=== PATIENT | male | born 1955 | race Caucasian/White ===

== ENCOUNTER 2023-05-13 09:02 | Outpatient (OUT) | payer OTHER, SELFPAY ==
[2023-05-13 09:47] LABS: Basophils Absolute Auto 0.1 10^3/uL (0.0-0.1); Basophils Percent Auto 0.7 % (0.2-2.0); Eosinophils Absolute Auto 0.3 10^3/uL (0.0-0.7); Eosinophils Percent Auto 3.3 % (0.9-7.0); Hematocrit 41.8 % (42.0-54.0); Hemoglobin 13.6 g/dL (14.0-18.0); Immature Granulocytes Abs Auto 0.04 10^3/uL (0.00-0.03); Immature Granulocytes Pct Auto 0.5 % (0.0-0.5); Lymphocytes Absolute Auto 3.5 10^3/uL (1.2-3.8); Lymphocytes Percent Auto 39.7 % (20.5-60.0); Mean Corpuscular HGB Conc 32.5 g/dL (29.9-35.2); Mean Corpuscular Hemoglobin 29.2 pg (25.9-34.0); Mean Corpuscular Volume 89.9 fL (80.0-94.0); Mean Platelet Volume 9.6 fL (9.5-13.5); Monocytes Absolute Auto 0.5 10^3/uL (0.3-0.8); Neutrophils Absolute Auto 4.4 10^3/uL (1.4-6.5); Neutrophils Percent Auto 49.8 % (43.0-75.0); Platelet Count 282 10^3/uL (150-450); Red Blood Count 4.65 10^6/uL (4.70-6.10); Red Cell Distribution Width 12.5 % (11.0-15.0); White Blood Count 8.8 10^3/uL (4.0-11.0)
[2023-05-13 09:59] LABS: Alanine Aminotransferase 30 U/L (16-63); Albumin Globulin Ratio 1.1; Albumin Level 3.6 g/dL (3.4-5.0); Alkaline Phosphatase 61 U/L (46-116); Aspartate Amino Transferase 18 U/L (15-37); BUN Creatinine Ratio 18.1; Bilirubin Total 0.4 mg/dL (0.2-1.0); Calcium 8.6 mg/dL (8.5-10.1); Carbon Dioxide 27.8 mmol/L (21.0-32.0); Chloride 105 mmol/L (98-107); Chol HDL Ratio 3.6; Cholesterol 173 mg/dL (<=200); Estimated GFR (African America >60 (>=60); Estimated GFR (Non-African Ame >60 (>=60); Globulin 3.3 g/dL; Glucose 196 mg/dL (74-106); HDL Cholesterol 48 mg/dL (40-60); LDL Cholesterol Calculated 107.6 mg/dL; Potassium 4.8 mmol/L (3.5-5.1); Sodium 138 mmol/L (136-145); Total Protein 6.9 g/dL (6.4-8.2); Triglycerides 87 mg/dL (<=150); VLDL CHOLESTEROL 17.4 mg/dL
[2023-05-13 10:26] LABS: Prostate Specific Antigen Scrn 6.46 ng/mL (<=4.00)
[2023-05-13 10:57] LABS: Estimated Average Glucose 169 mg/dL; Glycohemoglobin A1C 7.5 % (4.5-6.2)
== END 2023-05-13 09:03 | disposition home or self-care (01) ==
PROVIDERS: PCP Internal Medicine; Visit Provider Internal Medicine
DX: Z00.00 Encounter for general adult medical examination without abnormal findings (principal); Z12.5 Encounter for screening for malignant neoplasm of prostate
CPT/HCPCS: 36415; 80053; 80061; 83036; 85025; G0103

== ENCOUNTER 2024-05-26 09:21 | Outpatient (OUT) | payer OTHER, SELFPAY ==
[2024-05-26 09:49] LABS: Basophils Absolute Auto 0.1 10^3/uL (0.0-0.1); Basophils Percent Auto 0.6 % (0.2-2.0); Eosinophils Absolute Auto 0.2 10^3/uL (0.0-0.7); Eosinophils Percent Auto 2.8 % (0.9-7.0); Hematocrit 42.6 % (42.0-54.0); Hemoglobin 14.2 g/dL (14.0-18.0); Immature Granulocytes Abs Auto 0.06 10^3/uL (0.00-0.03); Immature Granulocytes Pct Auto 0.8 % (0.0-0.5); Lymphocytes Absolute Auto 3.3 10^3/uL (1.2-3.8); Lymphocytes Percent Auto 42.4 % (20.5-60.0); Mean Corpuscular HGB Conc 33.3 g/dL (29.9-35.2); Mean Corpuscular Hemoglobin 30.2 pg (25.9-34.0); Mean Corpuscular Volume 90.6 fL (80.0-94.0); Mean Platelet Volume 9.5 fL (9.5-13.5); Monocytes Absolute Auto 0.4 10^3/uL (0.3-0.8); Monocytes Percent Auto 4.8 % (1.7-12.0); Neutrophils Absolute Auto 3.8 10^3/uL (1.4-6.5); Neutrophils Percent Auto 48.6 % (43.0-75.0); Platelet Count 260 10^3/uL (150-450); Red Cell Distribution Width 12.3 % (11.0-15.0); White Blood Count 7.9 10^3/uL (4.0-11.0)
[2024-05-26 10:05] LABS: Microalbumin Urine Random <1.3 mg/dL (<=30.0)
[2024-05-26 10:05] LABS: Estimated Average Glucose 134 mg/dL; Glycohemoglobin A1C 6.3 % (4.5-6.2)
[2024-05-26 10:09] LABS: Alanine Aminotransferase 23 U/L (16-63); Albumin Globulin Ratio 1.1; Albumin Level 3.5 g/dL (3.4-5.0); Alkaline Phosphatase 66 U/L (46-116); Anion Gap 9.2; Aspartate Amino Transferase 18 U/L (15-37); BUN Creatinine Ratio 13.3; Bilirubin Total 0.4 mg/dL (0.2-1.0); Calcium 8.7 mg/dL (8.5-10.1); Carbon Dioxide 28.5 mmol/L (21.0-32.0); Chloride 106 mmol/L (98-107); Cholesterol 160 mg/dL (<=200); Estimated GFR (African America >60 (>=60); Estimated GFR (Non-African Ame >60 (>=60); Globulin 3.3 g/dL; Glucose 152 mg/dL (74-106); HDL Cholesterol 54 mg/dL (40-60); LDL Cholesterol Calculated 90.4 mg/dL; Potassium 4.7 mmol/L (3.5-5.1); Sodium 139 mmol/L (136-145); Total Protein 6.8 g/dL (6.4-8.2); Triglycerides 78 mg/dL (<=150); VLDL CHOLESTEROL 15.6 mg/dL
== END 2024-05-26 09:22 | disposition home or self-care (01) ==
LOC: LAB 09:25
PROVIDERS: PCP Internal Medicine; Visit Provider Internal Medicine
DX: Z00.00 Encounter for general adult medical examination without abnormal findings (principal)
CPT/HCPCS: 36415; 80053; 80061; 82043; 83036; 85025; G0103

== ENCOUNTER 2024-12-21 11:36 | Outpatient (OUT) | payer OTHER, SELFPAY ==
--- OUTSIDE RECORDS SUMMARY | 2024-12-21 11:41 | XMS_ITS | CCD ---
Author Organization [facility] Care Team Providers Care Medical Numerical Control Operator Name Role Phone Elpidio Sahu DO Primary Care Provider ROJELIO MYAES Attending Unavailable ROJELIO MAYES Admitting Unavailable ELPIDIO SAHU Primary Care Unavailable STACIA CLARK Consulting Unavailable DEYANIRA, DR PLATT Attending Unavailable DEYANIRA, DR PLATT Consulting Unavailable DEYANIRA, DR PLATT Primary Care Unavailable DEYANIRA, DR PLATT Admitting Unavailable Elpidio Sahu Unavailable ELPIDIO SAHU Primary Care Physician [phone] DO Elpidio Sahu Primary Care Provider [phone] MD Thong Matos Attending Provider Thong MATOS Attending Unavailable MATOS, Thong Sherwood Attending Unavailable EDY, Thong Sherwood Attending Unavailable MATOS, Thong Sherwood Attending Unavailable Edy, Thong Admitting Unavailable Edy, Thong Attending Unavailable Elpidio Sahu Primary Care Unavailable Edy, Thong Admitting Unavailable Edy, Thong Attending Unavailable Deyanira, Elpidio Primary Care Unavailable Allergies Allergy Classification Reported Allergen(s) Allergy Type Date of Onset Reaction(s) Facility (1 source) No Known Medication Allergies; Translations: [No Known Medication Allergies] Propensity to adverse reactions (disorder) [facility] Medications Current Medications Medication Drug Class(es) Dates Sig (Normalized) Sig (Original) 0.25 MG, 0.5 MG Dose 3 ML semaglutide 0.68 MG/ML Pen Injector [Ozempic] (2 sources) Start: 06-18-2024 Ozempic 2 mg/3 mL (0.25 mg or 0.5 mg dose) subcutaneous solution 0.5 mg Start Date: 06/18/24 Status: Ordered Acetaminophen (1 source) Start: 07-23-2021 acetaminophen (TYLENOL) tablet 650 mg ascorbic acid 1000 mg oral tablet (2 sources) Vitamin C Start: 07-26-2021 take 1 tablet by mouth once daily ascorbic acid (VITAMIN C) 1000 MG tablet Take 1 tablet by mouth daily 30 tablet 3 07/26/2021 Active Start: 07-24-2021 take 1000 mg by mouth once johanny ly 1,000 mg, Oral, DAILY, First dose on Tue07/24/21 at 0900 budesonide 0.25 mg/ml inhalation suspension (1 source) Corticosteroid Start: 07-23-2021 take 500 ug by mouth twice daily 500 mcg (0.5 mg), Nebulization, 2 TIMES DAILY, First dose on Tue07/23/21 at 2230 Rinse mouth out with water (without swallowing) after every dose. cholecalciferol 0.05 mg oral tablet (2 sources) Vitamin D Start: 07-26-2021 take 1 tablet by mouth once daily Vitamin D (CHOLECALCIFEROL) 50 MCG (1999 UT) TABS tablet Take 1 tablet by mouth daily 60 tablet 0 07/26/2021 Active Start: 07-24-2021 take 2000 [IU] by mt ut once daily 2,000 Units, Oral, DAILY, First dose on Tue07/24/21 at 0900 Maintenance Dose. dexamethasone 6 mg oral tablet (3 sources) Corticosteroid Start: 07-25-2021 End: 08-02-2021 take 1 tablet by mouth once daily at breakfast dexamethasone (DECADRON) 6 MG tablet Take 1 tablet by mouth daily (with breakfast) for 8 days 8 tablet 0 07/25/2021 08/02/2021 Active Start: 07-23-2021 End: 08-03-2021 6 mg, IntraVENous, EVERY 24 HOURS, First dose on Tue07/24/21 at 2000, For 10 doses dextromethorphan hydrobromide 2 mg/ml / guaiFENesin 20 mg/ml oral suspension (1 source) Uncompetitive H-gpfprt-C-aspartate Receptor Antagonist, Sigma-1 Agonist Start: 07-23-2021 take 5 mL by mouth every four hours as needed for cough 5 mL, Oral, EVERY 4 HOURS PRN, Cough, Starting on Tue07/23/21 at 2211 0.3 ml enoxaparin sodium 100 mg/ml prefilled syringe (1 source) Low Molecular Weight Heparin Start: 07-23-2021 inject 30 mg by subcutaneous injection twice daily 30 mg, SubCUTAneous, 2 TIMES DAILY, First dose on [place] 07/23/21 at 2230 glucagon (rdna) 1 mg injection (1 source) Antihypoglycemic Agent Start: 07-23-2021 take 1 mL intravenously every hour 1 mg, IntraMUSCular , PRN, Low blood sugar, Blood glucose less than 70 mg/dL and patient NOT ALERT or NPO and does not have IV access., Starting on [place] 07/23/21 at 2211 After administratio n, attempt intravenous access and start D5W at 100 mL/hr. Repeat blood glucose in 15 minutes x2 and notify provider. 150 ml glucose 50 mg/ml injection (3 sources) Start: 07-23-2021 15 g, Oral, PRN, Low blood sugar, Starting on [place] 07/23/21 at 2211 If blood glucose less than 50 mg/dL and patient ALERT and TOLERATING PO, give 2 tubes glucose gel. If blood glucose less than 70 mg/dL and patient ALERT and TOLERATING PO, give 1 tube glucose gel. Rep eat blood glucose in 15 minutes. If blood glucose is less than 70 mg/dL, repeat treatment and recheck blood glucose in 15 minutes x2 and notify provider. Start: 07-23-2021 12.5 g, IntraV ENous, PRN, Low blood sugar, Blood glucose less than 70 mg/dL and patient NOT ALERT or NPO., Starting on Tue07/23/21 at 2211 If patient does not respond within 5 minutes, repeat dose x1. Start D5W at 100 mL/hour until ordering provider can be reached. Repeat blood glucose in 15 minutes. If blood glucose is less than 70 mg/dL, repeat treatment and recheck blood glucose in 15 minutes x2. If using Glucostabilizer, dose as instructed per system. Start: 07-23-2021 100 mL/hr, Int raVENous, at 100 mL/hr, PRN, Low blood sugar, Starting on Tue07/23/21 at 2211 Start infusion following administration of dextrose 50% or glucagon. 3 ml insulin detemir 100 unt/ml pen injector (1 source) Insulin Analog Start: 07-25-2021 insulin detemi r (LEVEMIR FLEXTOUCH) 100 UNIT/ML injection pen Inject 10 Units into the skin daily (with breakfast) 2 pen 1 07/25/2021 Active insulin lispro 100 unt/ml injectable solution (2 sources) Insulin Analog Start: 07-24-2021 0-12 Units, Ruiz bCUTAneous, 3 TIMES DAILY WITH MEALS, First dose on Tue07/24/21 at 0800 Medium Dose Correction Algorithm Glucose: Dose: 70-139 No Insulin 140-199 2 Units 200-249 4 Units 250-299 6 Units 300-349 8 Units 350-399 10 Units 400 and above 12 Units Start: 07-23-2021 0-6 Units, Sub CUTAneous, NIGHTLY, First dose on Khushboo 07/23/21 at 2230 If continuous tube feedings/TPN/NPO, give correction dose based on result, no reduction in dose. If eating or bolus tube feeding: Medium Dose Bedtime Correction Algorithm Glucose: Dose: 70-139 No Insulin 140-199 1 Unit 200-249 2 Units 250-299 3 Units 300-349 4 Units 350-399 5 Units 400 and above 6 Units lisinopril 10 mg oral tablet (7 sources) Angiotensin Converting Enzyme Inhibitor Start: 06-01-2024 take 10 mg by mouth once daily Lisinopril Active 10 MG PO Daily June 01, 2024 12:00am Start: 01-18-2020 take 1 mg by mouth once daily lisinopril 5 mg Tab mg tab(s), Oral, Daily, Refills(s) 0 Start Date: 01/18/20 Status: Ordered take 1 tablet by greg th once daily Lisinopril 10 MG Take 1 tablet by mouth once daily Active lovastatin 10 mg oral tablet (6 sources) HMG-CoA Reductase Inhibitor Start: 01-17-2020 take 1 mg by mouth once daily lovastatin 10 mg Tab mg tab(s), Oral, Daily, Refills(s) 0 Start Date: 01/17/20 Status: Ordered metFORMIN (15 sources) Biguanide Start: 06-27-2024 Metformin Acti ve 0 .ROUTE .COMPLEX 45 June 27, 2024 7:39am TAKE 1 TABLET BY MOUTH WITH BREAKFAST AND 1/2 (ONE-HALF) WITH SUPPER Start: 05-04-2024 End: 06-27-2024 Metformin Discontinued 0 .RO MARY .COMPLEX May 04, 2024 7:29am June 27, 2024 7:39am TAKE 1 TABLET BY MOUTH WITH BREAKFAST AND 1/2 (ONE-HALF) WITH SUPPER Start: 05-04-2024 Metformin Acti ve 0 .ROUTE .COMPLEX May 04, 2024 7:29am TAKE 1 TABLET BY MOUTH WITH BREAKFAST AND 1/2 (ONE-HALF) WITH SUPPER Start: 03-19-2024 End: 05-04-2024 Metformin Discontinued 0 .RO MARY .COMPLEX March 19, 2024 12:43pm May 04, 2024 7:29am TAKE 1 TABLET BY MOUTH WITH BREAKFAST AND 1/2 (ONE-HALF) WITH SUPPER FOR 30 DAYS Start: 03-19-2024 End: 03-19-2024 Metformin Discontinued 1000 MG PO March 19, 2024 12:00am March 19, 2024 12:43pm 1 tablet w/ bkfst and 1/2 w/ supper Orally bid Start: 01-17-2020 take 1 mg by mouth twice daily metformin 500 mg Tab mg tab(s), Oral, BID, Refills(s) 0 Start Date: 01/17/20 Status: Ordered metFORMIN HCl 10 00 MG 1 tablet w/ bkfst and 1/2 w/ supper Orally bid Active ondansetron (ZOFRAN-ODT) disintegrating tablet 4 mg (1 source) Start: 07-23-2021 ondansetron (Z OFRAN-ODT) disintegrating tablet 4 mg ozempic (0.25 or 0.5 mg/dose) 2 mg/3ml solution pen-injector (1 source) Start: 12-02-2023 Ozempic (0.25 or 0.5 MG/DOSE) 2 MG/3ML 0.25MG Subcutaneous weekly for 28 days Dec, Active polyethylene glycol 3350 72528 mg powder for oral solution (1 source) Osmotic Laxative Start: 07-23-2021 17 g, Oral, D AILY PRN, Constipation, Starting on Tue07/23/21 at 2211 First line therapy for constipation remdesivir 100 mg in sodium chloride 0.9 % 250 mL IVPB (2 sources) Start: 07-25-2021 End: 07-28-2021 remdesivir 100 mg in sodium chloride 0.9 % 250 mL IVPB Start: 07-24-2021 End: 07-25-2021 remdesivir 100 mg in sodium chloride 0.9 % 250 mL IVPB Semaglutide (2 sources) Start: 07-17-2024 inject 1 mg by subcutaneous injection every week Semaglutide Active 1 MG SUBCUT every week 3 July 17, 2024 5:43pm for 4 weeks 1000 ml sodium chloride 9 mg/ml injection (6 sources) Start: 07-24-2021 0.9 % sodium c hloride infusion Start: 07-23-2021 take 1 dose intraven ously twice daily 5-40 mL, IntraVENous, EVERY 12 HOURS SCHEDULED (2 times per day), First dose on Khushboo 07/23/21 at 2230 For Line Patency: Peripheral IV = 5 mL; Midline or Central Line = 10 mL/lumen. If following IV push medication, administer flush at same rate as the IV push. Flush volume is determined by type of infusion therapy being given. For non-viscous solutions use: Peripheral IV = 5 mL Midline or Central Line = 10 mL/lumen For viscous solutions (i.e. blood components, parenteral nutrition, contrast media, or after obtaining blood sample) use: Peripheral IV = 10 mL Midline or Central Line = 20 mL/lumen Start: 07-23-2021 take 5-40 mL intrave nously once as needed 5-40 mL, IntraVENous, PRN, Line Care, After every IV line use, Starting on Khushboo 07/23/21 at 2211 For Line Patency: Peripheral IV = 5 mL; Midline or Central Line = 10 mL/lumen. If following IV push medication, administer flush at same rate as the IV push. Flush volume is determined by type of infusion therapy being given. For non-viscous solutions use: Peripheral IV = 5 mL Midline or Central Line = 10 mL/lumen For viscous solutions (i.e. blood components, parenteral nutrition, contrast media, or after obtaining blood sample) use: Peripheral IV = 10 mL Midline or Central Line = 20 mL/lumen Start: 07-23-2021 take 25 mL intraveno usly every hour as needed 25 mL, IntraVENous, at 100 mL/hr, PRN, If patient receiving piggyback infusions without ordered maintenance IV fluids or with frequent/long duration piggyback infusions, Starting on Kh[place]boo 07/23/21 at 2211 Administer at the same rate as the piggyback being infused. Start: 07-23-2021 End: 07-23-2021 0.9 % sodium chloride bolus Completed/Discontinued Medications Medication Drug Class(es) Dates Sig (Normalized) Sig (Original) potassium chloride 10 meq extended release oral tablet (1 source) Start: 07-23-2021 End: 07-23-2021 40 mEq, Oral, ONCE, On [facility] 07/23/21 at 2230, For 1 dose Do not crush or break. Start: 07-23-2021 End: 07-23-2021 40 mEq, Oral, ONCE, On Kh[place]boo at 2230, For 1 dose Do not crush or break. Semaglutide (6 sources) Start: 02-03-2024 End: 07-17-2024 Semaglutide (Ozempic) 0.25 m g or 0.5 mg (2 mg/3 mL) pen injector Discontinued 0.5 MG SUBCUT every week 3 February 03, 2024 2:34pm July 17, 2024 5:43pm for 4 weeks Start: 02-03-2024 Semaglutide (O zempic) 0.25 mg or 0.5 mg (2 mg/3 mL) pen injector Active 0.5 MG SUBCUT every week 3 February 03, 2024 2:34pm for 4 weeks Start: 02-02-2024 End: 02-03-2024 Semaglutide (Ozempic) 0.25 m g or 0.5 mg (2 mg/3 mL) pen injector Discontinued 0.5 MG SUBCUT every week 3 February 02, 2024 12:00am February 03, 2024 2:34pm for 4 weeks Problems Problem Classification Problem Date Documented Date Episodic/Chronic Cancer of prostate (2 sources) Malignant neoplasm of prostate; Translations: [Malignant tumor of prostate] Onset: 08-31-2024 Chronic Diabetes mellitus with complications (8 sources) Hyperglycemia due to type 2 diabetes mellitus; Translations: [Type 2 diabetes mellitus with hyperglycemia] Chronic Diabetes mellitus without complication (2 sources) Diabetes mellitus 01-17-2020 Chronic Disorders of lipid metabolism (14 sources) Familial hypercholesterolemia ; Translations: [Familial hypercholesterolemia ] Onset: 04-29-2017 Chronic Essential hypertension (11 sources) Essential hypertension; Translations: [Essential (primary) hypertension] Chronic Genitourinary symptoms and ill-defined conditions (2 sources) Nocturia; Translations: [Nocturia] Episodic Hyperplasia of prostate (7 sources) Lower urinary tract symptoms due to benign prostatic hypertrophy; Translations: [Benign prostatic hyperplasia with lower urinary tract symptoms] Onset: 06-18-2024 Chronic Immunizations and screening for infectious disease (1 source) Vaccination given; Translations: [Encounter for immunization] Episodic Nutritional deficiencies (2 sources) Nutritional marasmus; Translations: [Unspecified severe protein-calorie malnutrition] Onset: 07-24-2021 Chronic Other male genital disorders (5 sources) Atypical small acinar proliferation of prostate; Translations: [Atypical small acinar proliferation of prostate] 05-31-2024 Episodic Other male genital disorders (3 sources) Atypical small acinar proliferation of prostate; Translations: [Neoplasm of uncertain behavior of prostate] 06-01-2024 Episodic Other nutritional; endocrine; and metabolic disorders (1 source) Simple obesity ; Translations: [Other obesity due to excess calories] Onset: 04-29-2017 Chronic Other nutritional; endocrine; and metabolic disorders (1 source) Body mass index 30+ - obesity; Translations: [Body mass index (BMI) 30.0-30.9, adult] Chronic Other nutritional; endocrine; and metabolic disorders (1 source) Obesity; Translations: [Obesity, unspecified] Chronic Other nutritional; endocrine; and metabolic disorders (1 source) Other obesity due to excess calories Chronic Other nutritional; endocrine; and metabolic disorders (1 source) Body mass index (BMI) 30.0-30.9, adult Chronic Other nutritional; endocrine; and metabolic disorders (5 sources) Overweight; Translations: [Overweight] Onset: 04-29-2017 06-13-2024 Episodic Other nutritional; endocrine; and metabolic disorders (3 sources) Overweight; Translations: [Overweight] Onset: 04-29-2017 Episodic Other screening for suspected conditions (not mental disorders or infectious disease) (14 sources) Encounter for screening for malignant neoplasm of prostate; Translations: [Raised prostate specific antigen] Onset: 05-12-2022 Episodic Viral infection (2 sources) COVID-19; Translations: [Pneumonia due to other virus not elsewhere classified] Onset: 07-23-2021 Episodic Viral infection (1 source) Disease caused by 2019-nCoV; Translations: [COVID-19] Results Test Name Value Interpretation Reference Range Facility Ambulatory Visit Summaryon 1 11-03-2023 Ambulatory Visit Summary Ambulatory Visi t Summary SID HAN :1955 Visit Date:09/03/2024 Ambulatory Visit Instructions Your Diagnosis Prostate cancer BPH (benign prostatic hyperplasia) Your Care Team Attending Physician - Thong MATOS MD Primary Care Physician - ELPIDIO SAHU DO This Is Your Medications List Contact prescribing physician if questions or concerns lisinopril (lisinopril 5 mg Tab) lovastatin (lovastatin 10 mg Tab) metformin (metformin 500 mg Tab) semaglutide (Ozempic 2 mg/3 mL (0.25 mg or 0.5 mg dose) subcutaneous solution) Procedures Performed MRI-US fusion guided transrectal biopsy of prostate (08/14/2024), Cholecystectomy, Tonsillectomy. Discharge Vitals Temperature (Temporal Artery) 37 ???C Heart Rate (Peripheral) 70 Respiratory Rate 18 Blood Pressure 136/75 Weight 95 kg Weight 209 lb What to do next Scheduled Follow-Up Appointments Tuesday 9:45 AM EDT With: Thong MATOS MD Where: [facility] [address] [place] [address]- You Need to Schedule the Following Appointments Follow Up with Thong MATOS MD, URL When: Where: [facility] [address], [facility] [place] [address]- Medications What How Much When Instructions Unchanged lisinopril (lisinopril 5 mg Tab) By Mouth Every day Contact prescribing physician if questions or concerns Unchanged lovastatin (lovastatin 10 mg Tab) By Mouth Every day Contact prescribing physician if questions or concerns Unchanged metformin (metformin 500 mg Tab) By Mouth 2 times a day Contact prescribing physician if questions or concerns Unchanged semaglutide (Ozempic 2 mg/ 3 mL (0.25 mg or 0.5 mg dose) subcutaneous solution) 0.5 Milligram Contact prescribing physician if questions or concerns Allergies No Known Medication Allergies Problems Ongoing - Any problem that you are currently receiving treatment for. Atypical small acinar proliferation of prostate BPH (benign prostatic hyperplasia) Diabetes mellitus Elevated PSA Hypercholesterolemia Hyperlipidemia Hypertension Overweight Prostate cancer Patient Survey You may receive a survey via text or e-mail asking about your office visit. Please share your experience with us by completing your survey. We appreciate your feedback and thank you for choosing us for your care. Education Materials Prostate Cancer The prostate is a small gland that produces fluid that makes up semen (seminal fluid). It is located below the bladder in men, in front of the rectum. Prostate cancer is the abnormal growth of cells in the prostate gland. What are the causes? The exact cause of this condition is not known. What increases the risk? You are more likely to develop this condition if: ??? You are 65 years of age or older. ??? You have a family history of prostate cancer. ??? You have a family history of breast and ovarian cancer. ??? You have genes that are passed from parent to child (inherited), such as BRCA1 and BRCA2. ??? You have Lucas syndrome. men and men of descent are diagnosed with prostate cancer at higher rates than other men. The reasons for this are not well understood and are likely due to a combination of genetic and environmental factors. What are the signs or symptoms? Symptoms of this condition include: ??? Problems with urination. This may include: ? A weak or interrupted flow of urine. ? Trouble starting or stopping urination. ? Trouble emptying the bladder all the way. ? The need to urinate more often, especially at night. ??? Blood in urine or semen. ??? Persistent pain or discomfort in the lower back, lower abdomen, or hips. ??? Trouble getting an erection. ??? Weakness or numbness in the legs or feet. How is this diagnosed? This condition can be diagnosed with: ??? A digital rectal exam. For this exam, a health care provider inserts a gloved finger into the rectum to feel the prostate gland. ??? A blood test called a prostate-specific antigen (PSA) test. ??? A procedure in which a sample of tissue is taken from the prostate and checked under a microscope (prostate biopsy). ??? An imaging test called transrectal ultrasonography. Once the condition is diagnosed, tests will be done to determine how far the cancer has spread. This is called staging the cancer. Staging may involve imaging tests, such as a bone scan, CT scan, PET scan, or MRI. Stages of prostate cancer The stages of prostate cancer are as follows: ??? Stage 1 (I). At this stage, the cancer is found in the prostate only. The cancer is not visible on imaging tests, and it is usually found by accident, such as during prostate surgery. ??? Stage 2 (II). At this stage, the cancer is more advanced than it is in stage 1, but the cancer has not sprea (more content not included)... Normal [facility] Urology Office/Clinic Noteon 09-03-2024 Urology Office/Clinic Note Urology Office/Clinic Note Chief Complaint review TRUS BX [id number] HPI Staff PO TRUS/MRI fusion bx 08/14/24, here to review path report. Last seen IO 06/18/24. Previous dx: elevated PSA, BPH. *No urologic meds Prostate MRI 07/25/24 [facility] [place] showed PI-RADS 4 lesion. Dysuria: denies Incomplete bladder emptying: denies Hematuria: denies Frequency: denies Urgency: denies Nocturia: 0-1x Stream: good steady Leaking: denies Post void dripping: denies Wearing pads/ Depends: denies Urge incontinence: denies Stress incontinence: denies Incontinence without Sensory Awareness: denies Abdominal pain: denies Flank pain: denies Sexual complaints: denies History of Present Illness Tests reviewed: UA, op note, path, MRI I have reviewed the previous health record information and history for this patient from Dr. Matos. I have reviewed and verified the staff HPI to be accurate for this encounter. Review of Systems PHQ Score Initial Depression Screen Score: 0 SCORE ROS - Provider Constitutional: denies weight loss, denies hot flashes. Eyes: denies eye problems. Gastrointestinal: denies nausea, denies vomiting. Cardiovascular: denies chest pain or angina. Integumentary: no dryness Musculoskeletal: denies musculoskeletal symptoms. ENMT: denies otolaryngeal symptoms. Respiratory: no shortness of breath. Heme/Lymph: denies easy bleeding tendency, denies easy bruising tendency. Psychiatric: no confusion, no anxiety. Genitourinary: See HPI. Physical Exam Vitals & Measurements T: 37 ???C(Temporal Artery) HR: 70(Peripheral) RR: 18 BP: 136/75 WT: 95 kg WT: 209 lb General Appearance: alert, no distress, well nourished, well developed male. Assessment/Plan Pt accompanied by an adult female today. 1. Prostate cancer (C61: Malignant neoplasm of prostate) PSA: 04/22/17- 4.22 05/28/17 - 3.49 & 12% 07/22/17 - 3.36 & 13% 05/26/18 - 4.27 01/05/20 - 4.75 05/16/21 - 5.99 05/08/22 - 5.45 05/13/23 - 6.46 05/26/24 - 6.80 TRUS/bx 09/06/17 - MILLY x 2 cores. TRUS/bx 11/07/18 - Benign prostatic tissue with chronic inflammation. DELICIA 06/18/24 - 45g, benign [1]. MRI prostate 07/25/24 - PI-RADS 4 posterior aspect L PZ mid gland 9 x 6 mm. No gross extracapsular extension. Prostate volume 58 cc. S/p fusion TRUS/bx 08/14/24 - Total of 17 cores. G6 (3+3) x 1 core (LLM), ~5% of submitted tissue. Small focus of atypical glands, suspicious for low grade adenocarcinoma x 1 core (RLM). The pathology report, which shows the presence of low grade, low volume prostate cancer, was disclosed to the patient in detail today. Educated pt on Austin scoring system. I discussed active surveillance protocol (PSA, DELICIA q4 mos, confirmatory bx 1-2 yrs from original bx) with the pt. R/Bs discussed. All questions were answered in terms the patient could understand completely. Pt is amenable. Follow up 4-6 mos with PSA, DELICIA or sooner if needed. Pt understands and agrees with plan. -Start active surveillance. 2. BPH (benign prostatic hyperplasia) (N40.0: Benign prostatic hyperplasia without lower urinary tract symptoms) UA neg. IPSS not completed (4). Not taking any BPH meds. Follow-up With When Contact Information EDY CARRINGTON, Thong Sherwood, URL [facility] [address], [place] [address]- Additional Instructions: 4-6 mos with PSA, DELICIA Patient Education Prostate Cancer I, Precious Guillory, personally scribed for Dr. Matos on 09/03/2024 11:29:31. . Documentation recorded by the scribe, Precious Guillory, accurately reflects the services(s) I performed and decisions made by me. Authenticated by Dr. Matos on 09/03/2024 11:35:17. Problem List/Past Medical History Ongoing Atypical small acinar proliferation of prostate BPH (benign prostatic hyperplasia) Diabetes mellitus Elevated PSA Hypercholesterolemia Hyperlipidemia Hypertension Overweight Prostate cancer Historical No qualifying data Procedure/Surgical History MRI-US fusion guided transrectal biopsy of prostate (08/14/2024), Cholecystectomy, Tonsillectomy. Medications lisinopril 5 mg Tab, Oral, Daily lovastatin 10 mg Tab, Oral, Daily metformin 500 mg Tab, Oral, BID Ozempic 2 mg/3 mL (0.25 mg or 0.5 mg dose) subcutaneous solution, 0.5 mg Allergies No Known Medication Allergies Social History Alcohol Current. Beer, Liquor. 1-2 times per week., 09/03/2024 Substance Abuse Never., 09/03/2024 Tobacco Former smoker, quit more than 30 days ago Tobacco Use:. Cigarettes, Household tobacco concerns: No. Yes, 09/03/2024 Family History Diabetes mellitus type 1: Father. Heart disease: Father. Immunizations Vaccine Date Status Comments influenza virus vaccine, inactivated 08/12/2023 Recorded SARSCoV2 mRNA(nvleiddky-bohk-u ucros) vac 03/26/2022 Recorded SARS-CoV-2 (COVID-19) mRNA BNT-162b2 vax 10/09/2021 Recorded SARS-CoV-2 (COVID-19) mRNA BNT-162b2 v (more content not included)... Normal [facility] Comment on above: Result Comment: Elec tronically Signed By: Thong MATOS MD\.br\Date and Time Signed: 09/03/24 11:35 EST\.br\Electronically Co-Signed By: Precious Guillory\.br\Date and Time Co-Signed: 09/03/24 11:30 EST\.br\Electronically Co-Signed By: Precious Guillory\.br\Date and Time Co-Signed: 09/03/24 11:32 EST Pathology Request for Lab Co rpon 08-14-2024 Pathology Request for Lab Michael Normal [facility] Comment on above: Order Comment: PATHO LOGY UROLOGY SPECIMEN Result Comment: See report. Scanned copy available in EMR. PERFORMED BY: [place] [address] PATHOLOGIST ENAMEL FINISHER FRANCISCO LOPEZ M.D. Performed By: #### P ATH TO [facility] #### [address] MR prostate wo/w conon 07-26 MR prostate wo/w con [facility] Main Lead [address] [place] [address] MRI Report Signed Patient: Sid Han MR#: [id number] : 1955 Acct:[id number] Age/Sex: 69 / M ADM Date: 07/25/24 Loc: Room: Type: [facility] Attending Dr: Tohng Matos MD Copies to: Thong Matos MD Ordering Provider: Thong Matos MD Date of Service: 07/25/24 MR/MR prostate wo/w con: R97.20 EXAMINATION: MR prostate wo/w con HISTORY: Elevated PSA. COMPARISON: NONE TECHNIQUE: Multiparametric imaging of the prostate gland was performed with IV contrast. FINDINGS: Prostate Dimensions: 4.9 x 3.9 x 5.8 cm Prostate Volume: 58 mL Peripheral Zone: Heterogenous inT2 signal suggestive of prior prostatitis. A focal area of T2 hypointensity is seen involving the posterior aspect of the left peripheral zone at the level of the mid gland measuring 9 x 6 mm with associated restricted diffusion and low ADC value. No gross extracapsular extension is seen. Please see series 6 image 17, series 7 and 50 image 17 and series 700 image 17. Central/Transitional Zone: BPH changes. Seminal Vesicles: Unremarkable Neurovascular bundles: Unremarkable. Lymphadenopathy: No evidence of lymphadenopathy. Bladder: No focal lesion. Bowel: The visualized bowel is without acute abnormality. Peritoneal Cavity: No free fluid. Bones: No suspicious bony lesion. MR/MR prostate wo/w con IMPRESSION: A focal area of T2 hypointensity is seen involving the posterior aspect of the left peripheral zone at the level of the mid gland measuring 9 x 6 mm with associated restricted diffusion and low ADC value. No gross extracapsular extension is seen. Please see series 6 image 17, series 7 and 50 image 17 and series 700 image 17.PI-RADS 4. Targeting of this area on biopsy is recommended. Impression dictated by: Huy Jimenez Jr., Yaritza.OMinda07/26/2024 8:55 AM Dictation Location: [place] [address] Transcribed By: [facility] 07/26/24854 Dictated By: Huy Jimenez Jr, DO 07/26/2434 Signed By: 07/26/2455 Normal [facility] ISTAT XRay CREon 07-25-2024 ISTAT GFR > 60.0 Normal [facility] Comment on above: Result Comment: PERF ORMED BY: [place] [address] PATHOLOGIST ENAMEL FINISHER FRANCISCO LOPEZ M.D. Performed By: #### I SCRE #### [address] No Panel InformationOrdered By: Thong Matos on 07-25-2024 Bedside Estimated GFR (eGFR) > 60.0 [facility] Whole blood creatinine measu rementOrdered By: Thong Matos on 07-25-2024 Creatinine [Mass/Vol] 1.0 mg/dL Normal 0.6-1.[address] [facility] Comment on above: ER/ESD physician is notified/shown all ISTAT results.Critical values may be confirmed by laboratory testing ifdeemed necessary by ER attending doctor. Result Comment: ER/E SD physician is notified/shown all ISTAT results. Critical values may be confirmed by laboratory testing if deemed necessary by ER attending doctor. Performed By: #### I SCRE #### [facility] [address] [id number] [facility] Ambulatory Visit Summaryon 0 06-18-2024 Ambulatory Visit Summary Ambulatory Visi t Summary SID HAN :1955 Visit Date:06/18/2024 Ambulatory Visit Instructions Your Diagnosis Elevated PSA BPH (benign prostatic hyperplasia) Tests Performed MRI Pelvis (Soft Tissue) w/ + w/o contrast -- Results Pending -- Please visit your patient portal for your results or contact your primary care physician. Your Care Team Attending Physician - Thong MATOS MD Primary Care Physician - ELPIDIO SAHU DO This Is Your Medications List Contact prescribing physician if questions or concerns lisinopril (lisinopril 5 mg Tab) lovastatin (lovastatin 10 mg Tab) metformin (metformin 500 mg Tab) semaglutide (Ozempic 2 mg/3 mL (0.25 mg or 0.5 mg dose) subcutaneous solution) Procedures Performed Cholecystectomy, Tonsillectomy. Discharge Vitals Heart Rate (Peripheral) 76 Blood Pressure 148/82 Height 182 cm Height 72 in Weight 95.5 kg Weight 210.1 lb BMI 28.83 What to do next Scheduled Follow-Up Appointments Tuesday 9:45 AM EDT With: Thong MATOS MD Where: [facility] [place] [id number]- You Need to Schedule the Following Appointments Follow Up with Thong MATOS MD, URL When: Where: [facility] [address], [place] [address]- [phone] Medications What How Much When Instructions Unchanged lisinopril (lisinopril 5 mg Tab) By Mouth Every day Contact prescribing physician if questions or concerns Unchanged lovastatin (lovastatin 10 mg Tab) By Mouth Every day Contact prescribing physician if questions or concerns Unchanged metformin (metformin 500 mg Tab) By Mouth 2 times a day Contact prescribing physician if questions or concerns Unchanged semaglutide (Ozempic 2 mg/ 3 mL (0.25 mg or 0.5 mg dose) subcutaneous solution) 0.5 Milligram Contact prescribing physician if questions or concerns Allergies No Known Medication Allergies Problems Ongoing - Any problem that you are currently receiving treatment for. Atypical small acinar proliferation of prostate BPH (benign prostatic hyperplasia) Diabetes mellitus Elevated PSA Hypercholesterolemia Hyperlipidemia Hypertension Overweight Patient Survey You may receive a survey via text or e-mail asking about your office visit. Please share your experience with us by completing your survey. We appreciate your feedback and thank you for choosing us for your care. Education Materials Magnetic Resonance Imaging Magnetic resonance imaging (MRI) is a painless test that produces detailed images of organs and tissues inside the body without using X-rays. During an MRI, strong magnets and radio waves work together to form images. MRI images may provide more details about a medical condition than X-rays, CT scans, and ultrasounds can provide. For a standard MRI, you will lie on a table that slides into a tunnel. In an open MRI, the tunnel will be open at the sides. In some cases, dye (contrast material) may be injected into your bloodstream to make the MRI images even clearer. Tell a health care provider about: ? Any allergies you have. ? All medicines you are taking, including vitamins, herbs, eye drops, creams, and yqqs-gnq-nklxacl medicines. ? Any surgeries you have had. ? Any medical conditions you have. ? Any metal you may have in your body. The magnets used in an MRI can cause metal objects in your body to move. Metal can also make it difficult to get clear images. Objects that may contain metal include: ? Any joint replacement (prosthesis), such as an artificial knee or hip. ? An implanted defibrillator, pacemaker, or neurostimulator. ? A metallic ear implant (cochlear implant). ? An artificial heart valve. ? A metallic object in the eye. ? Metal splinters. ? Bullet fragments. ? A port for delivering insulin or chemotherapy. ? Any tattoos you have. Some of the darker inks can cause problems with testing. ? Whether you are using a control implant such as an intrauterine device (IUD). ? Whether you are , may be , or are . ? Any fear of cramped spaces (claustrophobia). If this is a problem, it usually can be managed with medicines given prior to the MRI. What are the risks? Generally, this is a safe test. However, problems may occur, such as: ? If you have metal in your body and it is close to the area being tested, it may be hard to get high-quality images. ? If you are , you should avoid MRI tests during the first three months of . An MRI may affect an unborn baby. ? If dye is used: ? You may need to stop until the dye leaves your body naturally, if this applies. ? There is a risk of an allergic reaction to the dye. You can take medicines to prevent this reaction or to treat it if you have allergy (more content not included)... Normal [facility] Basophils Auto (Bld) [#/Vol] on 05-26-2024 Basophils (Bld) [#/Vol] 0.1 10 3/uL 0.0-0.1 [facility] Basophils/100 WBC Auto (Bld) on 05-26-2024 Basophils/100 WBC (Bld) 0.6 % 0.2-2.0 [facility] Cholesterol in LDL Calc [Mas s/Vol]on 05-26-2024 Cholesterol in LDL [Mass/Vol] 90.4 mg/dL [facility] Comment on above: <100 mg/dl [id number] 0-129 mg/dl NEAR OR ABOVE [id number] mg/dl BORDERLINE [id number] mg/dl HIGH>190 mg/dl VERY HIGH Cholesterol in VLDL Calc [Ma ss/Vol]on 05-26-2024 Cholesterol in VLDL [Mass/Vol] 15.6 mg/dL [facility] Eosinophils/100 WBC Auto (Bl d)on 05-26-2024 Eosinophils/100 WBC (Bld) 2.8 % 0.9-7.0 [facility] Erythrocyte distribution wid th Auto (RBC) [Ratio]on 05-26-2024 Erythrocyte distribution width (RBC) [Ratio] 12.3 % 11.0-15.0 [facility] Estimated glomerular filtrat ion rate (GFR) non- Americanon 05-26-2024 GFR/1.73 sq M.predicted among non-blacks MDRD (S/P/Bld) [Vol rate/Area] mL/min/{1.73_m2} >=60 [facility] Globulin Calc (S) [Mass/Vol] on 05-26-2024 Globulin (S) [Mass/Vol] 3.3 g/dL [facility] Glucose mean value [Mass/vol ume] in Blood Estimated from glycated hemoglobinon 05-26-2024 Average glucose Estimated from glycated hemoglobin (Bld) [Mass/Vol] 134 mg/dL [facility] Hematocrit Auto (Bld) [Volum e fraction]on 05-26-2024 Hematocrit (Bld) [Volume fraction] 42.6 % 42.0-54.0 [facility] Hemoglobin [Mass/volume] in Bloodon 05-26-2024 Hemoglobin (Bld) [Mass/Vol] 14.2 g/dL 14.0-18.0 [facility] Laboratory - Chemistry and C hemistry - challengeon 05-26-2024 Albumin [Mass/Vol] 3.5 g/dL 3.4-5.0 [facility] ALP [Catalytic activity/Vol] 66 U/L 46-116 [facility] ALT [Catalytic activity/Vol] 23 U/L 16-63 [facility] AST [Catalytic activity/Vol] 18 U/L 15-37 [facility] Bilirubin [Mass/Vol] 0.4 mg/dL 0.2-1.0 [facility] Calcium [Mass/Vol] 8.7 mg/dL 8.5-10.1 [facility] Chloride [Moles/Vol] 106 mmol/L 98-107 [facility] Cholesterol [Mass/Vol] 160 mg/dL <=200 [facility] Cholesterol in HDL [Mass/Vol] 54 mg/dL 40-60 [facility] Comment on above: > or =60 mg/dl - LOW CARDIOVASCULAR RISK<40 mg/dl - HIGH CARDIOVASCULAR RISK CO2 [Moles/Vol] 28.5 mmol/L 21.0-32.0 [facility] Creatinine [Mass/Vol] 0.98 mg/dL 0.70-1.[address] [facility] GFR/1.73 sq M.predicted MDRD (S/P/Bld) [Vol rate/Area] mL/min/{1.73_m2} >=60 [facility] Glucose [Mass/Vol] 152 mg/dL High 74-106 [facility] Potassium [Moles/Vol] 4.7 mmol/L 3.5-5.[address] [facility] Protein [Mass/Vol] 6.8 g/dL 6.4-8.2 [facility] Sodium [Moles/Vol] 139 mmol/L 136-145 [facility] Triglyceride [Mass/Vol] 78 mg/dL <=150 [facility] Urea nitrogen [Mass/Vol] 13.0 mg/dL 7.0-18.0 [facility] Urea nitrogen/Creatinine [Mass ratio] 13.3 mg/mg [facility] Laboratory - Hematology and Cell countson 05-26-2024 HbA1c (Bld) [Mass fraction] 6.3 % High 4.5-6.2 [facility] Comment on above: ADA RECOMMENDED LIMI T 4.0 - 6.0ADA THERAPEUTIC TARGET < 7.0ACTION SUGGESTED> 7.0 Immature granulocytes/100 WBC (Bld) 0.8 % High 0.0-0.5 [facility] Leukocytes [#/volume] correc bandar for nucleated erythrocytes in Blood by Automated counon 05-26-2024 WBC corrected for nucl RBC Auto (Bld) [#/Vol] 7.9 10 3/uL 4.0-11.0 [facility] Lymphocytes Auto (Bld) [#/Vo l]on 05-26-2024 Lymphocytes (Bld) [#/Vol] 3.3 10 3/uL 1.2-3.8 [facility] Lymphocytes/100 WBC Auto (Bl d)on 05-26-2024 Lymphocytes/100 WBC (Bld) 42.4 % 20.5-60.0 [facility] MCH Auto (RBC) [Entitic mass ]on 05-26-2024 MCH (RBC) [Entitic mass] 30.2 pg 25.9-34.0 [facility] MCHC Auto (RBC) [Mass/Vol]on 05-26-2024 MCHC (RBC) [Mass/Vol] 33.3 g/dL 29.9-35.[address] [facility] MCV Auto (RBC) [Entitic vol] on 05-26-2024 MCV (RBC) [Entitic vol] 90.6 fL 80.0-94.0 [facility] Microalbumin [Mass/volume] i n Urineon 05-26-2024 Albumin DL <= 20 mg/L (U) [Mass/Vol] mg/dL <=30.0 [facility] Monocytes Auto (Bld) [#/Vol] on 05-26-2024 Monocytes (Bld) [#/Vol] 0.4 10 3/uL 0.3-0.8 [facility] Monocytes/100 WBC Auto (Bld) on 05-26-2024 Monocytes/100 WBC (Bld) 4.8 % 1.7-12.0 [facility] Neutrophils Auto (Bld) [#/Vo l]on 05-26-2024 Neutrophils (Bld) [#/Vol] 3.8 10 3/uL 1.4-6.5 [facility] Neutrophils/100 WBC Auto (Bl d)on 05-26-2024 Neutrophils/100 WBC (Bld) 48.6 % 43.0-75.0 [facility] No Panel Informationon 05-26 Eosinophils # (Auto) 0.2 10 3/uL 0.0-0.[address] [facility] Immature Granulocyte # (Auto) 0.06 10 3/uL High 0.00-0.03 [facility] Prostate Specific Antigen Screen 6.80 ng/mL High <=4.00 [facility] Platelet mean volume Auto (B ld) [Entitic vol]on 05-26-2024 Platelet mean volume (Bld) [Entitic vol] 9.5 fL 9.5-13.5 [facility] Platelets Auto (Bld) [#/Vol] on 05-26-2024 Platelets (Bld) [#/Vol] 260 10 3/uL 150-450 [facility] RBC Auto (Bld) [#/Vol]on RBC (Bld) [#/Vol] 4.70 10 6/uL 4.70-6.10 [facility] Serum or plasma albumin/glob ulin mass ratioon 05-26-2024 Albumin/Globulin [Mass ratio] 1.1 {ratio} [facility] Serum or plasma anion gap de terminationon 05-26-2024 Anion gap [Moles/Vol] 9.2 mmol/L [facility] Serum or plasma total choles terol/high density lipoprotein (HDL) cholesterol mass nohemy 05-26-2024 Cholesterol.total/Choles terol in HDL [Mass ratio] 3.0 {ratio} [facility] Comment on above: 3.3 - 4.4 LOW RISK4. 4 - 7.1 AVERAGE RISK7.1 - 11.0 MODERATE RISK>11.0 HIGH RISK CBC AUTO DIFFon 05-08-2022 BASO # 0.1 103/ul Normal 0.0-0.1 [facility] Comment on above: Performed By: #### C BC #### [facility] [address] [place] [address] [address] Oniel Jackson Basophils/100 WBC (Bld) 0.6 % Normal 0.2-2.0 [facility] Comment on above: Performed By: #### C BC #### [facility] [address] [place] [address] Dr. Oniel Jackson EO # 0.2 103/ul Normal 0.0-0.7 [facility] Comment on above: Performed By: #### C BC #### [facility] [address] [place] [address] Dr. Oniel Jackson Eosinophils/100 WBC (Bld) 2.3 % Normal 0.9-7.0 [facility] Comment on above: Performed By: #### C BC #### [facility] [address] [place] [address] Dr. Oniel Jackson Erythrocyte distribution width (RBC) [Ratio] 12.5 % Normal 11.0-15.0 [facility] Comment on above: Performed By: #### C BC #### [facility] [address] [place] [address] Dr. Oniel Jackson Hematocrit (Bld) [Volume fraction] 43.3 % Normal 42.0-54.0 [facility] Comment on above: Performed By: #### C BC #### [facility] [address] [place] [address] Dr. Oniel Jackson Hemoglobin (Bld) [Mass/Vol] 14.1 g/dL Normal 14.0-18.0 [facility] Comment on above: Performed By: #### C BC #### [facility] [address] [place] [address] Dr. Oniel Jackson IG # 0.04 10e3/ul Critically high 0.00-0.03 [facility] Comment on above: Performed By: #### C BC #### [facility] [address] [place] [address] Dr. Oniel Jackson IG % 0.5 % Normal 0.0-0.5 [facility] Comment on above: Performed By: #### C BC #### [facility] [address] [place] [address] Dr. Oniel Jackson LYMPH # 3.7 103/ul Normal 1.2-3.8 [facility] Comment on above: Performed By: #### C BC #### [facility] [address] [place] [address] Dr. Oniel Jackson Lymphocytes/100 WBC (Bld) 42.3 % Normal 20.5-60.0 [facility] Comment on above: Performed By: #### C BC #### [facility] [address] [place] [address] Dr. Oniel Jackson MANUAL DIFF REQ NO Normal [facility] Comment on above: Performed By: #### C BC #### [facility] [address] [place] [address] Dr. Oniel Jackson MCH (RBC) [Entitic mass] 29.3 pg Normal 25.9-34.0 [facility] Comment on above: Performed By: #### C BC #### [facility] [address] [place] [address] Dr. Oniel Jackson MCHC (RBC) [Mass/Vol] 32.6 g/dL Normal 29.9-35.2 [facility] Comment on above: Performed By: #### C BC #### [facility] [address] [place] [address] Dr. Oniel Jackson MCV (RBC) [Entitic vol] 90.0 fL Normal 80.0-94.0 [facility] Comment on above: Performed By: #### C BC #### [facility] [address] [place] [address] Dr. Oniel Jackson MONO # 0.5 103/ul Normal 0.3-0.8 [facility] Comment on above: Performed By: #### C BC #### [facility] [address] [place] [address] Dr. Oniel Jackson Monocytes/100 WBC (Bld) 5.2 % Normal 1.7-12.0 [facility] Comment on above: Performed By: #### C BC #### [facility] [address] [place] [address] Dr. Oniel Jackson NEUT # 4.3 103/ul Normal 1.4-6.5 [facility] Comment on above: Performed By: #### C BC #### [facility] [address] [place] [address] Dr. Oniel Jackson Neutrophils/100 WBC (Bld) 49.1 % Normal 43.0-75.0 [facility] Comment on above: Performed By: #### C BC #### [facility] [address] [place] [address] Dr. Oniel Jackson Platelet mean volume (Bld) [Entitic vol] 9.4 fL Critically low 9.5-13.5 [facility] Comment on above: Performed By: #### C BC #### [facility] [address] [place] [address] Dr. Oniel Jackson PLT 292 103/ul Normal 150-450 [facility] Comment on above: Performed By: #### C BC #### [facility] [address] [place] [address] Dr. Oniel Jackson RBC 4.81 106/ul Normal 4.70-6.10 [facility] Comment on above: Performed By: #### C BC #### [facility] [address] [place] [address] Dr. Oniel Jackson WBC 8.8 103/ul Normal 4.0-11.0 [facility] Comment on above: Performed By: #### C BC #### [facility] [address] [place] [address] Dr. Oniel Jackson GLYCOHEMOGLOBIN A1Con 2021 ADA RECOMMENDATION SEE BELOW Normal [facility] Comment on above: Result Comment: ADA RECOMMENDED LIMIT 4.0 - 6.0 ADA THERAPEUTIC TARGET < 7.0 ACTION SUGGESTED > 7.0 Performed By: #### A 1C #### [facility] [address] [place] [address] Dr. Oniel Jackson Glucose [Mass/Vol] 154 mg/dL Normal [facility] Comment on above: Performed By: #### A 1C #### [facility] [address] [place] [address] Dr. Oniel Jackson HbA1c (Bld) [Mass fraction] 7.0 % Critically high 4.5-6.2 [facility] Comment on above: Performed By: #### A 1C #### [facility] [address] [place] [address] Dr. Oniel Jackson LIPID PROFILEon 05-08-2022 CHOL-HDL RATIO NORM SEE BELOW Normal [facility] Comment on above: Result Comment: 3.3 - 4.4 LOW RISK 4.4 - 7.1 AVERAGE RISK 7.1 - 11.0 MODERATE RISK >11.0 HIGH RISK Performed By: #### B MP, LIPID #### [facility] [address] [place] [address] Dr. Oniel Jackson Cholesterol [Mass/Vol] 200 mg/dL Normal <=200 [facility] Comment on above: Performed By: #### B MP, LIPID #### [facility] [address] [place] [address] Dr. Oniel Jackson Cholesterol in HDL [Mass/Vol] 48 mg/dL Normal 40-60 [facility] Comment on above: Performed By: #### B MP, LIPID #### [facility] [address] [place] [address] Dr. Oniel Jackson Cholesterol in LDL [Mass/Vol] 124.0 mg/dL Normal [facility] Comment on above: Performed By: #### B MP, LIPID #### [facility] [address] [place] [address] Dr. Oniel Jackson Cholesterol.total/Choles terol in HDL [Mass ratio] 4.2 {ratio} Normal [facility] Comment on above: Performed By: #### B MP, LIPID #### [facility] [address] [place] [address] Dr. Oniel Jackson HDL NORMAL > or = 60 mg/dl - LO W CARDIOVASCULAR RISK <40 mg/dl - HIGH CARDIOVASCULAR RISK Normal [facility] Comment on above: Performed By: #### B MP, LIPID #### [facility] [address] [place] [address] Dr. Oniel Jackson LDL CALC NORMAL SEE BELOW Normal [facility] Comment on above: Result Comment: <100 mg/dl OPTIMAL 100 - 129 mg/dl NEAR OR ABOVE OPTIMAL 130 - 159 mg/dl BORDERLINE HIGH 160 - 189 mg/dl HIGH >190 mg/dl VERY HIGH Performed By: #### B MP, LIPID #### [facility] [address] [place] [address] Dr. Oniel Jackson Triglyceride [Mass/Vol] 140 mg/dL Normal <=150 [facility] Comment on above: Performed By: #### B MP, LIPID #### [facility] [address] [place] [address] Dr. Oniel Jackson VLDL CALC 28.0 mg/dL Normal [facility] Comment on above: Performed By: #### B MP, LIPID #### [facility] [address] [place] [address] Dr. Oniel Jackson PROF CHEM 8 (BAS METB)on Anion gap [Moles/Vol] 10.5 mmol/L Normal [facility] Comment on above: Performed By: #### B MP, LIPID #### [facility] [address] [place] [address] Dr. Oniel Jackson Calcium [Mass/Vol] 8.8 mg/dL Normal 8.5-10.1 [facility] Comment on above: Performed By: #### B MP, LIPID #### [facility] [address] [place] [address] Dr. Oniel Jackson Chloride [Moles/Vol] 104 mmol/L Normal 98-107 [facility] Comment on above: Performed By: #### B MP, LIPID #### [facility] [address] [address] [address] Oniel Jackson CO2 [Moles/Vol] 28.1 mmol/L Normal 21.0-32.0 [facility] Comment on above: Performed By: #### B MP, LIPID #### [facility] [address] [place] [address] Dr. Oniel Jackson Creatinine [Mass/Vol] 1.05 mg/dL Normal 0.70-1.30 [facility] Comment on above: Performed By: #### B MP, LIPID #### [facility] [address] [place] [address] Dr. Oniel Jackson EGFR-AF [place]UGUESE >60 Normal >=60 [facility] Comment on above: Performed By: #### B MP, LIPID #### [facility] [address] [place] [address] Dr. Oniel Jackson EGFR-NON AF [place] >60 Normal >=60 [facility] Comment on above: Performed By: #### B MP, LIPID #### [facility] [address] [place] [address] Dr. Oniel Jackson Glucose [Mass/Vol] 180 mg/dL Critically high 74-106 [facility] [facility] Comment on above: Performed By: #### B MP, LIPID #### [facility] [address] [place] [address] Dr. Oniel Jackson Potassium [Moles/Vol] 4.6 mmol/L Normal 3.5-5.1 [facility] Comment on above: Performed By: #### B MP, LIPID #### [facility] [address] [place] [address] Dr. Oniel Jackson Sodium [Moles/Vol] 138 mmol/L Normal 136-145 [facility] Comment on above: Performed By: #### B MP, LIPID #### [facility] [address] [place] [address] Dr. Oniel Jackson Urea nitrogen [Mass/Vol] 13.0 mg/dL Normal 7.0-18.0 [facility] Comment on above: Performed By: #### B MP, LIPID #### [facility] [address] [place], [place] [address] Dr. Oniel Jackson Urea nitrogen/Creatinine [Mass ratio] 12.4 mg/mg Normal [facility] Comment on above: Performed By: #### B MP, LIPID #### [facility] [address] [place], [place] [address] Dr. Oniel Jackson C-Reactive Proteinon CRP [Mass/Vol] 53.6 mg/L High 0.0-5.0 [facility] Comment on above: Performed By: #### F DORON, CRP, FIB #### [facility] [address] [place], [place] [id number] Arm Rest Builder: Rogers Reno MD #### CLAUDINE, LD, CMPX, CDP #### [facility] [address] [place], [place] [phone] Arm Rest Builder: Richmond Nicole MD CRP [Mass/Vol] 119.5 mg/L High 0.0-5.0 [facility] Comment on above: Performed By: #### F DORON, CRP, FIB #### [facility] [address] [place], [place] [phone] Arm Rest Builder: Rogers Reno MD #### DIME, LD, CMPX, CDP #### [facility] [address] [place] [address] Arm Rest Builder: Richmond Nicole MD C-Reactive ProteinOrdered By : Stacia Saleh on 07-25-2021 CRP [Mass/Vol] 119.5 mg/L High 0.0 - 5.0 mg/L [facility] Phone: Interpretation and review of laboratory results Abnormal [facility] Phone: [facility] Phone: D-Dimer Teston 07-25-2021 D-Dimer Test 0.83 mg/L FEU High 0.00-0.59 [facility] Comment on above: Result Comment: When combined with a low clinical probability, a D dimer value of <0.50 mg/L FEU is considered negative for DVT and PE (negative predictive value of 98%, sensitivity of 97%). If this test is not being used to help rule out DVT and PE, then the following reference range should be utilized: 0.00 - 0.59 mg/L FEU. The D-Dimer assay is intended for use as an aid in the diagnosis of venous thromboembolism (DVT and PE) and the results should be interpreted in conjunction with the patient's medical history, clinical presentation, and other findings. Elevated levels of D-dimer activity can be seen in any state of coagulation activation and is not recommended in patients with therapeutic dose anticoagulant therapy for >24 hours, fibrinolytic therapy within the previous 7 days, trauma or surgery within the previous 4 weeks, disseminated malignancies, aortic aneurysm, sepsis, severe infections, pneumonia, severe skin infections, liver cirrhosis, advanced age, coronary disease, diabetes, and . A very low percentage of patients with DVT may yield D-dimer results below the cutoff of 0.5 mg/L FEU. This is known to be more prevalent in patients with distal DVT. Performed By: #### F DORON, CRP, FIB #### [facility] [address] [place], [place] [phone] Arm Rest Builder: Rogers Reno MD #### CLAUDINE, LD, CMPX, CDP #### [facility] [address] [place] [address] Arm Rest Builder: Richmond Nicole MD D-Dimer, QuantitativeOrdered By: Rojelio Mayes on 07-25-2021 D-Dimer, Quant 0.83 [facility] Work Phone: Comment on above: When combined with a low clinical probability, a D dimer value of <0.50 mg/L FEU is considered negative for DVT and PE (negative predictive value of 98%, sensitivity of 97%). If this test is not being used to help rule out DVT and PE, then the following reference range should be utilized: 0.00 - 0.59 mg/L FEU. The D-Dimer assay is intended for use as an aid in the diagnosis of venous thromboembolism (DVT and PE) and the results should be interpreted in conjunction with the patient's medical history, clinical presentation, and other findings. Elevated levels of D-dimer activity can be seen in any state of coagulation activation and is not recommended in patients with therapeutic dose anticoagulant therapy for >24 hours, fibrinolytic therapy within the previous 7 days, trauma or surgery within the previous 4 weeks, disseminated malignancies, aortic aneurysm, sepsis, severe infections, pneumonia, severe skin infections, liver cirrhosis, advanced age, coronary disease, diabetes, and . A very low percentage of patients with DVT may yield D-dimer results below the cutoff of 0.5 mg/L FEU. This is known to be more prevalent in patients with distal DVT. Interpretation and review of laboratory results Abnormal [facility] Phone: [facility] Phone: Glucose, Whole BloodOrdered By: Rojelio Mayes on 07-25-2021 Glucose [Mass/Vol] 317 mg/dL High 65 - 99 mg/dL [facility] Phone: Interpretation and review of laboratory results Abnormal [facility] Phone: [facility] Phone: Glucose [Mass/Vol] 266 mg/dL High 65 - 99 mg/dL [facility] Phone: Interpretation and review of laboratory results Abnormal [facility] Phone: [facility] Phone: Glucose [Mass/Vol] 172 mg/dL High 65 - 99 mg/dL [facility] Phone: Interpretation and review of laboratory results Abnormal [facility] Phone: [facility] Phone: Hepatic function panelOrdere d By: Rojelio Mayes on 07-25-2021 Albumin [Mass/Vol] 2.7 g/dL Low 3.5 - 5.2 g/dL [facility] Phone: Albumin/Globulin Ratio NOT REPORTED [facility] Phone: ALP (Bld) [Catalytic activity/Vol] 59 U/L 40 - 129 U/L [facility] Phone: ALT [Catalytic activity/Vol] 13 U/L 5 - 41 U/L [facility] Phone: AST [Catalytic activity/Vol] 10 U/L <40 [facility] Phone: Bilirubin [Mass/Vol] 0.16 mg/dL Low 0.30 - 1.20 mg/dL [facility] Phone: Bilirubin, Indirect CANNOT BE CALCULATED 0.00 - 1.00 mg/dL [facility] Phone: Bilirubin.indirect [Mass/Vol] mg/dL <0.31 mg/dL [facility] Phone: Free PSA/Total PSA [Mass fraction] 5.8 g/dL Low 6.4 - 8.3 g/dL [facility] Phone: Globulin NOT REPORTED 1.5 - 3.8 g/dL [facility] Phone: Interpretation and review of laboratory results Abnormal [facility] Phone: [facility] Phone: Liver Profileon 07-25-2021 Albumin [Mass/Vol] 2.7 g/dL Low 3.5-5.2 [facility] Comment on above: Performed By: #### F DORON, CRP, FIB #### [facility] [address] [place] [address] Arm Rest Builder: Rogers Reno MD #### NATHANIEL CHOW, CMPX, CDP #### [facility] [address] [place] [address] Arm Rest Builder: Richmond Nicole MD Alkaline Phos 59 U/L Normal 40-129 [facility] Comment on above: Performed By: #### F DORON, CRP, FIB #### [facility] [address] [place], [place] [phone] Arm Rest Builder: Rogers Reno MD #### DIMWesley, NATHANIEL, CMPX, CDP #### [facility] [address] [place], [place] [phone] Arm Rest Builder: Richmond Nicole MD ALT [Catalytic activity/Vol] 13 U/L Normal 5-41 [facility] Comment on above: Performed By: #### F DORON, CRP, FIB #### [address] [id number] Arm Rest Builder: Rogers Reno MD #### CLAUDINE, NATHANIEL, CMPX, CDP #### [facility] [address] [place], [place] [phone] Arm Rest Builder: Richmond Nicole MD AST [Catalytic activity/Vol] 10 U/L Normal <40 [facility] Comment on above: Performed By: #### F DORON, CRP, FIB #### [address] [id number] Arm Rest Builder: Rogers Reno MD #### NATHANIEL CHOW, CMPX, CDP #### [facility] [address] [place], [place] [phone] Arm Rest Builder: Richmond Nicole MD Bilirubin [Mass/Vol] 0.16 mg/dL Low 0.30-1.20 [facility] Comment on above: Performed By: #### F DORON, CRP, FIB #### [address] [id number] Arm Rest Builder: Rogers Reno MD #### DIMWesley, LD, CMPX, CDP #### [facility] [address] [place], [place] [id number] Arm Rest Builder: Richmond Nicole MD Bilirubin, Indirect CANNOT BE CALCULATED Normal 0.00-1 .00 [facility] Comment on above: Performed By: #### F DORON, CRP, FIB #### [address] [place] [address] Arm Rest Builder: Rogers Reno MD #### DIMWesley, LD, CMPX, CDP #### [facility] [address] [place], [place] [phone] Arm Rest Builder: Richmond Nicole MD Bilirubin.indirect [Mass/Vol] mg/dL Normal <0.31 [facility] Comment on above: Performed By: #### F DORON, CRP, FIB #### [address] [address] Arm Rest Builder: Rogers Reno MD #### CLAUDINE, NATHANIEL, CMPX, CDP #### [facility] [address] [place], [place] [phone] Arm Rest Builder: Richmond Nicole MD Protein [Mass/Vol] 5.8 g/dL Low 6.4-8.3 [facility] Comment on above: Performed By: #### F DORON, CRP, FIB #### [address] [address] Arm Rest Builder: Rogers Reno MD #### NATHANIEL CHOW, CMPX, CDP #### [facility] [address] [place], [place] [phone] Arm Rest Builder: Richmond Nicole MD Albumin/Glob Ratio NOT REPORTED Normal 1.0-2.5 [facility] Comment on above: Performed By: #### F DORON, CRP, FIB #### [address] [address] Arm Rest Builder: Rogers Reno MD #### DIME, LD, CMPX, CDP #### [facility] [address] [place], [place] [phone] Arm Rest Builder: Richmond Nicole MD Globulin Fraction NOT REPORTED Normal 1.5-3.8 [facility] Comment on above: Performed By: #### F DORON, CRP, FIB #### [facility] [address] [place], [place] [phone] Arm Rest Builder: Rogers Reno MD #### NATHANIEL CHOW, AZX, CDP #### [facility] [address] [place] [address] Arm Rest Builder: Richmond Nicole MD Procalcitoninon 07-25-2021 Procalcitonin 0.08 ng/mL Normal <0.09 [facility] Comment on above: Result Comment: Suspected Sepsis: <0.50 ng/mL Low likelihood of sepsis. 0.50-2.00 ng/mL Increased likelihood of sepsis. Antibiotics encouraged. >2.00 ng/mL High risk of sepsis/shock. Antibiotics strongly encouraged. Suspected Lower Resp Tract Infections: <0.24 ng/mL Low likelihood of bacterial infection. >0.24 ng/mL Increased likelihood of bacterial infection. Antibiotics encouraged. With successful antibiotic therapy, PCT levels should decrease rapidly. (Half-life of 24 to 36 hours.) Procalcitonin values from samples collected within the first 6 hours of systemic infection may still be low. Retesting may be indicated. Values from day 1 and day 4 can be entered into the Change in Procalcitonin Calculator (www.mlbmpk-kml-rhwpljpzof.com) to determine the patient's Mortality Risk Prognosis In healthy neonates, plasma Procalcitonin (PCT) concentrations increase gradually after , reaching peak values at about 24 hours of age then decrease to normal values below 0.5 ng/mL by 48-72 hours of age. Performed By: #### F DORON, CRP, FIB #### [facility] [address] [place], [place] [phone] Arm Rest Builder: Rogers Reno MD #### NATHANIEL CHOW, AZX, CDP #### [facility] [address] [place] [address] Arm Rest Builder: Richmond Nicole MD ProcalcitoninOrdered By: Rogers Saleh on 07-25-2021 Procalcitonin 0.08 ng/mL <0.09 [facility] Work Phone: Comment on above: Suspected Sepsis: <0.50 ng/mL Low likelihood of sepsis. 0.50-2.00 ng/mL Increased likelihood of sepsis. Antibiotics encouraged. >2.00 ng/mL High risk of sepsis/shock. Antibiotics strongly encouraged. Suspected Lower Resp Tract Infections: <0.24 ng/mL Low likelihood of bacterial infection. >0.24 ng/mL Increased likelihood of bacterial infection. Antibiotics encouraged. With successful antibiotic therapy, PCT levels should decrease rapidly. (Half-life of 24 to 36 hours.) Procalcitonin values from samples collected within the first 6 hours of systemic infection may still be low. Retesting may be indicated. Values from day 1 and day 4 can be entered into the Change in Procalcitonin Calculator (www.cjdsxl-luk-qoaakjbbbh.Leevia) to determine the patient's Mortality Risk Prognosis In healthy neonates, plasma Procalcitonin (PCT) concentrations increase gradually after , reaching peak values at about 24 hours of age then decrease to normal values below 0.5 ng/mL by 48-72 hours of age. [facility] Phone: C-Reactive Proteinon 021 CRP [Mass/Vol] 110.2 mg/L High 0.0-5.0 [facility] Comment on above: Performed By: #### F DORON, CRP, FIB #### [facility] [address] [place], [place] [phone] Arm Rest Builder: Rogers Reno MD #### CLAUDINE, LD, CMPX, CDP #### [facility] [address] [place] [address] Arm Rest Builder: Richmond Nicole MD C-Reactive ProteinOrdered By : Rojelio Mayes on 07-24-2021 CRP [Mass/Vol] 110.2 mg/L High 0.0 - 5.0 mg/L [facility] Phone: Interpretation and review of laboratory results Abnormal [facility] Phone: [facility] Phone: CBC Auto DifferentialOrdered By: Rojelio Mayes on 07-24-2021 Absolute Eos # 0.00 [facility] Work Phone: Absolute Immature Granulocyte NOT REPORTED [facility] Work Phone: Absolute Lymph # 0.[address] [facility] Work Phone: Absolute [place] # 0.20 [facility] Work Phone: Basophils (Bld) [#/Vol] 0.00 10*3/uL [employer] Work Phone: Basophils/100 WBC (Bld) 0 % 0 - 2 % [facility] [employer] Work Phone: Differential Type YES [facility] [employer] Work Phone: Eosinophils/100 WBC (Bld) 0 % 0 - 5 % [employer] Work Phone: Hematocrit (Bld) [Volume fraction] 40.6 % Low 41 - 53 % [employer] Work Phone: Hemoglobin.gastrointesti nal spec 1 Ql (Stl) 13.4 g/dL Low 13.5 - 17.5 g/dL [facility] Phone: Immature Granulocytes NOT REPORTED 0 % M [employer] Work Phone: Interpretation and review of laboratory results Abnormal [facility] Phone: Lymphocytes/100 WBC (Bld) 9 % Low 13 - 44 % [employer] Work Phone: MCH (RBC) [Entitic mass] 28.6 pg 26 - 34 pg [employer] Work Phone: MCHC (RBC) [Mass/Vol] 33.0 g/dL 31 - 37 g/dL [facility] [employer] Work Phone: MCV (RBC) [Entitic vol] 86.7 fL 80 - 100 fL [employer] Work Phone: Monocytes/100 WBC (Bld) 2 % Low 5 - 9 % [facility] [employer] Work Phone: NRBC Automated NOT REPORTED per 100 WBC [facility] Work Phone: Platelet distribution width (Bld) [Ratio] 12.6 % 12.1 - 15.2 % [facility] Phone: Platelet Estimate NOT REPORTED [facility] Phone: Platelet mean volume (Bld) [Entitic vol] NOT REPORTED 6.0 - 12.0 fL [facility] Phone: Platelets (Bld) [#/Vol] 493 10*3/uL High [facility] Phone: RBC (Bld) [#/Vol] 4.68 10*6/uL 4.5 - 5.9 m/uL [facility] Phone: RBC (Bld) [#/Vol] NOT REPORTED [facility] Phone: Segmented neutrophils/100 WBC (Bld) 89 % High 39 - 75 % [facility] Phone: Segs Absolute 8.10 High [facility] [employer] Work Phone: WBC (Bld) [#/Vol] 9.1 10*3/uL [facility] Phone: WBC (Bld) [#/Vol] NOT REPORTED [facility] Phone: [facility] Work Phone: CBC with Diffon 07-24-2021 Abs. Basophil 0.00 k/uL Normal 0.0-0.2 [facility] Comment on above: Performed By: #### F DORON, CRP, FIB #### [facility] [address] [place] [address] Arm Rest Builder: Rogers Reno MD #### DIME, LD, CMPX, CDP #### [facility] [address] [place] [address] Arm Rest Builder: Richmond Nicole MD Abs.Neutrophil (Seg) 8.10 k/uL High 2.1-6.5 [facility] Comment on above: Performed By: #### F DORON, CRP, FIB #### [address] [id number] Arm Rest Builder: Rogers Reno MD #### DIME, LD, CMPX, CDP #### [facility] [address] [place] [phone] Arm Rest Builder: Richmond Nicole MD Auto Diff Performed YES Normal [facility] Comment on above: Performed By: #### F DORON, CRP, FIB #### [address] [id number] Arm Rest Builder: Rogers Reno MD #### DIME, LD, CMPX, CDP #### [facility] [address] [place] [phone] Arm Rest Builder: Richmond Nicole MD Basophils/100 WBC (Bld) 0 % Normal 0-2 [facility] Comment on above: Performed By: #### F DORON, CRP, FIB #### [address] [id number] Arm Rest Builder: Rogers Reno MD #### DIME, LD, CMPX, CDP #### [facility] [address] [place], [place] [phone] Arm Rest Builder: Richmond Nicole MD Eosinophils (Bld) [#/Vol] 0.00 10*3/uL Normal 0.0-0.4 [facility] Comment on above: Performed By: #### F DORON, CRP, FIB #### [address] [id number] Arm Rest Builder: Rogers Reno MD #### DIME, LD, CMPX, CDP #### [facility] [address] [place], [place] [phone] Arm Rest Builder: Richmond Nicole MD Eosinophils/100 WBC (Bld) 0 % Normal 0-5 [facility] Comment on above: Performed By: #### F DORON, CRP, FIB #### [address] [id number] Arm Rest Builder: Rogers Reno MD #### DIME, LD, CMPX, CDP #### [facility] [address] [place], [place] [phone] Arm Rest Builder: Richmond Nicole MD Erythrocyte distribution width (RBC) [Ratio] 12.6 % Normal 12.1-15.2 [facility] Comment on above: Performed By: #### F DORON, CRP, FIB #### [address] [id number] Arm Rest Builder: Rogers Reno MD #### DIME, LD, CMPX, CDP #### [facility] [address] [place], [place] [phone] Arm Rest Builder: Richmond Nicole MD Hematocrit (Bld) [Volume fraction] 40.6 % Low 41-53 [facility] Comment on above: Performed By: #### F DORON, CRP, FIB #### [address] [id number] Arm Rest Builder: Rogers Reno MD #### DIME, LD, CMPX, CDP #### [facility] [address] [place], [place] [phone] Arm Rest Builder: Richmond Nicole MD Hemoglobin (Bld) [Mass/Vol] 13.4 g/dL Low 13.5-17.5 [facility] Comment on above: Performed By: #### F DORON, CRP, FIB #### [address] [id number] Arm Rest Builder: Rogers Reno MD #### DIME, LD, CMPX, CDP #### [facility] [address] [place] [address] Arm Rest Builder: Richmond Nicole MD Lymphocytes (Bld) [#/Vol] 0.80 10*3/uL Low 1.0-4.8 [facility] Comment on above: Performed By: #### F DORON, CRP, FIB #### [address] [id number] Arm Rest Builder: Rogers Reno MD #### DIME, LD, CMPX, CDP #### [facility] [address] [place] [address] Arm Rest Builder: Richmond Nicoel MD Lymphocytes/100 WBC (Bld) 9 % Low 13-44 [facility] Comment on above: Performed By: #### F DORON, CRP, FIB #### [address] [id number] Arm Rest Builder: Rogers Reno MD #### DIME, LD, CMPX, CDP #### [facility] [address] [place] [address] Arm Rest Builder: Richmond Nicole MD MCH (RBC) [Entitic mass] 28.6 pg Normal 26-34 [facility] Comment on above: Performed By: #### F DORON, CRP, FIB #### [address] [id number] Arm Rest Builder: Rogers Reno MD #### DIME, LD, CMPX, CDP #### [facility] [address] [place] [address] Arm Rest Builder: Richmond Nicole MD MCHC (RBC) [Mass/Vol] 33.0 g/dL Normal 31-37 [facility] Comment on above: Performed By: #### F DORON, CRP, FIB #### [address] [phone] Arm Rest Builder: Rogers Reno MD #### DIME, LD, CMPX, CDP #### [facility] [address] [place] [id number] Arm Rest Builder: Richmond Nicole MD MCV (RBC) [Entitic vol] 86.7 fL Normal 80-100 [facility] Comment on above: Performed By: #### F DORON, CRP, FIB #### [address] [id number] Arm Rest Builder: Rogers Reno MD #### DIME, LD, CMPX, CDP #### [facility] [address] [place] [id number] Arm Rest Builder: Richmond Nicole MD Monocytes (Bld) [#/Vol] 0.20 10*3/uL Normal 0.0-1.0 [facility] Comment on above: Performed By: #### F DORON, CRP, FIB #### [address] [id number] Arm Rest Builder: Rogers Reno MD #### DIME, LD, CMPX, CDP #### [facility] [address] [place] [id number] Arm Rest Builder: Richmond Nicole MD Monocytes/100 WBC (Bld) 2 % Low 5-9 [facility] Comment on above: Performed By: #### F DORON, CRP, FIB #### [address] [id number] Arm Rest Builder: Rogers Reno MD #### DIME, LD, CMPX, CDP #### [facility] [address] [place] [id number] Arm Rest Builder: Richmond Nicole MD Neutrophil (Seg) 89 % High 39-75 [facility] Comment on above: Performed By: #### F DORON, CRP, FIB #### [address] [place] [address] Arm Rest Builder: Rogers Reno MD #### DIME, LD, CMPX, CDP #### [facility] [address] [place], [place] [phone] Arm Rest Builder: Richmond Nicole MD Platelets (Bld) [#/Vol] 493 10*3/uL High 140-450 [facility] Comment on above: Performed By: #### F DORON, CRP, FIB #### [facility] [address] [place] [address] Arm Rest Builder: Rogers Reno MD #### DIME, LD, CMPX, CDP #### [facility] [address] [place], [place] [phone] Arm Rest Builder: Richmond Nicole MD RBC (Bld) [#/Vol] 4.68 10*6/uL Normal 4.5-5.9 [facility] Comment on above: Performed By: #### F DORON, CRP, FIB #### [address] [address] Arm Rest Builder: Rogers Reno MD #### DIMWesley, LD, CMPX, CDP #### [facility] [address] [place], [place] [id number] Arm Rest Builder: Richmond Nicole MD WBC (Bld) [#/Vol] 9.1 10*3/uL Normal 3.5-11.0 [facility] Comment on above: Performed By: #### F DORON, CRP, FIB #### [address] [address] Arm Rest Builder: Rogers Reno MD #### DIME, LD, CMPX, CDP #### [facility] [address] [place], [place] 1887290 Arm Rest Builder: Richmond Nicole MD Abs.Imm.Granulocyte NOT REPORTED Normal 0.00-0.30 [facility] Comment on above: Performed By: #### F DORON, CRP, FIB #### [facility] [address] [place] [address] Arm Rest Builder: Rogers Reno MD #### DIME, LD, CMPX, CDP #### [facility] [address] [place] [address] Arm Rest Builder: Richmond Nicole MD Immature Granulocyte NOT REPORTED Normal 0 [facility] Comment on above: Performed By: #### F DORON, CRP, FIB #### [address] [address] Arm Rest Builder: Rogers Reno MD #### DIME, LD, CMPX, CDP #### [facility] [address] [place], [place] [phone] Arm Rest Builder: Richmond Nicole MD MPV NOT REPORTED Normal 6.0-12.0 [facility] Comment on above: Performed By: #### F DORON, CRP, FIB #### [address] [address] Arm Rest Builder: Rogers Reno MD #### DIME, LD, CMPX, CDP #### [facility] [address] [place] [address] Arm Rest Builder: Richmond Nicole MD NRBC Automated NOT REPORTED Normal [facility] Comment on above: Performed By: #### F DORON, CRP, FIB #### [address] [address] Arm Rest Builder: Rogers Reno MD #### DIME, LD, CMPX, CDP #### [facility] [address] [place] [address] Arm Rest Builder: Richmond Nicole MD Platelet Estimate NOT REPORTED Normal [facility] Comment on above: Performed By: #### F DORON, CRP, FIB #### [address] [place], [place] [address] Arm Rest Builder: Rogers Reno MD #### DIME, LD, CMPX, CDP #### [facility] [address] [place] [address] Arm Rest Builder: Richmond Nicole MD RBC morphology finding Nom (Bld) NOT REPORTED Normal [facility] Comment on above: Performed By: #### F DORON, CRP, FIB #### [facility] [address] [place] [address] [id number] Arm Rest Builder: Rogers Reno MD #### DIME, LD, CMPX, CDP #### [facility] [facility] [address] [place] [address] Arm Rest Builder: Richmond Nicole MD WBC Morphology NOT REPORTED Normal [facility] Comment on above: Performed By: #### F DORON, CRP, FIB #### [address] [id number] Arm Rest Builder: Rogers Reno MD #### CLAUDINE, LD, CMPX, CDP #### [facility] [address] [place] [address] Arm Rest Builder: Richmond Nicole MD Comp Metabolic Pr/rfx MGon 0 07-24-2021 (cont.) Normal [facility] Comment on above: Result Comment: Aver age GFR for 60-69 years old: 85 mL/min/1.73sq m Chronic Kidney Disease: <60 mL/min/1.73sq m Kidney failure: <15 mL/min/1.73sq m eGFR calculated using average adult body mass. Additional eGFR calculator available at: http://www.flyRuby.com.com/multiple_crcl_2012.htm Performed By: #### F DORON, CRP, FIB #### [facility] [address] [place] [address] [id number] Arm Rest Builder: Rogers Reno MD #### DIME, LD, CMPX, CDP #### [facility] [address] [place], [place] [id number] Arm Rest Builder: Richmond Nicole MD Albumin [Mass/Vol] 2.8 g/dL Low 3.5-5.2 [facility] Comment on above: Performed By: #### F DORON, CRP, FIB #### [address] [id number] Arm Rest Builder: Rogers Reno MD #### DIME, LD, CMPX, CDP #### [facility] [address] [place] [address] Arm Rest Builder: Richmond Nicole MD Alkaline Phos 69 U/L Normal 40-129 [facility] Comment on above: Performed By: #### F DORON, CRP, FIB #### [address] [id number] Arm Rest Builder: Rogers Reno MD #### DIME, LD, CMPX, CDP #### [facility] [address] [place] [address] Arm Rest Builder: Richmond Nicole MD ALT [Catalytic activity/Vol] 15 U/L Normal 5-41 [facility] Comment on above: Performed By: #### F DORON, CRP, FIB #### [address] [id number] Arm Rest Builder: Rogers Reno MD #### DIME, LD, CMPX, CDP #### [facility] [address] [place] [address] Arm Rest Builder: Richmond Nicole MD Anion gap [Moles/Vol] 11 mmol/L Normal 9-17 [facility] Comment on above: Performed By: #### F DORON, CRP, FIB #### [address] [id number] Arm Rest Builder: Rogers Reno MD #### DIME, LD, CMPX, CDP #### [facility] [address] [place], [place] [id number] Arm Rest Builder: Richmond Nicole MD AST [Catalytic activity/Vol] 14 U/L Normal <40 [facility] Comment on above: Performed By: #### F DORON, CRP, FIB #### [address] [id number] Arm Rest Builder: Rogers Reno MD #### DIME, LD, CMPX, CDP #### [facility] [address] [place] [address] Arm Rest Builder: Richmond Nicole MD Bilirubin [Mass/Vol] 0.22 mg/dL Low 0.30-1.20 [facility] Comment on above: Performed By: #### F DORON, CRP, FIB #### [address] [id number] Arm Rest Builder: Rogers Reno MD #### DIME, LD, CMPX, CDP #### [facility] [address] [place] [address] Arm Rest Builder: Richmond Nicole MD BUN/CRE Ratio 23 High 9-20 [facility] Comment on above: Performed By: #### F DORON, CRP, FIB #### [address] [id number] Arm Rest Builder: Rogers Reno MD #### DIME, LD, CMPX, CDP #### [facility] [address] [place] [address] Arm Rest Builder: Richmond Nicole MD Calcium [Mass/Vol] 9.1 mg/dL Normal 8.6-10.4 [facility] Comment on above: Performed By: #### F DORON, CRP, FIB #### [address] [id number] Arm Rest Builder: Rogers Reno MD #### DIME, LD, CMPX, CDP #### [facility] [address] [place], [place] [id number] Arm Rest Builder: Richmond Nicole MD Chloride [Moles/Vol] 99 mmol/L Normal 98-107 [facility] Comment on above: Performed By: #### F DORON, CRP, FIB #### [address] [id number] Arm Rest Builder: Rogers Reno MD #### DIME, LD, CMPX, CDP #### [facility] [address] [place], [place] [id number] Arm Rest Builder: Richmond Nicole MD CO2 [Moles/Vol] 25 mmol/L Normal 20-31 [facility] Comment on above: Performed By: #### F DORON, CRP, FIB #### [address] [id number] Arm Rest Builder: Rogers Reno MD #### DIME, LD, CMPX, CDP #### [facility] [address] [place] [address] Arm Rest Builder: Richmond Nicole MD Creatinine [Mass/Vol] 0.91 mg/dL Normal 0.70-1.20 [facility] Comment on above: Performed By: #### F DORON, CRP, FIB #### [address] [id number] Arm Rest Builder: Rogers Reno MD #### DIME, LD, CMPX, CDP #### [facility] [address] [place], [place] [id number] Arm Rest Builder: Richmond Nicole MD GFR, Amer >60 Normal >60 [facility] Comment on above: Performed By: #### F DORON, CRP, FIB #### [address] [id number] Arm Rest Builder: Rogers Reno MD #### DIME, LD, CMPX, CDP #### [facility] [address] [place] [address] Arm Rest Builder: Richmond Nicole MD GFR,non Amer >60 Normal >60 [facility] Comment on above: Performed By: #### F DORON, CRP, FIB #### [address] [id number] Arm Rest Builder: Rogers Reno MD #### DIME, LD, CMPX, CDP #### [facility] [address] [place] [address] Arm Rest Builder: Richmond Nicole MD Glucose [Mass/Vol] 288 mg/dL High 70-99 [facility] Comment on above: Performed By: #### F DORON, CRP, FIB #### [address] [id number] Arm Rest Builder: Rogers Reno MD #### DIME, LD, CMPX, CDP #### [facility] [address] [place] [address] Arm Rest Builder: Richmond Nicole MD Potassium [Moles/Vol] 4.4 mmol/L Normal 3.7-5.3 [facility] Comment on above: Performed By: #### F DORON, CRP, FIB #### [address] [id number] Arm Rest Builder: Rogers Reno MD #### DIME, LD, CMPX, CDP #### [facility] [address] [place] [address] Arm Rest Builder: Richmond Nicole MD Protein [Mass/Vol] 7.0 g/dL Normal 6.4-8.3 [facility] Comment on above: Performed By: #### F DORON, CRP, FIB #### [address] [id number] Arm Rest Builder: Rogers Reno MD #### DIME, LD, CMPX, CDP #### [facility] [address] [place], [place] [phone] Arm Rest Builder: Richmond Nicole MD Sodium [Moles/Vol] 135 mmol/L Normal 135-144 [facility] Comment on above: Performed By: #### F DORON, CRP, FIB #### [address] [id number] Arm Rest Builder: Rogers Reno MD #### DIME, LD, CMPX, CDP #### [facility] [address] [place], [place] [id number] Arm Rest Builder: Richmond Nicole MD Urea nitrogen [Mass/Vol] 21 mg/dL Normal 8-23 [facility] Comment on above: Performed By: #### F DORON, CRP, FIB #### [address] [id number] Arm Rest Builder: Rogers Reno MD #### DIME, LD, CMPX, CDP #### [facility] [address] [place], [place] [id number] Arm Rest Builder: Richmond Nicole MD Albumin/Glob Ratio NOT REPORTED Normal 1.0-2.5 [facility] Comment on above: Performed By: #### F DORON, CRP, FIB #### [address] [id number] Arm Rest Builder: Rogers Reno MD #### DIME, LD, CMPX, CDP #### [facility] [address] [place], [place] [id number] Arm Rest Builder: Richmond Nicole MD Staging: NOT REPORTED Normal [facility] Comment on above: Performed By: #### F DORON, CRP, FIB #### [address] [id number] Arm Rest Builder: Rogers Reno MD #### CLAUDINE, LD, CMPX, CDP #### [facility] [address] [place] [address] Arm Rest Builder: Richmond Nicole MD Comprehensive Metabolic Pane l w/ Reflex to MGOrdered By: Rojelio Mayes on 07-24-2021 Albumin [Mass/Vol] 2.8 g/dL Low 3.5 - 5.2 g/dL [facility] Phone: Albumin/Globulin Ratio NOT REPORTED [facility] Phone: ALP (Bld) [Catalytic activity/Vol] 69 U/L 40 - 129 U/L [facility] Phone: ALT [Catalytic activity/Vol] 15 U/L 5 - 41 U/L [facility] Phone: Anion gap [Moles/Vol] 11 mmol/L 9 - 17 mmol/L [facility] Phone: AST [Catalytic activity/Vol] 14 U/L <40 [facility] Phone: Bilirubin [Mass/Vol] 0.22 mg/dL Low 0.30 - 1.20 mg/dL [facility] Phone: Calcium [Mass/Vol] 9.1 mg/dL 8.6 - 10. 4 mg/dL [facility] Phone: Chloride [Moles/Vol] 99 mmol/L 98 - 10 7 mmol/L [facility] Phone: CO2 [Moles/Vol] 25 mmol/L 20 - 31 mmol/L [facility] Phone: Creatinine [Mass/Vol] 0.91 mg/dL 0.70 - 1.20 mg/dL [facility] Phone: Free PSA/Total PSA [Mass fraction] 7.0 g/dL 6.4 - 8.3 g/dL [facility] Phone: GFR >60 >60 mL/min [employer] Phone: GFR Non- >60 >60 mL/min [facility] Phone: GFR/1.73 sq M.predicted MDRD (S/P/Bld) [Vol rate/Area] [facility] Phone: Comment on above: Average GFR for 60-6 9 years old: 85 mL/min/1.73sq m Chronic Kidney Disease: <60 mL/min/1.73sq m Kidney failure: <15 mL/min/1.73sq m eGFR calculated using average adult body mass. Additional eGFR calculator available at: http://www.Koogame/Answerology_crcl_2012.htm GFR/1.73 sq M.predicted MDRD (S/P/Bld) [Vol rate/Area] NOT REPORTED [facility] Phone: Glucose [Mass/Vol] 288 mg/dL High 70 - 99 mg/dL [facility] Phone: Potassium [Moles/Vol] 4.4 mmol/L 3.7 - 5.3 mmol/L [facility] Phone: Sodium [Moles/Vol] 135 mmol/L 135 - 144 mmol/L [facility] Phone: Urea nitrogen (BldV) [Mass/Vol] 21 mg/dL 8 - 23 mg/dL [facility] Phone: Urea nitrogen/Creatinine (Bld) [Mass ratio] 23 High [facility] Phone: D-Dimer Teston 07-24-2021 D-Dimer Test 1.69 mg/L FEU High 0.00-0.59 [facility] Comment on above: Result Comment: When combined with a low clinical probability, a D dimer value of <0.50 mg/L FEU is considered negative for DVT and PE (negative predictive value of 98%, sensitivity of 97%). If this test is not being used to help rule out DVT and PE, then the following reference range should be utilized: 0.00 - 0.59 mg/L FEU. The D-Dimer assay is intended for use as an aid in the diagnosis of venous thromboembolism (DVT and PE) and the results should be interpreted in conjunction with the patient's medical history, clinical presentation, and other findings. Elevated levels of D-dimer activity can be seen in any state of coagulation activation and is not recommended in patients with therapeutic dose anticoagulant therapy for >24 hours, fibrinolytic therapy within the previous 7 days, trauma or surgery within the previous 4 weeks, disseminated malignancies, aortic aneurysm, sepsis, severe infections, pneumonia, severe skin infections, liver cirrhosis, advanced age, coronary disease, diabetes, and . A very low percentage of patients with DVT may yield D-dimer results below the cutoff of 0.5 mg/L FEU. This is known to be more prevalent in patients with distal DVT. Performed By: #### F DORON, CRP, FIB #### [facility] [employer] [address] [place] [address] Arm Rest Builder: Rogers Reno MD #### CLAUDINE, LD, CMPX, CDP #### [facility] [address] [place] [address] Arm Rest Builder: Richmond Nicole MD D-Dimer Test 1.57 mg/L FEU High 0.00-0.59 [facility] Comment on above: Result Comment: When combined with a low clinical probability, a D dimer value of <0.50 mg/L FEU is considered negative for DVT and PE (negative predictive value of 98%, sensitivity of 97%). If this test is not being used to help rule out DVT and PE, then the following reference range should be utilized: 0.00 - 0.59 mg/L FEU. The D-Dimer assay is intended for use as an aid in the diagnosis of venous thromboembolism (DVT and PE) and the results should be interpreted in conjunction with the patient's medical history, clinical presentation, and other findings. Elevated levels of D-dimer activity can be seen in any state of coagulation activation and is not recommended in patients with therapeutic dose anticoagulant therapy for >24 hours, fibrinolytic therapy within the previous 7 days, trauma or surgery within the previous 4 weeks, disseminated malignancies, aortic aneurysm, sepsis, severe infections, pneumonia, severe skin infections, liver cirrhosis, advanced age, coronary disease, diabetes, and . A very low percentage of patients with DVT may yield D-dimer results below the cutoff of 0.5 mg/L FEU. This is known to be more prevalent in patients with distal DVT. Performed By: #### D WANDY #### [facility] [address] [place] [address] Arm Rest Builder: Richmond Nicole MD D-Dimer, QuantitativeOrdered By: Rojelio Mayes on 07-24-2021 D-Dimer, Quant 1.69 High [facility] [employer] Phone: Comment on above: When combined with a low clinical probability, a D dimer value of <0.50 mg/L FEU is considered negative for DVT and PE (negative predictive value of 98%, sensitivity of 97%). If this test is not being used to help rule out DVT and PE, then the following reference range should be utilized: 0.00 - 0.59 mg/L FEU. The D-Dimer assay is intended for use as an aid in the diagnosis of venous thromboembolism (DVT and PE) and the results should be interpreted in conjunction with the patient's medical history, clinical presentation, and other findings. Elevated levels of D-dimer activity can be seen in any state of coagulation activation and is not recommended in patients with therapeutic dose anticoagulant therapy for >24 hours, fibrinolytic therapy within the previous 7 days, trauma or surgery within the previous 4 weeks, disseminated malignancies, aortic aneurysm, sepsis, severe infections, pneumonia, severe skin infections, liver cirrhosis, advanced age, coronary disease, diabetes, and . A very low percentage of patients with DVT may yield D-dimer results below the cutoff of 0.5 mg/L FEU. This is known to be more prevalent in patients with distal DVT. Interpretation and review of laboratory results Abnormal [facility] [employer] Phone: [facility] Phone: Ferritinon 07-24-2021 Ferritin 778 ug/L High 30-400 [facility] Comment on above: Performed By: #### F DORON, CRP, FIB #### [facility] [address] [place] [address] Arm Rest Builder: Rogers Reno MD #### DIME, LD, CMPX, CDP #### [facility] [address] [place], [place] [id number] Arm Rest Builder: Richmond Nicole MD Ferritin 868 ug/L High 30-400 [facility] Comment on above: Performed By: #### F DORON, CRP, FIB #### [facility] [address] [place] [address] Arm Rest Builder: Rogers Reno MD #### DIME, LD, CMPX, CDP #### [facility] [address] [place], [place] [id number] Arm Rest Builder: Richmond Nicole MD FerritinOrdered By: Rojelio hameed on 07-24-2021 Ferritin 778 ug/L High 30 - 400 ug/L [facility] [employer] Phone: Interpretation and review of laboratory results Abnormal [facility] [employer] Phone: [facility] Phone: FerritinOrdered By: Stacia iqbal on 07-24-2021 Ferritin 868 ug/L High 30 - 400 ug/L [facility] Phone: Interpretation and review of laboratory results Abnormal [facility] [employer] Phone: [facility] Phone: Fibrinogenon 07-24-2021 Fibrinogen 934 mg/dL High 140-420 [facility] Comment on above: Performed By: #### F DORON, CRP, FIB #### [facility] [address] [place] [address] Arm Rest Builder: Rogers Reno MD #### DIME, LD, CMPX, CDP #### [facility] [address] [place], [place] [id number] Arm Rest Builder: Richmond Nicole MD FibrinogenOrdered By: Rojelio Mayes on 07-24-2021 Fibrinogen 934 mg/dL High 140 - 420 mg/dL [facility] Phone: Interpretation and review of laboratory results Abnormal [facility] Phone: [facility] Phone: Glucose, Whole BloodOrdered By: Rojelio Mayes on 07-24-2021 Glucose [Mass/Vol] 162 mg/dL High 65 - 99 mg/dL [facility] Phone: Interpretation and review of laboratory results Abnormal [facility] Phone: [facility] Phone: Glucose [Mass/Vol] 244 mg/dL High 65 - 99 mg/dL [facility] Phone: Interpretation and review of laboratory results Abnormal [facility] Phone: [facility] Phone: Glucose [Mass/Vol] 215 mg/dL High 65 - 99 mg/dL [facility] Phone: Interpretation and review of laboratory results Abnormal [facility] Phone: [facility] Phone: Hemoglobin A1Con 07-24-2021 Glucose [Mass/Vol] 166 mg/dL Normal [facility] Comment on above: Result Comment: The ADA and AACC recommend providing the estimated average glucose result to permit better patient understanding of their HBA1c result. Performed By: #### G LYHGB #### [employer] [address] [place], [place] [id number] Arm Rest Builder: Rogers Reno MD HbA1c (Bld) [Mass fraction] 7.4 % High 4.0-6.0 [facility] Comment on above: Performed By: #### G LYHGB #### [employer] [address] [place] [address] Arm Rest Builder: Rogers Reno MD Hemoglobin [id number] By: Vu Mayes on 07-24-2021 Glucose [Mass/Vol] 166 mg/dL [facility] Phone: Comment on above: The ADA and AACC rec ommend providing the estimated average glucose result to permit better patient understanding of their HBA1c result. HbA1c (Bld) [Mass fraction] 7.4 % High 4.0 - 6.0 % [facility] Phone: Interpretation and review of laboratory results Abnormal [facility] Phone: [facility] Phone: Lactate Dehydrogenaseon 07-020 LDH [Catalytic activity/Vol] 545 U/L High 135-225 [facility] Comment on above: Performed By: #### F DORON, CRP, FIB #### [facility] [employer] [address] [place] [address] [id number] Arm Rest Builder: Rogers Reno MD #### DIME, LD, CMPX, CDP #### [facility] [address] [place] [address] Arm Rest Builder: Richmond Nicole MD LDH [Catalytic activity/Vol] 577 U/L High 135-225 [facility] Comment on above: Performed By: #### F DORON, CRP, FIB #### [facility] [employer] [address] [place] [address] [id number] Arm Rest Builder: Rogers Reno MD #### DIME, LD, CMPX, CDP #### [facility] [address] [place] [address] Arm Rest Builder: Richmond Nicole MD Lactate DehydrogenaseOrdered By: Rojelio Mayes on 07-24-2021 LD 545 U/L High 135 - 225 U/L [facility] [employer] Phone: No Panel InformationOrdered By: Rojelio Mayes on 07-24-2021 Interpretation and review of laboratory results Abnormal [employer] Work Phone: [employer] Work Phone: CBC Auto DifferentialOrdered By: Stacia Saleh on 07-23-2021 [employer] # [address] [facility] Work Phone: [facility] Immature Granulocyte NOT REPORTED [facility] Work Phone: [facility] Lymph # [address] [employer] Work Phone: [facility] [place] # 0.34 [facility] [employer] Work Phone: Basophils (Bld) [#/Vol] 0.23 10*3/uL High [employer] Work Phone: Differential Type NOT REPORTED [facility] Phone: Hematocrit (Bld) [Volume fraction] 43.6 % 41 - 53 % [employer] Work Phone: Hemoglobin.gastrointesti nal spec 1 Ql (Stl) 14.9 g/dL 13.5 - 17.5 g/dL [employer] Work Phone: Immature Granulocytes NOT REPORTED 0 % M [employer] Work Phone: Interpretation and review of laboratory results Abnormal [facility] Phone: MCH (RBC) [Entitic mass] 29.3 pg 26 - 34 pg [facility] Phone: MCHC (RBC) [Mass/Vol] 34.3 g/dL 31 - 37 g/dL [employer] Work Phone: MCV (RBC) [Entitic vol] 85.5 fL 80 - 100 fL [employer] Work Phone: Morphology Jose (Bld) [Interp] INCREASED PLATELETS [facility] Phone: NRBC Automated NOT REPORTED per 100 WBC [facility] [employer] Work Phone: Platelet distribution width (Bld) [Ratio] 12.7 % 12.1 - 15.2 % [facility] Phone: Platelet Estimate NOT REPORTED [facility] Phone: Platelet mean volume (Bld) [Entitic vol] NOT REPORTED 6.0 - 12.0 fL [facility] Phone: Platelets (Bld) [#/Vol] 523 10*3/uL High [facility] Phone: RBC (Bld) [#/Vol] 5.09 10*6/uL 4.5 - 5.9 m/uL [facility] Phone: RBC (Bld) [#/Vol] NOT REPORTED [facility] Phone: Segmented neutrophils/100 WBC (Bld) 81 % High 39 - 75 % [facility] Phone: Segs Absolute 9.15 High [employer] Work Phone: WBC (Bld) [#/Vol] 11.3 10*3/uL High [employer] Work Phone: WBC (Bld) [#/Vol] NOT REPORTED [facility] Phone: [facility] Phone: CBC with Diffon 07-23-2021 Abs. Basophil 0.23 k/uL High 0.0-0.2 [facility] Comment on above: Performed By: #### F DORON, CRP, FIB #### [facility] [address] [place] [address] Arm Rest Builder: Rogers Reno MD #### NAHTANIEL CHOW, CMPX, CDP #### [facility] [address] [place] [address] Arm Rest Builder: Richmond Nicole MD Abs.Neutrophil (Seg) 9.15 k/uL High 2.1-6.5 [facility] Comment on above: Performed By: #### F DORON, CRP, FIB #### [facility] [address] [place] [address] Arm Rest Builder: Rogers Reno MD #### DIME, LD, CMPX, CDP #### [facility] [address] [place], [place] [id number] Arm Rest Builder: Richmond Nicole MD Eosinophils (Bld) [#/Vol] 0.11 10*3/uL Normal 0.0-0.4 [facility] Comment on above: Performed By: #### F DORON, CRP, FIB #### [address] [address] Arm Rest Builder: Rogers Reno MD #### DIME, LD, CMPX, CDP #### [facility] [address] [place], [place] [id number] Arm Rest Builder: Richmond Nicole MD Lymphocytes (Bld) [#/Vol] 1.47 10*3/uL Normal 1.0-4.8 [facility] Comment on above: Performed By: #### F DORON, CRP, FIB #### [address] [address] Arm Rest Builder: Rogers Reno MD #### DIME, LD, CMPX, CDP #### [facility] [address] [place] [address] Arm Rest Builder: Richmond Nicole MD Monocytes (Bld) [#/Vol] 0.34 10*3/uL Normal 0.0-1.0 [facility] Comment on above: Performed By: #### F DORON, CRP, FIB #### [address] [address] Arm Rest Builder: Rogers Reno MD #### DIME, LD, CMPX, CDP #### [facility] [address] [place], [place] [id number] Arm Rest Builder: Richmond Nicole MD Neutrophil (Seg) 81 % High 39-75 [facility] Comment on above: Performed By: #### F DORON, CRP, FIB #### [address] [id number] Arm Rest Builder: Rogers Reno MD #### DIME, LD, CMPX, CDP #### [facility] [address] [place], [place] [id number] Arm Rest Builder: Richmond Nicole MD Erythrocyte distribution width (RBC) [Ratio] 12.7 % Normal 12.1-15.2 [facility] Comment on above: Performed By: #### F DORON, CRP, FIB #### [address] [id number] Arm Rest Builder: Rogers Reno MD #### DIME, LD, CMPX, CDP #### [facility] [address] [place] [id number] Arm Rest Builder: Richmond Nicole MD Hematocrit (Bld) [Volume fraction] 43.6 % Normal 41-53 [facility] Comment on above: Performed By: #### F DORON, CRP, FIB #### [address] [id number] Arm Rest Builder: Rogers Reno MD #### DIME, LD, CMPX, CDP #### [facility] [address] [place] [id number] Arm Rest Builder: Richmond Nicole MD Hemoglobin (Bld) [Mass/Vol] 14.9 g/dL Normal 13.5-17.5 [facility] Comment on above: Performed By: #### F DORON, CRP, FIB #### [address] [id number] Arm Rest Builder: Rogers Reno MD #### DIME, LD, CMPX, CDP #### [facility] [address] [place] [id number] Arm Rest Builder: Richmond Nicole MD MCH (RBC) [Entitic mass] 29.3 pg Normal 26-34 [facility] Comment on above: Performed By: #### F DORON, CRP, FIB #### [address] [id number] Arm Rest Builder: Rogers Reno MD #### DIME, LD, CMPX, CDP #### [facility] [address] [place], [place] [id number] Arm Rest Builder: Richmond Nicole MD MCHC (RBC) [Mass/Vol] 34.3 g/dL Normal 31-37 [facility] Comment on above: Performed By: #### F DORON, CRP, FIB #### [address] [id number] Arm Rest Builder: Rogers Reno MD #### DIME, LD, CMPX, CDP #### [facility] [address] [place], [place] [id number] Arm Rest Builder: Richmond Nicole MD MCV (RBC) [Entitic vol] 85.5 fL Normal 80-100 [facility] Comment on above: Performed By: #### F DORON, CRP, FIB #### [address] [id number] Arm Rest Builder: Rogers Reno MD #### DIME, LD, CMPX, CDP #### [facility] [address] [place], [place] [id number] Arm Rest Builder: Richmond Nicole MD Platelets (Bld) [#/Vol] 523 10*3/uL High 140-450 [facility] Comment on above: Performed By: #### F DORON, CRP, FIB #### [address] [id number] Arm Rest Builder: Rogers Reno MD #### DIME, LD, CMPX, CDP #### [facility] [address] [place], [place] [id number] Arm Rest Builder: Richmond Nicole MD RBC (Bld) [#/Vol] 5.09 10*6/uL Normal 4.5-5.9 [facility] Comment on above: Performed By: #### F DORON, CRP, FIB #### [address] [id number] Arm Rest Builder: Rogers Reno MD #### DIME, LD, CMPX, CDP #### [facility] [address] [place], [place] [id number] Arm Rest Builder: Richmond Nicole MD WBC (Bld) [#/Vol] 11.3 10*3/uL High 3.5-11.0 [facility] Comment on above: Performed By: #### F DORON, CRP, FIB #### [address] [id number] Arm Rest Builder: Rogers Reno MD #### DIME, LD, CMPX, CDP #### [facility] [address] [place] [address] Arm Rest Builder: Richmond Nicole MD Abs.Imm.Granulocyte NOT REPORTED Normal 0.00-0.30 [facility] Comment on above: Performed By: #### F DORON, CRP, FIB #### [address] [address] Arm Rest Builder: Rogers Reno MD #### DIME, LD, CMPX, CDP #### [facility] [address] [place], [place] [phone] Arm Rest Builder: Richmond Nicole MD Auto Diff Performed NOT REPORTED Normal [facility] Comment on above: Performed By: #### F DORON, CRP, FIB #### [address] [id number] Arm Rest Builder: Rogers Reno MD #### DIME, LD, CMPX, CDP #### [facility] [address] [place], [place] [phone] Arm Rest Builder: Richmond Nicole MD Immature Granulocyte NOT REPORTED Normal 0 Me [facility] Comment on above: Performed By: #### F DORON, CRP, FIB #### [address] [place] [address] Arm Rest Builder: Rogers Reno MD #### DIME, LD, CMPX, CDP #### [facility] [address] [place], [place] [phone] Arm Rest Builder: Richmond Nicole MD MPV NOT REPORTED Normal 6.0-12.0 [facility] Comment on above: Performed By: #### F DORON, CRP, FIB #### [address] [phone] Arm Rest Builder: Rogers Reno MD #### DIME, LD, CMPX, CDP #### [facility] [address] [place], [place] [phone] Arm Rest Builder: Richmond Nicole MD NRBC Automated NOT REPORTED Normal [facility] Comment on above: Performed By: #### F DORON, CRP, FIB #### [address] [address] Arm Rest Builder: Rogers Reno MD #### DIME, LD, CMPX, CDP #### [facility] [address] [place] [address] Arm Rest Builder: Richmond Nicole MD Platelet Estimate NOT REPORTED Normal [facility] Comment on above: Performed By: #### F DORON, CRP, FIB #### [address] [address] Arm Rest Builder: Rogers Reno MD #### DIME, LD, CMPX, CDP #### [facility] [address] [place], [place] [phone] Arm Rest Builder: Richmond Nicole MD RBC morphology finding Nom (Bld) NOT REPORTED Normal [facility] Comment on above: Performed By: #### F DORON, CRP, FIB #### [facility] [address] [place], [place] [phone] Arm Rest Builder: Rogers Reno MD #### DIME, LD, CMPX, CDP #### [facility] [address] [place], [place] [phone] Arm Rest Builder: Richmond Nicole MD WBC Morphology NOT REPORTED Normal [facility] Comment on above: Performed By: #### F DORON, CRP, FIB #### [address] [id number] Arm Rest Builder: Rogers Reno MD #### DIME, LD, CMPX, CDP #### [facility] [address] [facility] [place] [address] Arm Rest Builder: Richmond Nicole MD CBC with DiffOrdered By: Rogers Saleh on 07-23-2021 Basophils/100 WBC (Bld) 2 % Normal 0-2 [facility] Work Phone: Comment on above: Performed By: #### F DORON, CRP, FIB #### [address] [phone] Arm Rest Builder: Rogers Reno MD #### DIME, LD, CMPX, CDP #### [facility] [address] [place] [address] Arm Rest Builder: Richmond Nicole MD Eosinophils/100 WBC (Bld) 1 % Normal 0-5 [facility] Work Phone: Comment on above: Performed By: #### F DORON, CRP, FIB #### [address] [id number] Arm Rest Builder: Rogers Reno MD #### DIME, LD, CMPX, CDP #### [facility] [address] [place], [place] [phone] Arm Rest Builder: Richmond Nicole MD Lymphocytes/100 WBC (Bld) 13 % Normal 13-44 [facility] Work Phone: Comment on above: Performed By: #### F DORON, CRP, FIB #### [address] [id number] Arm Rest Builder: Rogers Reno MD #### DIME, LD, CMPX, CDP #### [facility] [address] [place] [address] Arm Rest Builder: Richmond Nicole MD Monocytes/100 WBC (Bld) 3 % Low 5-9 [facility] Work Phone: Comment on above: Performed By: #### F DORON, CRP, FIB #### [address] [phone] Arm Rest Builder: Rogers Reno MD #### DIME, LD, CMPX, CDP #### [facility] [address] [place] [address] Arm Rest Builder: Richmond Nicole MD Morphology Jose (Bld) [Interp] Scanned to verify automated differential. Normal [facility] Work Phone: Comment on above: Result Comment: INCR EASED PLATELETS Performed By: #### F DORON, CRP, FIB #### [address] [id number] Arm Rest Builder: Rogers Reno MD #### DIME, LD, CMPX, CDP #### [facility] [address] [place] [address] Arm Rest Builder: Richmond Nicole MD COVID-19, RapidOrdered By: Harpreet Saleh on 07-23-2021 Interpretation and review of laboratory results Abnormal [facility] Phone: SARS-CoV-2 (COVID-19) RNA DESTIN+probe Ql (Unsp spec) Detected Abnormal Not Detected [facility] Phone: Comment on above: Rapid NAAT: The specimen is POSITIVE for SARS-Cov-2, the novel coronavirus associated with COVID-19. This test has been authorized by the FDA under an Emergency Use Authorization (EUA) for use by authorized laboratories. The ID NOW COVID-19 assay is designed to detect the virus that causes COVID-19 in patients with signs and symptoms of infection who are suspected of COVID-19. An individual without symptoms of COVID-19 and who is not shedding SARS-CoV-2 virus would expect to have a negative (not detected) result in this assay. Fact sheet for Healthcare Providers: https://www.fda.gov/media/012854/download Fact sheet for Patients: https://www.fda.gov/media/414041/download Methodology: Isothermal Nucleic Acid Amplification Results reported to the appropriate Health Department Specimen Description .NASOPHARYNGEAL SWAB [facility] Phone: [facility] Phone: Comp Metabolic Profon 2020 (cont.) Normal [facility] Comment on above: Result Comment: Aver age GFR for 60-69 years old: 85 mL/min/1.73sq m Chronic Kidney Disease: <60 mL/min/1.73sq m Kidney failure: <15 mL/min/1.73sq m eGFR calculated using average adult body mass. Additional eGFR calculator available at: http://www.flyRuby.com.Leevia/multiple_crcl_2011.htm Performed By: #### C RP, PRCAL, FERI #### [facility] [employer] [address] [place] [address] Arm Rest Builder: Rogers Reno MD #### CP, NATHANIEL, TROPI, CDP #### [facility] [address] [place] [address] Arm Rest Builder: Richmond Nicole MD Albumin [Mass/Vol] 3.1 g/dL Low 3.5-5.2 [facility] Comment on above: Performed By: #### C RP, PRCAL, FERI #### [address] [phone] Arm Rest Builder: Rogers Reno MD #### CP, LD, TROPI, CDP #### [facility] [address] [place] [address] Arm Rest Builder: Richmond Nicole MD Alkaline Phos 75 U/L Normal 40-129 [facility] Comment on above: Performed By: #### C RP, PRCAL, FERI #### [address] [phone] Arm Rest Builder: Rogers Reno MD #### CP, LD, TROPI, CDP #### [facility] [address] [place] [address] Arm Rest Builder: Richmond Nicole MD ALT [Catalytic activity/Vol] 19 U/L Normal 5-41 [facility] Comment on above: Performed By: #### C RP, PRCAL, FERI #### [address] [phone] Arm Rest Builder: Rogers Reno MD #### CP, LD, TROPI, CDP #### [facility] [address] [place] [address] Arm Rest Builder: Richmond Nicole MD Anion gap [Moles/Vol] 18 mmol/L High 9-17 [facility] Comment on above: Performed By: #### C RP, PRCAL, FERI #### [address] [id number] Arm Rest Builder: Rogers Reno MD #### CP, LD, TROPI, CDP #### [facility] [address] [place] [address] Arm Rest Builder: Richmond Nicole MD AST [Catalytic activity/Vol] 17 U/L Normal <40 [facility] Comment on above: Performed By: #### C RP, PRCAL, FERI #### [address] [place], [place] 6035508 Arm Rest Builder: Rogers Reno MD #### CP, LD, TROPI, CDP #### [facility] [address] [place], [place] [phone] Arm Rest Builder: Richmond Nicole MD Bilirubin [Mass/Vol] 0.47 mg/dL Normal 0.30-1.20 [facility] Comment on above: Performed By: #### C RP, PRCAL, FERI #### [address] [phone] Arm Rest Builder: Rogers Reno MD #### CP, LD, TROPI, CDP #### [facility] [address] [place] [address] Arm Rest Builder: Richmond Nicole MD BUN/CRE Ratio 19 Normal 9-20 [facility] Comment on above: Performed By: #### C RP, PRCAL, FERI #### [address] [phone] Arm Rest Builder: Rogers Reno MD #### CP, LD, TROPI, CDP #### [facility] [address] [place], [place] [phone] Arm Rest Builder: Richmond Nicole MD Calcium [Mass/Vol] 9.3 mg/dL Normal 8.6-10.4 [facility] Comment on above: Performed By: #### C RP, PRCAL, FERI #### [address] [id number] Arm Rest Builder: Rogers Reno MD #### CP, LD, TROPI, CDP #### [facility] [address] [place], [place] [phone] Arm Rest Builder: Richmond Nicole MD Chloride [Moles/Vol] 92 mmol/L Low 98-107 [facility] Comment on above: Performed By: #### C RP, PRCAL, FERI #### [address] [phone] Arm Rest Builder: Rogers Reno MD #### CP, LD, TROPI, CDP #### [facility] [address] [place], [place] [phone] Arm Rest Builder: Richmond Nicole MD CO2 [Moles/Vol] 23 mmol/L Normal 20-31 [facility] Comment on above: Performed By: #### C RP, PRCAL, FERI #### [address] [phone] Arm Rest Builder: Rogers Reno MD #### MARGARETH, LD, TROPI, CDP #### [facility] [address] [place] [phone] Arm Rest Builder: Richmond Nicole MD Creatinine [Mass/Vol] 1.16 mg/dL Normal 0.70-1.20 [facility] Comment on above: Performed By: #### C RP, PRCAL, FERI #### [address] [phone] Arm Rest Builder: Rogers Reno MD #### MARGARETH, LD, TROPI, CDP #### [facility] [address] [place] [phone] Arm Rest Builder: Richmond Nicole MD GFR, Amer >60 Normal >60 [facility] Comment on above: Performed By: #### C RP, PRCAL, FERI #### [address] [id number] Arm Rest Builder: Rogers Reno MD #### CP, LD, TROPI, CDP #### [facility] [address] [place] [phone] Arm Rest Builder: Richmond Nicole MD GFR,non Amer >60 Normal >60 [facility] Comment on above: Performed By: #### C RP, PRCAL, FERI #### [address] [place] [address] Arm Rest Builder: Rogers Reno MD #### CP, LD, TROPI, CDP #### [facility] [address] [place] [address] Arm Rest Builder: Richmond Nicole MD Glucose [Mass/Vol] 219 mg/dL High 70-99 [facility] Comment on above: Performed By: #### C RP, PRCAL, FERI #### [address] [phone] Arm Rest Builder: Rogers Reno MD #### MARGARETH, LD, TROPI, CDP #### [facility] [address] [place] [address] Arm Rest Builder: Richmond Nicole MD Potassium [Moles/Vol] 3.3 mmol/L Low 3.7-5.3 [facility] Comment on above: Performed By: #### C RP, PRCAL, FERI #### [address] [id number] Arm Rest Builder: Rogers Reno MD #### MARGARETH, LD, TROPI, CDP #### [facility] [address] [place] [address] Arm Rest Builder: Richmond Nicole MD Protein [Mass/Vol] 7.7 g/dL Normal 6.4-8.3 [facility] Comment on above: Performed By: #### C RP, PRCAL, FERI #### [address] [address] Arm Rest Builder: Rogers Reno MD #### CP, LD, TROPI, CDP #### [facility] [address] [place], [place] [phone] Arm Rest Builder: Richmond Nicole MD Sodium [Moles/Vol] 133 mmol/L Low 135-144 [facility] Comment on above: Performed By: #### C RP, PRCAL, FERI #### [address] [place], [place] 5784508 Arm Rest Builder: Rogers Reno MD #### CP, NATHANIEL, TROPI, CDP #### [facility] [address] [place], [place] [phone] Arm Rest Builder: Richmond Nicole MD Urea nitrogen [Mass/Vol] 22 mg/dL Normal 8-23 [facility] Comment on above: Performed By: #### C RP, PRCAL, FERI #### [address] [phone] Arm Rest Builder: Rogers Reno MD #### NATHANIEL ZULUAGA, TROPI, CDP #### [facility] [address] [place], [place] 2227190 Arm Rest Builder: Richmond Nicole MD Albumin/Glob Ratio NOT REPORTED Normal 1.0-2.5 [facility] Comment on above: Performed By: #### C RP, PRCAL, FERI #### [address] [address] Arm Rest Builder: Rogers Reno MD #### MARGARETH, NATHANIEL, TROPI, CDP #### [facility] [address] [place], [place] [phone] Arm Rest Builder: Richmond Nicole MD Staging: NOT REPORTED Normal [facility] Comment on above: Performed By: #### C RP, PRCAL, FERI #### [address] [phone] Arm Rest Builder: Rogers Reno MD #### CP, LD, TROPI, CDP #### [facility] [address] [place], [place] [phone] Arm Rest Builder: Richmond Nicole MD [facility] Metabolic Pane lOrdered By: Stacia Saleh on 07-23-2021 Albumin [Mass/Vol] 3.1 g/dL Low 3.5 - 5.2 g/dL [facility] Phone: Albumin/Globulin Ratio NOT REPORTED [facility] Phone: ALP (Bld) [Catalytic activity/Vol] 75 U/L 40 - 129 U/L [facility] Phone: ALT [Catalytic activity/Vol] 19 U/L 5 - 41 U/L [facility] Phone: Anion gap [Moles/Vol] 18 mmol/L High 9 - 17 mmol/L [facility] Phone: AST [Catalytic activity/Vol] 17 U/L <40 [facility] Phone: Bilirubin [Mass/Vol] 0.47 mg/dL 0.30 - 1.20 mg/dL [facility] Phone: Calcium [Mass/Vol] 9.3 mg/dL 8.6 - 10. 4 mg/dL [facility] Phone: Chloride [Moles/Vol] 92 mmol/L Low 98 - 10 7 mmol/L [facility] Phone: CO2 [Moles/Vol] 23 mmol/L 20 - 31 mmol/L [facility] Phone: Creatinine [Mass/Vol] 1.16 mg/dL 0.70 - 1.20 mg/dL [facility] Phone: Free PSA/Total PSA [Mass fraction] 7.7 g/dL 6.4 - 8.3 g/dL [facility] Phone: GFR >60 >60 mL/min [employer] Phone: GFR Non- >60 >60 mL/min [facility] Phone: GFR/1.73 sq M.predicted MDRD (S/P/Bld) [Vol rate/Area] [facility] Phone: Comment on above: Average GFR for 60-6 9 years old: 85 mL/min/1.73sq m Chronic Kidney Disease: <60 mL/min/1.73sq m Kidney failure: <15 mL/min/1.73sq m eGFR calculated using average adult body mass. Additional eGFR calculator available at: http://www.Koogame/Answerology_crcl_2012.htm GFR/1.73 sq M.predicted MDRD (S/P/Bld) [Vol rate/Area] NOT REPORTED [facility] Phone: Glucose [Mass/Vol] 219 mg/dL High 70 - 99 mg/dL [facility] Phone: Interpretation and review of laboratory results Abnormal [facility] Phone: Potassium [Moles/Vol] 3.3 mmol/L Low 3.7 - 5.3 mmol/L [facility] Phone: Sodium [Moles/Vol] 133 mmol/L Low 135 - 144 mmol/L [facility] Phone: Urea nitrogen (BldV) [Mass/Vol] 22 mg/dL 8 - 23 mg/dL [facility] Phone: Urea nitrogen/Creatinine (Bld) [Mass ratio] 19 [facility] Phone: [facility] Phone: D-Dimer, QuantitativeOrdered By: Rojelio Mayes on 07-23-2021 D-Dimer, Quant 1.57 [employer] Phone: Comment on above: When combined with a low clinical probability, a D dimer value of <0.50 mg/L FEU is considered negative for DVT and PE (negative predictive value of 98%, sensitivity of 97%). If this test is not being used to help rule out DVT and PE, then the following reference range should be utilized: 0.00 - 0.59 mg/L FEU. The D-Dimer assay is intended for use as an aid in the diagnosis of venous thromboembolism (DVT and PE) and the results should be interpreted in conjunction with the patient's medical history, clinical presentation, and other findings. Elevated levels of D-dimer activity can be seen in any state of coagulation activation and is not recommended in patients with therapeutic dose anticoagulant therapy for >24 hours, fibrinolytic therapy within the previous 7 days, trauma or surgery within the previous 4 weeks, disseminated malignancies, aortic aneurysm, sepsis, severe infections, pneumonia, severe skin infections, liver cirrhosis, advanced age, coronary disease, diabetes, and . A very low percentage of patients with DVT may yield D-dimer results below the cutoff of 0.5 mg/L FEU. This is known to be more prevalent in patients with distal DVT. Interpretation and review of laboratory results Abnormal [facility] Phone: [facility] Phone: Glucose, Whole BloodOrdered By: Rojelio Mayes on 07-23-2021 Glucose [Mass/Vol] 247 mg/dL High 65 - 99 mg/dL [facility] Phone: Interpretation and review of laboratory results Abnormal [facility] Phone: [facility] Phone: Lactate DehydrogenaseOrdered By: Stacia Saleh on 07-23-2021 Interpretation and review of laboratory results Abnormal [facility] Phone: LD 577 U/L High 135 - 225 U/L [facility] Phone: [facility] Phone: [id number] 07-23-2021 SARS-CoV-2 (COVID-19) RNA DESTIN+probe Ql (Unsp spec) Detected Abnormal [facility] Comment on above: Result Comment: Rapid NAAT: The specimen is POSITIVE for SARS-Cov-2, the novel coronavirus associated with COVID-19. This test has been authorized by the FDA under an Emergency Use Authorization (EUA) for use by authorized laboratories. The ID NOW COVID-19 assay is designed to detect the virus that causes COVID-19 in patients with signs and symptoms of infection who are suspected of COVID-19. An individual without symptoms of COVID-19 and who is not shedding SARS-CoV-2 virus would expect to have a negative (not detected) result in this assay. Fact sheet for Healthcare Providers: https://www.fda.gov/media/280120/download Fact sheet for Patients: https://www.fda.gov/media/191349/download Methodology: Isothermal Nucleic Acid Amplification Results reported to the appropriate Health Department Performed By: #### F DORON, CRP, FIB #### [address] [id number] Arm Rest Builder: Rogers Reno MD #### NATHANIEL CHOW, CMPX, CDP #### [facility] [address] [place] [address] Arm Rest Builder: Richmond Nicole MD Troponinon 07-23-2021 Troponin, High Sens 15 ng/L Normal 0-22 [facility] Comment on above: Result Comment: High Sensitivity Troponin values cannot be compared with other Troponin methodologies. Patients with high levels of Biotin oral intake (i.e >5mg/day) may have falsely decreased Troponin levels. Samples collected within 8 hours of biotin intake may require additional information for diagnosis. Performed By: #### F DORON, CRP, FIB #### [address] [address] Arm Rest Builder: Rogers Reno MD #### CLAUDINE LD, CMPX, CDP #### [facility] [address] [place] [address] Arm Rest Builder: Richmond Nicole MD Troponin Interp. NOT REPORTED Normal [facility] Comment on above: Performed By: #### F DORON, CRP, FIB #### [address] [address] Arm Rest Builder: Rogers Reno MD #### CLAUDINE LD, CMPX, CDP #### [facility] [address] [place] [address] Arm Rest Builder: Richmond Nicole MD Troponin T NOT REPORTED Normal <0.03 [facility] Comment on above: Performed By: #### F DORON, CRP, FIB #### [facility] [employer] [address] [place] [address] Arm Rest Builder: Rogers Reno MD #### DIME, LD, CMPX, CDP #### [facility] [address] [place], [place] [phone] Arm Rest Builder: Richmond Nicole MD TroponinOrdered By: Stacia iqbal on 07-23-2021 Troponin Interp NOT REPORTED [facility] [employer] [facility] Work Phone: Troponin T NOT REPORTED <0.03 ng/mL [facility] Work Phone: Troponin, High Sensitivity 15 ng/L 0 - 22 ng/L [facility] Work Phone: Comment on above: High Sensitivity Troponin values cannot be compared with other Troponin methodologies. Patients with high levels of Biotin oral intake (i.e >5mg/day) may have falsely decreased Troponin levels. Samples collected within 8 hours of biotin intake may require additional information for diagnosis. [facility] Work Phone: XR CHEST PORTABLEon 07-23-20 XR CHEST PORTABLE EXAM: XR CHEST PORTABLE HISTORY: Reason for exam:->cough COMPARISON: None. TECHNIQUE: Portable chest radiograph. FINDINGS: The cardiomediastinal silhouette and pulmonary vasculature are normal. No pleural effusion, focal consolidation, pneumothorax. There are patchy airspace opacities along the periphery of the lungs in the mid to lower lungs bilaterally. Soft tissues and osseous structures are without acute findings. IMPRESSION: Findings are compatible with an atypical infectious, inflammatory, or viral process to include COVID-19 pneumonia. Interpreted by: Stacia Calloway MD Signed by: Stacia Calloway MD 07/23/21 Final result Normal [facility] XR CHEST PORTABLEOrdered By: Stacia Saleh on 07-23-2021 SARS-CoV-2 (COVID-19) RNA DESTIN+probe Ql (Unsp spec) Findings are compatible with an atypical infectious, inflammatory, or viral process to include COVID-19 pneumonia. [facility] Phone: EXAM: XR CHEST PORTABLE HISTORY: Reason for exam:->cough COMPARISON: None. TECHNIQUE: Portable chest radiograph. FINDINGS: The cardiomediastinal silhouette and pulmonary vasculature are normal. No pleural effusion, focal consolidation, pneumothorax. There are patchy airspace opacities along the periphery of the lungs in the mid to lower lungs bilaterally. Soft tissues and osseous structures are without acute findings. [facility] Phone: [place], [employer] Incoming Radiant Results From [email or web address] - 07/23/2021 8:46 PM EDT EXAM: XR CHEST PORTABLE HISTORY: Reason for exam:->cough COMPARISON: None. TECHNIQUE: Portable chest radiograph. FINDINGS: The cardiomediastinal silhouette and pulmonary vasculature are normal. No pleural effusion, focal consolidation, pneumothorax. There are patchy airspace opacities along the periphery of the lungs in the mid to lower lungs bilaterally. Soft tissues and osseous structures are without acute findings. IMPRESSION: Findings are compatible with an atypical infectious, inflammatory, or viral process to include COVID-19 pneumonia. [facility] Phone: [facility] Phone: Vital Signs Date Time Vital Sign Value Performing Clinician Facility 09-03-2024 10:32-0500 Blood Pressure Location Thong [facility] 09-03-2024 10:32-0500 Body temperature 98.6 [degF] Thongsorin [facility] 09-03-2024 10:32-0500 Diastolic blood pressure 75 mm[Hg] Thongsorin [facility] 09-03-2024 10:32-0500 Heart rate 70 /min Thongsorin [facility] 09-03-2024 10:32-0500 Respiratory rate 18 /min Thong MATOS [facility] 09-03-2024 10:32-0500 Systolic blood pressure 136 mm[Hg] Thong MATOS [facility] 06-18-2024 09:55-0400 Blood Pressure Location Thongsorin MATOS [facility] 06-18-2024 09:55-0400 Diastolic blood pressure 82 mm[Hg] Thong MATOS [facility] 06-18-2024 09:55-0400 Heart rate 76 /min Thong MATOS [facility] 06-18-2024 09:55-0400 Systolic blood pressure 148 mm[Hg] Thong MATOS [facility] 06-01-2024 10:17-0400 Body height 180.34 cm [facility] 06-01-2024 10:17-0400 Body mass index (BMI) [Ratio] 29.2 kg/m2 [facility] 06-01-2024 10:17-0400 Body weight 95.31 kg [facility] 06-01-2024 10:17-0400 Diastolic blood pressure 75 mm[Hg] [facility] 06-01-2024 10:17-0400 Heart rate 71 /min [facility] 06-01-2024 10:17-0400 Respiratory rate 12 /min [facility] 06-01-2024 10:17-0400 Systolic blood pressure 146 mm[Hg] [facility] 12-02-2023 10:00-0500 Body height 180.34 cm Elpidio Deyanira Other [employer] Other 12-02-2023 10:00-0500 Body mass index (BMI) [Ratio] 30.62 kg/m2 [facility] Other [employer] Other 12-02-2023 10:00-0500 Body weight 99.61 kg Elpidio Frequency Other [employer] Other 12-02-2023 10:00-0500 Diastolic blood pressure 80 mm[Hg] Elpidio Frequency Other [employer] Other 12-02-2023 10:00-0500 Respiratory rate 12 /min [facility] Other [employer] Other 12-02-2023 10:00-0500 Systolic blood pressure 163 mm[Hg] [facility] Other [employer] Other 07-25-2021 13:45-0400 SaO2% (BldA) [Mass fraction] 95 % Stacia Saleh MD Work Phone: [employer] Work Phone: 07-25-2021 08:20-0400 Body temperature 98.6 [degF] Stacia Saleh MD Work Phone: [employer] Work Phone: 07-25-2021 08:20-0400 Diastolic blood pressure 60 mm[Hg] Stacia Saleh MD Work Phone: [employer] Work Phone: 07-25-2021 08:20-0400 Heart rate 61 /min Stacia Saleh MD Work Phone: [employer] Work Phone: 07-25-2021 08:20-0400 Respiratory rate 16 /min Stacia Saleh MD Work Phone: [employer] Work Phone: 07-25-2021 08:20-0400 Systolic blood pressure 132 mm[Hg] Stacia Saleh MD Work Phone: [employer] Work Phone: 07-24-2021 12:58-0400 Body height 180.3 cm Stacia Saleh MD Work Phone: [employer] Work Phone: 07-23-2021 22:15-0400 Body mass index (BMI) [Ratio] 27.81 kg/m2 Stacia Saleh MD Work Phone: [employer] Work Phone: 07-23-2021 22:15-0400 Body weight 90.45 kg Stacia Saleh MD Work Phone: [employer] Work Phone: Encounters Encounter Date Encounter Type Care Provider Facility Start: 09-03-2024 End: 09-03-2024 ambulatory Thong MATOS Facility:[facility] Start: 09-03-2024 End: 09-03-2024 Patient encounter procedure Thong MATOS [facility] Start: 08-14-2024 End: 08-14-2024 ambulatory DO Elpidio Sahu Work Phone: [facility] Work Phone: Start: 08-14-2024 End: 08-14-2024 Departed Referred DO Elpidio Ball Work Phone: [facility] Work Phone: Start: 08-14-2024 End: 08-14-2024 ambulatory Thong MATOS Facility:[id number] Start: 07-25-2024 End: 07-25-2024 Patient encounter procedure DO Elpidio Ball Work Phone: [facility] Work Phone: Start: 07-25-2024 End: 07-25-2024 ambulatory DO Elpidio Ball Work Phone: [facility] Work Phone: Start: 06-18-2024 End: 06-18-2024 ambulatory Thong MATOS Facility:[facility] Start: 06-18-2024 End: 06-18-2024 Patient encounter procedure Thong Sherwood EDY [facility] Start: 06-01-2024 End: 06-01-2024 ambulatory [facility] Work Phone: Start: 06-01-2024 End: 06-01-2024 Encounter for general adult medical examination without abnormal findings [facility] Start: 06-01-2024 End: 06-01-2024 Patient encounter procedure [facility] Work Phone: Start: 05-26-2024 Non-patient / Non-visit [facility] Work Phone: Start: 03-19-2024 Non-patient / Non-visit [facility] Work Phone: Start: 12-02-2023 End: 12-02-2023 ambulatory Elpidio Sahu Other [employer] Other Start: 12-02-2023 Office outpatient vi sit 25 minutes Elpidio Sahu [facility] Start: 05-19-2022 Adult health examination Elpidio Sahu Other [employer] Other Start: 05-12-2022 Encounter for genera l adult medical examination without abnormal findings DR ELPIDIO SAHU [facility] Start: 05-08-2022 End: 05-09-[address] ELPIDIO SAHU Facility:[facility] Start: 05-08-2022 End: 05-09-2022 Encounter for general adult medical examination without abnormal findings DR ELPIDIO SAHU Facility:[facility] Start: 07-23-2021 End: 07-25-2021 Evaluation and management of inpatient [facility] Start: 07-23-2021 End: 07-25-2021 Evaluation and management of inpatient Stacia Saleh MD Work Phone: [id number] Comment on above: Pneumonia due to COV ID-19 virus (Primary Dx) Procedures Date Procedure Procedure Detail Performing Clinician Start: 08-14-2024 MRI-US fusion guided transrectal biopsy of prostate Thong MATOS Start: 07-25-2024 MR prostate wo/w con DO Elpidio Sahu Work Phone: Start: 05-08-[address] SALAS IN [place] Comment on above: Performed By: #### [facility] #### [facility] [address] [place] [address] Dr. Oniel Jackson Start: 07-25-2021 Gluc bld gluc mntr d ev cleared fda spec home use Rojelio Mayes MD Work Phone: Start: 07-25-2021 Gluc bld gluc mntr d ev cleared fda spec home use Rojelio Mayes MD Work Phone: Start: 07-25-2021 Fibrin dgradj produc ts d-dimer quantitative Rojelio Mayes MD Work Phone: Start: 07-25-2021 Hepatic function panel Rojelio Mayes MD Work Phone: Start: 07-24-2021 Gluc bld gluc mntr d ev cleared fda spec home use Rojelio Mayes MD Work Phone: Start: 07-24-2021 Gluc bld gluc mntr d ev cleared fda spec home use Rojelio Mayes MD Work Phone: Start: 07-24-2021 Gluc bld gluc mntr d ev cleared fda spec home use Rojelio Mayes MD Work Phone: Start: 07-24-2021 Gluc bld gluc mntr d ev cleared fda spec home use Rojelio Mayes MD Work Phone: Start: 07-24-2021 Assay of ferritin Rojelio Mayes MD Work Phone: Start: 07-24-2021 C-reactive protein Madalyn Mayes MD Work Phone: Start: 07-23-2021 Gluc bld gluc mntr d ev cleared fda spec home use Rojelio Mayes MD Work Phone: Start: 07-23-2021 COVID-19, RAPID Stacia jason MD Work Phone: Start: 07-23-2021 Radiologic exam ches t single view Stacia Saleh MD Work Phone: Start: 07-23-2021 C-reactive protein Go Saleh MD Work Phone: Start: 07-23-2021 End: 07-23-2021 Comprehensive metabolic panel Stacia Saleh MD Work Phone: Start: 05-12-2018 Screening for malign ant neoplasm of colon Elpidio Sahu Other Cholecystectomy Thong GATICA Depression screening Joann Sahu Other Tonsillectomy Thong MATOS Plan of Treatment Date Care Activity Detail Author Start: 02-01-2025 ambulatory Ambulatory Facility:[facility] Start: 08-14-2024 [facility] Start: 07-25-2024 MR Prostate WO and W contrast IV [facility] Start: 07-25-2024 MR prostate wo/w con MR prostate wo/ w con [facility] Start: 07-24-2022 Creatinine measurement Creatinine mo nitoring [employer] Work Phone: Start: 07-24-2022 Potassium monitoring Potassium monit oring [facility] Phone: Start: 07-23-2022 Hemoglobin A1c measurement A1C test (Diabetic or Prediabetic) [facility] Phone: Start: 07-01-2021 Influenza vaccination Flu vaccine (# 1) [facility] Phone: Start: 2020 Pneumococcal 65+ yea rs Vaccine (1 of 1 - PPSV23) Pneumococcal 65+ years Vaccine (1 of 1 - PPSV23) [facility] Phone: Start: 05-13-2018 DTaP/Tdap/Td vaccine (1 - Tdap) DTaP/Tdap/Td vaccine (1 - Tdap) [facility] Phone: Start: 2005 Shingles Vaccine (1 of 2) Shingles V accine (1 of 2) [facility] Phone: Start: 2000 Screening for malign ant neoplasm of colon Colon cancer screen colonoscopy [facility] Phone: Start: 1973 Diabetic microalbumi tony test Diabetic microalbuminuria test [facility] Phone: Start: 1967 COVID-19 Vaccine (1) COVID-19 Vaccin e (1) [facility] Phone: Start: 1965 Diabetic foot examination Diabetic f oot exam [facility] Phone: Start: 1965 Diabetic retinal exam Diabetic retin al exam [facility] Phone: Start: 1965 Lipid panel Lipid screen [employer] Work Phone: Start: 1955 Hepatitis C screening Hepatitis C sc reen [facility] Phone: End: 07-23-2021 C DIFF TOXIN/ANTIGEN C DIFF TOXIN/ANTIGEN Microbiology Routine 48 HRS for 48 Hours starting 07/23/2021 until 07/23/2021 [facility] Phone: Comment on above: 48 HRS for 48 Hours starting 07/23/2021 until 07/23/2021 End: 07-26-2021 C-reactive protein C-Reactive Protein Lab Routine Daily for 3 Occurrences starting 07/24/2021 until 07/26/2021, 1 completed [facility] Phone: Comment on above: Daily for 3 Occurren chris starting 07/24/2021 until 07/26/2021, 1 completed C-reactive protein C-Reactive Pr otein Lab Routine 07/25/2021 5:02 AM EDT [facility] Phone: End: 07-23-2021 Culture, Respiratory, Sputum Culture, Respiratory, Sputum Microbiology Routine One Time for 1 Occurrences starting 07/23/2021 until 07/23/2021 [facility] Phone: Comment on above: One Time for 1 Occur rences starting 07/23/2021 until 07/23/2021 End: 07-26-2021 D-Dimer, Quantitative D-Dimer, Quantitative Lab Routine Daily for 3 Occurrences starting 07/24/2021 until 07/26/2021, 2 completed [facility] Phone: Comment on above: Daily for 3 Occurren chris starting 07/24/2021 until 07/26/2021, 2 completed Glucose [Mass/volume ] in Serum or Plasma [facility] Phone: Comment on above: 4X Daily (AC & HS) u ntil discontinued starting 07/24/2021 As Needed until disc ontinued starting 07/23/2021 Hepatic function 200 0 panel - Serum or Plasma Hepatic function panel Lab Routine Daily until discontinued starting 07/24/2021, 1 completed [facility] Phone: Comment on above: Daily until disconti nued starting 07/24/2021, 1 completed Nasal Cannula Oxygen Nasal Cannu la Oxygen Respiratory Care Routine Daily until discontinued starting 07/23/2021 [facility] Phone: Comment on above: Daily until disconti nued starting 07/23/2021 Oxygen therapy [[facility] [place] Initiate Oxygen Therapy Protocol Respiratory Care Routine Daily until discontinued starting 07/23/2021 [facility] Phone: Comment on above: Daily until disconti nued starting 07/23/2021 End: 07-25-2021 Procalcitonin Procalcitonin Lab Routine Q48H for 2 Occurrences starting 07/23/2021 until 07/25/2021 [facility] Phone: Comment on above: Q48H for 2 Occurrenc es starting 07/23/2021 until 07/25/2021 Immunizations Immunization Date Immunization Notes Care Provider Florencio kayshayna 08-12-2023 influenza virus vaccine, unspecified formulation Thong MATOS [facility] 08-13-2022 influenza virus vaccine, split virus (incl. purified surface antigen) Elpidio Sahu Other [employer] Other 08-13-2022 influenza virus vaccine, unspecified formulation [facility] 05-21-2022 Prevnar 20 Elpidio Sahu Other [facility] 03-26-2022 SARS-CoV-2 mRNA (bhxylkssqge-wjfs-fne ann-marie) vaccine Thong MATOS [facility] 10-09-2021 SARS-CoV-2 (COVID-19 ) mRNA BNT-162b2 vax Thong MATOS [facility] 09-18-2021 SARS-CoV-2 (COVID-19 ) mRNA BNT-162b2 vax Thong MATOS [facility] 08-28-2021 influenza virus vaccine, unspecified formulation Thong MATOS [facility] 05-12-2018 tetanus and diphtheria toxoids, adsorbed, preservative free, for adult use (2 Lf of tetanus toxoid and 2 Lf of diphtheria toxoid) Thong MATOS [facility] 05-12-2018 tetanus and diphtheria toxoids, adsorbed, preservative free, for adult use (5 Lf of tetanus toxoid and 2 Lf of diphtheria toxoid) [facility] 05-12-2018 tetanus toxoid, reduced diphtheria toxoid, and acellular pertussis vaccine, adsorbed Elpidio Sahu Other [employer] Other NEGATED: Highlighted row has not occurred!01-18-2020 influenza virus vaccine, live, attenuated, for intranasal use Thong MATOS [facility] Payers Date Payer Category Payer Self-pay 2023 Private Health Insurance [id number] 2020 Medicare [id number] 1959 Private Health Insurance [id number] 1955 Unknown [id number] [id number] 1955 Unknown [id number] [id number] 1955 Unknown [id number] 2.16.8 [id number] 1955 Unknown [id number] [id number] 1955 Unknown [id number] 2.16.8 [id number] 1955 Unknown [id number] 2.16.8 [id number] Unknown [id number] [id number] [id number] Unknown [id number] [id number] Social History Date Type Detail Facility Start: 07-23-2021 End: 06-01-2024 Tobacco smoking status NHIS Never smoker [facility] Start: 07-23-2021 Tobacco use and exposure Never used [employer] Start: 07-23-2021 Alcohol intake Lifetime non-d pascale (finding) [employer] Work Phone: Start: 07-23-2021 History SDOH Alcohol Frequency 1 [employer] [facility] Phone: Start: 1955 Sex Assigned At Not on file [employer] Work Phone: Exposure to SARS-CoV -2 (event) Yes [employer] Sex Assigned At [facility] Start: 1955 Sex Assigned At Male F [facility] Start: 06-18-2024 End: 09-03-2024 Tobacco smoking status Ex-smoker (finding) [facility] Tobacco smoking status Never [facility] Medical Equipment Procedure Code Equipment Code Equipment Origin al Text Equipment Identifier Dates 1 each by Does n ot apply route daily [id number] Start: 07-25-2021 Functional Status Date Assessment Result Facility 09-03-2024 Functional Status N/A [facility] 06-18-2024 Functional Status N/A [facility] Clinical Notes 07-25-2021 to 09-03-2024 Note Date & Type Note Facility 09-03-2024 Hospital Discharge instructions Patient Education 09/03/2024 11:23:39 Prostate Cancer Prostate Cancer The prostate is a small gland that produces fluid that makes up semen (seminal fluid). It is located below the bladder in men, in front of the rectum. Prostate cancer is the abnormal growth of cells in the prostate gland. What are the causes? The exact cause of this condition is not known. What increases the risk? You are more likely to develop this condition if: You are 65 years of age or older. You have a family history of prostate cancer. You have a family history of breast and ovarian cancer. You have genes that are passed from parent to child (inherited), such as BRCA1 and BRCA2. You have Lucas syndrome. men and men of descent are diagnosed with prostate cancer at higher rates than other men. The reasons for this are not well understood and are likely due to a combination of genetic and environmental factors. What are the signs or symptoms? Symptoms of this condition include: Problems with urination. This may include: ?A weak or interrupted flow of urine. ?Trouble starting or stopping urination. ?Trouble emptying the bladder all the way. ?The need to urinate more often, especially at night. Blood in urine or semen. Persistent pain or discomfort in the lower back, lower abdomen, or hips. Trouble getting an erection. Weakness or numbness in the legs or feet. How is this diagnosed? This condition can be diagnosed with: A digital rectal exam. For this exam, a health care provider inserts a gloved finger into the rectum to feel the prostate gland. A blood test called a prostate-specific antigen (PSA) test. A procedure in which a sample of tissue is taken from the prostate and checked under a microscope (prostate biopsy). An imaging test called transrectal ultrasonography. Once the condition is diagnosed, tests will be done to determine how far the cancer has spread. This is called staging the cancer. Staging may involve imaging tests, such as a bone scan, CT scan, PET scan, or MRI. Stages of prostate cancer The stages of prostate cancer are as follows: Stage 1 (I). At this stage, the cancer is found in the prostate only. The cancer is not visible on imaging tests, and it is usually found by accident, such as during prostate surgery. Stage 2 (II). At this stage, the cancer is more advanced than it is in stage 1, but the cancer has not spread outside the prostate. Stage 3 (III). At this stage, the cancer has spread beyond the outer layer of the prostate to nearby tissues. The cancer may be found in the seminal vesicles, which are near the bladder and the prostate. Stage 4 (IV). At this stage, the cancer has spread to other parts of the body, such as the lymph nodes, bones, bladder, rectum, liver, or lungs. Prostate cancer grading Prostate cancer is also graded according to how the cancer cells look under a microscope. This is called the Ashley score and the total score can range from 6 10, indicating how likely it is that the cancer will spread (metastasize) to other parts of the body. The higher the score, the greater the likelihood that the cancer will spread. [place] 6 or lower: This indicates that the cancer cells look similar to normal prostate cells (well differentiated). [place] 7: This indicates that the cancer cells look somewhat similar to normal prostate cells (moderately differentiated). [place] 8, 9, or 10: This indicates that the cancer cells look very different than normal prostate cells (poorly differentiated). How is this treated? Treatment for this condition depends on several factors, including the stage of the cancer, your age, personal preferences, and your overall health. Talk with your health care provider about treatment options that are recommended for you. Common treatments include: Observation for early stage prostate cancer (active surveillance). This involves having exams, blood tests, and in some cases, more biopsies. For some men, this is the only treatment needed. Surgery. Types of surgeries include: ?Open surgery (radical prostatectomy). In this surgery, a larger incision is made to remove the prostate. ?A laparoscopic radical prostatectomy. This is a surgery to remove the prostate and lymph nodes through several small incisions. It is often referred to as a minimally invasive surgery. ?A robotic radical prostatectomy. This is laparoscopic surgery to remove the prostate and lymph nodes with the help of robotic arms that are controlled by the surgeon. ?Cryoablation. This is surgery to freeze and destroy cancer cells. Radiation treatment. Types of radiation treatment include: ?External beam radiation. This type aims beams of radiation from outside the body at the prostate to destroy cancerous cells. ?Brachytherapy. This type uses radioactive needles, seeds, wires, or tubes that are implanted into the prostate gland. Like external beam radiation, brachytherapy destroys cancerous cells. An advantage is that this type of radiation limits the damage to surrounding tissue and has fewer side effects. Chemotherapy. This treatment kills cancer cells or stops them from multiplying. It kills both cancer cells and normal cells. Targeted therapy. This treatment uses medicines to kill cancer cells without damaging normal cells. Hormone treatment. This treatment involves taking medicines that act on testosterone, one of the male hormones, by: ?Stopping your body from producing testosterone. ?Blocking testosterone from reaching cancer cells. Follow these instructions at home: Lifestyle Do not use any products that contain nicotine or tobacco. These products include cigarettes, chewing tobacco, and vaping devices, such as e-cigarettes. If you need help quitting, ask your health care provider. Eat a healthy diet. To do this: ?Eat foods that are high in fiber. These include beans, whole grains, and fresh fruits and vegetables. ?Limit foods that are high in fat and sugar. These include fried or sweet foods. Treatment for prostate cancer may affect sexual function. If you have a partner, continue to have intimate moments. This may include touching, holding, hugging, and caressing your partner. Get plenty of sleep. Consider joining a support group for men who have prostate cancer. Meeting with a support group may help you learn to manage the stress of having cancer. General instructions Take auuv-gdt-idtvtru and prescription medicines only as told by your health care provider. If you have to go to the hospital, notify your cancer specialist (oncologist). Keep all follow-up visits. This is important. Where to find more information [place] [employer]: www.cancer.org [place] [employer]: www.cancer.net National Cancer [place]: www.cancer.gov Contact a health care provider if: You have new or increasing trouble urinating. You have new or increasing blood in your urine. You have new or increasing pain in your hips, back, or chest. Get help right away if: You have weakness or numbness in your legs. You cannot control urination or your bowel movements (incontinence). You have chills or a fever. Summary The prostate is a small gland that is involved in the production of semen. It is located below a man's bladder, in front of the rectum. Prostate cancer is the abnormal growth of cells in the prostate gland. Treatment for this condition depends on the stage of the cancer, your age, personal preferences, and your overall health. Talk with your health care provider about treatment options that are recommended for you. Consider joining a support group for men who have prostate cancer. Meeting with a support group may help you learn to manage the stress of having cancer. This information is not intended to replace advice given to you by your health care provider. Make sure you discuss any questions you have with your health care provider. Document Revised: 01/13/2022 Document Reviewed: 01/13/2022 Elsevier Patient Education 2023 [employer]. Follow Up Care 07/30/2024 15:23:03 With:EDY CARRINGTON, Thong Sherwood, URL Address: [facility] [address] [place] [address]- When: Unknown [facility] 09-03-2024 Note Patient Education Oncology Prostate Cancer The prostate is a small gland that produces fluid that makes up semen (seminal fluid). It is located below the bladder in men, in front of the rectum. Prostate cancer is the abnormal growth of cells in the prostate gland. What are the causes? The exact cause of this condition is not known. What increases the risk? You are more likely to develop this condition if: ??? You are 65 years of age or older. ??? You have a family history of prostate cancer. ??? You have a family history of breast and ovarian cancer. ??? You have genes that are passed from parent to child (inherited), such as BRCA1 and BRCA2. ??? You have Lucas syndrome. men and men of descent are diagnosed with prostate cancer at higher rates than other men. The reasons for this are not well understood and are likely due to a combination of genetic and environmental factors. What are the signs or symptoms? Symptoms of this condition include: ??? Problems with urination. This may include: ? A weak or interrupted flow of urine. ? Trouble starting or stopping urination. ? Trouble emptying the bladder all the way. ? The need to urinate more often, especially at night. ??? Blood in urine or semen. ??? Persistent pain or discomfort in the lower back, lower abdomen, or hips. ??? Trouble getting an erection. ??? Weakness or numbness in the legs or feet. How is this diagnosed? This condition can be diagnosed with: ??? A digital rectal exam. For this exam, a health care provider inserts a gloved finger into the rectum to feel the prostate gland. ??? A blood test called a prostate-specific antigen (PSA) test. ??? A procedure in which a sample of tissue is taken from the prostate and checked under a microscope (prostate biopsy). ??? An imaging test called transrectal ultrasonography. Once the condition is diagnosed, tests will be done to determine how far the cancer has spread. This is called staging the cancer. Staging may involve imaging tests, such as a bone scan, CT scan, PET scan, or MRI. Stages of prostate cancer The stages of prostate cancer are as follows: ??? Stage 1 (I). At this stage, the cancer is found in the prostate only. The cancer is not visible on imaging tests, and it is usually found by accident, such as during prostate surgery. ??? Stage 2 (II). At this stage, the cancer is more advanced than it is in stage 1, but the cancer has not spread outside the prostate. ??? Stage 3 (III). At this stage, the cancer has spread beyond the outer layer of the prostate to nearby tissues. The cancer may be found in the seminal vesicles, which are near the bladder and the prostate. ??? Stage 4 (IV). At this stage, the cancer has spread to other parts of the body, such as the lymph nodes, bones, bladder, rectum, liver, or lungs. Prostate cancer grading Prostate cancer is also graded according to how the cancer cells look under a microscope. This is called the Austin score and the total score can range from 6?10, indicating how likely it is that the cancer will spread (metastasize) to other parts of the body. The higher the score, the greater the likelihood that the cancer will spread. ??? Austin 6 or lower: This indicates that the cancer cells look similar to normal prostate cells (well differentiated). ??? Austin 7: This indicates that the cancer cells look somewhat similar to normal prostate cells (moderately differentiated). ??? Ashley 8, 9, or 10: This indicates that the cancer cells look very different than normal prostate cells (poorly differentiated). How is this treated? Treatment for this condition depends on several factors, including the stage of the cancer, your age, personal preferences, and your overall health. Talk with your health care provider about treatment options that are recommended for you. Common treatments include: ??? Observation for early stage prostate cancer (active surveillance). This involves having exams, blood tests, and in some cases, more biopsies. For some men, this is the only treatment needed. ??? Surgery. Types of surgeries include: ? Open surgery (radical prostatectomy). In this surgery, a larger incision is made to remove the prostate. ? A laparoscopic radical prostatectomy. This is a surgery to remove the prostate and lymph nodes through several small incisions. It is often referred to as a minimally invasive surgery. ? A robotic radical prostatectomy. This is laparoscopic surgery to remove the prostate and lymph nodes with the help of robotic arms that are controlled by the surgeon. ? Cryoablation. This is surgery to freeze and destroy cancer cells. ??? Radiation treatment. Types of radiation treatment include: ? External beam radiation. This type aims beams of radiation from outside the body at the prostate to destroy cancerous cells. ? Brachytherapy. This type uses radioactive needles, seeds, wires, o (more content not included)... [facility] 06-18-2024 Hospital Discharge instructions Patient Education 06/18/2024 10:39:02 Magnetic Resonance Imaging Magnetic Resonance Imaging Magnetic resonance imaging (MRI) is a painless test that produces detailed images of organs and tissues inside the body without using X-rays. During an MRI, strong magnets and radio waves work together to form images. MRI images may provide more details about a medical condition than X-rays, CT scans, and ultrasounds can provide. For a standard MRI, you will lie on a table that slides into a tunnel. In an open MRI, the tunnel will be open at the sides. In some cases, dye (contrast material) may be injected into your bloodstream to make the MRI images even clearer. Tell a health care provider about: Any allergies you have. All medicines you are taking, including vitamins, herbs, eye drops, creams, and aams-eqm-bqxkrwc medicines. Any surgeries you have had. Any medical conditions you have. Any metal you may have in your body. The magnets used in an MRI can cause metal objects in your body to move. Metal can also make it difficult to get clear images. Objects that may contain metal include: ?Any joint replacement (prosthesis), such as an artificial knee or hip. ?An implanted defibrillator, pacemaker, or neurostimulator. ?A metallic ear implant (cochlear implant). ?An artificial heart valve. ?A metallic object in the eye. ?Metal splinters. ?Bullet fragments. ?A port for delivering insulin or chemotherapy. Any tattoos you have. Some of the darker inks can cause problems with testing. Whether you are using a control implant such as an intrauterine device (IUD). Whether you are , may be , or are . Any fear of cramped spaces (claustrophobia). If this is a problem, it usually can be managed with medicines given prior to the MRI. What are the risks? Generally, this is a safe test. However, problems may occur, such as: If you have metal in your body and it is close to the area being tested, it may be hard to get high-quality images. If you are , you should avoid MRI tests during the first three months of . An MRI may affect an unborn baby. If dye is used: ?You may need to stop until the dye leaves your body naturally, if this applies. ?There is a risk of an allergic reaction to the dye. You can take medicines to prevent this reaction or to treat it if you have allergy symptoms. ?The dye can cause damage to your kidneys. Drinking plenty of water before and after the procedure can help prevent this problem. What happens before the procedure? You will be asked to remove all metal, including: ?A watch, jewelry (including jewelry in piercings), and other metal objects. ?Hearing aids. ?Dentures. ?An underwire bra. ?Makeup. Some makeup contains small amounts of metal. Braces and fillings are normally not a problem. If you are , ask your health care provider if you need to pump before your test. You may need to stop temporarily if dye will be used. What happens during the procedure? You may be given earplugs or headphones to listen to music. The MRI machine can be noisy. You will lie flat on your back on a long table. If dye will be used, an IV will be inserted into one of your veins. Dye will be injected into your IV and travel through your bloodstream. The table will slide into a tunnel that has magnets inside. When you are inside the tunnel, you will still be able to talk to your health care provider. You will be asked to lie very still while images are taken. Your health care provider will tell you when you can move. You may have to wait a few minutes to make sure that the images produced during the test are clear. When all images are produced, the table will slide out of the tunnel. The procedure can last from 30 minutes to over an hour. The procedure may vary among health care providers and hospitals. What can I expect after the procedure? You may be taken to a recovery area if sedation medicines were used. Your blood pressure, heart rate, breathing rate, and blood oxygen level will be monitored until you leave the hospital or clinic. If dye was used: ?It will leave your body through your urine within a day. You may be told to drink plenty of fluids to help flush the dye out of your system. ?Do not breastfeed your child until your health care provider says that this is safe. Follow these instructions at home: You may return to your normal activities right away, or as told by your health care provider. It is up to you to get your test results. Ask your health care provider, or the department that is doing the test, when your results will be ready. Keep all follow-up visits. This is important. Talk with your health care provider about what your test results mean. Summary Magnetic resonance imaging (MRI) is a painless test that produces detailed pictures of the inside of your body without using X-rays. Strong magnets and radio waves work together to form very detailed and clear images. In some cases, dye (contrast material) may be injected into your body to make MRI images even clearer. Before your MRI, be sure to tell your health care provider about any metal you may have in your body. Talk with your health care provider about what your test results mean. This information is not intended to replace advice given to you by your health care provider. Make sure you discuss any questions you have with your health care provider. Document Revised: 06/30/2022 Document Reviewed: 02/18/2021 [employer] Patient Education 2022 [employer]. 06/18/2024 10:38:50 Prostate Cancer Screening Prostate Cancer Screening Prostate cancer screening is testing that is done to check for the presence of prostate cancer in men. The prostate gland is a walnut-sized gland that is located below the bladder and in front of the rectum in males. The function of the prostate is to add fluid to semen during ejaculation. Prostate cancer is one of the most common types of cancer in men. Who should have prostate cancer screening? Screening recommendations vary based on age and other risk factors, as well as between the professional organizations who make the recommendations. In general, screening is recommended if: You are age 50 to 70 and have an average risk for prostate cancer. You should talk with your health care provider about your need for screening and how often screening should be done. Because most prostate cancers are slow growing and will not cause , screening in this age group is generally reserved for men who have a 10- to 15-year life expectancy. You are younger than age 50, and you have these risk factors: ?Having a father, brother, or uncle who has been diagnosed with prostate cancer. The risk is higher if your family member's cancer occurred at an early age or if you have multiple family members with prostate cancer at an early age. ?Being a male who is Black or is of [place] or sub-Saharan descent. In general, screening is not recommended if: You are younger than age 40. You are between the ages of 40 and 49 and you have no risk factors. You are 70 years of age or older. At this age, the risks that screening can cause are greater than the benefits that it may provide. If you are at high risk for prostate cancer, your health care provider may recommend that you have screenings more often or that you start screening at a younger age. How is screening for prostate cancer done? The recommended prostate cancer screening test is a blood test called the prostate-specific antigen (PSA) test. PSA is a protein that is made in the prostate. As you age, your prostate naturally produces more PSA. Abnormally high PSA levels may be caused by: Prostate cancer. An enlarged prostate that is not caused by cancer (benign prostatic hyperplasia, or BPH). This condition is very common in older men. A prostate gland infection (prostatitis) or urinary tract infection. Certain medicines such as male hormones (like testosterone) or other medicines that raise testosterone levels. A rectal exam may be done as part of prostate cancer screening to help provide information about the size of your prostate gland. When a rectal exam is performed, it should be done after the PSA level is drawn to avoid any effect on the results. Depending on the PSA results, you may need more tests, such as: A physical exam to check the size of your prostate gland, if not done as part of screening. Blood and imaging tests. A procedure to remove tissue samples from your prostate gland for testing (biopsy). This is the only way to know for certain if you have prostate cancer. What are the benefits of prostate cancer screening? Screening can help to identify cancer at an early stage, before symptoms start and when the cancer can be treated more easily. There is a small chance that screening may lower your risk of dying from prostate cancer. The chance is small because prostate cancer is a slow-growing cancer, and most men with prostate cancer from a different cause. What are the risks of prostate cancer screening? The main risk of prostate cancer screening is diagnosing and treating prostate cancer that would never have caused any symptoms or problems. This is called overdiagnosisand overtreatment. PSA screening cannot tell you if your PSA is high due to cancer or a different cause. A prostate biopsy is the only procedure to diagnose prostate cancer. Even the results of a biopsy may not tell you if your cancer needs to be treated. Slow-growing prostate cancer may not need any treatment other than monitoring, so diagnosing and treating it may cause unnecessary stress or other side effects. Questions to ask your health care provider When should I start prostate cancer screening? What is my risk for prostate cancer? How often do I need screening? What type of screening tests do I need? How do I get my test results? What do my results mean? Do I need treatment? Where to find more information The [place] [employer]: www.cancer.org [place] [employer]: www.auanet.org Contact a health care provider if: You have difficulty urinating. You have pain when you urinate or ejaculate. You have blood in your urine or semen. You have pain in your back or in the area of your prostate. Summary Prostate cancer is a common type of cancer in men. The prostate gland is located below the bladder and in front of the rectum. This gland adds fluid to semen during ejaculation. Prostate cancer screening may identify cancer at an early stage, when the cancer can be treated more easily and is less likely to have spread to other areas of the body. The prostate-specific antigen (PSA) test is the recommended screening test for prostate cancer, but it has associated risks. Discuss the risks and benefits of prostate cancer screening with your health care provider. If you are age 70 or older, the risks that screening can cause are greater than the benefits that it may provide. This information is not intended to replace advice given to you by your health care provider. Make sure you discuss any questions you have with your health care provider. Document Revised: 04/12/2022 Document Reviewed: 04/12/2022 [employer] Patient Education 2022 [employer]. Follow Up Care 2024 15:50:19 With:EDY CARRINGTON, Thong Sherwood, URL Address: [facility] [address] [place] [address] [phone] When: Unknown [facility] 06-18-2024 Note Urology Office/Clini c Note Chief Complaint New pt, referral HPI Staff New pt referred by Dr. Gareth Sahu for elevated PSA. Last seen IO 01/18/20 by PRW. Dx: BPH, elevated PSA. S/p TRUS/bx 09/06/17 and 11/07/18. PSA: 04/22/17- 4.22 05/28/17 - 3.49 & 12% 07/22/17 - 3.36 & 13% 05/26/18 - 4.27 01/05/20 - 4.75 05/16/21 - 5.99 05/08/22 - 5.45 05/13/23 - 6.46 05/26/24 - 6.80 Dysuria: denies pain or burning Incomplete bladder emptying: denies Hematuria: denies visible blood Frequency: denies Urgency: denies Nocturia: once in awhile Stream: denies hesitancy, denies weak stream Leaking: denies Post void dripping: denies Wearing pads/ Depends: denies Urge incontinence: denies Stress incontinence: denies Incontinence without Sensory Awareness: denies Abdominal pain: denies Flank pain: denies Sexual complaints: denies History of Present Illness Tests reviewed: reviewed UA, referral records, PSAs I have reviewed the previous health record information and history for this patient from external providers. I have reviewed and verified the staff HPI to be accurate for this encounter. Review of Systems PHQ Score Initial Depression Screen Score: 0 SCORE ROS - Provider Constitutional: denies weight loss, denies hot flashes. Eyes: denies eye problems. Gastrointestinal: denies nausea, denies vomiting. Cardiovascular: denies chest pain or angina. Integumentary: no dryness Musculoskeletal: denies musculoskeletal symptoms. ENMT: denies otolaryngeal symptoms. Respiratory: no shortness of breath. Heme/Lymph: denies easy bleeding tendency, denies easy bruising tendency. Psychiatric: no confusion, no anxiety. Genitourinary: See HPI. Physical Exam Vitals & Measurements HR: 76(Peripheral) BP: 148/82 HT: 72 in HT: 182 cm WT: 95.5 kg WT: 210.1 lb BMI: 28.83 General Appearance: alert, no distress, well nourished, well developed male. Genitourinary: normal scrotum, normal testes, normal urethra, normal epididymis, normal vas deferens/spermatic cord. Flank Pain: none. Bladder: nonpalpable. Prostate: normal prostate, estimated weight 45 gms, no hard nodule observed. Assessment/Plan Sid is a 69 yo male new pt referred by Dr. Gareth Sahu for elevated PSA. 1. Elevated PSA (R97.20: Elevated prostate specific antigen [PSA]) PSA: 04/22/17- 4.22 05/28/17 - 3.49 & 12% 07/22/17 - 3.36 & 13% 05/26/18 - 4.27 01/05/20 - 4.75 05/16/21 - 5.99 05/08/22 - 5.45 05/13/23 - 6.46 05/26/24 - 6.80 TRUS/bx 09/06/17 - MILLY x2 cores TRUS/bx 11/07/18 - Benign prostatic tissue with chronic inflammation. DELICIA: 45g, benign PSA has been fluctuating but current level is highest it has been. Denies any prostatitis sxs. Recommended prostate MRI as next step. Discussed possibility of MRI fusion biopsy if any suspicious lesions were to be found. Risks/benefits discussed. -Schedule prostate MRI. Will call pt with results. 2. BPH (benign prostatic hyperplasia) (N40.0: Benign prostatic hyperplasia without lower urinary tract symptoms) IPSS 4. Not currently taking any BPH meds. UA today negative for blood and infection. Denies pain/burning with urination or changes in urinary pattern. Follow-up With When Contact Information EDY CARRINGTON, Thong Sherwood, URL [facility] [address], [place] [address] [phone] Additional Instructions: f/u pending prostate MRI Patient Education Magnetic Resonance Imaging Prostate Cancer Screening ICarolina, personally scribed for Dr. Matos on 06/18/2024 10:40:15. . Documentation recorded by the hollyibCarolina sanders, accurately reflects the services(s) I performed and decisions made by me. Authenticated by Dr. Matos on 06/18/2024 10:43:34. Problem List/Past Medical History Ongoing Atypical small acinar proliferation of prostate BPH (benign prostatic hyperplasia) Diabetes mellitus Elevated PSA Hypercholesterolemia Hyperlipidemia Hypertension Overweight Historical No qualifying data Procedure/Surgical History Cholecystectomy, Tonsillectomy. Medications lisinopril 5 mg Tab, Oral, Daily lovastatin 10 mg Tab, Oral, Daily metformin 500 mg Tab, Oral, BID Ozempic 2 mg/3 mL (0.25 mg or 0.5 mg dose) subcutaneous solution, 0.5 mg Allergies No Known Medication Allergies Social History Tobacco Former smoker, quit more than 30 days ago Tobacco Use:. Never Smokeless Tobacco Use:. Cigarettes, Started age 19.0 Years., 06/18/2024 Family History Diabetes mellitus type 1: Father. Heart disease: Father. Immunizations Vaccine Date Status Comments influenza virus vaccine, inactivated 08/12/2023 Recorded SARSCoV2 mRNA(horwgsagb-nbik-tcjtfy) vac 03/26/2022 Recorded SARS-CoV-2 (COVID-19) mRNA BNT-162b2 vax 10/09/2021 Recorded SARS-CoV-2 (COVID-19) mRNA BNT-162b2 vax 09/18/2021 Recorded influenza virus vaccine, inactivated 08/28/2021 Recorded influenza virus vacc (more content not included)... [facility] Comment on above: Result Comment: Elec tronically Signed By: Thong MATOS MD\.br\Date and Time Signed: 06/18/24 10:43 EDT\.br\Electronically Co-Signed By: Carolina Galan\.br\Date and Time Co-Signed: 06/18/24 10:40 EDT\.br\Electronically Co-Signed By: Carolina Galan\.br\Date and Time Co-Signed: 06/18/24 10:41 EDT 06-18-2024 Note Patient Education Oncology Prostate Cancer Screening Prostate cancer screening is testing that is done to check for the presence of prostate cancer in men. The prostate gland is a walnut-sized gland that is located below the bladder and in front of the rectum in males. The function of the prostate is to add fluid to semen during ejaculation. Prostate cancer is one of the most common types of cancer in men. Who should have prostate cancer screening? Screening recommendations vary based on age and other risk factors, as well as between the professional organizations who make the recommendations. In general, screening is recommended if: ? You are age 50 to 70 and have an average risk for prostate cancer. You should talk with your health care provider about your need for screening and how often screening should be done. Because most prostate cancers are slow growing and will not cause , screening in this age group is generally reserved for men who have a 10- to 15-year life expectancy. ? You are younger than age 50, and you have these risk factors: ? Having a father, brother, or uncle who has been diagnosed with prostate cancer. The risk is higher if your family member's cancer occurred at an early age or if you have multiple family members with prostate cancer at an early age. ? Being a male who is Black or is of [place] or sub-Saharan descent. In general, screening is not recommended if: ? You are younger than age 40. ? You are between the ages of 40 and 49 and you have no risk factors. ? You are 70 years of age or older. At this age, the risks that screening can cause are greater than the benefits that it may provide. If you are at high risk for prostate cancer, your health care provider may recommend that you have screenings more often or that you start screening at a younger age. How is screening for prostate cancer done? The recommended prostate cancer screening test is a blood test called the prostate-specific antigen (PSA) test. PSA is a protein that is made in the prostate. As you age, your prostate naturally produces more PSA. Abnormally high PSA levels may be caused by: ? Prostate cancer. ? An enlarged prostate that is not caused by cancer (benign prostatic hyperplasia, or BPH). This condition is very common in older men. ? A prostate gland infection (prostatitis) or urinary tract infection. ? Certain medicines such as male hormones (like testosterone) or other medicines that raise testosterone levels. A rectal exam may be done as part of prostate cancer screening to help provide information about the size of your prostate gland. When a rectal exam is performed, it should be done after the PSA level is drawn to avoid any effect on the results. Depending on the PSA results, you may need more tests, such as: ? A physical exam to check the size of your prostate gland, if not done as part of screening. ? Blood and imaging tests. ? A procedure to remove tissue samples from your prostate gland for testing (biopsy). This is the only way to know for certain if you have prostate cancer. What are the benefits of prostate cancer screening? ? Screening can help to identify cancer at an early stage, before symptoms start and when the cancer can be treated more easily. ? There is a small chance that screening may lower your risk of dying from prostate cancer. The chance is small because prostate cancer is a slow-growing cancer, and most men with prostate cancer from a different cause. What are the risks of prostate cancer screening? The main risk of prostate cancer screening is diagnosing and treating prostate cancer that would never have caused any symptoms or problems. This is called overdiagnosisand overtreatment. PSA screening cannot tell you if your PSA is high due to cancer or a different cause. A prostate biopsy is the only procedure to diagnose prostate cancer. Even the results of a biopsy may not tell you if your cancer needs to be treated. Slow-growing prostate cancer may not need any treatment other than monitoring, so diagnosing and treating it may cause unnecessary stress or other side effects. Questions to ask your health care provider ? When should I start prostate cancer screening? ? What is my risk for prostate cancer? ? How often do I need screening? ? What type of screening tests do I need? ? How do I get my test results? ? What do my results mean? ? Do I need treatment? Where to find more information ? The [place] [employer]: www.cancer.org ? [place] [employer]: www.auanet.org Contact a health care provider if: ? You have difficulty urinating. ? You have pain when you urinate or ejaculate. ? You have blood in your urine or semen. ? You have pain in your back or in the area of your prostate. Summary ? Prostate cancer is a common type of cancer in men. The prostate gland is located below the bladder and in front of the rectum. (more content not included)... [facility] 12-02-2023 Evaluation note Encounter Date Diagnosis Assessment Notes Dec, Type 2 diabetes mellitus with hyperglycemia (ICD-10 - E11.65) This patient is following a comprehensive diabetic treatment plan. They are checking their feet daily for calluses and nonhealing ulcers. They are being seen for yearly dilated eye examinations. Goals: SBP<130, LDL<100, FBS<140 AC and A1C<7%. They are checking their BS daily, which are reviewed at the office visit. Increase Metformin to 1000mg qd Finish Levemir and monitor BS, stop if FBS < 100 This patient is following a comprehensive diabetic treatment plan. They are checking their feet daily for calluses and nonhealing ulcers. They are being seen for yearly dilated eye examinations. Goals: SBP less than 130, LDL less than 100, FBS less than 140, A1C less than 7%. They are checking their BS daily, will which are reviewed at the office visit. Continue regular routine monitoring of A1C, Microalbumin, Dilated eye exam and Foot exam A1C elevate w/ average BS 180 Discussed adding RUIZ vs GLP-1 - if affordable, will prescribe GLP-1 Decrease Metformin to 1000-500 due to GI side effects Repeat A1C in 3mo Dec, Primary hypertension (ICD-10 - I10) This patient is instructed to consume a healthy, low-fat, low-salt diet. They are also encouraged to continue exercise to achieve/maintain a normal BMI. Patient is instructed on home BP measurements: - rest for 5 minutes w/o talking.- positioned w/ feet on floor and arm supported.- average best 2/3 readings w/ goal < 135/85.- update office w/ home readings in 2 weeks. Dec, Elevated cholesterol (ICD-10 - E78.00) Instructed on diet and exercise with continued statin therapy.Discussed the beneficial effects of lowering cholesterol in reducing the risk for cerebrovascular and cardiovascular disease. Dec, Benign prostatic hyperplasia with lower urinary tract symptoms (ICD-10 - N40.1) Symptoms tolerable. He denies dysuria or hematuria Dec, Nocturia (ICD-10 - R35.1) Dec, Other obesity due to excess calories (ICD-10 - E66.09) This patient has been instructed on a low-fat, high-fiber diet. They are instructed to reduce calories, portion sizes and snacks. It is recommended that they exercise for 30 minutes, 3-5 times weekly. Dec, Body mass index [BMI] 30.0-30.9, adult (ICD-10 - Z68.30) Dec, Elevated prostate specific antigen [PSA] (ICD-10 - R97.20) Yearly PSA - s/p two TRUS/Bx w/o dx of malignancy. His normal value is slightly elevated Mar, Overweight (ICD-10 - E66.3) Overweight [employer] Other 09-25-2021 History of Present illness Narrative* Rina Gayle RN - 07/25/2021 1:40 PM EDT Discharge instructions given to patient. Special attention given to medications, diet, activity, follow up appointments, and reasons to call the doctor or return to the ED. Sample insulin pen used toteach pt how to give himself insulin injections. Verbalizes understanding of insulin and injectionsand state he feels comfortable giving himself the injections every morning. IV discontinued with catheter intact. Swelling noted to left arm with slight blisters from adhesive tape. Pt instructed to keep arm elevated when he at home. Verbalizes understanding of all instructions. Pt dresses self andall personal belongings returned to patient. Taken to private car via wheelchair to be discharged home with his . In stable condition at time of discharge. * Rina Gayle RN - 07/25/2021 12:36 PM EDT Discharge instructions reviewed with patients over the phone. States she will be here around 2pm to pick him up this afternoon. Pt aware. * Melissa Vaughan RCP - 07/25/2021 8:10 AM EDT SPO2 99% om 1 LPM. Placed on RA will monitor closely. Nurse notified. * Renetta Rockwell RD, NATHANIEL - 07/24/2021 12:54 PM EDT Comprehensive Nutrition Assessment Type and Reason for Visit: Initial, Positive Nutrition Screen (MST 2) Nutrition Recommendations/Plan: 1. Continue current diet. 2. Continue vitamin D and C. 3. Start 4 oz strawberry Glucerna TID with meals. Nutrition Assessment: Severe malnutrition r/t impaired respiratory dysfunction aeb 9.3% weight lossx 1.5 weeks, poor PO x 1 week. States he ate a little better at lunch. Pt agrees to try strawberryGlucerna. Pt admitted with COVID-19 pneumonia. Had diarrhea before admission. Taking vitamin D and C. On dexamethasone and remdesivir. Pt saw DM education in 2017, did not see RDN. A1c in process, noA1c records per historical data. Glucose 244. 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 Strength: Not Performed Estimated Daily Nutrient Needs: Energy (kcal): 7118-6957 (20-23/kg); Weight Used for Energy Requirements: Current Protein (g): 94-125g (1.4-1.6g/kg); Weight Used for Protein Requirements: [place] Fluid (ml/day): 2070 ml; Method Used for Fluid Requirements: 1 ml/kcal Nutrition Related Findings: appears well nourished Wounds: None Current Nutrition Therapies: ADULT DIET; Regular; 4 carb choices (60 gm/meal) Anthropometric Measures: Height: 5' 11 (180.3 cm) Current Body Weight: 199 lb 6.4 oz (90.4 kg) Admission Body Weight: 199 lb 6.4 oz (90.4 kg) Usual Body Weight: 220 lb (99.8 kg) [place] Body Weight: 172 lbs; % [place] Body Weight 115.9 % BMI: 27.8 BMI Categories: Overweight (BMI 25.0-29.9) Nutrition Diagnosis: Severe malnutrition related to impaired respiratory function as evidenced by diarrhea, intake 51-75%, weight loss greater than or equal to 2% in 1 week (9.3% x 1.5 weeks) Nutrition Interventions: Food and/or Nutrient Delivery: Continue Current Diet, Start Oral Nutrition Supplement Nutrition Education/Counseling: No recommendation at this time Coordination of Nutrition Care: Continue to monitor while inpatient Goals: PO > 75% of meals Recent Labs 07/23/21201107/24/21 0525 NA 133* 135 K 3.3* 4.4 CL 92* 99 CO2 23 25 BUN 22 21 CREATININE 1.16 0.91 GLUCOSE 219* 288* ALT 19 15 ALKPHOS 75 69 GFR NOT REPORTED NOT REPORTED Lab Results Component Value Date LABALBU 2.8 07/24/2021 Recent Labs 07/23/21 2233 07/24/21 0815 07/24/21 1207 POCGLU 247* 215* 244* No results found for: TRIG, HDL, LDLCALC, LDLDIRECT, LABVLDL No results found for: LABA1C Nutrition Monitoring and Evaluation: Behavioral-Environmental Outcomes: None Identified Food/Nutrient Intake Outcomes: Food and Nutrient Intake, Supplement Intake Physical Signs/Symptoms Outcomes: Biochemical Data, Weight Discharge Planning: Continue current diet Contact: [id number] * Yumiko Siddiqi LSW - 07/24/2021 12:27 PM EDT SW met with pt by phone to complete assessment due to covid diagnosis during quality rounds with RNcase condominium manager. Pt is alert and oriented and cooperative with assessment. Pt is a 66 year old marriedmale admitted for pneumonia due to covid 19 virus. Pt lives with his spouse in their home in [place]. Pt was not using any DME or community services prior to admission. Pt drives and is able to get himself to appointments without concerns. Pt is a full code and follows with Dr Elpidio Sahu as PCP. Pt does not have advance directives. ACP note completed with pt. Pt reports that his medications are affordable with insurance. Pt plans to return home with spouse at discharge. Pt identifies no discharge needs or concerns at this time. SW will follow and remain available as needed. Yumiko RODRIGUEZ 07/24/2021 * Rich Castellon RN - 07/24/2021 11:26 AM EDT Quality flow rounds held on 07/24/21 Sid Han is admitted for Pneumonia due to COVID-19 virus. Length of stay 1. Education: Needed Education: Covid, pneumonia, meds, follow up,diet Do you have any questions regarding your plan of care while at the hospital? denies Planned Disposition: [x] Home when able [] Swing Bed [] ECF/SNF [] Other/TBD Barriers to Discharge: Can you afford your medications? yes Do you have transportation to follow up appointments? Drives self Do you need any new equipment at home? denies Current equipment includes denies Do you have a living will or durable power of red cross worker for healthcare? denies If yes do we have a copy on file? n/a Do you or your family have any questions or concerns we haven't already discussed? Denies Lives with and denies needs at discharge. PCP is Dr Sahu, prefers morning f/u appt time. Phone interview completed with Yumiko RODRIGUEZ and global technical writer due to covid diagnosis * Rina Gayle RN - 07/24/2021 11:05 AM EDT Virtual consult with Dr. Clark completed at bedside. * Nataliia Osorio RCP - 07/24/2021 9:49 AM EDT Pt weaned to room air at this time,SpO2 92-94% on room air. Ear probe is attached, continuous pulseox currently being utilized. Pt aware of O2 wean. * Nayely Lee [facility] - 07/23/2021 10:37 PM EDT Remdesivir Initiation & Daily Monitoring Physician requesting remdesivir: Dr. Rojelio Mayes Demonstrated benefit is to shorten the duration of illness, mortality benefit has not been shown. Seems to be most beneficial early in the disease course. Criteria for use (confirm all are met): Suspected/Confirmed COVID-19 positive and requiring hospitalization Patient requires supplemental oxygen (this is the population for whom remdesivir demonstrated a shortened duration of illness; benefit less clear for those on high flow oxygen or mechanical ventilation, but may be reasonable to consider if change in respiratory status was recent) Not recommended to be used in patients with baseline ALT 5x ULN or more There are no PK data available for severe renal impairment (eGFR < 30 mL/min) or on REFRIGERATOR CRATER. Consider risk/benefit for individual patient. Baseline CrCl: Estimated Creatinine Clearance: 72 mL/min (based on SCr of 1.16 mg/dL). Ensure LFTs are ordered at baseline & consider if monitoring during therapy is appropriate (this information is included in CMP or can be ordered separately). Package insert states: Perform hepatic laboratory testing in all patients before starting VEKLURY and while receiving VEKLURY as clinically appropriate. Baseline ALT: 19 Duration of therapy should be limited to 5 days. Anticipated stop date: 07/27/21 Nayely Lee PharmD * Jane Porter RN - 07/23/2021 8:49 PM EDT Pt states he is feeling better after IV fluid administration & placed on oxygen therapy. SpO2 97% & 23 RR. documented in this [facility] Phone: 1(226) 962-685209-25-2021 Hospital course Narrative* Rojelio Mayes MD - 07/25/2021 12:15 PM EDT Hospitalist Discharge Summary Patient: Sid Han Date of : 1955 Acct: [id number] Primary Care Physician: Elpidio Sahu DO Admit date: 07/23/2021 Discharge date: 07/25/2021 Discharge Diagnoses: 1.Pneumonia due to COVID-19 virus 2. Hypoxia, resolved 3. Hyperglycemia, steroid-induced 4. Diabetes mellitus type 2, [id number], controlled with hemoglobin A1c 7.4% on 07/23/21 5. Hypokalemia, replaced Discharge Medications: Sid Han Home Medication Instructions JAVID:[id number] Printed on:07/25/21 1215 Medication Information ascorbic acid (VITAMIN C) 1000 MG tablet Take 1 tablet by mouth daily dexamethasone (DECADRON) 6 MG tablet Take 1 tablet by mouth daily (with breakfast) for 8 days insulin detemir (LEVEMIR FLEXTOUCH) 100 UNIT/ML injection pen Inject 10 Units into the skin daily (with breakfast) Insulin Pen Needle ([employer] PEN NEEDLES) 31G X 6 MM MISC 1 each by Does not apply route daily LISINOPRIL PO Take 10 mg by mouth daily metFORMIN (GLUCOPHAGE) 1000 MG tablet Take 1,000 mg by mouth daily (with breakfast) Vitamin D (CHOLECALCIFEROL) 50 MCG (1999 [place]) TABS tablet Take 1 tablet by mouth daily Diet: ADULT DIET; Regular; 4 carb choices (60 gm/meal) Adult Oral Nutrition Supplement; Diabetic Oral Supplement Activity: Resume prehospital activities Follow-up: in 1-2 weeks with Elpidio Sahu DO Consultants: Pulmonology Dr. Clark CBC: Recent Labs 07/24/21 0525 WBC 9.1 HGB 13.4* PLT 493* BMP: Recent Labs 07/24/21 0525 NA 135 K 4.4 CL 99 CO2 25 BUN 21 CREATININE 0.91 GLUCOSE 288* Calcium: Recent Labs 07/24/21 0525 CALCIUM 9.1 Glucose: Recent Labs 07/25/21 1129 POCGLU 317* HgbA1C: Recent Labs 07/23/212011 LABA1C 7.4* INR: No results for input(s): INR in the last 72 hours. Hepatic: Recent Labs 07/25/21 0502 ALKPHOS 59 ALT 13 AST 10 PROT 5.8* BILITOT 0.16* BILIDIR <0.08 LABALBU 2.7* Physical Exam: Vitals: Patient Vitals for the past 24 hrs: BP Temp Temp src Pulse Resp SpO2 Height 07/25/21 0820 132/60 98.6 F (37 C) Oral 61 16 94 % 07/25/21 0812 16 94 % 07/25/21 0806 99 % 07/25/21 0629 16 96 % 07/25/21 0300 (!) 49 16 96 % 07/25/21 0115 53 93 % 07/25/21 0001 116/64 98.4 F (36.9 C) Oral 66 18 95 % 07/24/21 2059 126/62 98.1 F (36.7 C) Oral 64 18 96 % 07/24/212007 18 96 % 07/24/21 1630 131/63 98 F (36.7 C) Oral 63 18 93 % 07/24/21 1258 5' 11 (1.803 m) Weight: Weight: 199 lb 6.4 oz (90.4 kg) 24 hour intake/output: Intake/Output Summary (Last 24 hours) at 07/25/2021 1215 Last data filed at 07/25/2021 0557 Gross per 24 hour Intake 2001 ml Output 300 ml Net 1701 ml General Appearance: alert and oriented to person, place and time, in no acute distress Cardiovascular: normal rate, regular rhythm, normal S1 and S2, no murmurs, rubs, clicks, or gallops, distal pulses intact Pulmonary/Chest: clear to auscultation bilaterally- no wheezes, rales or rhonchi, normal air movement, no respiratory distress Abdomen: soft, non-tender, non-distended, normal bowel sounds Extremities: no cyanosis, clubbing or edema Skin: warm and dry, no rash or erythema Neurological: alert, oriented, normal speech, no focal findings or movement disorder noted Hospital Course: The patient is a 66 y.o. male presented to the emergency room complaining of cough, congestion, shortness of breath started about 1 week ago . He had fevers, chills and muscle aches initially. His symptoms became worse. He reported loss of smell and taste. He had no associated chest pain or chest tightness. . Did have diarrhea, but no nausea, vomiting or abdominal pain. He did not receive Covid vaccine. Work-up in the emergency room revealed low-grade fever 99.8, heart rate was 117, respirations 18, blood pressure 135/68. He was 89% on room air with sats dropping down with ambulation in ER room. Chest x-ray revealed evidence of Covid pneumonia. BMP revealed sodium 133, potassium 3.3, chloride 92, CO2 23, BUN 22, creatinine 1.16. Glucose was 219. LFTs normal. WBC count was mildly elevated 11.3, H&H normal 14.9/43.6. Platelets level was elevated 523. Patient's LD was elevated 577. D-dimer was 1.57. Covid 19 rapid test came back positive. Due to patient's worsening respiratory status, hypoxia and evidence of pneumonia on chest x-ray he was deemed appropriate for admission. Hospital course as follows: 1.Pneumonia due to COVID-19 virus -treated with IV Decadron, IV remdesivir, Pulmicort. We consultedpulmonologist Dr. Clark who did virtual evaluation. Recommended 10-day course of Decadron, remdesivir although the patient may be beyond the window for response. No need for aerosol treatments due to no history of asthma/COPD, supportive care. Patient clinically improved. Hypoxia resolved. His vitals are stable. He tolerates oral intake and activities. Will discharge home with Decadron 6 mg daily for 8 more days. Follow-up with PCP in 1 or2 weeks 2. Hypoxia due to Covid pneumonia -patient initially was placed on 2 L nasal cannula. Fortunately his oxygenation improved and we were able to take him off oxygen today. His sats are around 94 percent on room air 3. Diabetes mellitus type 2 -started on sliding scale insulin. Hemoglobin A1c 7.4%. Patient developed anticipated steroid-induced hyperglycemia and treated with sliding scale insulin. Will discharge home with Levemir 10 units at breakfast time. He is to call his family physician if his glucose levels are above 250 4. Hypokalemia-replaced Disposition: home Condition: Stable Time Spent: 33 minutes Discharging [facility]ist [facility] [place] [facility]: [facility] + Plan note Future Appointments Appointment Date:06/21/2025 09:45:00 AM Scheduled Provider:Thong MATOS MD Location:[facility] Appointment Type:URO Office Visit [facility] evaluation + Plan note Future Appointments Appointment Date:02/01/2025 09:45:00 AM Scheduled Provider:Thong MATOS MD Location:[facility] Appointment Type:URO Office Visit Diagnostic Tests Pending * PSA Total 09/03/24 [facility] evalxcoijv note* Diagnosis Pneumonia due to COVID-19 virus- Primary Severe malnutrition (HCC) Nutritional marasmus documented in this encounter [facility] Phone: evaluation note* Diagnosis Onset Date Resolution Status 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 Elevated PSA acute Hypercholesterolemia acute Hypertension acute Type 2 diabetes mellitus with hyperglycemia acute Wellness examination noneact [facility] Work Phone: Evaluation note* Diagnosis Onset Date Resolution Status 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 Elevated PSA acute Hypercholesterolemia acute Hypertension acute Overweight acute Type 2 diabetes mellitus with hyperglycemia acute Wellness examination noneact [facility] Work Phone: History general Narrative - Reported* Type Description Date Medical History Essential (primary) hypertension Medical History Controlled type 2 diabetes melli tus with hyperglycemia Medical History Hyperlipidemia, unspecified Medical History Enlarged prostate wi th lower urinary tract symptoms (LUTS) Medical History Familial hypercholesterolemia Medical History Elevated prostate specific antig en (PSA) Surgical History BIOPSY WITH TRANSRECTAL ULTRASO UND (TRUS) GUIDANCE 2016 Surgical History TRANSRECTAL ULTRASOUND (TRUS) W ITH BIOPSY 2019 Hospitalization History SEE SURGICAL HX [facility] [employer] Other Hospital course Narrative No data available for this section [facility] Hospital Discharge instructions* Attachments The following attachments cannot be sent through Care Everywhere. 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 Latest Code Status on File Code Status Date Activated Date Inactivated Comments Full Code 07/23/2021 10:11 PM Healthcare Agents on File Name Relationship Healthcare Agent Relationshi p Communication Slime Han Spouse Primary Decision Maker Advance Directive Response Recorded Date/ Time Advance Directives No December 02, 2023 12:06pm Summary Purpose Family History No Family History Records Found Relationship Condition Age at Onset Recorded Date/T wandy father Unknown Heart disease Unknown family member Crohn's disease Unknown mother Unknown Chief Complaint and Reason for Visit Chief Complaint Amb Documentation WELLNESS Reason for Visit Atypical small acina r proliferation of prostate Elevated PSA Hypercholesterolemia Hypertension Type 2 diabetes mellitus with hyperglycemia Wellness examination Chief Complaint WELLNESS r97.20 Reason for Visit Atypical small acina r proliferation of prostate Elevated PSA Hypercholesterolemia Hypertension Overweight Type 2 diabetes mellitus with hyperglycemia Wellness examination Chief Complaint WELLNESS r97.20 R97.20 N42.89 Reason for Visit Atypical small acina r proliferation of prostate Elevated PSA Hypercholesterolemia Hypertension Overweight Type 2 diabetes mellitus with hyperglycemia Wellness examination Additional Source Comments Reason for Visit (unrecogniz ed section and content) Reason Comments Shortness of Breath Pt c/o mild SOB x4-5 days. He states he tested positive for COVID yesterday. Status Reason Specialty Diagnoses / Procedures Referre d By Contact Referred To Contact Diagnoses Pneumonia due to COVID-19 virus Rojelio Mayes MD [address] [place] [address] [facility] Ordered Prescriptions (unrec ognized section and content) Prescription Sig Dispensed Refills Start Date End Da te Insulin Pen Needle ([employer] PEN NEEDLES) 31G X 6 MM MISC 1 each by Does not apply route daily 50 each 1 07/25/2021 insulin detemir (LEVEMIR FLEXTOUCH) 100 UNIT/ML injection pen Inject 10 Units into the skin daily (with breakfast) 2 pen 1 07/25/2021 dexamethasone (DECADRON) 6 MG tablet Take 1 tablet by mouth daily (with breakfast) for 8 days 8 tablet 0 07/25/2021 08/02/2021 Vitamin D (CHOLECALCIFEROL) 50 MCG (1999) TABS tablet Take 1 tablet by mouth daily 60 tablet 0 07/26/2021 ascorbic acid (VITAMIN C) 1000 MG tablet Take 1 tablet by mouth daily 30 tablet 3 07/26/2021 Scheduled Active and Recently Administ ered Medications (unrecognized section and content) Medication Order 07/23/2021 07/24/2021 07/25/2021 0.9 % sodium chloride bolus (COMPLETED) 500 mL (5.01 mL/kg), IntraVENous, at 1,000 mL/hr, Administer over 0.5 Hours, ONCE, On Tue07/23/21 at 2014, For 1 dose 2010 (New Bag - Provider: Jane Porter RN)2040 (Stopped - Provider: Jane Porter RN) ascorbic acid (VITAMIN C) tablet 1,000 mg 1,000 mg, Oral, DAILY, First dose on Tue07/24/21 at 0900 0817 (Given - Provider: Rina Gayle RN) 08 (Given - Provider: Rina Gayle RN) budesonide (PULMICORT) nebulizer suspension 500 mcg 500 mcg (0.5 mg), Nebulization, 2 TIMES DAILY, First dose on Tue07/23/21 at 2230, Rinse mouth out with water (without swallowing) after every dose. 2230 (Given - Provider: Jade Mares RCP) 0939 (Given - Provider: Nataliia Osorio PHOTOGRAPHIC COLORIST)2007 (Given - Provider: Cielo Arnold PHOTOGRAPHIC COLORIST) 08 (Given - Provider: Melissa Vaughan PHOTOGRAPHIC COLORIST)2099 (Due - Provider: Jade Mares RCP) dexamethasone (PF) (DECADRON) injection 6 mg (COMPLETED) 6 mg, IntraVENous, ONCE, On Tue07/23/21 at 2014, For 1 dose 2010 (Given - Provider: Jane Porter RN) dexamethasone (PF) (DECADRON) injection 6 mg 6 mg, IntraVENous, EVERY 24 HOURS, First dose on Tue07/24/21 at 1999, For 10 doses 2101 (Given - Provider: Charla Bal RN) 1999 (Due) enoxaparin (LOVENOX) injection 30 mg 30 mg, SubCUTAneous, 2 TIMES DAILY, First dose on Tue07/23/21 at 2230 2227 (Given - Provider: Molly Nair RN) 08 (Given - Provider: Rina Gayle RN)2100 (Given - Provider: Charla Bal RN) 08 (Given - Provider: Rina Gayle, [place])2099 (Due) insulin lispro (HUMALOG) injection vial 0-12 Units 0-12 Units, SubCUTAneous, 3 TIMES DAILY WITH MEALS, First dose on Tue07/24/21 at 0800, Medium Dose Correction Algorithm Glucose: Dose: 70-139 No Insulin 140-199 2 Units 200-249 4 Units 250-299 6 Units 300-349 8 Units 350-399 10 Units 400 and above 12 Units 0816 (Given - Provider: Rina Gayle RN - Comment: [phone] (Given - Provider: Rina Gayle RN - Comment: [phone] (Given - Provider: Rina Gayle RN - Comment: [phone]) 0818 (Given - Provider: Rina Gayle RN - Comment: [phone] (Given - Provider: Rina Gayle RN)1700 (Due) insulin lispro (HUMALOG) injection vial 0-6 Units 0-6 Units, SubCUTAneous, NIGHTLY, First dose on [place] 07/23/21 at 2230, If continuous tube feedings/TPN/NPO, give correction dose based on result, no reduction in dose. If eating or bolus tube feeding: Medium Dose Bedtime Correction Algorithm Glucose: Dose: 70-139 No Insulin 140-199 1 Unit 200-249 2 Units 250-299 3 Units 300-349 4 Units 350-399 5 Units 400 and above 6 Units 2258 (Given - Provider: Molly Nair RN - Comment: [phone]) 2056 (Given - Provider: Charla Bal RN - Comment: [phone]) 2100 (Due) potassium chloride (KLOR-CON) extended release tablet 40 mEq (COMPLETED) 40 mEq, Oral, ONCE, On [place] 07/23/21 at 2230, For 1 dose, Do not crush or break. 2226 (Given - Provider: Molly Nair RN) remdesivir 100 mg in sodium chloride 0.9 % 250 mL IVPB 100 mg, IntraVENous, at 500 mL/hr, Administer over 30 Minutes, EVERY 24 HOURS, First dose (after last modification) on Tue07/25/21 at 2300, For 3 doses, Flush line with at least 30 mL normal saline after remdesivir infusion is complete. 2300 (Due) remdesivir 100 mg in sodium chloride 0.9 % 250 mL IVPB (COMPLETED) 100 mg, IntraVENous, at 500 mL/hr, Administer over 30 Minutes, ONCE, On Tue07/24/21 at 2300, For 1 dose 0869 (New Bag - Provider: Charla Bal RN) 0043 (Stopped - Provider: Charla Bal, [place]) remdesivir 200 mg in sodium chloride 0.9 % 250 mL IVPB (COMPLETED) 200 mg, IntraVENous, at 500 mL/hr, Administer over 30 Minutes, ONCE, On [place] 07/23/21 at 2300, For 1 dose, Flush line with at least 30 mL normal saline after remdesivir infusion is complete. 2301 (New Bag - Provider: Molly Nair RN)2331 (Stopped - Provider: Molly Nair RN) sodium chloride flush 0.9 % injection 5-40 mL 5-40 mL, IntraVENous, EVERY 12 HOURS SCHEDULED (2 times per day), First dose on [place] 07/23/21 at 2230, For Line Patency: Peripheral IV = 5 mL; Midline or Central Line = 10 mL/lumen. If following IV push medication, administer flush at same rate as the IV push. Flush volume is determined by type of infusion therapy being given. For non-viscous solutions use: Peripheral IV = 5 mL Midline or Central Line = 10 mL/lumen For viscous solutions (i.e. blood components, parenteral nutrition, contrast media, or after obtaining blood sample) use: Peripheral IV = 10 mL Midline or Central Line = 20 mL/lumen 2227 (Given - Provider: Molly Nair RN) 1113 (Not Given - Provider: Rina Gayle RN - Reason: IV Fluid Infusing)2105 (Not Given - Provider: Charla Bal, [place] - Reason: IV Fluid Infusing) 0820 (Not Given - Provider: Rina Gayle, RN - Reason: IV Fluid Infusing)2100 (Due) Vitamin D (CHOLECALCIFEROL) tablet 2,000 Units 2,000 Units, Oral, DAILY, First dose on Tue07/24/21 at 0900, Maintenance Dose. 0817 (Given - Provider: Rina Gayle, [place]) 0820 (Given - Provider: Rina Gayle, [place]) Continuous Medication Order 07/23/2021 07/24/2021 07/25/2021 0.9 % sodium chloride infusion IntraVENous, at 75 mL/hr, CONTINUOUS, Starting on Tue07/24/21 at 0845 1113 (New Bag - Provider: Rina Gayle RN) 1134 (Stopped - Provider: Rina Gayle RN) PRN Medication Order 07/23/2021 07/24/2021 07/25/2021 0.9 % sodium chloride bolus 30 mL (0.332 mL/kg), IntraVENous, at 180 mL/hr, Administer over 10 Minutes, PRN, for Remdesivir line flush, Starting on [place] 07/23/21 at 2236 2302 (New Bag - Provider: Molly Nair, RN) 0026 (Stopped - Provider: Molly Nair RN) 0.9 % sodium chloride infusion 25 mL, IntraVENous, at 100 mL/hr, PRN, If patient receiving piggyback infusions without ordered maintenance IV fluids or with frequent/long duration piggyback infusions, Starting on [place] 07/23/21 at 2211, Administer at the same rate as the piggyback being infused. acetaminophen (TYLENOL) suppository 650 mg(Linked Group 1) 650 mg, Rectal, EVERY 6 HOURS PRN, Pain Mild (1-3), Fever, For temp greater than 100.4 F (38 C), Starting on [place] 07/23/21 at 2211, Administer if oral route cannot be used. acetaminophen (TYLENOL) tablet 650 mg(Linked Group 1) 650 mg, Oral, EVERY 6 HOURS PRN, Pain Mild (1-3), Fever, For temp greater than 100.4 F (38 C), Starting on [place] 07/23/21 at 2211, Maximum dose of acetaminophen is 4000 mg from all sources in 24 hours. dextrose 5 % solution 100 mL/hr, IntraVENous, at 100 mL/hr, PRN, Low blood sugar, Starting on [place] 07/23/21 at 2211, Start infusion following administration of dextrose 50% or glucagon. dextrose 50 % IV solution 12.5 g, IntraVENous, PRN, Low blood sugar, Blood glucose less than 70 mg/dL and patient NOT ALERT or NPO., Starting on [place] 07/23/21 at 2211, If patient does not respond within 5 minutes, repeat dose x1. Start D5W at 100 mL/hour until ordering provider can be reached. Repeat blood glucose in 15 minutes. If blood glucose is less than 70 mg/dL, repeat treatment and recheck blood glucose in 15 minutes x2. If using Glucostabilizer, dose as instructed per system. glucagon (rDNA) injection 1 mg 1 mg, IntraMUSCular, PRN, Low blood sugar, Blood glucose less than 70 mg/dL and patient NOT ALERT or NPO and does not have IV access., Starting on [place] 07/23/21 at 2211, After administration, attempt intravenous access and start D5W at 100 mL/hr. Repeat blood glucose in 15 minutes x2 and notify provider. glucose (GLUTOSE) 40 % oral gel 15 g 15 g, Oral, PRN, Low blood sugar, Starting on [place] 07/23/21 at 2211, If blood glucose less than 50 mg/dL and patient ALERT and TOLERATING PO, give 2 tubes glucose gel. If blood glucose less than 70 mg/dL and patient ALERT and TOLERATING PO, give 1 tube glucose gel. Repeat blood glucose in 15 minutes. If blood glucose is less than 70 mg/dL, repeat treatment and recheck blood glucose in 15 minutes x2 and notify provider. guaiFENesin-dextromethorphan (ROBITUSSIN DM) 100-10 MG/5ML syrup 5 mL 5 mL, Oral, EVERY 4 HOURS PRN, Cough, Starting on [place] 07/23/21 at 2211 ondansetron (ZOFRAN) injection 4 mg(Linked Group 2) 4 mg, IntraVENous, EVERY 6 HOURS PRN, Nausea, Vomiting, Starting on [place] 07/23/21 at 2211, Administer if oral route cannot be used. ondansetron (ZOFRAN-ODT) disintegrating tablet 4 mg(Linked Group 2) 4 mg, Oral, EVERY 8 HOURS PRN, Nausea, Vomiting, Starting on [place] 07/23/21 at 2211 polyethylene glycol (GLYCOLAX) packet 17 g 17 g, Oral, DAILY PRN, Constipation, Starting on [place] 07/23/21 at 2211, First line therapy for constipation sodium chloride flush 0.9 % injection 5-40 mL 5-40 mL, IntraVENous, PRN, Line Care, After every IV line use, Starting on [place] 07/23/21 at 2211, For Line Patency: Peripheral IV = 5 mL; Midline or Central Line = 10 mL/lumen. If following IV push medication, administer flush at same rate as the IV push. Flush volume is determined by type of infusion therapy being given. For non-viscous solutions use: Peripheral IV = 5 mL Midline or Central Line = 10 mL/lumen For viscous solutions (i.e. blood components, parenteral nutrition, contrast media, or after obtaining blood sample) use: Peripheral IV = 10 mL Midline or Central Line = 20 mL/lumen Linked Groups Order Group 1: acetaminophen (TYLENOL) tablet 650 mgJump to med 650 mg, Oral, EVERY 6 HOURS PRN, Pain Mild (1-3), Fever, For temp greater than 100.4 F (38 C), Starting on [place] 07/23/21 at 2211
Maximum dose of acetaminophen is 4000 mg from all sources in 24 hours.
Or acetaminophen (TYLENOL) suppository 650 mgJump to med 650 mg, Rectal, EVERY 6 HOURS PRN, Pain Mild (1-3), Fever, For temp greater than 100.4 F (38 C), Starting on [place] 07/23/21 at 2211
Administer if oral route cannot be used.
Group 2: ondansetron (ZOFRAN-ODT) disintegrating tablet 4 mgJump to med 4 mg, Oral, EVERY 8 HOURS PRN, Nausea, Vomiting, Starting on [place] 07/23/21 at 2211 Or ondansetron (ZOFRAN) injection 4 mgJump to med 4 mg, IntraVENous, EVERY 6 HOURS PRN, Nausea, Vomiting, Starting on [place] 07/23/21 at 2211
Administer if oral route cannot be used.
(unrecognized sect ion and content) No Status Records FoundNo Status Records FoundNo Status Records FoundNo Status Records Found INFORMATION SOURCE (unrecogn ized section and content) DATE CREATED AUTHOR 07/26/2021 Gina matamoros DATE CREATED AUTHOR AUTHOR'S ORGANIZ ATION 05/18/2022 [facility] DATE CREATED AUTHOR AUTHOR'S ORGANIZ ATION 09/05/2024 [facility] [place] DATE CREATED AUTHOR AUTHOR'S ORGANIZ ATION 09/16/2024 [facility] Care Teams (unrecognized sec tion and content) Team Status: Active Member Role Status Dates Elpidio Sahu DO Primary Care Provider Active Team Status: Active Member Role Status Dates Elpidio Sahu DO Primary Care Provider Active Start: March 19, 2024 FIDEL Fletcher Attending Provider Active Start : March 19, 2024 Team Status: Active Member Role Status Dates Elpidio Sahu DO Primary Care Provide r, Attending Provider Active Start: May 26, 2024 Team Status: Inactive Member Role Status Dates Elpidio Deyanira DO Primary Care Provide r, Attending Provider Active Start: June 01, 2024 End: June 01, 2024 Team Status: Inactive Member Role Status Dates Elpidio Sahu DO Primary Care Provider Active Start: July 25, 2024 End: July 25, 2024 Thong Matos MD Attending Provider Active St art: July 25, 2024 End: July 25, 2024 Team Status: Inactive Member Role Status Dates Elpidio Sahu DO Primary Care Provider Active Start: August 14, 2024 End: August 14, 2024 Thong Matos MD Attending Provider Active St art: August 14, 2024 End: August 14, 2024 Goals (unrecognized section and content) Goals may be documented in a n alternate section FOR RECORDS PERTAINING TO PATIENTS WHO ARE OR HAVE BEEN ENROLLED IN A CHEMICAL DEPENDENCY/SUBSTANCEABUSE PROGRAM, SOME INFORMATION MAY BE OMITTED. This clinical summary was aggregated from multiple sources. Caution should be exercised in using it in the provision of clinical care. This summary normalizes information from multiple sources, and as a consequence, information in this document may materially change the coding, format and clinical context of patient data. In addition, data may be omitted in some cases. CLINICAL DECISIONS SHOULD BE BASED ON THE PRIMARY CLINICAL RECORDS. [facility] [employer] provides no warranty or guarantee of the accuracy or completeness of information in this document.
[2024-12-21 12:07] LABS: Estimated Average Glucose 137 mg/dL; Glycohemoglobin A1C 6.4 % (4.5-6.2)
== END 2024-12-21 11:37 | disposition home or self-care (01) ==
LOC: LAB 11:37
PROVIDERS: PCP Internal Medicine; Visit Provider Internal Medicine
DX: E11.65 Type 2 diabetes mellitus with hyperglycemia (principal)
CPT/HCPCS: 36415; 83036

== ENCOUNTER 2025-01-26 09:58 | Outpatient (OUT) | payer OTHER, SELFPAY ==
--- OUTSIDE RECORDS SUMMARY | 2025-01-26 10:02 | XMS_ITS | CCD ---
Author Organization [facility] Care Team Providers Care Android Architect Name Role Phone Elpidio Sahu DO Primary Care Provider ROJELIO MAYES Attending Unavailable ROJELIO MAYES Admitting Unavailable ELPIDIO SAHU Primary Care Unavailable STACIA CLARK Consulting Unavailable DEYANIRA, DR PLATT Attending Unavailable DEYANIRA, DR PLATT Consulting Unavailable DEYANIRA, DR PLATT Primary Care Unavailable DEYANIRA, DR PLATT Admitting Unavailable Elpidio Sahu Unavailable ELPIDIO SAHU Primary Care Physician DO Elpidio Sahu Primary Care Provider [phone] MD Thong Matos Attending Provider [phone] Thong MATOS Attending Unavailable EDY, Thong Sherwood Attending Unavailable EDY, Thong Sherwood Attending Unavailable EDY, Thong Sherwood Attending Unavailable Matos, Thong Admitting Unavailable Edy, Thong Attending Unavailable Deyanira, Elpidio Primary Care Unavailable Edy, Thong Admitting Unavailable Edy, Thong Attending Unavailable Elpidio Sahu Primary Care Unavailable Allergies Allergy Classification Reported Allergen(s) Allergy Type Date of Onset Reaction(s) Facility (1 source) No Known Medication Allergies; Translations: [No Known Medication Allergies] Propensity to adverse reactions (disorder) [facility] Repository Medications Current Medications Medication Drug Class(es) [...] Active Start: 07-24-2021 take 2000 [IU] by wi ut once daily 2,000 Units, Oral, DAILY, [...] 20 mg/ml oral suspension (1 source) Uncompetitive Q-iklfgh-Q-aspartate Receptor Antagonist, Sigma-1 Agonist Start: 07-23-2021 take [...] does not have IV access., Starting on Tue07/23/21 at 2211 After administratio n, attempt intravenous access and start D5W at 100 mL/hr. Repeat blood glucose in 15 minutes x2 and notify provider. 150 ml glucose 50 mg/ml injection (3 sources) Start: 07-23-2021 15 g, Oral, PRN, Low blood sugar, Starting on Tue07/23/21 at 2211 If blood glucose less than [...] 6 Units lisinopril 10 mg oral tablet (9 sources) Angiotensin Converting Enzyme Inhibitor Start: 10-07-2024 take 1 tablet by mouth once daily Lisinopril 10 mg tablet Active 0 .ROUTE .COMPLEX 90 October 07, 2024 5:01pm Take 1 tablet by mouth once daily Start: 06-01-2024 End: 10-07-2024 take 1 tablet by mouth once daily Lisinopril 10 mg tablet Discontinued 10 MG PO Daily May 31, 2024 11:00pm October 07, 2024 5:01pm Start: 01-18-2020 take 1 mg by mouth once daily lisinopril 5 mg Tab mg tab(s), Oral, Daily, Refills(s) 0 Start Date: 01/18/20 Status: Ordered take 1 tablet by greg once daily Lisinopril 10 MG Take 1 tablet by mouth once daily Active lovastatin 10 mg oral tablet (7 sources) HMG-CoA Reductase Inhibitor Start: 01-17-2020 take 1 tablet by mouth once daily Lovastatin 10 mg tablet Active 10 MG PO Daily May 31, 2024 11:00pm metFORMIN hydrochloride 1000 mg oral tablet (19 sources) Biguanide Start: 06-27-2024 Metformin Acti ve 0 .ROUTE .COMPLEX 45 June 27, 2024 7:39am TAKE 1 TABLET BY MOUTH WITH BREAKFAST AND 1/2 (ONE-HALF) WITH SUPPER Start: 05-04-2024 End: 06-27-2024 Metformin Discontinued 0 .RO NULATO .COMPLEX 45 May 04, 2024 7:29am June 27, 2024 7:39am TAKE 1 TABLET BY MOUTH WITH BREAKFAST AND 1/2 (ONE-HALF) WITH SUPPER Start: 05-04-2024 Metformin Acti ve 0 .ROUTE .COMPLEX 45 May 04, 2024 7:29am TAKE 1 TABLET BY MOUTH WITH BREAKFAST AND 1/2 (ONE-HALF) WITH SUPPER Start: 03-19-2024 End: 06-27-2024 Metformin 1,000 mg tablet Ac tive 0 .ROUTE .COMPLEX 45 June 27, 2024 6:39am TAKE 1 TABLET BY MOUTH WITH BREAKFAST AND 1/2 (ONE-HALF) WITH SUPPER Start: 03-19-2024 End: 05-04-2024 Metformin Discontinued 0 .RO NULATO .COMPLEX 45 March 19, 2024 12:43pm May 04, 2024 7:29am TAKE 1 TABLET BY MOUTH WITH BREAKFAST AND 1/2 (ONE-HALF) WITH SUPPER FOR 30 DAYS Start: 03-19-2024 End: 03-19-2024 Metformin 1,000 mg tablet Discontinued 1000 MG PO March 18, 2024 11:00pm March 19, 2024 11:43am 1 tablet w/ bkfst and 1/2 w/ [...] 28 days Dec, Active polyethylene glycol 3350 25758 mg powder for oral solution (1 source) [...] chloride 0.9 % 250 mL IVPB Semaglutide (4 sources) Start: 09-09-2024 inject 1 mg by subcutaneous injection every week Semaglutide (Ozempic) 1 mg/dose (4 mg/3 mL) pen injector Active 0 .ROUTE .COMPLEX 3 September 09, 2024 8:30pm INJECT 1 MG SUBCUTANEOUSLY ONCE A WEEK Start: 07-17-2024 End: 09-09-2024 inject 1 mg by subcutaneous injection every week Semaglutide 1 mg/dose (4 mg/3 mL) pen injector Discontinued 1 MG SUBCUT every week 3 July 17, 2024 4:43pm September 09, 2024 8:30pm for 4 weeks Start: 07-17-2024 inject 1 mg by subcu taneous injection every week Semaglutide Active 1 MG SUBCUT every week 3 July 17, 2024 5:43pm for 4 weeks 1000 ml sodium chloride 9 mg /ml injection (6 sources) Start: 07-24-2021 0.9 % [...] 07-23-2021 40 mEq, Oral, ONCE, On Khushboo 07/23/21 at 2230, For 1 dose Do not crush or break. Start: 07-23-2021 End: 07-23-2021 40 mEq, Oral, ONCE, On Khushboo at 2230, For 1 dose Do not crush or break. Semaglutide (8 sources) Start: 02-03-2024 End: 07-17-2024 Semaglutide (Ozempic) 0.25 m g or 0.5 mg (2 mg/3 mL) pen injector Discontinued 0.5 MG SUBCUT every week 3 February 03, 2024 1:34pm July 17, 2024 4:43pm for 4 weeks Start: 02-03-2024 End: 07-17-2024 Semaglutide (Ozempic) 0.25 [...] 0.5 MG SUBCUT every week 3 February 01, 2024 11:00pm February 03, 2024 1:34pm for 4 weeks Start: 02-02-2024 End: 02-03-2024 Semaglutide (Ozempic) 0.25 m g or 0.5 mg (2 mg/3 mL) pen injector Discontinued 0.5 MG SUBCUT every week 3 February 02, 2024 12:00am February 03, 2024 2:34pm for 4 weeks Problems Problem Classification Problem Date Documented Date Episodic/Chronic Cancer of prostate (4 sources) Malignant neoplasm of prostate; Translations: [Malignant tumor of prostate] Onset: 08-31-2024 Chronic Comment on above: Dx: 07/2025Gleason s core 3+ 3, grp I Diabetes mellitus with complications (10 sources) Hyperglycemia due to type 2 diabetes mellitus; Translations: [Type 2 diabetes mellitus with hyperglycemia] Chronic Diabetes mellitus without complication (2 sources) Diabetes mellitus 01-17-2020 Chronic Disorders of lipid metabolism (16 sources) Familial hypercholesterolemia ; Translations: [Familial hypercholesterolemia ] Onset: 04-29-2017 Chronic Essential hypertension (13 sources) Essential hypertension; Translations: [Essential (primary) hypertension] [...] Onset: 07-24-2021 Chronic Other male genital disorders (6 sources) Atypical small acinar proliferation of prostate; Translations: [Atypical small acinar proliferation of prostate] 05-31-2024 Episodic Comment on above: TRUS/bx 2019 Other male genital disorders (3 sources) Atypical [...] Chronic Other nutritional; endocrine; and metabolic disorders (6 sources) Overweight; Translations: [Overweight] Onset: 04-29-2017 06-13-2024 Episodic Other nutritional; endocrine; and metabolic disorders (4 sources) Overweight; Translations: [Overweight] Onset: 04-29-2017 Episodic Other screening for suspected conditions (not mental disorders or infectious disease) (15 sources) Encounter for screening for malignant neoplasm of prostate; Translations: [Raised prostate specific antigen] Onset: 05-12-2022 Episodic Comment on above: 07/2017 - 3.36, 8 - 4.27, 04/2021 - 5.99, 04/2022 - 5.45, 04/2023 - 6.46, 04/2024 - 6.8 Viral infection (2 sources) COVID-19; Translations: [Pneumonia [...] Thong MATOS MD Where: [facility] [address] [place] [address]- You Need to Schedule the Following Appointments Follow Up with Thong MATOS MD, URL When: Where: [facility] [address] [facility] [place] [address]- Medications What How Much When Instructions Unchanged [...] not sprea (more content not included)... Normal [facility] Urology Office/Clinic Noteon 09-03-2024 Urology Office/Clinic Note Urology Office/Clinic Note Chief Complaint review TRUS BX [id number] HPI Staff PO TRUS/MRI fusion bx 08/14/24, here to review path report. Last seen IO 06/18/24. Previous dx: elevated PSA, BPH. *No urologic meds Prostate MRI 07/25/24 [facility] [place] [place] showed PI-RADS 4 lesion. Dysuria: denies Incomplete [...] patient in detail today. Educated pt on [place] scoring system. I discussed active surveillance protocol [...] [facility] [address], [place] [address]- Additional Instructions: 4-6 mos with PSA, DELICIA [...] influenza virus vaccine, inactivated 08/12/2023 Recorded SARSCoV2 mRNA(qljvyggmm-ujlf-l ucmavis) vac 03/26/2022 Recorded SARS-CoV-2 (COVID-19) mRNA BNT-162b2 vax 10/09/2021 Recorded SARS-CoV-2 (COVID-19) mRNA BNT-162b2 v (more content not included)... Normal [facility] Comment on above: Result Comment: Elec tronically Signed By: Thong MATOS MD\.br\Date and Time Signed: 09/03/24 11:35 EST\.br\Electronically Co-Signed By: Precious Guillory\.br\Date and Time Co-Signed: 09/03/24 11:30 EST\.br\Electronically Co-Signed By: Precious Guillory\.br\Date and Time Co-Signed: 09/03/24 11:32 EST Pathology Request for Lab Co rpon 08-14-2024 Pathology Request for Lab Michael Normal [facility] Comment on above: Order Comment: PATHO LOGY UROLOGY SPECIMEN Result Comment: See report. Scanned copy available in EMR. PERFORMED BY: [place] [address] PATHOLOGIST BANKING SPECIALIST FRANCISCO LOPEZ M.D. Performed By: #### P ATH TO [facility] #### [address] MR prostate wo/w conon 07-26 MR prostate wo/w con [facility] [place] [address] [place] [address] MRI Report Signed Patient: Sid Han MR#: [id number] : 1955 Acct:[id number] Age/Sex: 69 / M ADM Date: 07/25/24 Loc: Room: Type: [facility] Attending Dr: Thong Matos MD Copies to: Thong Matos MD [...] recommended. Impression dictated by: Huy Jimenez Jr., AdanOMinda07/26/2024 8:55 AM Dictation Location: [place] [address] Transcribed By: [facility] 07/26/24854 Dictated By: Huy Jimenez Jr, DO 07/26/2434 Signed By: 07/26/2455 Normal [facility] ISTAT XRay CREon 07-25-2024 ISTAT GFR > 60.0 Normal [facility] Comment on above: Result Comment: PERF ORMED BY: [place] [address] PATHOLOGIST BANKING SPECIALIST FRANCISCO LOPEZ M.D. Performed By: #### I SCRE #### [address] No Panel InformationOrdered By: Thong Matos on 07-25-2024 Bedside Estimated GFR (eGFR) > 60.0 [facility] Whole blood creatinine measu rementOrdered By: Thong Matos on 07-25-2024 Creatinine [Mass/Vol] 1.0 mg/dL Normal 0.6-1.3 [facility] Comment on above: ER/ESD physician is notified/shown all ISTAT results.Critical values may be confirmed by laboratory testing ifdeemed necessary by ER attending doctor. Result Comment: ER/E SD physician is notified/shown all ISTAT results. Critical values may be confirmed by laboratory testing if deemed necessary by ER attending doctor. Performed By: #### I SCRE #### [facility] [address] Ambulatory Visit Summaryon 0 06-18-2024 Ambulatory Visit [...] Thong MATOS MD Where: [place] [address]- You Need to Schedule the Following Appointments Follow Up with Thong MATOS MD, URL When: Where: [facility] [address], [place] [address]- [phone] Medications What How Much When Instructions Unchanged [...] including vitamins, herbs, eye drops, creams, and dlvy-fgk-sjyvoya medicines. ? Any surgeries you have had. [...] allergy (more content not included)... Normal [facility] Basophils Auto (Bld) [#/Vol] on 05-26-2024 Basophils (Bld) [#/Vol] 0.1 10 3/uL 0.0-0.1 [facility] Basophils/100 WBC Auto (Bld) on 05-26-2024 Basophils/100 WBC (Bld) 0.6 % 0.2-2.0 [facility] Cholesterol in LDL Calc [Mas s/Vol]on 05-26-2024 Cholesterol in LDL [Mass/Vol] 90.4 mg/dL [facility] Comment on above: <100 mg/dl [id number] 0-129 mg/dl NEAR OR ABOVE [id number] mg/dl BORDERLINE [id number] mg/dl HIGH>190 mg/dl VERY HIGH Cholesterol in VLDL Calc [Ma ss/Vol]on 05-26-2024 Cholesterol in VLDL [Mass/Vol] 15.6 mg/dL [facility] Eosinophils/100 WBC Auto (Bl d)on 05-26-2024 Eosinophils/100 WBC (Bld) 2.8 % 0.9-7.0 [facility] Erythrocyte distribution wid th Auto (RBC) [Ratio]on 05-26-2024 Erythrocyte distribution width (RBC) [Ratio] 12.3 % 11.0-15.0 [facility] Estimated glomerular filtrat ion rate (GFR) non- Americanon 05-26-2024 GFR/1.73 sq M.predicted among non-blacks MDRD (S/P/Bld) [Vol rate/Area] mL/min/{1.73_m2} >=60 [facility] Globulin Calc (S) [Mass/Vol] on 05-26-2024 Globulin (S) [Mass/Vol] 3.3 g/dL [facility] Glucose mean value [Mass/vol ume] in Blood Estimated from glycated hemoglobinon 05-26-2024 Average glucose Estimated from glycated hemoglobin (Bld) [Mass/Vol] 134 mg/dL [facility] Hematocrit Auto (Bld) [Volum e fraction]on 05-26-2024 Hematocrit (Bld) [Volume fraction] 42.6 % 42.0-54.0 [facility] Hemoglobin [Mass/volume] in Bloodon 05-26-2024 Hemoglobin (Bld) [Mass/Vol] 14.2 g/dL 14.0-18.0 [facility] Laboratory - Chemistry and C hemistry - challengeon 05-26-2024 Albumin [Mass/Vol] 3.5 g/dL 3.4-5.0 [facility] ALP [Catalytic activity/Vol] 66 U/L 46-116 [facility] ALT [Catalytic activity/Vol] 23 U/L 16-63 [facility] AST [Catalytic activity/Vol] 18 U/L 15-37 [facility] Bilirubin [Mass/Vol] 0.4 mg/dL 0.2-1.0 [facility] Calcium [Mass/Vol] 8.7 mg/dL 8.5-10.1 [facility] Chloride [Moles/Vol] 106 mmol/L 98-107 [facility] Cholesterol [Mass/Vol] 160 mg/dL <=200 [facility] Cholesterol in HDL [Mass/Vol] 54 mg/dL 40-60 [facility] Comment on above: > or =60 mg/dl - LOW CARDIOVASCULAR RISK<40 mg/dl - HIGH CARDIOVASCULAR RISK CO2 [Moles/Vol] 28.5 mmol/L 21.0-32.0 [facility] Creatinine [Mass/Vol] 0.98 mg/dL 0.70-1.30 [facility] GFR/1.73 sq M.predicted MDRD (S/P/Bld) [Vol rate/Area] mL/min/{1.73_m2} >=60 [facility] Glucose [Mass/Vol] 152 mg/dL High 74-106 [facility] Potassium [Moles/Vol] 4.7 mmol/L 3.5-5.1 [facility] Protein [Mass/Vol] 6.8 g/dL 6.4-8.2 [facility] Sodium [Moles/Vol] 139 mmol/L 136-145 [facility] Triglyceride [Mass/Vol] 78 mg/dL <=150 [facility] Urea nitrogen [Mass/Vol] 13.0 mg/dL 7.0-18.0 [facility] Urea nitrogen/Creatinine [Mass ratio] 13.3 mg/mg [facility] Laboratory - Hematology and Cell countson 05-26-2024 HbA1c (Bld) [Mass fraction] 6.3 % High 4.5-6.2 [facility] Comment on above: ADA RECOMMENDED LIMI T 4.0 - 6.0ADA THERAPEUTIC TARGET < 7.0ACTION SUGGESTED> 7.0 Immature granulocytes/100 WBC (Bld) 0.8 % High 0.0-0.5 [facility] Leukocytes [#/volume] correc bandar for nucleated erythrocytes in Blood by Automated counon 05-26-2024 WBC corrected for nucl RBC Auto (Bld) [#/Vol] 7.9 10 3/uL 4.0-11.0 [facility] Lymphocytes Auto (Bld) [#/Vo l]on 05-26-2024 Lymphocytes (Bld) [#/Vol] 3.3 10 3/uL 1.2-3.8 [facility] Lymphocytes/100 WBC Auto (Bl d)on 05-26-2024 Lymphocytes/100 WBC (Bld) 42.4 % 20.5-60.0 [facility] MCH Auto (RBC) [Entitic mass ]on 05-26-2024 MCH (RBC) [Entitic mass] 30.2 pg 25.9-34.0 [facility] MCHC Auto (RBC) [Mass/Vol]on 05-26-2024 MCHC (RBC) [Mass/Vol] 33.3 g/dL 29.9-35.2 [facility] MCV Auto (RBC) [Entitic vol] on 05-26-2024 MCV (RBC) [Entitic vol] 90.6 fL 80.0-94.0 [facility] Microalbumin [Mass/volume] i n Urineon 05-26-2024 Albumin DL <= 20 mg/L (U) [Mass/Vol] mg/dL <=30.0 [facility] Monocytes Auto (Bld) [#/Vol] on 05-26-2024 Monocytes (Bld) [#/Vol] 0.4 10 3/uL 0.3-0.8 [facility] Monocytes/100 WBC Auto (Bld) on 05-26-2024 Monocytes/100 WBC (Bld) 4.8 % 1.7-12.0 [facility] Neutrophils Auto (Bld) [#/Vo l]on 05-26-2024 Neutrophils (Bld) [#/Vol] 3.8 10 3/uL 1.4-6.5 [facility] Neutrophils/100 WBC Auto (Bl d)on 05-26-2024 Neutrophils/100 WBC (Bld) 48.6 % 43.0-75.0 [facility] No Panel Informationon 05-26 Eosinophils # (Auto) 0.2 10 3/uL 0.0-0.7 [facility] Immature Granulocyte # (Auto) 0.06 10 3/uL High 0.00-0.03 [facility] Prostate Specific Antigen Screen 6.80 ng/mL High <=4.00 [facility] Platelet mean volume Auto (B ld) [Entitic vol]on 05-26-2024 Platelet mean volume (Bld) [Entitic vol] 9.5 fL 9.5-13.5 [facility] Platelets Auto (Bld) [#/Vol] on 05-26-2024 Platelets (Bld) [#/Vol] 260 10 3/uL 150-450 [facility] RBC Auto (Bld) [#/Vol]on RBC (Bld) [#/Vol] 4.70 10 6/uL 4.70-6.10 [facility] Serum or plasma albumin/glob ulin mass ratioon 05-26-2024 Albumin/Globulin [Mass ratio] 1.1 {ratio} [facility] Serum or plasma anion gap de terminationon 05-26-2024 Anion gap [Moles/Vol] 9.2 mmol/L [facility] Serum or plasma total choles terol/high density lipoprotein (HDL) cholesterol mass nohemy 05-26-2024 Cholesterol.total/Choles terol in HDL [Mass ratio] 3.0 {ratio} [facility] Comment on above: 3.3 - 4.4 LOW RISK4. 4 - 7.1 AVERAGE RISK7.1 - 11.0 MODERATE RISK>11.0 HIGH RISK CBC AUTO DIFFon 05-08-2022 BASO # 0.1 103/ul Normal 0.0-0.1 [facility] Comment on above: Performed By: #### C BC #### [facility] [address] [place] [address] [address] Oniel Jackson Basophils/100 WBC (Bld) 0.6 % Normal 0.2-2.0 [facility] Comment on above: Performed By: #### C BC #### [facility] [address] [place] [address] [address] Oniel Jackson EO # 0.2 103/ul Normal 0.0-0.7 [facility] Comment on above: Performed By: #### C BC #### [facility] [address] [place] [address] [address] Oniel Jackson Eosinophils/100 WBC (Bld) 2.3 % Normal 0.9-7.0 [facility] Comment on above: Performed By: #### C BC #### [facility] [address] [place] [address] [address] Oniel Jackson Erythrocyte distribution width (RBC) [Ratio] 12.5 % Normal 11.0-15.0 [facility] Comment on above: Performed By: #### C BC #### [facility] [address] [place] [address] Dr. Oniel Jackson Hematocrit (Bld) [Volume fraction] 43.3 % Normal 42.0-54.0 [facility] Comment on above: Performed By: #### C BC #### [facility] [address] [place] [address] Dr. Oniel Jackson Hemoglobin (Bld) [Mass/Vol] 14.1 g/dL Normal 14.0-18.0 [facility] Comment on above: Performed By: #### C BC #### [facility] [address] [place] [address] Dr. Oniel Jackson IG # 0.04 10e3/ul Critically high 0.00-0.03 [facility] Comment on above: Performed By: #### C BC #### [facility] [address] [place] [address] Dr. Oniel Jackson IG % 0.5 % Normal 0.0-0.5 [facility] Comment on above: Performed By: #### C BC #### [facility] [address] [place] [address] Dr. Oniel Jackson LYMPH # 3.7 103/ul Normal 1.2-3.8 [facility] Comment on above: Performed By: #### C BC #### [facility] [address] [place] [address] Dr. Oinel Jackson Lymphocytes/100 WBC (Bld) 42.3 % Normal 20.5-60.0 [facility] Comment on above: Performed By: #### C BC #### [facility] [address] [place] [address] Dr. Oniel Jackson MANUAL DIFF REQ NO Normal [facility] Comment on above: Performed By: #### C BC #### [facility] [address] [place] [address] Dr. Oniel Jackson MCH (RBC) [Entitic mass] 29.3 pg Normal 25.9-34.0 [facility] Comment on above: Performed By: #### C BC #### [facility] [address] [place] [address] Dr. Oniel Jackson MCHC (RBC) [Mass/Vol] 32.6 g/dL Normal 29.9-35.2 [facility] Comment on above: Performed By: #### C BC #### [facility] [address] [place] [address] Dr. Oniel Jackson MCV (RBC) [Entitic vol] 90.0 fL Normal 80.0-94.0 [facility] Comment on above: Performed By: #### C BC #### [facility] [address] [place] [address] Dr. Oniel Jackson MONO # 0.5 103/ul Normal 0.3-0.8 [facility] Comment on above: Performed By: #### C BC #### [facility] [address] [place] [address] Dr. Oniel Jackson Monocytes/100 WBC (Bld) 5.2 % Normal 1.7-12.0 [facility] Comment on above: Performed By: #### C BC #### [facility] [address] [place] [address] Dr. Oniel Jackson NEUT # 4.3 103/ul Normal 1.4-6.5 [facility] Comment on above: Performed By: #### C BC #### [facility] [address] [place] [address] Dr. Oniel Jackson Neutrophils/100 WBC (Bld) 49.1 % Normal 43.0-75.0 [facility] Comment on above: Performed By: #### C BC #### [facility] [address] [place] [address] Dr. Oniel Jackson Platelet mean volume (Bld) [Entitic vol] 9.4 fL Critically low 9.5-13.5 [facility] Comment on above: Performed By: #### C BC #### [facility] [address] [place] [address] Dr. Oniel Jackson PLT 292 103/ul Normal 150-450 [facility] Comment on above: Performed By: #### C BC #### [facility] [address] [place] [address] Dr. Oniel Jackson RBC 4.81 106/ul Normal 4.70-6.10 [facility] Comment on above: Performed By: #### C BC #### [facility] [address] [place] [address] Dr. Oniel Jackson WBC 8.8 103/ul Normal 4.0-11.0 [facility] Comment on above: Performed By: #### C BC #### [facility] [address] [place] [address] Dr. Oniel Jackson GLYCOHEMOGLOBIN A1Con 2021 ADA RECOMMENDATION SEE BELOW Normal [facility] Comment on above: Result Comment: ADA RECOMMENDED LIMIT 4.0 - 6.0 ADA THERAPEUTIC TARGET < 7.0 ACTION SUGGESTED > 7.0 Performed By: #### A 1C #### [facility] [address] [place] [address] Dr. Oniel Jackson Glucose [Mass/Vol] 154 mg/dL Normal [facility] Comment on above: Performed By: #### A 1C #### [facility] [address] [place] [address] Dr. Oniel Jackson HbA1c (Bld) [Mass fraction] 7.0 % Critically high 4.5-6.2 [facility] Comment on above: Performed By: #### A 1C #### [facility] [address] [place] [address] Dr. Oniel Jackson LIPID PROFILEon 05-08-2022 CHOL-HDL RATIO NORM SEE BELOW Normal [facility] Comment on above: Result Comment: 3.3 - 4.4 LOW RISK 4.4 - 7.1 AVERAGE RISK 7.1 - 11.0 MODERATE RISK >11.0 HIGH RISK Performed By: #### B MP, LIPID #### [facility] [address] [place] [address] Dr. Oniel Jackson Cholesterol [Mass/Vol] 200 mg/dL Normal <=200 [facility] Comment on above: Performed By: #### B MP, LIPID #### [facility] [address] [place] [address] Dr. Oniel Jackson Cholesterol in HDL [Mass/Vol] 48 mg/dL Normal 40-60 [facility] Comment on above: Performed By: #### B MP, LIPID #### [facility] [address] [place] [address] Dr. Oinel Jackson Cholesterol in LDL [Mass/Vol] 124.0 mg/dL Normal [facility] Comment on above: Performed By: #### B MP, LIPID #### [facility] [address] [place] [address] Dr. Oniel Jackson Cholesterol.total/Choles terol in HDL [Mass ratio] 4.2 {ratio} Normal [facility] Comment on above: Performed By: #### B MP, LIPID #### [facility] [address] [place] [address] Dr. Oniel Jackson HDL NORMAL > or = 60 mg/dl - LO W CARDIOVASCULAR RISK <40 mg/dl - HIGH CARDIOVASCULAR RISK Normal [facility] Comment on above: Performed By: #### B MP, LIPID #### [facility] [address] [address] [address] Oniel Jackson LDL CALC NORMAL SEE BELOW Normal [facility] Comment on above: Result Comment: <100 mg/dl OPTIMAL 100 - 129 mg/dl NEAR OR ABOVE OPTIMAL 130 - 159 mg/dl BORDERLINE HIGH 160 - 189 mg/dl HIGH >190 mg/dl VERY HIGH Performed By: #### B MP, LIPID #### [facility] [address] [place] [address] Dr. Oniel Jackson Triglyceride [Mass/Vol] 140 mg/dL Normal <=150 [facility] Comment on above: Performed By: #### B MP, LIPID #### [facility] [address] [place] [address] Dr. Oniel Jackson VLDL CALC 28.0 mg/dL Normal [facility] Comment on above: Performed By: #### B MP, LIPID #### [facility] [address] [place] [address] Dr. Oniel Jackson PROF CHEM 8 (BAS METB)on Anion gap [Moles/Vol] 10.5 mmol/L Normal [facility] Comment on above: Performed By: #### B MP, LIPID #### [facility] [address] [place] [address] Dr. Oniel Jackson Calcium [Mass/Vol] 8.8 mg/dL Normal 8.5-10.1 [facility] Comment on above: Performed By: #### B MP, LIPID #### [facility] [address] [place] [address] Dr. Oniel Jackson Chloride [Moles/Vol] 104 mmol/L Normal 98-107 [facility] Comment on above: Performed By: #### B MP, LIPID #### [facility] [address] [address] [address] Oniel Jackson CO2 [Moles/Vol] 28.1 mmol/L Normal 21.0-32.0 [facility] Comment on above: Performed By: #### B MP, LIPID #### [facility] [address] [address] [address] Oniel Jackson Creatinine [Mass/Vol] 1.05 mg/dL Normal 0.70-1.30 [facility] Comment on above: Performed By: #### B MP, LIPID #### [facility] [address] [address] [address] Oniel Jackson EGFR-AF VENEZUELAN >60 Normal >=60 [facility] Comment on above: Performed By: #### B MP, LIPID #### [facility] [address] [place] [address] Dr. Oniel Jackson EGFR-NON AF VENEZUELAN >60 Normal >=60 [facility] Comment on above: Performed By: #### B MP, LIPID #### [facility] [address] [address] [address] Oniel Jackson Glucose [Mass/Vol] 180 mg/dL Critically high 74-106 [facility] Comment on above: Performed By: #### B MP, LIPID #### [facility] [address] [address] [address] Oniel Jackson Potassium [Moles/Vol] 4.6 mmol/L Normal 3.5-5.1 [facility] Comment on above: Performed By: #### B MP, LIPID #### [facility] [address] [address] [address] Oniel Jackson Sodium [Moles/Vol] 138 mmol/L Normal 136-145 [facility] Comment on above: Performed By: #### B MP, LIPID #### [facility] [address] [address] [address] Oniel Jackson Urea nitrogen [Mass/Vol] 13.0 mg/dL Normal 7.0-18.0 [facility] Comment on above: Performed By: #### B MP, LIPID #### [facility] [address] [place], [place] [address] Dr. Oniel Jackson Urea nitrogen/Creatinine [Mass ratio] 12.4 mg/mg Normal [facility] Comment on above: Performed By: #### B MP, LIPID #### [facility] [address] [place], [place] [address] Dr. Oniel Jackson C-Reactive Proteinon 021 CRP [Mass/Vol] 53.6 mg/L High 0.0-5.0 [facility] Comment on above: Performed By: #### F DORON, CRP, FIB #### [facility] [address] [place], [place] [phone] Route Jumper: Rogers Reno MD #### DIME, LD, CMPX, CDP #### [facility] [address] [place], [place] [phone] Route Jumper: [place] Nicole MD CRP [Mass/Vol] 119.5 mg/L High 0.0-5.0 [facility] Comment on above: Performed By: #### F DORON, CRP, FIB #### [facility] [address] [place], [place] [phone] Route Jumper: Rogers Reno MD #### DIME, LD, CMPX, CDP #### [facility] [address] [place] [address] Route Jumper: [place] Nicole MD C-Reactive ProteinOrdered By : Stacia Saleh on 07-25-2021 CRP [Mass/Vol] 119.5 mg/L High 0.0 - 5.0 mg/L [facility] [place] [facility] [employer] Phone: Interpretation and review of laboratory results Abnormal [facility] [employer] Phone: [facility] [employer] Phone: D-Dimer Teston 07-25-2021 D-Dimer Test 0.83 mg/L FEU High 0.00-0.59 [facility] Comment on above: Result Comment: When [...] By: #### F DORON, CRP, FIB #### [facility] [address] [place] [address] Route Jumper: Rogers Reno MD #### CLAUDINE, LD, CMPX, CDP #### [facility] [address] [place] [address] Route Jumper: [place] Nicole MD D-Dimer, QuantitativeOrdered By: Rojelio Mayes on 07-25-2021 D-Dimer, Quant 0.83 [facility] Work Phone: Comment on above: [...] Interpretation and review of laboratory results Abnormal [employer] Phone: [employer] Phone: Glucose, Whole BloodOrdered By: Rojelio Mayes on 07-25-2021 Glucose [Mass/Vol] 317 mg/dL High 65 - 99 mg/dL [employer] Phone: Interpretation and review of laboratory results Abnormal [employer] Phone: [employer] Phone: Glucose [Mass/Vol] 266 mg/dL High 65 - 99 mg/dL [employer] Phone: Interpretation and review of laboratory results Abnormal [employer] Phone: [employer] Phone: Glucose [Mass/Vol] 172 mg/dL High 65 - 99 mg/dL [employer] Phone: Interpretation and review of laboratory results Abnormal [employer] Phone: [employer] Phone: Hepatic function panelOrdere d By: Rojelio Mayes on 07-25-2021 Albumin [Mass/Vol] 2.7 g/dL Low 3.5 - 5.2 g/dL [employer] Phone: Albumin/Globulin Ratio NOT REPORTED [employer] Phone: ALP (Bld) [Catalytic activity/Vol] 59 U/L 40 - 129 U/L [employer] Phone: ALT [Catalytic activity/Vol] 13 U/L 5 - 41 U/L [employer] Phone: AST [Catalytic activity/Vol] 10 U/L <40 [employer] Phone: Bilirubin [Mass/Vol] 0.16 mg/dL Low 0.30 - 1.20 mg/dL [employer] Phone: Bilirubin, Indirect CANNOT BE CALCULATED 0.00 - 1.00 mg/dL [employer] Phone: Bilirubin.indirect [Mass/Vol] mg/dL <0.31 mg/dL [employer] Phone: Free PSA/Total PSA [Mass fraction] 5.8 g/dL Low 6.4 - 8.3 g/dL [employer] Phone: Globulin NOT REPORTED 1.5 - 3.8 g/dL [employer] Phone: Interpretation and review of laboratory results Abnormal [employer] Phone: [employer] Phone: Liver Profileon 07-25-2021 Albumin [Mass/Vol] 2.7 g/dL Low 3.5-5.2 [facility] Comment on above: Performed By: #### F DORON, CRP, FIB #### [facility] [address] [place] [address] Route Jumper: Rogers Reno MD #### NATHANIEL CHOW, CMPX, CDP #### [facility] [address] [place] [address] Route Jumper: [place] Nicole MD Alkaline Phos 59 U/L Normal 40-129 [facility] Comment on above: Performed By: #### F DORON, CRP, FIB #### [facility] [address] [place], [place] [phone] Route Jumper: Rogers Reno MD #### NATHANIEL CHOW, CMPX, CDP #### [facility] [address] [place], [place] [phone] Route Jumper: [place] Nicole MD ALT [Catalytic activity/Vol] 13 U/L Normal 5-41 [facility] Comment on above: Performed By: #### F DORON, CRP, FIB #### [address] [phone] Route Jumper: Rogers Reno MD #### NATHANIEL CHOW, CMPX, CDP #### [facility] [address] [place], [place] [phone] Route Jumper: [place] Nicole MD AST [Catalytic activity/Vol] 10 U/L Normal <40 [facility] Comment on above: Performed By: #### F DORON, CRP, FIB #### [address] [address] Route Jumper: Rogers Reno MD #### NATHANIEL CHOW, CMPX, CDP #### [facility] [address] [place], [place] [phone] Route Jumper: [place] Nicole MD Bilirubin [Mass/Vol] 0.16 mg/dL Low 0.30-1.20 [facility] Comment on above: Performed By: #### F DORON, CRP, FIB #### [address] [id number] [address] Jumper: Rogers Reno MD #### DIMWesley, NATHANIEL, CMPX, CDP #### [facility] [address] [place], [place] [phone] Route Jumper: [place] Nicole MD Bilirubin, Indirect CANNOT BE CALCULATED Normal 0.00-1 .00 [facility] Comment on above: Performed By: #### F DORON, CRP, FIB #### [address] [place] [address] Route Jumper: Rogers Reno MD #### DIME, LD, CMPX, CDP #### [facility] [address] [place], [place] [phone] Route Jumper: [place] Nicole MD Bilirubin.indirect [Mass/Vol] mg/dL Normal <0.31 [facility] Comment on above: Performed By: #### F DORON, CRP, FIB #### [address] [address] Route Jumper: Rogers Reno MD #### DIME, LD, CMPX, CDP #### [facility] [address] [place], [place] [phone] Route Jumper: [place] Nicole MD Protein [Mass/Vol] 5.8 g/dL Low 6.4-8.3 [facility] Comment on above: Performed By: #### F DORON, CRP, FIB #### [address] [phone] Route Jumper: Rogers Reno MD #### DIME, LD, CMPX, CDP #### [facility] [address] [place], [place] [phone] Route Jumper: [place] Nicole MD Albumin/Glob Ratio NOT REPORTED Normal 1.0-2.5 [facility] Comment on above: Performed By: #### F DORON, CRP, FIB #### [address] [address] Route Jumper: Rogers Reno MD #### DIME, LD, CMPX, CDP #### [facility] [address] [place], [place] [phone] Route Jumper: [place] Nicole MD Globulin Fraction NOT REPORTED Normal 1.5-3.8 [facility] Comment on above: Performed By: #### F DORON, CRP, FIB #### [facility] [address] [place], [place] [phone] Route Jumper: Rogers Reno MD #### NATHANIEL CHOW CMPX, CDP #### [facility] [address] [place] [address] Route Jumper: [place] Nicole MD Procalcitoninon 07-25-2021 Procalcitonin 0.08 ng/mL Normal <0.09 [facility] Comment on above: Result Comment: Suspected [...] entered into the Change in Procalcitonin Calculator (www.yknogi-ydh-qgmetezkab.com) to determine the patient's Mortality Risk Prognosis In healthy neonates, plasma Procalcitonin (PCT) concentrations increase gradually after , reaching peak values at about 24 hours of age then decrease to normal values below 0.5 ng/mL by 48-72 hours of age. Performed By: #### F DORON, CRP, FIB #### [facility] [address] [place] [address] Route Jumper: Rogers Reno MD #### NATHANIEL CHOW CMPX, CDP #### [facility] [address] [place] [address] Route Jumper: [place] Nicole MD ProcalcitoninOrdered By: Rogers Saleh on 07-25-2021 Procalcitonin 0.08 ng/mL <0.09 [facility] Work Phone: Comment on above: Suspected [...] entered into the Change in Procalcitonin Calculator (www.saowvx-igh-ibrtmevvvk.DriverSide) to determine the patient's Mortality Risk Prognosis In healthy neonates, plasma Procalcitonin (PCT) concentrations increase gradually after , reaching peak values at about 24 hours of age then decrease to normal values below 0.5 ng/mL by 48-72 hours of age. [employer] Phone: C-Reactive Proteinon CRP [Mass/Vol] 110.2 mg/L High 0.0-5.0 [facility] Comment on above: Performed By: #### F DORON, CRP, FIB #### [facility] [address] [place] [address] Route Jumper: Rogers Reno MD #### CLAUDINE, LD, CMPX, CDP #### [facility] [address] [place] [address] Route Jumper: [place] Nicole MD C-Reactive ProteinOrdered By : Rojelio Mayes on 07-24-2021 CRP [Mass/Vol] 110.2 mg/L High 0.0 - 5.0 mg/L [facility] Phone: Interpretation and review of laboratory results Abnormal [employer] Phone: [employer] Phone: CBC Auto DifferentialOrdered By: Rojelio Mayes on 07-24-2021 [employer] Eos # 0.00 [employer] [facility] Work Phone: Absolute Immature Granulocyte NOT REPORTED [employer] Work Phone: Absolute Lymph # 0.80 Low [employer] Work Phone: Absolute Addison # 0.20 [employer] Work Phone: Basophils (Bld) [#/Vol] 0.00 10*3/uL [employer] Work Phone: Basophils/100 WBC (Bld) 0 % 0 - 2 % M [employer] Work Phone: Differential Type YES [facility] Work Phone: Eosinophils/100 WBC (Bld) 0 % 0 - 5 % [employer] Work Phone: Hematocrit (Bld) [Volume fraction] 40.6 % Low 41 - 53 % [employer] Work Phone: Hemoglobin.gastrointesti nal spec 1 Ql (Stl) 13.4 g/dL Low 13.5 - 17.5 g/dL [employer] Work Phone: Immature Granulocytes NOT REPORTED 0 % M [employer] Phone: Interpretation and review of laboratory results Abnormal [employer] Phone: Lymphocytes/100 WBC (Bld) 9 % Low 13 - 44 % [employer] Work Phone: MCH (RBC) [Entitic mass] 28.6 pg 26 - 34 pg [employer] Work Phone: MCHC (RBC) [Mass/Vol] 33.0 g/dL 31 - 37 g/dL M [employer] Work Phone: MCV (RBC) [Entitic vol] 86.7 fL 80 - 100 fL [employer] Work Phone: Monocytes/100 WBC (Bld) 2 % Low 5 - 9 % M [employer] Work Phone: NRBC Automated NOT REPORTED per 100 WBC [facility] Work Phone: Platelet distribution width (Bld) [Ratio] 12.6 % 12.1 - 15.2 % [employer] Phone: Platelet Estimate NOT REPORTED [facility] Phone: Platelet mean volume (Bld) [Entitic vol] NOT REPORTED 6.0 - 12.0 fL [employer] Phone: Platelets (Bld) [#/Vol] 493 10*3/uL High [facility] Phone: RBC (Bld) [#/Vol] 4.68 10*6/uL 4.5 - 5.9 m/uL [facility] Phone: RBC (Bld) [#/Vol] NOT REPORTED [facility] Phone: Segmented neutrophils/100 WBC (Bld) 89 % High 39 - 75 % [employer] Phone: Segs Absolute 8.10 High Tint[employer] [facility] [employer] Work Phone: WBC (Bld) [#/Vol] 9.1 10*3/uL [facility] Phone: WBC (Bld) [#/Vol] NOT REPORTED [facility] Phone: [employer] Work Phone: CBC with Diffon 07-24-2021 Abs. Basophil 0.00 k/uL Normal 0.0-0.2 [facility] Comment on above: Performed By: #### F DORON, CRP, FIB #### [facility] [address] [place] [address] Route Jumper: Rogers Reno MD #### DIME, LD, CMPX, CDP #### [facility] [address] [place], [place] [phone] Route Jumper: [place] Nicole MD Abs.Neutrophil (Seg) 8.10 k/uL High 2.1-6.5 [facility] Comment on above: Performed By: #### F DORON, CRP, FIB #### [address] [phone] Route Jumper: Rogers Reno MD #### DIME, LD, CMPX, CDP #### [facility] [address] [phone] Route Jumper: [place] Nicole MD Auto Diff Performed YES Normal [facility] Comment on above: Performed By: #### F DORON, CRP, FIB #### [address] [id number] Route Jumper: Rogers Reno MD #### DIME, LD, CMPX, CDP #### [facility] [address] [phone] Route Jumper: [place] Nicole MD Basophils/100 WBC (Bld) 0 % Normal 0-2 [facility] Comment on above: Performed By: #### F DORON, CRP, FIB #### [address] [phone] Route Jumper: Rogers Reno MD #### DIME, LD, CMPX, CDP #### [facility] [address] [phone] Route Jumper: Richmond Nicole MD Eosinophils (Bld) [#/Vol] 0.00 10*3/uL Normal 0.0-0.4 [facility] Comment on above: Performed By: #### F DORON, CRP, FIB #### [address] [id number] Route Jumper: Rogers Reno MD #### DIME, LD, CMPX, CDP #### [facility] [address] [place], [place] [phone] Route Jumper: Richmond Nicole MD Eosinophils/100 WBC (Bld) 0 % Normal 0-5 [facility] Comment on above: Performed By: #### F DORON, CRP, FIB #### [address] [phone] Route Jumper: Rogers Reno MD #### DIME, LD, CMPX, CDP #### [facility] [address] [place], [place] [phone] Route Jumper: [place] Nicole MD Erythrocyte distribution width (RBC) [Ratio] 12.6 % Normal 12.1-15.2 [facility] Comment on above: Performed By: #### F DORON, CRP, FIB #### [address] [phone] Route Jumper: Rogers Reno MD #### DIME, LD, CMPX, CDP #### [facility] [address] [place], [place] [phone] Route Jumper: Richmond Nicole MD Hematocrit (Bld) [Volume fraction] 40.6 % Low 41-53 [facility] Comment on above: Performed By: #### F DORON, CRP, FIB #### [address] [phone] Route Jumper: Rogers Reno MD #### DIME, LD, CMPX, CDP #### [facility] [address] [place], [place] [phone] Route Jumper: Richmond Nicole MD Hemoglobin (Bld) [Mass/Vol] 13.4 g/dL Low 13.5-17.5 [facility] Comment on above: Performed By: #### F DORON, CRP, FIB #### [address] [phone] Route Jumper: Rogers Reno MD #### DIME, LD, CMPX, CDP #### [facility] [address] [place] [address] Route Jumper: [place] Nicole MD Lymphocytes (Bld) [#/Vol] 0.80 10*3/uL Low 1.0-4.8 [facility] Comment on above: Performed By: #### F DORON, CRP, FIB #### [address] [phone] Route Jumper: Rogers Reno MD #### DIME, LD, CMPX, CDP #### [facility] [address] [place] [address] Route Jumper: Richmond Nicole MD Lymphocytes/100 WBC (Bld) 9 % Low 13-44 [facility] Comment on above: Performed By: #### F DORON, CRP, FIB #### [address] [phone] Route Jumper: Rogers Reno MD #### DIME, LD, CMPX, CDP #### [facility] [address] [phone] Route Jumper: Richmond Nicole MD MCH (RBC) [Entitic mass] 28.6 pg Normal 26-34 [facility] Comment on above: Performed By: #### F DORON, CRP, FIB #### [address] [phone] Route Jumper: Rogers Reno MD #### DIME, LD, CMPX, CDP #### [facility] [address] [phone] Route Jumper: [place] Nicole MD MCHC (RBC) [Mass/Vol] 33.0 g/dL Normal 31-37 [facility] Comment on above: Performed By: #### F DORON, CRP, FIB #### [address] [address] Route Jumper: Rogers Reno MD #### DIME, LD, CMPX, CDP #### [facility] [address] [place] [address] Route Jumper: [place] Nicole MD MCV (RBC) [Entitic vol] 86.7 fL Normal 80-100 M [facility] Comment on above: Performed By: #### F DORON, CRP, FIB #### [address] [phone] Route Jumper: Rogers Reno MD #### DIME, LD, CMPX, CDP #### [facility] [address] [place] [address] Route Jumper: [place] Nicole MD Monocytes (Bld) [#/Vol] 0.20 10*3/uL Normal 0.0-1.0 [facility] Comment on above: Performed By: #### F DORON, CRP, FIB #### [address] [address] Route Jumper: Rogers Reno MD #### DIME, LD, CMPX, CDP #### [facility] [address] [phone] Route Jumper: [place] Nicole MD Monocytes/100 WBC (Bld) 2 % Low 5-9 M [facility] Comment on above: Performed By: #### F DORON, CRP, FIB #### [address] [address] Route Jumper: Rogers Reno MD #### DIME, LD, CMPX, CDP #### [facility] [address] [place] [address] Route Jumper: [place] Nicole MD Neutrophil (Seg) 89 % High 39-75 [facility] Comment on above: Performed By: #### F DORON, CRP, FIB #### [address] [place] [address] Route Jumper: Rogers Reno MD #### DIME, LD, CMPX, CDP #### [facility] [address] [place] [address] Route Jumper: Richmond Nicole MD Platelets (Bld) [#/Vol] 493 10*3/uL High 140-450 [facility] Comment on above: Performed By: #### F DORON, CRP, FIB #### [facility] [address] [place] [address] Route Jumper: Rogers Reno MD #### DIME, LD, CMPX, CDP #### [facility] [address] [place], [place] [phone] Route Jumper: [place] Nicole MD RBC (Bld) [#/Vol] 4.68 10*6/uL Normal 4.5-5.9 [facility] Comment on above: Performed By: #### F DORON, CRP, FIB #### [address] [address] Route Jumper: Rogers Reno MD #### DIME, LD, CMPX, CDP #### [facility] [address] [place], [place] [phone] Route Jumper: [place] Nicole MD WBC (Bld) [#/Vol] 9.1 10*3/uL Normal 3.5-11.0 [facility] Comment on above: Performed By: #### F DORON, CRP, FIB #### [address] [address] Route Jumper: Rogers Reno MD #### DIME, LD, CMPX, CDP #### [facility] [address] [place], [place] [phone] Route Jumper: Richmond Nicole MD Abs.Imm.Granulocyte NOT REPORTED Normal 0.00-0.30 [facility] Comment on above: Performed By: #### F DORON, CRP, FIB #### [address] [address] Route Jumper: Rogers Reno MD #### DIME, LD, CMPX, CDP #### [facility] [address] [place], [place] [phone] Route Jumper: Richmond Nicole MD Immature Granulocyte NOT REPORTED Normal 0 [facility] Comment on above: Performed By: #### F DORON, CRP, FIB #### [address] [address] Route Jumper: Rogers Reno MD #### DIME, LD, CMPX, CDP #### [facility] [address] [place], [place] [phone] Route Jumper: Richmond Nicole MD MPV NOT REPORTED Normal 6.0-12.0 [facility] Comment on above: Performed By: #### F DORON, CRP, FIB #### [address] [address] Route Jumper: Rogers Reno MD #### DIME, LD, CMPX, CDP #### [facility] [address] [place], [place] [phone] Route Jumper: Richmond Nicole MD NRBC Automated NOT REPORTED Normal [facility] Comment on above: Performed By: #### F DORON, CRP, FIB #### [address] [address] Route Jumper: Rogers Reno MD #### DIME, LD, CMPX, CDP #### [facility] [address] [place] [address] Route Jumper: Richmond Nicole MD Platelet Estimate NOT REPORTED Normal [facility] Comment on above: Performed By: #### F DORON, CRP, FIB #### [address] [place], [place] [phone] Route Jumper: Rogers Reno MD #### DIME, LD, CMPX, CDP #### [facility] [address] [place], [place] [phone] Route Jumper: [place] Nicole MD RBC morphology finding Nom (Bld) NOT REPORTED Normal [facility] Comment on above: Performed By: #### F DORON, CRP, FIB #### [address] [phone] Route Jumper: Rogers Reno MD #### DIME, LD, CMPX, CDP #### [facility] [address] [place] [address] Route Jumper: [place] Nicole MD WBC Morphology NOT REPORTED Normal [facility] Comment on above: Performed By: #### F DORON, CRP, FIB #### [address] [phone] Route Jumper: Rogers Reno MD #### DIME, LD, CMPX, CDP #### [facility] [address] [place], [place] [id number] Route Jumper: Richmond Nicole MD Comp Metabolic Pr/rfx MGon 0 07-24-2021 (cont.) Normal [facility] Comment on above: Result Comment: Aver age GFR for 60-69 years old: 85 mL/min/1.73sq m Chronic Kidney Disease: <60 mL/min/1.73sq m Kidney failure: <15 mL/min/1.73sq m eGFR calculated using average adult body mass. Additional eGFR calculator available at: http://www.[employer].com/multiple_crcl_2012.htm Performed By: #### F DORON, CRP, FIB #### [address] [id number] Route Jumper: Rogers Reno MD #### DIME, LD, CMPX, CDP #### [facility] [address] [place] [address] Route Jumper: Richmond Nicole MD Albumin [Mass/Vol] 2.8 g/dL Low 3.5-5.2 [facility] Comment on above: Performed By: #### F DORON, CRP, FIB #### [address] [id number] Route Jumper: Rogers Reno MD #### DIME, LD, CMPX, CDP #### [facility] [address] [place] [address] Route Jumper: Richmond Nicole MD Alkaline Phos 69 U/L Normal 40-129 [facility] Comment on above: Performed By: #### F DORON, CRP, FIB #### [address] [address] Route Jumper: Rogers Reno MD #### DIME, LD, CMPX, CDP #### [facility] [address] [place] [address] ( Route Jumper: Richmond Nicole MD ALT [Catalytic activity/Vol] 15 U/L Normal 5-41 [facility] Comment on above: Performed By: #### F DORON, CRP, FIB #### [address] [id number] Route Jumper: Rogers Reno MD #### DIME, LD, CMPX, CDP #### [facility] [address] [place] [address] Route Jumper: Richmond Nicole MD Anion gap [Moles/Vol] 11 mmol/L Normal 9-17 [facility] Comment on above: Performed By: #### F DORON, CRP, FIB #### [address] [phone] Route Jumper: Rogers Reno MD #### DIME, LD, CMPX, CDP #### [facility] [address] [place], [place] [id number] Route Jumper: Richmond Nicole MD AST [Catalytic activity/Vol] 14 U/L Normal <40 [facility] Comment on above: Performed By: #### F DORON, CRP, FIB #### [address] [id number] Route Jumper: Rogers Reno MD #### DIME, LD, CMPX, CDP #### [facility] [address] [place], [place] [id number] Route Jumper: Richmond Nicole MD Bilirubin [Mass/Vol] 0.22 mg/dL Low 0.30-1.20 [facility] Comment on above: Performed By: #### F DORON, CRP, FIB #### [address] [id number] Route Jumper: Rogers Reno MD #### DIME, LD, CMPX, CDP #### [facility] [address] [place] [phone] Route Jumper: Richmond Nicole MD BUN/CRE Ratio 23 High 9-20 [facility] Comment on above: Performed By: #### F DORON, CRP, FIB #### [address] [phone] Route Jumper: Rogers Reno MD #### DIME, LD, CMPX, CDP #### [facility] [address] [place], [place] [phone] Route Jumper: Richmond Nicole MD Calcium [Mass/Vol] 9.1 mg/dL Normal 8.6-10.4 [facility] Comment on above: Performed By: #### F DORON, CRP, FIB #### [address] [phone] Route Jumper: Rogers Reno MD #### DIME, LD, CMPX, CDP #### [facility] [address] [place], [place] 5232190 Route Jumper: Richmond Nicole MD Chloride [Moles/Vol] 99 mmol/L Normal 98-107 [facility] Comment on above: Performed By: #### F DORON, CRP, FIB #### [address] [phone] Route Jumper: Rogers Reno MD #### DIME, LD, CMPX, CDP #### [facility] [address] [place] [address] Route Jumper: Richmond Nicole MD CO2 [Moles/Vol] 25 mmol/L Normal 20-31 [facility] Comment on above: Performed By: #### F DORON, CRP, FIB #### [address] [phone] Route Jumper: Rogers Reno MD #### DIME, LD, CMPX, CDP #### [facility] [address] [place] [address] Route Jumper: Richmond Nicole MD Creatinine [Mass/Vol] 0.91 mg/dL Normal 0.70-1.20 [facility] Comment on above: Performed By: #### F DORON, CRP, FIB #### [address] [phone] Route Jumper: Rogers Reno MD #### DIME, LD, CMPX, CDP #### [facility] [address] [place] [address] Route Jumper: Richmond Nicole MD GFR, Amer >60 Normal >60 [facility] Comment on above: Performed By: #### F DORON, CRP, FIB #### [address] [phone] Route Jumper: Rogers Reno MD #### DIME, LD, CMPX, CDP #### [facility] [address] [place], [place] 4003590 Route Jumper: Richmond Nicole MD GFR,non Amer >60 Normal >60 [facility] Comment on above: Performed By: #### F DORON, CRP, FIB #### [address] [phone] Route Jumper: Rogers Reno MD #### DIME, LD, CMPX, CDP #### [facility] [address] [place], [place] [phone] Route Jumper: Richmond Nicole MD Glucose [Mass/Vol] 288 mg/dL High 70-99 [facility] Comment on above: Performed By: #### F DORON, CRP, FIB #### [address] [phone] Route Jumper: Rogers Reno MD #### DIME, LD, CMPX, CDP #### [facility] [address] [place], [place] 7782790 Route Jumper: Richmond Nicole MD Potassium [Moles/Vol] 4.4 mmol/L Normal 3.7-5.3 [facility] Comment on above: Performed By: #### F DORON, CRP, FIB #### [address] [phone] Route Jumper: Rogers Reno MD #### DIME, LD, CMPX, CDP #### [facility] [address] [place] [address] Route Jumper: Richmond Nicole MD Protein [Mass/Vol] 7.0 g/dL Normal 6.4-8.3 [facility] Comment on above: Performed By: #### F DORON, CRP, FIB #### [address] [phone] Route Jumper: Rogers Reno MD #### CLAUDINE, NATHANIEL, CMPX, CDP #### [facility] [address] [place], [place] 9456590 Route Jumper: Richmond Nicole MD Sodium [Moles/Vol] 135 mmol/L Normal 135-144 [facility] Comment on above: Performed By: #### F DORON, CRP, FIB #### [address] [address] Route Jumper: Rogers Reno MD #### NATHANIEL CHOW, CMPX, CDP #### [facility] [address] [place], [place] [id number] Route Jumper: Richmond Nicole MD Urea nitrogen [Mass/Vol] 21 mg/dL Normal 8-23 [facility] Comment on above: Performed By: #### F DORON, CRP, FIB #### [address] [address] Route Jumper: Rogers Reno MD #### NATHANIEL CHOW, CMPX, CDP #### [facility] [address] [place], [place] 7509690 Route Jumper: Richmond Nicole MD Albumin/Glob Ratio NOT REPORTED Normal 1.0-2.5 [facility] Comment on above: Performed By: #### F DORON, CRP, FIB #### [address] [address] Route Jumper: Rogers Reno MD #### CLAUDINE, NATHANIEL, CMPX, CDP #### [facility] [address] [place], [place] [id number] Route Jumper: Richmond Nicole MD Staging: NOT REPORTED Normal [facility] Comment on above: Performed By: #### F DORON, CRP, FIB #### [address] [address] Route Jumper: Rogers Reno MD #### CLAUDINE, LD, CMPX, CDP #### [facility] [address] [place] [address] Route Jumper: Richmond Nicole MD Comprehensive Metabolic Pane l w/ Reflex to MGOrdered By: Rojelio Mayes on 07-24-2021 Albumin [Mass/Vol] 2.8 g/dL Low 3.5 - 5.2 g/dL [facility] [employer] Phone: Albumin/Globulin Ratio NOT REPORTED [employer] Phone: ALP (Bld) [Catalytic activity/Vol] 69 U/L 40 - 129 U/L [facility] Phone: ALT [Catalytic activity/Vol] 15 U/L 5 - 41 U/L [facility] Phone: Anion gap [Moles/Vol] 11 mmol/L 9 - 17 mmol/L [facility] Phone: AST [Catalytic activity/Vol] 14 U/L <40 [facility] Phone: Bilirubin [Mass/Vol] 0.22 mg/dL Low 0.30 - 1.20 mg/dL [facility] Phone: Calcium [Mass/Vol] 9.1 mg/dL 8.6 - 10. 4 mg/dL [facility] Phone: Chloride [Moles/Vol] 99 mmol/L 98 - 10 7 mmol/L [facility] Phone: CO2 [Moles/Vol] 25 mmol/L 20 - 31 mmol/L [employer] Phone: Creatinine [Mass/Vol] 0.91 mg/dL 0.70 - 1.20 mg/dL [employer] Phone: Free PSA/Total PSA [Mass fraction] 7.0 g/dL 6.4 - 8.3 g/dL [employer] Phone: GFR >60 >60 mL/min [employer] Phone: GFR Non- >60 >60 mL/min [employer] Phone: GFR/1.73 sq M.predicted MDRD (S/P/Bld) [Vol rate/Area] [employer] Phone: Comment on above: Average GFR for 60-6 9 years old: 85 mL/min/1.73sq m Chronic Kidney Disease: <60 mL/min/1.73sq m Kidney failure: <15 mL/min/1.73sq m eGFR calculated using average adult body mass. Additional eGFR calculator available at: http://www.[employer]_crcl_2012.htm GFR/1.73 sq M.predicted MDRD (S/P/Bld) [Vol rate/Area] NOT REPORTED [employer] Phone: Glucose [Mass/Vol] 288 mg/dL High 70 - 99 mg/dL [employer] Phone: Potassium [Moles/Vol] 4.4 mmol/L 3.7 - 5.3 mmol/L [employer] Phone: Sodium [Moles/Vol] 135 mmol/L 135 - 144 mmol/L [employer] Phone: Urea nitrogen (BldV) [Mass/Vol] 21 mg/dL 8 - 23 mg/dL [facility] Phone: Urea nitrogen/Creatinine (Bld) [Mass ratio] 23 High [employer] Phone: D-Dimer Teston 07-24-2021 D-Dimer Test 1.69 mg/L FEU High 0.00-0.59 [facility] Comment on above: Result Comment: When [...] By: #### F DORON, CRP, FIB #### [facility] [address] [place] [address] Route Jumper: Rogers Reno MD #### CLAUDINE, LD, CMPX, CDP #### [facility] [address] [place] [address] Route Jumper: Richmond Nicole MD D-Dimer Test 1.57 mg/L FEU High 0.00-0.59 [facility] Comment on above: Result Comment: When [...] DVT. Performed By: #### D WANDY #### [facility] [address] [place] [address] Route Jumper: Richmond Nicole MD D-Dimer, QuantitativeOrdered By: Rojelio Mayes on 07-24-2021 D-Dimer, Quant 1.69 High [facility] Work Phone: Comment on above: When combined [...] Interpretation and review of laboratory results Abnormal [facility] Phone: [facility] [employer] Phone: Ferritinon 07-24-2021 Ferritin 778 ug/L High 30-400 [facility] Comment on above: Performed By: #### F DORON, CRP, FIB #### [facility] [address] [place] [address] Route Jumper: Rogers Reno MD #### DIME, LD, CMPX, CDP #### [facility] [address] [place] [address] Route Jumper: Richmond Nicole MD Ferritin 868 ug/L High 30-400 [facility] Comment on above: Performed By: #### F DORON, CRP, FIB #### [facility] [address] [place] [address] Route Jumper: Rogers Reno MD #### DIME, LD, CMPX, CDP #### [facility] [address] [place], [place] [phone] Route Jumper: Richmond Nicole MD FerritinOrdered By: Rojelio hameed on 07-24-2021 Ferritin 778 ug/L High 30 - 400 ug/L [facility] [employer] Phone: Interpretation and review of laboratory results Abnormal [facility] [employer] Phone: [facility] Phone: FerritinOrdered By: Stacia iqbal on 07-24-2021 Ferritin 868 ug/L High 30 - 400 ug/L [facility] [employer] Phone: Interpretation and review of laboratory results Abnormal [facility] [employer] Phone: [facility] Phone: Fibrinogenon 07-24-2021 Fibrinogen 934 mg/dL High 140-420 [facility] Comment on above: Performed By: #### F DORON, CRP, FIB #### [facility] [address] [place] [address] Route Jumper: Rogers Reno MD #### DIME, LD, CMPX, CDP #### [facility] [address] [place], [place] 1497890 Route Jumper: Richmond Nicole MD FibrinogenOrdered By: Rojelio Mayes on 07-24-2021 Fibrinogen 934 mg/dL High 140 - 420 mg/dL [employer] Phone: Interpretation and review of laboratory results Abnormal [employer] Phone: [employer] Phone: Glucose, Whole BloodOrdered By: Rojelio Mayes on 07-24-2021 Glucose [Mass/Vol] 162 mg/dL High 65 - 99 mg/dL [employer] Phone: Interpretation and review of laboratory results Abnormal [employer] Phone: [employer] Phone: Glucose [Mass/Vol] 244 mg/dL High 65 - 99 mg/dL [employer] Phone: Interpretation and review of laboratory results Abnormal [employer] Phone: [employer] Phone: Glucose [Mass/Vol] 215 mg/dL High 65 - 99 mg/dL [employer] Phone: Interpretation and review of laboratory results Abnormal [employer] Phone: [employer] Phone: Hemoglobin A1Con 07-24-2021 Glucose [Mass/Vol] 166 mg/dL Normal [facility] Comment on above: Result Comment: The ADA and AACC recommend providing the estimated average glucose result to permit better patient understanding of their HBA1c result. Performed By: #### G LYHGB #### [employer] [address] [place], [place] [id number] Route Jumper: Rogers Reno MD HbA1c (Bld) [Mass fraction] 7.4 % High 4.0-6.0 [facility] Comment on above: Performed By: #### G LYHGB #### [employer] [address] [place], [place] [phone] Route Jumper: Rogers Reno MD Hemoglobin Z1eQwliyno By: Vu Mayes on 07-24-2021 Glucose [Mass/Vol] 166 mg/dL [facility] Phone: Comment on above: The ADA and AACC rec ommend providing the estimated average glucose result to permit better patient understanding of their HBA1c result. HbA1c (Bld) [Mass fraction] 7.4 % High 4.0 - 6.0 % [employer] Phone: Interpretation and review of laboratory results Abnormal [employer] Phone: [employer] Phone: Lactate Dehydrogenaseon 07-02 LDH [Catalytic activity/Vol] 545 U/L High 135-225 [facility] Comment on above: Performed By: #### F DORON, CRP, FIB #### [facility] [address] [place] [address] [id number] Route Jumper: Rogers Reno MD #### DIME, LD, CMPX, CDP #### [facility] [address] [place] [address] Route Jumper: Richmond Nicole MD LDH [Catalytic activity/Vol] 577 U/L High 135-225 [facility] Comment on above: Performed By: #### F DORON, CRP, FIB #### [facility] [address] [place] [address] [phone] Route Jumper: Rogers Reno MD #### DIME, LD, CMPX, CDP #### [facility] [address] [place] [address] Route Jumper: Richmond Nicole MD Lactate DehydrogenaseOrdered By: Rojelio Mayes on 07-24-2021 LD 545 U/L High 135 - 225 U/L [facility] [employer] Phone: No Panel InformationOrdered By: Rojelio Mayes on 07-24-2021 Interpretation and review of laboratory results Abnormal [employer] Phone: [employer] Work Phone: CBC Auto DifferentialOrdered By: Stacia Saleh on 07-23-2021 Absolute Eos # 0.11 [facility] [facility] Work Phone: Absolute Immature Granulocyte NOT REPORTED [facility] Work Phone: Absolute Lymph # 1.47 [employer] Work Phone: Absolute Addison # 0.34 [facility] Work Phone: Basophils (Bld) [#/Vol] 0.23 10*3/uL High [employer] Work Phone: Differential Type NOT REPORTED [facility] Phone: Hematocrit (Bld) [Volume fraction] 43.6 % 41 - 53 % [employer] Work Phone: Hemoglobin.gastrointesti nal spec 1 Ql (Stl) 14.9 g/dL 13.5 - 17.5 g/dL [employer] Phone: Immature Granulocytes NOT REPORTED 0 % [employer] Work Phone: Interpretation and review of laboratory results Abnormal [employer] Phone: MCH (RBC) [Entitic mass] 29.3 pg 26 - 34 pg [employer] Work Phone: MCHC (RBC) [Mass/Vol] 34.3 g/dL 31 - 37 g/dL M [employer] Work Phone: MCV (RBC) [Entitic vol] 85.5 fL 80 - 100 fL [employer] Work Phone: Morphology Jose (Bld) [Interp] INCREASED PLATELETS [employer] Phone: NRBC Automated NOT REPORTED per 100 WBC [facility] Work Phone: Platelet distribution width (Bld) [Ratio] 12.7 % 12.1 - 15.2 % [employer] Phone: Platelet Estimate NOT REPORTED [employer] Phone: Platelet mean volume (Bld) [Entitic vol] NOT REPORTED 6.0 - 12.0 fL [employer] Phone: Platelets (Bld) [#/Vol] 523 10*3/uL High [employer] Phone: RBC (Bld) [#/Vol] 5.09 10*6/uL 4.5 - 5.9 m/uL [employer] Phone: RBC (Bld) [#/Vol] NOT REPORTED [employer] Phone: Segmented neutrophils/100 WBC (Bld) 81 % High 39 - 75 % [employer] Phone: Segs Absolute 9.15 High [employer] Work Phone: WBC (Bld) [#/Vol] 11.3 10*3/uL High [employer] Phone: WBC (Bld) [#/Vol] NOT REPORTED [employer] Phone: [employer] Phone: CBC with Diffon 07-23-2021 Abs. Basophil 0.23 k/uL High 0.0-0.2 [facility] Comment on above: Performed By: #### F DORON, CRP, FIB #### [facility] [address] [address] [place] [address] Route Jumper: Rogers Reno MD #### NATHANIEL CHOW, CMPX, CDP #### [facility] [address] [place] [address] Route Jumper: Richmond Nicole MD Abs.Neutrophil (Seg) 9.15 k/uL High 2.1-6.5 [facility] Comment on above: Performed By: #### F DORON, CRP, FIB #### [address] [place] [address] Route Jumper: Rogers Reno MD #### DIME, LD, CMPX, CDP #### [facility] [address] [place] [address] Route Jumper: Richmond Nicole MD Eosinophils (Bld) [#/Vol] 0.11 10*3/uL Normal 0.0-0.4 [facility] Comment on above: Performed By: #### F DORON, CRP, FIB #### [address] [phone] Route Jumper: Rogers Reno MD #### DIME, LD, CMPX, CDP #### [facility] [address] [place], [place] [phone] Route Jumper: Richmond Nicole MD Lymphocytes (Bld) [#/Vol] 1.47 10*3/uL Normal 1.0-4.8 [facility] Comment on above: Performed By: #### F DORON, CRP, FIB #### [address] [address] Route Jumper: Rogers Reno MD #### DIME, LD, CMPX, CDP #### [facility] [address] [place], [place] [phone] Route Jumper: Richmond Nicole MD Monocytes (Bld) [#/Vol] 0.34 10*3/uL Normal 0.0-1.0 [facility] Comment on above: Performed By: #### F DORON, CRP, FIB #### [address] [address] Route Jumper: Rogers Reno MD #### DIME, LD, CMPX, CDP #### [facility] [address] [place], [place] [phone] Route Jumper: Richmond Nicole MD Neutrophil (Seg) 81 % High 39-75 [facility] Comment on above: Performed By: #### F DORON, CRP, FIB #### [address] [phone] Route Jumper: Rogers Reno MD #### DIME, LD, CMPX, CDP #### [facility] [address] [place], [place] [phone] Route Jumper: Richmond Nicole MD Erythrocyte distribution width (RBC) [Ratio] 12.7 % Normal 12.1-15.2 [facility] Comment on above: Performed By: #### F DORON, CRP, FIB #### [address] [phone] Route Jumper: Rogers Reno MD #### DIME, LD, CMPX, CDP #### [facility] [address] [place] [phone] Route Jumper: Richmond Nicole MD Hematocrit (Bld) [Volume fraction] 43.6 % Normal 41-53 [facility] Comment on above: Performed By: #### F DORON, CRP, FIB #### [address] [phone] Route Jumper: Rogers Reno MD #### DIME, LD, CMPX, CDP #### [facility] [address] [place], [place] [phone] Route Jumper: Richmond Nicole MD Hemoglobin (Bld) [Mass/Vol] 14.9 g/dL Normal 13.5-17.5 [facility] Comment on above: Performed By: #### F DORON, CRP, FIB #### [address] [phone] Route Jumper: Rogers Reno MD #### DIME, LD, CMPX, CDP #### [facility] [address] [place], [place] [phone] Route Jumper: Richmond Nicole MD MCH (RBC) [Entitic mass] 29.3 pg Normal 26-34 [facility] Comment on above: Performed By: #### F DORON, CRP, FIB #### [address] [phone] Route Jumper: Rogers Reno MD #### DIME, LD, CMPX, CDP #### [facility] [address] [place], [place] [phone] Route Jumper: Richmond Nicole MD MCHC (RBC) [Mass/Vol] 34.3 g/dL Normal 31-37 [facility] Comment on above: Performed By: #### F DORON, CRP, FIB #### [address] [phone] Route Jumper: Rogers Reno MD #### DIME, LD, CMPX, CDP #### [facility] [address] [place], [place] [phone] Route Jumper: Richmond Nicole MD MCV (RBC) [Entitic vol] 85.5 fL Normal 80-100 M [facility] Comment on above: Performed By: #### F DORON, CRP, FIB #### [address] [phone] Route Jumper: Rogers Reno MD #### DIME, LD, CMPX, CDP #### [facility] [address] [place], [place] [phone] Route Jumper: Richmond Nicole MD Platelets (Bld) [#/Vol] 523 10*3/uL High 140-450 [facility] Comment on above: Performed By: #### F DORON, CRP, FIB #### [address] [phone] Route Jumper: Rogers Reno MD #### DIME, LD, CMPX, CDP #### [facility] [address] [place] [address] Route Jumper: Richmond Nicole MD RBC (Bld) [#/Vol] 5.09 10*6/uL Normal 4.5-5.9 [facility] Comment on above: Performed By: #### F DORON, CRP, FIB #### [address] [phone] Route Jumper: Rogers Reno MD #### DIME, LD, CMPX, CDP #### [facility] [address] [place] [address] ( Route Jumper: Richmond Nicole MD WBC (Bld) [#/Vol] 11.3 10*3/uL High 3.5-11.0 [facility] Comment on above: Performed By: #### F DORON, CRP, FIB #### [place] [phone] Route Jumper: Rogers Reno MD #### DIME, LD, CMPX, CDP #### [facility] [address] [place] [phone] ( Route Jumper: Richmond Nicole MD Abs.Imm.Granulocyte NOT REPORTED Normal 0.00-0.30 [facility] Comment on above: Performed By: #### F DORON, CRP, FIB #### [facility] [address] [place] [address] Route Jumper: Rogers Reno MD #### DIME, LD, CMPX, CDP #### [facility] [address] [place] [address] Route Jumper: Richmond Nicole MD Auto Diff Performed NOT REPORTED Normal [facility] Comment on above: Performed By: #### F DORON, CRP, FIB #### [facility] [address] [place] [address] [phone] [address] Jumper: Rogers Reno MD #### DIME, LD, CMPX, CDP #### [facility] [address] [place], [place] [phone] Route Jumper: Richmond Nicole MD Immature Granulocyte NOT REPORTED Normal 0 Me [facility] Comment on above: Performed By: #### F DORON, CRP, FIB #### [facility] [address] [place], [place] [phone] Route Jumper: Rogers Reno MD #### DIME, LD, CMPX, CDP #### [facility] [address] [place], [place] [phone] Route Jumper: Richmond Nicole MD MPV NOT REPORTED Normal 6.0-12.0 [facility] Comment on above: Performed By: #### F DORON, CRP, FIB #### [address] [phone] Route Jumper: Rogers Reno MD #### DIME, LD, CMPX, CDP #### [facility] [address] [place], [place] [phone] Route Jumper: Richmond Nicole MD NRBC Automated NOT REPORTED Normal [facility] Comment on above: Performed By: #### F DORON, CRP, FIB #### [address] [phone] Route Jumper: Rogers Reno MD #### DIME, LD, CMPX, CDP #### [facility] [address] [place], [place] [phone] Route Jumper: Richmond Nicole MD Platelet Estimate NOT REPORTED Normal [facility] Comment on above: Performed By: #### F DORON, CRP, FIB #### [address] [address] Route Jumper: Rogers Reno MD #### DIME, LD, CMPX, CDP #### [facility] [address] [place], [place] [phone] Route Jumper: Richmond Nicole MD RBC morphology finding Nom (Bld) NOT REPORTED Normal [facility] Comment on above: Performed By: #### F DORON, CRP, FIB #### [facility] [address] [place], [place] [phone] Route Jumper: Rogers Reno MD #### DIME, LD, CMPX, CDP #### [facility] [address] [place], [place] [phone] Route Jumper: Richmond Nicole MD WBC Morphology NOT REPORTED Normal [facility] Comment on above: Performed By: #### F DORON, CRP, FIB #### [address] [phone] Route Jumper: Rogers Reno MD #### DIME, LD, CMPX, CDP #### [facility] [address] [place], [place] [phone] Route Jumper: Richmond Nicole MD CBC with DiffOrdered By: Rogers Saleh on 07-23-2021 Basophils/100 WBC (Bld) 2 % Normal 0-2 [facility] Work Phone: Comment on above: Performed By: #### F DORON, CRP, FIB #### [address] [phone] Route Jumper: Rogers Reno MD #### DIME, LD, CMPX, CDP #### [facility] [address] [place] [address] Route Jumper: Richmond Nicole MD Eosinophils/100 WBC (Bld) 1 % Normal 0-5 [facility] Work Phone: Comment on above: Performed By: #### F DORON, CRP, FIB #### [address] [phone] Route Jumper: Rogers Reno MD #### DIME, LD, CMPX, CDP #### [facility] [address] [place], [place] [id number] Route Jumper: Richmond Nicole MD Lymphocytes/100 WBC (Bld) 13 % Normal 13-44 [facility] Work Phone: Comment on above: Performed By: #### F DORON, CRP, FIB #### [id number] Jumper: Rogers Reno MD #### DIME, LD, CMPX, CDP #### [facility] [address] [place], [place] [id number] Route Jumper: Richmond Nicole MD Monocytes/100 WBC (Bld) 3 % Low 5-9 [facility] Work Phone: Comment on above: Performed By: #### F DORON, CRP, FIB #### [address] [phone] Route Jumper: Rogers Reno MD #### DIME, LD, CMPX, CDP #### [facility] [address] [place], [place] [id number] Route Jumper: Richmond Nicole MD Morphology Jose (Bld) [Interp] Scanned to verify automated differential. Normal [facility] Work Phone: Comment on above: Result Comment: INCR EASED PLATELETS Performed By: #### F DORON, CRP, FIB #### [address] [phone] Route Jumper: Rogers Reno MD #### DIME, LD, CMPX, CDP #### [facility] [address] [place] [address] Route Jumper: Richmond Nicole MD COVID-19, RapidOrdered By: Harpreet Saleh on 09-23-2021 Interpretation and review of laboratory results Abnormal [employer] Phone: SARS-CoV-2 (COVID-19) RNA DESTIN+probe Ql (Unsp spec) Detected Abnormal Not Detected [employer] Phone: Comment on above: Rapid NAAT: The [...] this assay. Fact sheet for Healthcare Providers: https://www.fda.gov/media/219048/download Fact sheet for Patients: https://www.fda.gov/media/319353/download Methodology: Isothermal Nucleic Acid Amplification Results reported to the appropriate Health Department Specimen Description .NASOPHARYNGEAL SWAB [facility]: [employer] Phone: Comp Metabolic Profon 2020 (cont.) Normal [facility] Comment on above: Result Comment: Aver age GFR for 60-69 years old: 85 mL/min/1.73sq m Chronic Kidney Disease: <60 mL/min/1.73sq m Kidney failure: <15 mL/min/1.73sq m eGFR calculated using average adult body mass. Additional eGFR calculator available at: http://www.[employer].DriverSide/multiple_crcl_2011.htm Performed By: #### C AYUSH, DEMETRI SWAIN #### [facility] [address] [place] [address] Route Jumper: Rogers Reno MD #### CP, LD, TROPI, CDP #### [facility] [address] [place] [address] Route Jumper: Richmond Nicole MD Albumin [Mass/Vol] 3.1 g/dL Low 3.5-5.2 [facility] Comment on above: Performed By: #### C RP, PRCAL, FERI #### [address] [place], [place] [id number] Route Jumper: Rogers Reno MD #### CP, LD, TROPI, CDP #### [facility] [address] [place] [phone] Route Jumper: Richmond Nicole MD Alkaline Phos 75 U/L Normal 40-129 [facility] Comment on above: Performed By: #### C RP, PRCAL, FERI #### [address] [phone] Route Jumper: Rogers Reno MD #### CP, LD, TROPI, CDP #### [facility] [address] [place] [phone] Route Jumper: Richmond Nicole MD ALT [Catalytic activity/Vol] 19 U/L Normal 5-41 [facility] Comment on above: Performed By: #### C RP, PRCAL, FERI #### [address] [phone] Route Jumper: Rogers Reno MD #### CP, LD, TROPI, CDP #### [facility] [address] [place] [phone] Route Jumper: Richmond Nicole MD Anion gap [Moles/Vol] 18 mmol/L High 9-17 [facility] Comment on above: Performed By: #### C RP, PRCAL, FERI #### [address] [phone] Route Jumper: Rogers Reno MD #### CP, LD, TROPI, CDP #### [facility] [address] [place] [phone] Route Jumper: Richmond Nicole MD AST [Catalytic activity/Vol] 17 U/L Normal <40 [facility] Comment on above: Performed By: #### C RP, PRCAL, FERI #### [address] [phone] Route Jumper: Rogers Reno MD #### CP, LD, TROPI, CDP #### [facility] [address] [place], [place] [phone] Route Jumper: Richmond Nicole MD Bilirubin [Mass/Vol] 0.47 mg/dL Normal 0.30-1.20 [facility] Comment on above: Performed By: #### C RP, PRCAL, FERI #### [address] [phone] Route Jumper: Rogers Reno MD #### CP, LD, TROPI, CDP #### [facility] [address] [place] [phone] Route Jumper: Richmond Nicole MD BUN/CRE Ratio 19 Normal 9-20 [facility] Comment on above: Performed By: #### C RP, PRCAL, FERI #### [address] [phone] Route Jumper: Rogers Reno MD #### CP, LD, TROPI, CDP #### [facility] [address] [place], [place] [phone] Route Jumper: Richmond Nicole MD Calcium [Mass/Vol] 9.3 mg/dL Normal 8.6-10.4 [facility] Comment on above: Performed By: #### C RP, PRCAL, FERI #### [address] [phone] Route Jumper: Rogers Reno MD #### CP, LD, TROPI, CDP #### [facility] [address] [place] [address] Route Jumper: Richmond Nicole MD Chloride [Moles/Vol] 92 mmol/L Low 98-107 [facility] Comment on above: Performed By: #### C RP, PRCAL, FERI #### [address] [address] Route Jumper: Rogers Reno MD #### CP, LD, TROPI, CDP #### [facility] [address] [place], [place] [phone] Route Jumper: Richmond Nicole MD CO2 [Moles/Vol] 23 mmol/L Normal 20-31 [facility] Comment on above: Performed By: #### C RP, PRCAL, FERI #### [address] [phone] Route Jumper: Rogers Reno MD #### NATHANIEL ZULUAGA, TROPI, CDP #### [facility] [address] [place] [phone] Route Jumper: Richmond Nicole MD Creatinine [Mass/Vol] 1.16 mg/dL Normal 0.70-1.20 [facility] Comment on above: Performed By: #### C RP, PRCAL, FERI #### [address] [phone] Route Jumper: Rogers Reno MD #### NATHANIEL ZULUAGA, TROPI, CDP #### [facility] [address] [place], [place] [phone] Route Jumper: Richmond Nicole MD GFR, Amer >60 Normal >60 [facility] Comment on above: Performed By: #### C RP, PRCAL, FERI #### [address] [phone] Route Jumper: Rogers Reno MD #### CP, LD, TROPI, CDP #### [facility] [address] [place], [place] [phone] Route Jumper: Richmond Nicole MD GFR,non Amer >60 Normal >60 [facility] Comment on above: Performed By: #### C RP, PRCAL, FERI #### [address] [place] [address] Route Jumper: Rogers Reno MD #### CP, LD, TROPI, CDP #### [facility] [address] [place], [place] [phone] Route Jumper: Richmond Nicole MD Glucose [Mass/Vol] 219 mg/dL High 70-99 [facility] Comment on above: Performed By: #### C RP, PRCAL, FERI #### [address] [id number] Route Jumper: Rogers Reno MD #### NATHANIEL ZULUAGA, TROPI, CDP #### [facility] [address] [place] [address] Route Jumper: Richmond Nicole MD Potassium [Moles/Vol] 3.3 mmol/L Low 3.7-5.3 [facility] Comment on above: Performed By: #### C RP, PRCAL, FERI #### [address] [phone] Route Jumper: Rogers Reno MD #### MARGARETH, NATHANIEL, TROPI, CDP #### [facility] [address] [place], [place] [phone] Route Jumper: Richmond Nicole MD Protein [Mass/Vol] 7.7 g/dL Normal 6.4-8.3 [facility] Comment on above: Performed By: #### C RP, PRCAL, FERI #### [address] [phone] Route Jumper: Rogers Reno MD #### MARGARETH, LD, TROPI, CDP #### [facility] [address] [place] [address] Route Jumper: Richmond Nicole MD Sodium [Moles/Vol] 133 mmol/L Low 135-144 [facility] Comment on above: Performed By: #### C RP, PRCAL, FERI #### [address] [address] Route Jumper: Rogers Reno MD #### CP, LD, TROPI, CDP #### [facility] [address] [place], [place] [phone] Route Jumper: Richmond Nicole MD Urea nitrogen [Mass/Vol] 22 mg/dL Normal 8- [facility] Comment on above: Performed By: #### C RP, PRCAL, FERI #### [address] [phone] Route Jumper: Rogers Reno MD #### MARGARETH, NATHANIEL, TROPI, CDP #### [facility] [address] [place], [place] [phone] Route Jumper: Richmond Nicole MD Albumin/Glob Ratio NOT REPORTED Normal 1.0-2.5 [facility] Comment on above: Performed By: #### C RP, PRCAL, FERI #### [address] [address] Route Jumper: Rogers Reno MD #### CP, LD, TROPI, CDP #### [facility] [address] [place], [place] [phone] Route Jumper: Richmond Nicole MD Staging: NOT REPORTED Normal [facility] Comment on above: Performed By: #### C RP, PRCAL, FERI #### [address] [address] Route Jumper: Rogers Reno MD #### CP, LD, TROPI, CDP #### [facility] [address] [place] [address] Route Jumper: Richmond Nicole MD Comprehensive Metabolic Pane lOrdered By: Stacia Saleh on 07-23-2021 Albumin [Mass/Vol] 3.1 g/dL Low 3.5 - 5.2 g/dL [employer] Phone: Albumin/Globulin Ratio NOT REPORTED [employer] Phone: ALP (Bld) [Catalytic activity/Vol] 75 U/L 40 - 129 U/L [employer] Work Phone: ALT [Catalytic activity/Vol] 19 U/L 5 - 41 U/L [employer] Phone: Anion gap [Moles/Vol] 18 mmol/L High 9 - 17 mmol/L [employer] Phone: AST [Catalytic activity/Vol] 17 U/L <40 [employer] Phone: Bilirubin [Mass/Vol] 0.47 mg/dL 0.30 - 1.20 mg/dL [employer] Phone: Calcium [Mass/Vol] 9.3 mg/dL 8.6 - 10. 4 mg/dL [employer] Phone: Chloride [Moles/Vol] 92 mmol/L Low 98 - 10 7 mmol/L [employer] Phone: CO2 [Moles/Vol] 23 mmol/L 20 - 31 mmol/L [employer] Phone: Creatinine [Mass/Vol] 1.16 mg/dL 0.70 - 1.20 mg/dL [employer] Phone: Free PSA/Total PSA [Mass fraction] 7.7 g/dL 6.4 - 8.3 g/dL [employer] Phone: GFR >60 >60 mL/min [employer] Phone: GFR Non- >60 >60 mL/min [employer] Phone: GFR/1.73 sq M.predicted MDRD (S/P/Bld) [Vol rate/Area] [employer] Phone: Comment on above: Average GFR for 60-6 9 years old: 85 mL/min/1.73sq m Chronic Kidney Disease: <60 mL/min/1.73sq m Kidney failure: <15 mL/min/1.73sq m eGFR calculated using average adult body mass. Additional eGFR calculator available at: http://www.[employer]/multiple_crcl_2012.htm GFR/1.73 sq M.predicted MDRD (S/P/Bld) [Vol rate/Area] NOT REPORTED [employer] Phone: Glucose [Mass/Vol] 219 mg/dL High 70 - 99 mg/dL [employer] Phone: Interpretation and review of laboratory results Abnormal [employer] Phone: Potassium [Moles/Vol] 3.3 mmol/L Low 3.7 - 5.3 mmol/L [employer] Phone: Sodium [Moles/Vol] 133 mmol/L Low 135 - 144 mmol/L [employer] Phone: Urea nitrogen (BldV) [Mass/Vol] 22 mg/dL 8 - 23 mg/dL [employer] Phone: Urea nitrogen/Creatinine (Bld) [Mass ratio] 19 [employer] Phone: [employer] Phone: D-Dimer, QuantitativeOrdered By: Rojelio Mayes on 07-23-2021 [employer], Quant 1.57 [facility] [employer] Phone: Comment on above: When combined with [...] Interpretation and review of laboratory results Abnormal [facility] Phone: [facility] Phone: Glucose, Whole BloodOrdered By: Rojelio Mayes on 07-23-2021 Glucose [Mass/Vol] 247 mg/dL High 65 - 99 mg/dL [facility] Phone: Interpretation and review of laboratory results Abnormal [facility] Phone: [facility] Phone: Lactate DehydrogenaseOrdered By: Stacia Saleh on 07-23-2021 Interpretation and review of laboratory results Abnormal [facility] Phone: LD 577 U/L High 135 - 225 U/L [facility] Phone: [facility] Phone: [id number] 07-23-2021 SARS-CoV-2 (COVID-19) RNA DESTIN+probe Ql (Unsp spec) Detected Abnormal [facility] Comment on above: Result Comment: Rapid [...] this assay. Fact sheet for Healthcare Providers: https://www.fda.gov/media/784263/download Fact sheet for Patients: https://www.fda.gov/media/291429/download Methodology: Isothermal Nucleic Acid Amplification Results reported to the appropriate Health Department Performed By: #### F DORON, CRP, FIB #### [address] [address] Route Jumper: Rogers Reno MD #### NATHANIEL CHOW, CMPX, CDP #### [facility] [address] [place] [address] Route Jumper: Richmond Nicole MD Troponinon 07-23-2021 Troponin, High Sens 15 ng/L Normal 0-22 [facility] Comment on above: Result Comment: High Sensitivity Troponin values cannot be compared with other Troponin methodologies. Patients with high levels of Biotin oral intake (i.e >5mg/day) may have falsely decreased Troponin levels. Samples collected within 8 hours of biotin intake may require additional information for diagnosis. Performed By: #### F DORON, CRP, FIB #### [facility] [address] [place] [address] Route Jumper: Rogers Reno MD #### DIMWesley, LD, CMPX, CDP #### [facility] [address] [place] [address] Route Jumper: Richmond Nicole MD Troponin Interp. NOT REPORTED Normal [facility] Comment on above: Performed By: #### F DORON, CRP, FIB #### [facility] [place] [address] Route Jumper: Rogers Reno MD #### DIME, LD, CMPX, CDP #### [facility] [address] [place] [address] Route Jumper: Richmond Nicole MD Troponin T NOT REPORTED Normal <0.03 [facility] Comment on above: Performed By: #### F DORON, CRP, FIB #### [facility] [address] [place] [address] Route Jumper: Rogers Reno MD #### DIME, LD, CMPX, CDP #### [facility] [address] [place] [address] Route Jumper: Richmond Nicole MD TroponinOrdered By: Stacia iqbal on 07-23-2021 Troponin Interp NOT REPORTED [facility] Work Phone: Troponin T NOT REPORTED <0.03 ng/mL [facility] Work Phone: Troponin, High Sensitivity 15 ng/L 0 - 22 ng/L [facility] Work Phone: Comment on above: High Sensitivity Troponin values cannot be compared with other Troponin methodologies. Patients with high levels of Biotin oral intake (i.e >5mg/day) may have falsely decreased Troponin levels. Samples collected within 8 hours of biotin intake may require additional information for diagnosis. [facility] Work Phone: XR CHEST PORTABLEon 07-23-20 XR [...] Stacia Calloway MD 07/23/21 Final result Normal [facility] XR CHEST PORTABLEOrdered By: Stacia Saleh on 09-23-2021 SARS-CoV-2 (COVID-19) RNA DESTIN+probe Ql (Unsp spec) Findings are compatible with an atypical infectious, inflammatory, or viral process to include COVID-19 pneumonia. [employer] Phone: EXAM: XR CHEST PORTABLE HISTORY: Reason for exam:->cough COMPARISON: None. TECHNIQUE: Portable chest radiograph. FINDINGS: The cardiomediastinal silhouette and pulmonary vasculature are normal. No pleural effusion, focal consolidation, pneumothorax. There are patchy airspace opacities along the periphery of the lungs in the mid to lower lungs bilaterally. Soft tissues and osseous structures are without acute findings. [employer] Phone: Diego, Mhpn Incoming Radiant Results From [place] - 07/23/2021 8:46 PM EDT EXAM: XR [...] or viral process to include COVID-19 pneumonia. [employer] Phone: [facility] [employer] Phone: Vital Signs Date Time Vital Sign Value Performing Clinician Facility 12-21-2024 11:00-0500 Body height 180.34 cm [facility] 12-21-2024 11:00-0500 Body mass index (BMI) [Ratio] 28.3 kg/m2 [facility] 12-21-2024 11:00-0500 Body weight 92.19 kg [facility] 12-21-2024 11:00-0500 Diastolic blood pressure 89 mm[Hg] [facility] 12-21-2024 11:00-0500 Heart rate 67 /min [facility] 12-21-2024 11:00-0500 Respiratory rate 12 /min [facility] 12-21-2024 11:00-0500 Systolic blood pressure 139 mm[Hg] [facility] 09-03-2024 10:32-0500 Blood Pressure Location Thong MATOS [facility] 09-03-2024 10:32-0500 Body temperature 98.6 [degF] Thong MAT[facility] 09-03-2024 10:32-0500 Diastolic blood pressure 75 mm[Hg] Thong MATOS [facility] 09-03-2024 10:32-0500 Heart rate 70 /min Thong MATOS [facility] 09-03-2024 10:32-0500 Respiratory rate 18 /min Thong MATOS [facility] 09-03-2024 10:32-0500 Systolic blood pressure 136 mm[Hg] Thong MAT[facility] 06-18-2024 09:55-0400 Blood Pressure Location Thong MATOS [facility] 06-18-2024 09:55-0400 Diastolic blood pressure 82 mm[Hg] Thong MATOS [facility] 06-18-2024 09:55-0400 Heart rate 76 /min Thong [facility] 06-18-2024 09:55-0400 Systolic blood pressure 148 mm[Hg] Thong [facility] 06-01-2024 10:17-0400 Body height 180.34 cm [facility] 06-01-2024 10:17-0400 Body mass index (BMI) [Ratio] 29.2 kg/m2 [facility] 06-01-2024 10:17-0400 Body weight 95.31 kg [facility] 06-01-2024 10:17-0400 Diastolic blood pressure 75 mm[Hg] [facility] 06-01-2024 10:17-0400 Heart rate 71 /min [facility] 06-01-2024 10:17-0400 Respiratory rate 12 /min [facility] 06-01-2024 10:17-0400 Systolic blood pressure 146 mm[Hg] [facility] 12-02-2023 10:00-0500 Body height 180.34 cm Elpidio Ball Other [facility] [employer] Other 12-02-2023 10:00-0500 Body mass index (BMI) [Ratio] 30.62 kg/m2 Elpidio Ball Other [facility] [employer] Other 12-02-2023 10:00-0500 Body weight 99.61 kg Elpidio Ball Other [facility] [employer] Other 12-02-2023 10:00-0500 Diastolic blood pressure 80 mm[Hg] Elpidio Ball Other [facility] [employer] Other 12-02-2023 10:00-0500 Respiratory rate 12 /min Elpidio Ball Other [facility] [facility] [employer] Other 12-02-2023 10:00-0500 Systolic blood pressure 163 mm[Hg] Elpidio Ball Other [facility] [facility] [employer] Other 07-25-2021 13:45-0400 SaO2% (BldA) [Mass fraction] 95 % Stacia Saleh MD Work Phone: [employer] Work Phone: 07-25-2021 08:20-0400 Body temperature 98.6 [degF] Stacia Saleh MD Work Phone: [employer] Work Phone: 07-25-2021 08:20-0400 Diastolic blood pressure 60 mm[Hg] Stacia Saleh MD Work Phone: [employer] Work Phone: 07-25-2021 08:20-0400 Heart rate 61 /min Stacia Saleh MD Work Phone: [employer] Work Phone: 07-25-2021 08:20-0400 Respiratory rate 16 /min Stacia Saleh MD Work Phone: [employer] Work Phone: 07-25-2021 08:20-0400 Systolic blood pressure 132 mm[Hg] Stacia Saleh MD Work Phone: [employer] Work Phone: 07-24-2021 12:58-0400 Body height 180.3 cm Stacia Saleh MD Work Phone: [employer] Work Phone: 07-23-2021 22:15-0400 Body mass index (BMI) [Ratio] 27.81 kg/m2 Stacia Saleh MD Work Phone: [employer] Work Phone: 07-23-2021 22:15-0400 Body weight 90.45 kg Stacia Saleh MD Work Phone: [employer] Work Phone: Encounters Encounter Date Encounter Type Care Provider Facility Start: 12-21-2024 End: 12-21-2024 ambulatory [facility] Work Phone: Start: 12-21-2024 End: 12-21-2024 Patient encounter procedure [facility] Work Phone: Start: 09-03-2024 End: 09-03-2024 ambulatory Thong MATOS Facility:[facility] Start: 09-03-2024 End: 09-03-2024 Patient encounter procedure Thong MATOS [facility] Start: 08-14-2024 End: 08-14-2024 ambulatory DO Elpidio Sahu Work Phone: [facility] Work Phone: Start: 08-14-2024 End: 08-14-2024 Departed Referred DO Elpidio Sahu Work Phone: [facility] [place] Work Phone: Start: 08-14-2024 End: 08-14-2024 ambulatory Thong MATOS Facility:[id number] Start: 07-25-2024 End: 07-25-2024 Patient encounter procedure DO Elpidio Sahu Work Phone: [facility] [place] Work Phone: Start: 07-25-2024 End: 07-25-2024 ambulatory DO Elpidio Sahu Work Phone: [facility] Work Phone: Start: 06-18-2024 End: 06-18-2024 ambulatory Thong MATOS Facility:[facility] Start: 06-18-2024 End: 06-18-2024 Patient encounter procedure Thong MATOS [facility] [place] Start: 06-01-2024 End: 06-01-2024 ambulatory [facility] Work Phone: Start: 06-01-2024 End: 06-01-2024 Encounter for general adult medical examination without abnormal findings [facility] Start: 06-01-2024 End: 06-01-2024 Patient encounter procedure [facility] Work Phone: Start: 05-26-2024 Non-patient / Non-visit [facility] Work Phone: Start: 03-19-2024 Non-patient / Non-visit [facility] Work Phone: Start: 12-02-2023 End: 12-02-2023 ambulatory Elpidio Sahu Other [employer] Other Start: 12-02-2023 Office outpatient vi sit 25 minutes Elpidio Sahu [facility] Start: 05-19-2022 Adult health examination Elpidio Sahu Other [employer] Other Start: 05-12-2022 Encounter for genera l adult medical examination without abnormal findings DR ELPIDIO SAHU [facility] Start: 05-08-2022 End: 05-09-[address] ELPIDIO SAHU Facility:[facility] Start: 05-08-2022 End: 05-09-2022 Encounter for general adult medical examination without abnormal findings DR ELPIDIO SAHU Facility:[facility] Start: 07-23-2021 End: 07-25-2021 Evaluation and management of inpatient [facility] Start: 07-23-2021 End: 07-25-2021 Evaluation and management of inpatient Stacia Saleh MD Work Phone: [id number] SUR[facility] Comment on above: Pneumonia due to COV ID-19 virus (Primary Dx) Procedures Date Procedure Procedure Detail Performing Clinician Start: 08-14-2024 MRI-US fusion guided transrectal biopsy of prostate Thong EDY Start: 07-25-2024 MR prostate wo/w con DO Elpidio Sahu Work Phone: Start: 05-08-[address] SAALS [place] Comment on above: Performed By: #### P [facility] #### [facility] [address] [place] [address] Dr. Oniel Jackson Start: 07-25-2021 Gluc bld [...] ev cleared fda spec home use Rojelio Mayse MD Work Phone: Start: 07-24-2021 Gluc bld [...] Activity Detail Author Start: 02-01-2025 ambulatory Ambulatory Facility:[facility] Start: 08-14-2024 [facility] Start: 07-25-2024 MR Prostate WO and W contrast IV [facility] Start: 07-25-2024 MR prostate wo/w con MR prostate wo/ w con [facility] Start: 07-24-2022 Creatinine measurement Creatinine mo nitoring [employer] Phone: Start: 07-24-2022 Potassium monitoring Potassium monit oring [employer] Phone: Start: 07-23-2022 Hemoglobin A1c measurement A1C test (Diabetic or Prediabetic) [employer] Phone: Start: 07-01-2021 Influenza vaccination Flu vaccine (# 1) [employer] Phone: Start: 2020 Pneumococcal 65+ yea rs Vaccine (1 of 1 - PPSV23) Pneumococcal 65+ years Vaccine (1 of 1 - PPSV23) [employer] Phone: Start: 05-13-2018 DTaP/Tdap/Td vaccine (1 - Tdap) DTaP/Tdap/Td vaccine (1 - Tdap) [employer] Phone: Start: 2005 Shingles Vaccine (1 of 2) Shingles V accine (1 of 2) [employer] Phone: Start: 2000 Screening for malign ant neoplasm of colon Colon cancer screen colonoscopy [employer]: Start: 1973 Diabetic microalbumi tony test Diabetic microalbuminuria test [employer]: Start: 1967 COVID-19 Vaccine (1) COVID-19 Vaccin e (1) [employer]: Start: 1965 Diabetic foot examination Diabetic f oot exam [employer]: Start: 1965 Diabetic retinal exam Diabetic retin al exam [employer]: Start: 1965 Lipid panel Lipid screen [employer] Work Phone: Start: 1955 Hepatitis C screening Hepatitis C sc reen [employer]: End: 07-23-2021 C DIFF TOXIN/ANTIGEN C DIFF TOXIN/ANTIGEN Microbiology Routine 48 HRS for 48 Hours starting 07/23/2021 until 07/23/2021 [employer]: Comment on above: 48 HRS for 48 Hours starting 07/23/2021 until 07/23/2021 End: 07-26-2021 C-reactive protein C-Reactive Protein Lab Routine Daily for 3 Occurrences starting 07/24/2021 until 07/26/2021, 1 completed [employer]: Comment on above: Daily for 3 Occurren chris starting 07/24/2021 until 07/26/2021, 1 completed C-reactive protein C-Reactive Pr otein Lab Routine 07/25/2021 5:02 AM EDT [employer]: End: 07-23-2021 Culture, Respiratory, Sputum Culture, Respiratory, Sputum Microbiology Routine One Time for 1 Occurrences starting 07/23/2021 until 07/23/2021 [employer]: Comment on above: One Time for 1 Occur rences starting 07/23/2021 until 07/23/2021 End: 07-26-2021 D-Dimer, Quantitative D-Dimer, Quantitative Lab Routine Daily for 3 Occurrences starting 07/24/2021 until 07/26/2021, 2 completed [employer]: Comment on above: Daily for 3 Occurren chris starting 07/24/2021 until 07/26/2021, 2 completed Glucose [Mass/volume ] in Serum or Plasma [employer]: Comment on above: 4X Daily (AC & HS) u ntil discontinued starting 07/24/2021 As Needed until disc ontinued starting 07/23/2021 Hepatic function 200 0 panel - Serum or Plasma Hepatic function panel Lab Routine Daily until discontinued starting 07/24/2021, 1 completed [employer]: Comment on above: Daily until disconti nued starting 07/24/2021, 1 completed Nasal Cannula Oxygen Nasal Cannu la Oxygen Respiratory Care Routine Daily until discontinued starting 07/23/2021 [employer]: Comment on above: Daily until disconti nued starting 07/23/2021 Oxygen therapy [[facility] Data Set] Initiate Oxygen Therapy Protocol Respiratory Care Routine Daily until discontinued starting 07/23/2021 [employer]: Comment on above: Daily until disconti nued starting 07/23/2021 End: 07-25-2021 Procalcitonin Procalcitonin Lab Routine Q48H for 2 Occurrences starting 07/23/2021 until 07/25/2021 [employer]: Comment on above: Q48H for 2 Occurrenc es starting 07/23/2021 until 07/25/[address] [facility] Immunizations Immunization Date Immunization Notes Care Provider Fa cility 08-03-2024 COVID-19 (PFIZER) 12Y and older [facility] 08-03-2024 COVID-19 mRNA Bivalent Booster (Pfizer) [facility] 08-03-2024 influenza, high dose seasonal, preservative-free [facility] 08-12-2023 COVID-19 (PFIZER) 12Y and older [facility] 08-12-2023 Influenza vaccine, quadrivalent, adjuvanted [facility] 08-12-2023 influenza virus vaccine, unspecified formulation Thong MATOS [facility] 08-13-2022 influenza virus vaccine, split virus (incl. purified surface antigen) Elpidio Sahu Other [employer] Other 08-13-2022 influenza virus vaccine, unspecified formulation [facility] 05-21-2022 Prevnar 20 Elpidio Sahu Other [facility] 03-26-2022 COVID-19 Comirnaty (Pfizer) Tri-Sucrose 12+ [facility] 03-26-2022 SARS-CoV-2 mRNA (kqplmhjvhjm-mdux-ymm ann-marie) vaccine Thong MATOS [facility] 10-09-2021 SARS-CoV-2 (COVID-19 ) mRNA BNT-162b2 vax Thong MATOS [facility] 09-18-2021 SARS-CoV-2 (COVID-19 ) mRNA BNT-162b2 vax Thong MATOS [facility] 08-28-2021 Fluzone QIV High-Dos e 65YR+ [facility] 08-28-2021 influenza virus vaccine, unspecified formulation Thong MATOS [facility] 05-12-2018 tetanus and diphtheria toxoids, adsorbed, preservative free, for adult use (2 Lf of tetanus toxoid and 2 Lf of diphtheria toxoid) Thong MATOS [facility] 05-12-2018 tetanus and diphtheria toxoids, adsorbed, preservative free, for adult use (5 Lf of tetanus toxoid and 2 Lf of diphtheria toxoid) [facility] 05-12-2018 tetanus toxoid, reduced diphtheria toxoid, and acellular pertussis vaccine, adsorbed Elpidio Sahu Other [facility] [employer] Other NEGATED: Highlighted row has not occurred!01-18-2020 influenza virus vaccine, live, attenuated, for intranasal use Thong MATOS [facility] Payers Date Payer Category Payer Self-pay 2023 Private Health Insurance [id number] 2020 Medicare [id number] 1959 Private Health Insurance [id number] 1955 Unknown [id number] 2.16.8 [id number] 1955 Unknown [id number] 2.16.84 [id number] 1955 Unknown [id number] 2.16.8 [id number] 1955 Unknown [id number] 2.16.8 [id number] 1955 Unknown [id number] 2.16.8 [id number] 1955 Unknown [id number] 2.16.8 [id number] Unknown [id number] 2.16.8 [id number] Unknown [id number] 2.16.8 [id number] Social History Date Type Detail Facility Start: 07-23-2021 End: 06-01-2024 Tobacco smoking status TNIS Never smoker [facility] Start: 07-23-2021 Tobacco use and exposure Never used [employer] Start: 07-23-2021 Alcohol intake Lifetime non-d pascale (finding) [employer] Work Phone: Start: 07-23-2021 History SDOH Alcohol Frequency 1 [employer] Work Phone: Start: 1955 Sex Assigned At Not on file M [employer] Work Phone: Exposure to SARS-CoV -2 (event) Yes [employer] Sex Assigned At [facility] Start: 1955 Sex Assigned At Male F [facility] Start: 06-18-2024 End: 09-03-2024 Tobacco smoking status Ex-smoker (finding) [facility] Tobacco smoking status Never [facility] Start: 12-21-2024 Sex Male (finding) [facility] Medical Equipment Procedure Code Equipment Code Equipment Origin al Text Equipment Identifier Dates 1 each by Does n ot apply route daily [id number] Start: 07-25-2021 Functional Status Date Assessment Result Facility 09-03-2024 Functional Status N/A [facility] 06-18-2024 Functional Status N/A [facility] Clinical Notes 07-25-2021 to 09-03-2024 Note [...] under a microscope. This is called the Omaha score and the total score can range from 6 10, indicating how likely it is that the cancer will spread (metastasize) to other parts of the body. The higher the score, the greater the likelihood that the cancer will spread. Omaha 6 or lower: This indicates that the cancer cells look similar to normal prostate cells (well differentiated). Ashley 7: This indicates that the cancer cells look somewhat similar to normal prostate cells (moderately differentiated). Ashley 8, 9, or 10: This indicates [...] stress of having cancer. General instructions Take nkwl-duc-vfhdbjw and prescription medicines only as told by your health care provider. If you have to go to the hospital, notify your cancer specialist (oncologist). Keep all follow-up visits. This is important. Where to find more information [place] [employer]: www.cancer.org [place] Society of Clinical Oncology: www.cancer.net National Cancer [place]: www.cancer.gov Contact a health care provider if: [...] provider. Document Revised: 01/13/2022 Document Reviewed: 01/13/2022 [employer] Patient Education 2023 Opax. Follow Up Care 07/30/2024 15:23:03 With:EDY CARRINGTON, Thong Sherwood, URL Address: [facility] [address] [place] [address]- When: Unknown [facility] 09-03-2024 Note Patient Education Oncology Prostate Cancer [...] under a microscope. This is called the Omaha score and the total score can range from 6?10, indicating how likely it is that the cancer will spread (metastasize) to other parts of the body. The higher the score, the greater the likelihood that the cancer will spread. ??? Omaha 6 or lower: This indicates that the cancer cells look similar to normal prostate cells (well differentiated). ??? Ashley 7: This indicates that the cancer cells look somewhat similar to normal prostate cells (moderately differentiated). ??? Omaha 8, 9, or 10: This indicates that [...] seeds, wires, o (more content not included)... [facility] 06-18-2024 Hospital Discharge instructions Patient Education 06/18/2024 [...] including vitamins, herbs, eye drops, creams, and rfpd-ydv-aepfsio medicines. Any surgeries you have had. Any [...] provider. Document Revised: 06/30/2022 Document Reviewed: 02/18/2021 [employer] Patient Education 2022 Opax. 06/18/2024 10:38:50 Prostate Cancer Screening Prostate Cancer [...] treatment? Where to find more information The [place] [employer]: www.cancer.org [place] [employer]: www.auanet.org Contact a health care [...] provider. Document Revised: 04/12/2022 Document Reviewed: 04/12/2022 [employer] Patient Education 2022 Opax. Follow Up Care 2024 15:50:19 With:EDY CARRINGTON, Thong Sherwood, URL Address: [facility] [address] [place] [address] [phone] When: Unknown [facility] 06-18-2024 Note Urology Office/Clini c Note Chief [...] [facility] [address] [place] [address]- [phone] Additional Instructions: f/u pending prostate MRI Patient Education Magnetic Resonance Imaging Prostate Cancer Screening ICarolina, personally scribed for Dr. Matos on 06/18/2024 10:40:15. . Documentation recorded by the scribe, Carolina Galan, accurately reflects the services(s) I performed and [...] influenza virus vaccine, inactivated 08/12/2023 Recorded SARSCoV2 mRNA(ilqaygnpu-udgg-dmgzid) vac 03/26/2022 Recorded SARS-CoV-2 (COVID-19) mRNA BNT-162b2 vax 10/09/2021 Recorded SARS-CoV-2 (COVID-19) mRNA BNT-162b2 vax 09/18/2021 Recorded influenza virus vaccine, inactivated 08/28/2021 Recorded influenza virus vacc (more content not included)... [facility] Comment on above: Result Comment: Elec tronically [...] Where to find more information ? The [place] [employer]: www.cancer.org ? [place] [employer]: www.auanet.org Contact a health care [...] of the rectum. (more content not included)... [facility] 12-02-2023 Evaluation note Encounter Date Diagnosis Assessment [...] elevated Mar, Overweight (ICD-10 - E66.3) Overweight [facility] Other 09-25-2021 History of Present illness Narrative* [...] closely. Nurse notified. 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 Strength: Not Performed Estimated Daily Nutrient Needs: Energy (kcal): 9242-1740 (20-23/kg); Weight Used for Energy Requirements: Current Protein (g): 94-125g (1.4-1.6g/kg); Weight Used for Protein Requirements: [place] Fluid (ml/day): 2070 ml; Method Used for Fluid Requirements: 1 ml/kcal Nutrition Related Findings: appears well nourished Wounds: None Current Nutrition Therapies: ADULT DIET; Regular; 4 carb choices (60 gm/meal) Anthropometric Measures: Height: 5' 11 (180.3 cm) Current Body Weight: 199 lb 6.4 oz (90.4 kg) Admission Body Weight: 199 lb 6.4 oz (90.4 kg) Usual Body Weight: 220 lb (99.8 kg) [place] Body Weight: 172 lbs; % [place] Body Weight 115.9 % BMI: 27.8 BMI [...] Weight Discharge Planning: Continue current diet Contact: [id number] * Yumiko Siddiqi LSW - 07/24/2021 12:27 PM EDT SW met with pt by phone to complete assessment due to covid diagnosis during quality rounds with RNcase referral manager. Pt is alert and oriented and cooperative with assessment. Pt is a 66 year old marriedmale admitted for pneumonia due to covid 19 virus. Pt lives with his spouse in their home in [place]. Pt was not using any DME or [...] follow and remain available as needed. Yumiko MIGUELW 07/24/2021 * Rich Castellon RN - 07/24/2021 [...] a living will or durable power of workers compensation attorney for healthcare? denies If yes do we have a copy on file? n/a Do you or your family have any questions or concerns we haven't already discussed? Denies Lives with and denies needs at discharge. PCP is Dr Sahu, prefers morning f/u appt time. Phone interview completed with Yumiko RODRIGUEZ and life underwriter due to covid diagnosis * Rina Gayle RN - 07/24/2021 11:05 AM EDT Virtual consult with Dr. Clark completed at bedside. * Nataliia Osorio RCP - 07/24/2021 9:49 AM EDT Pt weaned to room air at this time,SpO2 92-94% on room air. Ear probe is attached, continuous pulseox currently being utilized. Pt aware of O2 wean. * Nayely Lee [facility] - 07/23/2021 10:37 PM EDT [...] impairment (eGFR < 30 mL/min) or on MECHANICAL SPREADER OPERATOR. Consider risk/benefit for individual patient. Baseline CrCl: [...] 97% & 23 RR. [facility]: 1(273) 568-348309-25-2021 Hospital course Narrative* Rojelio Mayes MD - 07/25/2021 12:15 PM EDT Hospitalist Discharge Summary Patient: Sid Han Date of : 1955 Acct: [id number] Primary Care Physician: Elpidio Sahu DO Admit date: 07/23/2021 Discharge date: 07/25/2021 Discharge Diagnoses: 1.Pneumonia due to COVID-19 virus 2. Hypoxia, resolved 3. Hyperglycemia, steroid-induced 4. Diabetes mellitus type 2, ixe-bccvkgt-wdlvcufra, controlled with hemoglobin A1c 7.4% on 07/23/21 5. Hypokalemia, replaced Discharge Medications: Sid Han Home Medication Instructions JAVID:[id number] Printed on:07/25/21 1215 Medication Information ascorbic acid [...] 07/25/2021 0557 Gross per 24 hour Intake 2000 ml Output 300 ml Net 1701 ml [...] 33 minutes Discharging Hospitalist [facility]: evaluation + Plan note Future Appointments Appointment Date:06/21/2025 09:45:00 AM Scheduled Provider:Thong MATOS MD Location:[facility] Appointment Type:URO Office Visit [facility] evalxfayty + Plan note Future Appointments Appointment Date:02/01/2025 09:45:00 AM Scheduled Provider:Thong MATOS MD Location:[facility] Appointment Type:URO Office Visit Diagnostic Tests Pending * PSA Total 09/03/24 [facility] evaltsuvde note* Diagnosis Pneumonia due to COVID-19 virus- Primary Severe malnutrition (HCC) Nutritional marasmus [facility] evalvfmndp note* Diagnosis Onset Date Resolution Status 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 Elevated PSA acute Hypercholesterolemia acute Hypertension acute Type 2 diabetes mellitus with hyperglycemia acute Wellness examination noneact [facility] Work Phone: Evaluation note* Diagnosis Onset Date Resolution Status 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 Elevated PSA acute Hypercholesterolemia acute Hypertension acute Overweight acute Type 2 diabetes mellitus with hyperglycemia acute Wellness examination noneact [facility] Work Phone: Evaluation note* Diagnosis Onset Date Resolution Status Admit Date Hypercholesterolemia acute Febr ua2024 10:36am Hypertension acute December 10:36am Overweight acute December 21, 2024 10:36am Prostate cancer acute December 21, 2024 10:36am Type 2 diabetes mellitus wit h hyperglycemia acute December 21, 2 025 10:36am [facility] Work Phone: History general Narrative - [...] BIOPSY 2019 Hospitalization History SEE SURGICAL HX [facility] [employer] Other Hospital course Narrative No data available for this section [facility] Hospital Discharge instructions* Attachments The following attachments cannot be sent through Care Everywhere. 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 Person Latest Code Status on File Code Status Date Activated Date Inactivated Comments Full Code 07/23/2021 10:11 PM Healthcare Agents on File Name Relationship Healthcare Agent Relationshi p Communication Slime Han Spouse Primary Decision Maker Advance Directive Response Recorded Date/ Time Advance Directives No December 02, 2023 12:06pm Advance Directive Response Recorded Date/ Time Advance Directives No December 02, 2023 11:06am Summary Purpose Family History Relationship Condition Age at Onset Recorded Date/T [...] mellitus with hyperglycemia Wellness examination Chief Complaint Admit Date 6 month f/u December 21, 2024 10:36am Reason for Visit Admit Date Hypercholesterolemia December 21, 2024 10:36am Hypertension December 21, 2024 10:36am Overweight December 21, 2024 10:36am Prostate cancer December 21, 2024 10:36am Type 2 diabetes mellitus with hyperglyce stef December 21, 2024 10:36am Additional Source Comments Reason for Visit (unrecogniz ed section and content) Reason Comments Shortness of Breath Pt c/o mild SOB x4-5 days. He states he tested positive for COVID yesterday. Status Reason Specialty Diagnoses / Procedures Referre d By Contact Referred To Contact Diagnoses Pneumonia due to COVID-19 virus Rojelio Mayes MD [address] [place] [address] [facility] Ordered Prescriptions (unrec ognized section [...] 07/25/2021 08/02/2021 Vitamin D (CHOLECALCIFEROL) 50 MCG (1999 UT) [...] 0817 (Given - Provider: Rina Gayle RN) 0820 (Given - Provider: Rina Gayle RN) budesonide (PULMICORT) nebulizer suspension 500 mcg 500 mcg (0.5 mg), Nebulization, 2 TIMES DAILY, First dose on Tue07/23/21 at 2230, Rinse mouth out with water (without swallowing) after every dose. 2230 (Given - Provider: Jade Mares RCP) 0939 (Given - Provider: Nataliia Osorio RCP)2007 (Given - Provider: Cielo Arnold RCP) 0804 (Given - Provider: Melissa Vaughan RCP)2099 (Due - Provider: Jade Mares RCP) dexamethasone [...] 2227 (Given - Provider: Molly Nair RN) 0817 (Given - Provider: Rina Gayle RN)210 (Given - Provider: Charla Bal, RN) 0820 (Given - Provider: Rina Gayle RN)2100 (Due) insulin lispro (HUMALOG) injection vial 0-12 [...] 0-6 Units, SubCUTAneous, NIGHTLY, First dose on Tue07/23/21 at 2230, If continuous tube feedings/TPN/NPO, give correction dose based on result, no reduction in dose. If eating or bolus tube feeding: Medium Dose Bedtime Correction Algorithm Glucose: Dose: 70-139 No Insulin 140-199 1 Unit 200-249 2 Units 250-299 3 Units 300-349 4 Units 350-399 5 Units 400 and above 6 Units 2258 (Given - Provider: Molly Nair RN - Comment: 247) 205 (Given - Provider: Charla Bal RN - Comment: sbs 172) 2100 (Due) potassium chloride (KLOR-CON) extended release tablet 40 mEq (COMPLETED) 40 mEq, Oral, ONCE, On Tue07/23/21 at 2230, For 1 dose, Do not [...] On Tue07/24/21 at 2300, For 1 dose 2359 (New Bag - Provider: Charla Bal, RN) 0043 (Stopped - Provider: Charla Bal, RN) remdesivir 200 mg in sodium chloride 0.9 % 250 mL IVPB (COMPLETED) 200 mg, IntraVENous, at 500 mL/hr, Administer over 30 Minutes, ONCE, On Khushboo 07/23/21 at 2300, For 1 dose, Flush line with at least 30 mL normal saline after remdesivir infusion is complete. 230 (New Bag - Provider: Molly Nair RN)2331 [...] RN) 1113 (Not Given - Provider: Rina Gayle, [place] - Reason: IV Fluid Infusing)2105 (Not Given - Provider: Charla Bal, [place] - Reason: IV Fluid Infusing) 0820 (Not Given - Provider: Rina Gayle, [place] - Reason: IV Fluid Infusing)2100 (Due) Vitamin D (CHOLECALCIFEROL) tablet 2,000 Units 2,000 Units, Oral, DAILY, First dose on Tue07/24/21 at 0900, Maintenance Dose. 0817 (Given - Provider: Rina Gayle, RN) 0820 (Given - Provider: Rina Gayle, RN) Continuous Medication Order 07/23/2021 07/24/2021 07/25/2021 0.9 % sodium chloride infusion IntraVENous, at 75 mL/hr, CONTINUOUS, Starting on Tue07/24/21 at 0845 1113 (New Bag - Provider: Rina Gayle, RN) 1134 (Stopped - Provider: Rina Gayle, RN) PRN Medication Order 07/23/2021 07/24/2021 07/25/2021 [...] ALERT or NPO., Starting on Tue07/23/21 at 2211, If patient does not respond [...] does not have IV access., Starting on Tue07/23/21 at 2211, After administration, attempt intravenous access and start D5W at 100 mL/hr. Repeat blood glucose in 15 minutes x2 and notify provider. glucose (GLUTOSE) 40 % oral gel 15 g 15 g, Oral, PRN, Low blood sugar, Starting on Tue07/23/21 at 2211, If blood glucose less than [...] PRN, Cough, Starting on Tue07/23/21 at 2211 ondansetron (ZOFRAN) injection 4 mg(Linked Group 2) 4 mg, IntraVENous, EVERY 6 HOURS PRN, Nausea, Vomiting, Starting on Khushboo 07/23/21 at 2211, Administer if oral route cannot be used. ondansetron (ZOFRAN-ODT) disintegrating tablet 4 mg(Linked Group 2) 4 mg, Oral, EVERY 8 HOURS PRN, Nausea, Vomiting, Starting on Tue07/23/21 at 2211 polyethylene glycol (GLYCOLAX) packet 17 g 17 g, Oral, DAILY PRN, Constipation, Starting on Tue07/23/21 at 2211, First line therapy for constipation [...] AUTHOR AUTHOR'S ORGANIZ ATION 05/18/2022 [facility] DATE CREATED AUTHOR AUTHOR'S ORGANIZ ATION 09/05/2024 [facility] DATE CREATED AUTHOR AUTHOR'S ORGANIZ ATION 09/16/2024 [facility] Care Teams (unrecognized sec tion and content) Team Status: Active Member Role Status Dates Elpidio Sahu , Primary Care Provider Active Team Status: Inactive Member Role Status Dates Elpidio Sahu DO Primary Care Provide r, Attending Provider Active Start: December 21, 2024 End: December 21, 2024 Team Status: Active Member Role Status [...] August 14, 2024 End: August 14, 2024 Team Status: Inactive Member Role Status Dates Elpidio Sahu DO Primary Care Provide r, Attending Provider Active Start: December 21, 2024 End: December 21, 2024 Goals (unrecognized section and content) Goals [...] BE BASED ON THE PRIMARY CLINICAL RECORDS. [facility] [employer] provides no warranty or guarantee of the accuracy or completeness of information in this document.
[2025-01-26 11:02] LABS: Prostate Specific Antigen Dx 6.17 ng/mL (<=4.00)
== END 2025-01-26 09:59 | disposition home or self-care (01) ==
LOC: LAB 10:00
PROVIDERS: PCP Internal Medicine; Visit Provider Urology
DX: N40.0 Benign prostatic hyperplasia without lower urinary tract symptoms (principal); C61 Malignant neoplasm of prostate
CPT/HCPCS: 36415; 84153

== ENCOUNTER 2025-06-15 08:39 | Outpatient (OUT) | payer OTHER, SELFPAY ==
--- OUTSIDE RECORDS SUMMARY | 2025-06-15 08:44 | XMS_ITS | CCD ---
Author Organization [facility] Care Team Providers Care Temperature Control Inspector Name Role Phone Elpidio Sahu DO Primary Care Provider [phone] ROJELIO MAYES Attending Unavailable ROJELIO MAYES Admitting Unavailable ELPIDIO SAHU Primary Care Unavailable STACIA CLARK Consulting Unavailable DEYANIRA, DR PLATT Attending Unavailable BALL, DR PLATT Consulting Unavailable BALL, DR PLATT Primary Care Unavailable BALL, DR PLATT Admitting Unavailable Elpidio Sahu Unavailable ELPIDIO SAHU Primary Care Physician DO Elpidio Sahu Primary Care Provider [phone] MD Thong Matos Attending Provider [phone] Thong Matos Admitting Unavailable Matos, Thong Attending Unavailable Deyanira, Elpidio Primary Care Unavailable Matos, Thong Admitting Unavailable Matos, Thong Attending Unavailable Ball, Elpidio Primary Care Unavailable EDY, Thong Sherwood Attending Unavailable MATOS, Thong Sherwood Attending Unavailable MATOS, Thong Sherwood Attending Unavailable MATOS, Thong Sherwood Attending Unavailable MATOS, Thong Sherwood Attending Unavailable Allergies Allergy Classification Reported Allergen(s) Allergy Type Date of Onset Reaction(s) Facility (1 source) No Known Medication Allergies; Translations: [No Known Medication Allergies] Propensity to adverse reactions (disorder) [facility] Repository Medications Current Medications Medication Drug Class(es) [...] once daily Vitamin D (CHOLECALCIFEROL) 50 MCG (2000 UT) TABS tablet Take 1 tablet by mouth daily 60 tablet 0 07/26/2021 Active Start: 07-24-2021 take 2000 [IU] by ct ut once daily 2,000 Units, Oral, DAILY, [...] 20 mg/ml oral suspension (1 source) Uncompetitive A-jbjkdb-N-aspartate Receptor Antagonist, Sigma-1 Agonist Start: 07-23-2021 take [...] DAILY, First dose on Tue07/23/21 at 2230 glucagon (rdna) 1 mg injection [...] 01/18/20 Status: Ordered take 1 tablet by [facility] once daily Lisinopril 10 MG Take 1 [...] 05-04-2024 End: 06-27-2024 Metformin Discontinued 0 .RO CHITINA .COMPLEX 45 May 04, 2024 7:29am June [...] 03-19-2024 End: 05-04-2024 Metformin Discontinued 0 .RO CHITINA .COMPLEX 45 March 19, 2024 12:43pm May [...] 28 days Dec, Active polyethylene glycol 3350 43045 mg powder for oral solution (1 source) [...] (2 times per day), First dose on Tue07/23/21 at 2230 For Line Patency: Peripheral IV [...] Interpretation Reference Range Facility Ambulatory Visit Summaryon 0 02-18-2025 Ambulatory Visit Summary Ambulatory Visi t Summary SID HAN :1955 Visit Date:02/18/2025 Ambulatory Visit Instructions Your Diagnosis Prostate cancer [...] (Temporal Artery) 37 ???C Heart Rate (Peripheral) 68 Respiratory Rate 17 Blood Pressure 129/73 Height 183 cm Height 72 in Weight 93.3 kg Weight 205.691 lb BMI 27.86 What to do next You Need to Schedule the Following Appointments Follow Up with EDY CARRINGTON, Thong Sherwood, URL When: Where: [facility] [address] , [place] [address]- [phone] You Need to Complete the Following PSA Total, Blood, Routine collect, *Est. 08/20/25 +/- 28 day(s), Order for future visit, Lab Collect, Prostate cancer, Print Label By Order Location Medications What How Much When Instructions Unchanged [...] for your care. Education Materials Prostate Cancer Screening Prostate cancer screening is [...] recommendations. In general, screening is recommended if: ??? You are age 50 to 70 and [...] have a 10- to 15-year life expectancy. ??? You are younger than age 50, and [...] In general, screening is not recommended if: ??? You are younger than age 40. ??? You are between the ages of 40 and 49 and you have no risk factors. ??? You are 70 years of age or [...] high PSA levels may be caused by: ??? Prostate cancer. ??? An enlarged prostate that is not caused by cancer (benign prostatic hyperplasia, or BPH). This condition is very common in older men. ??? A prostate gland infection (prostatitis) or urinary tract infection. ??? Certain medicines such as male hormones (like testosteron (more content not included)... Normal [facility] Urology Office/Clinic Noteon 02-18-2025 Urology Office/Clinic Note Urology Office/Clinic Note Chief Complaint Prostate cancer (ACTIVE SURVEILLANCE) HPI Staff 69 yr old male here for 6 mo f/u w/ PSA Previous dx: Prostate cancer (ACTIVE SURVEILLANCE started at last OV), BPH. *No urologic meds Prostate MRI 07/25/24 [facility] showed PI-RADS 4 lesion. PSA: 05/13/23 - 6.46 05/26/24 - 6.80 01/26/25 - 6.17 Denies all urinary concerns at this time History of Present Illness Tests reviewed: reviewed UA, PSA I have reviewed the previous health record [...] & Measurements T: 37 ???C(Temporal Artery) HR: 68(Peripheral) RR: 17 BP: 129/73 HT: 72 in HT: 183 cm WT: 93.3 kg WT: 205.691 lb BMI: 27.86 General Appearance: alert, no distress, well nourished, well developed male. Prostate: normal prostate, estimated weight 40 gms, no hard nodule observed. Assessment/Plan 1. Prostate cancer (C61: Malignant neoplasm of prostate) ACTIVE SURVEILLANCE. PSA: 04/22/17- 4.22 05/28/17 - 3.49 & 12% 07/22/17 - 3.36 & 13% 05/26/18 - 4.27 01/05/20 - 4.75 05/16/21 - 5.99 05/08/22 - 5.45 05/13/23 - 6.46 05/26/24 - 6.80 01/26/25 - 6.17 TRUS/bx 09/06/17 - MILLY x 2 cores. TRUS/bx 11/07/18 - Benign prostatic tissue with chronic inflammation. DELICIA 06/18/24 - 45g, benign. MRI prostate 07/25/24 - PI-RADS 4 posterior aspect L PZ mid gland 9 x 6 mm. No gross extracapsular extension. Prostate volume 58 cc. S/p fusion TRUS/bx 08/14/24 - Total of 17 cores. G6 (3+3) x 1 core (LLM), ~5% of submitted tissue. Small focus of atypical glands, suspicious for low grade adenocarcinoma x 1 core (RLM). DELICIA today - 40g, benign. PSA decreased from prior. Advised pt a confirmatory bx will need done in 6 mos to evaluate if there is any progression in disease. Risks/benefits discussed. -F/u in 6 mos w/ PSA. Schedule confirmatory bx at that time 2. BPH (benign prostatic hyperplasia) (N40.0: Benign prostatic hyperplasia without lower urinary tract symptoms) IPSS 1 (4). UA today negative for blood and infection. Not taking any BPH meds. Not voicing any urinary habit complaints. Follow-up With When Contact Information EDY CARRINGTON, Thong Sherwood, URL [facility] [address], [place] [address]- [phone] Additional Instructions: 6 mos w/ PSA Patient Education Prostate Cancer Screening I, Carolina Galan, personally scribed for Dr. Matos on 02/18/2025 13:15:29. . Documentation recorded by the scribe, Carolina Galan, accurately reflects the services(s) I performed and decisions made by me. Authenticated by Dr. Matos on 02/18/2025 13:16:17. Problem List/Past Medical History Ongoing Atypical small [...] Tobacco Use:. Never Smokeless Tobacco Use:. Cigarettes, Household tobacco concerns: No. Yes, 02/18/2025 Family History Diabetes mellitus type 1: Father. Heart disease: Father. Immunizations Vaccine Date Status Comments influenza virus vaccine, inactivated 08/12/2023 Recorded SARSCoV2 mRNA(qezqanxgb-jewb-m stone) vac 03/26/2022 Recorded SARS-CoV-2 (COVID-19) mRNA BNT-162b2 vax 10/09/2021 Recorded SARS-CoV-2 (COVID-19) mRNA BNT-162b2 vax 09/18/2021 Recorded influenza virus vaccine, inactivated 08/28/2021 Recorded influenza virus vaccine, live, trivalent - Not Given Patient Refuses tetanus-diphtheria toxoids 05/12/2018 Recorded Lab Results Ambulatory Point of Care Results Bilirubin Urine Dipstick: Negative (02/18/25 12:30:00) Blood Urine Dipstick: Negative (02/18/25 12:30:00) Glucose (more content not included)... Normal [facility] Comment on above: Result Comment: Elec tronically Signed By: Thong MATOS MD\.br\Date and Time Signed: 02/18/25 13:16 EDT\.br\Electronically Co-Signed By: Carolina Galan\.br\Date and Time Co-Signed: 02/18/25 13:15 EDT Ambulatory Visit Summaryon 1 11-03-2023 Ambulatory Visit [...] Thong MATOS MD Where: [facility] [place] [address] [place] [address]- You Need to Schedule the Following Appointments Follow Up with Thong MATOS MD, URL When: Where: [facility] [address], [place] [address]- Medications What How Much When Instructions Unchanged [...] sprea (more content not included)... Normal [facility] Urology Office/Clinic Noteon 09-03-2024 Urology Office/Clinic Note Urology Office/Clinic Note Chief Complaint review TRUS BX [id number] HPI Staff PO TRUS/MRI fusion bx 08/14/24, here to review path report. Last seen IO 06/18/24. Previous dx: elevated PSA, BPH. *No urologic meds Prostate MRI 07/25/24 [facility] showed PI-RADS 4 lesion. Dysuria: denies Incomplete [...] patient in detail today. Educated pt on Gustine scoring system. I discussed active surveillance protocol [...] URL [facility] [address], [place] [address]- Additional Instructions: 4-6 mos with PSA, DELICIA [...] influenza virus vaccine, inactivated 08/12/2023 Recorded SARSCoV2 mRNA(xcpgfinwa-ecfm-t ucros) vac 03/26/2022 Recorded SARS-CoV-2 (COVID-19) mRNA BNT-162b2 vax 10/09/2021 Recorded SARS-CoV-2 (COVID-19) mRNA BNT-162b2 v (more content not included)... Normal [facility] Comment on above: Result Comment: Elec tronically Signed By: Thong MATOS MD\.br\Date and Time Signed: 09/03/24 11:35 EST\.br\Electronically Co-Signed By: Precious Guillory\.br\Date and Time Co-Signed: 09/03/24 11:30 EST\.br\Electronically Co-Signed By: Precious Guillory\.br\Date and Time Co-Signed: 09/03/24 11:32 EST Pathology Request for Lab Co rpon 08-14-2024 Pathology Request for Lab Michael Normal [facility] Comment on above: Order Comment: PATHO LOGY UROLOGY SPECIMEN Result Comment: See report. Scanned copy available in EMR. PERFORMED BY: [place] [address] PATHOLOGIST [employer]LECTIONS SPECIALIST FRANCISCO LOPEZ M.D. Performed By: #### P ATH TO [facility] #### [address] MR prostate wo/w conon 07-26 MR prostate wo/w con [facility] [place] [address] [place] [address] MRI Report Signed Patient: Sid Han MR#: [id number] : 1955 Acct:[id number] Age/Sex: 69 / M ADM Date: 07/25/24 Loc: Room: Type: [facility] Attending Dr: Thong Matos MD Copies [...] recommended. Impression dictated by: Huy Jimenez Jr., D.O.07/26/2024 8:55 AM Dictation Location: [place] [address] Transcribed By: [facility] 07/26/24854 Dictated By: Huy Jimenez Jr, DO 07/26/2434 Signed By: 07/26/24854 Normal [facility] ISTAT XRay CREon 07-25-2024 ISTAT GFR > 60.0 Normal [facility] Comment on above: Result Comment: PERF ORMED BY: [place] [address] PATHOLOGIST [employer]LECTIONS SPECIALIST FRANCISCO LOPEZ M.D. Performed By: #### I SCRE #### [facility] [address] [place] [address] No Panel InformationOrdered By: Thong Matos on 07-25-2024 Bedside Estimated GFR (eGFR) > 60.0 [facility] Whole blood creatinine measu rementOrdered By: Thong Matos on 07-25-2024 Creatinine [Mass/Vol] 1.0 mg/dL Normal 0.6-1.3 [facility] Comment on above: ER/ESD physician is notified/shown all ISTAT results.Critical values may be confirmed by laboratory testing ifdeemed necessary by ER attending doctor. Result Comment: ER/E SD physician is notified/shown all ISTAT results. Critical values may be confirmed by laboratory testing if deemed necessary by ER attending doctor. Performed By: #### I SCRE #### [facility] [address] [place] [address] Ambulatory Visit Summaryon 0 06-18-2024 Ambulatory Visit [...] Thong MATOS MD Where: [facility] [address] [place] [address] You Need to Schedule the Following Appointments Follow Up with Thong MATOS MD, URL When: Where: [facility] [address] [place] [phone] Medications What How Much When Instructions Unchanged [...] including vitamins, herbs, eye drops, creams, and fgji-raw-yktozgz medicines. ? Any surgeries you have had. [...] have allergy (more content not included)... Normal [facility] Basophils Auto (Bld) [#/Vol] on 05-26-2024 Basophils (Bld) [#/Vol] 0.1 10 3/uL 0.0-0.1 [facility] Basophils/100 WBC Auto (Bld) on 05-26-2024 Basophils/100 WBC (Bld) 0.6 % 0.2-2.0 F [facility] Cholesterol in LDL Calc [Mas s/Vol]on 05-26-2024 Cholesterol in LDL [Mass/Vol] 90.4 mg/dL [facility] Comment on above: <100 mg/dl [id number] 0-129 mg/dl NEAR OR ABOVE [id number] mg/dl BORDERLINE [id number] mg/dl HIGH>190 mg/dl VERY HIGH Cholesterol in VLDL Calc [Ma ss/Vol]on 05-26-2024 Cholesterol in VLDL [Mass/Vol] 15.6 mg/dL [facility] Eosinophils/100 WBC Auto (Bl d)on 05-26-2024 Eosinophils/100 WBC (Bld) 2.8 % 0.9-7.0 [facility] Erythrocyte distribution wid th Auto (RBC) [Ratio]on 05-26-2024 Erythrocyte distribution width (RBC) [Ratio] 12.3 % 11.0-15.0 [facility] Estimated glomerular filtrat ion rate (GFR) non- Americanon 05-26-2024 GFR/1.73 sq M.predicted among non-blacks MDRD (S/P/Bld) [Vol rate/Area] mL/min/{1.73_m2} >=60 [facility] Globulin Calc (S) [Mass/Vol] on 05-26-2024 Globulin (S) [Mass/Vol] 3.3 g/dL F [facility] Glucose mean value [Mass/vol ume] in Blood Estimated from glycated hemoglobinon 05-26-2024 Average glucose Estimated from glycated hemoglobin (Bld) [Mass/Vol] 134 mg/dL [facility] Hematocrit Auto (Bld) [Volum e fraction]on 05-26-2024 Hematocrit (Bld) [Volume fraction] 42.6 % 42.0-54.0 [facility] Hemoglobin [Mass/volume] in Bloodon 05-26-2024 Hemoglobin (Bld) [Mass/Vol] 14.2 g/dL 14.0-18.0 [facility] Laboratory - Chemistry and C hemistry - challengeon 05-26-2024 Albumin [Mass/Vol] 3.5 g/dL 3.4-5.0 [facility] ALP [Catalytic activity/Vol] 66 U/L 46-116 [facility] ALT [Catalytic activity/Vol] 23 U/L 16-63 [facility] AST [Catalytic activity/Vol] 18 U/L 15-37 [facility] Bilirubin [Mass/Vol] 0.4 mg/dL 0.2-1.[address] [facility] Calcium [Mass/Vol] 8.7 mg/dL 8.5-10.1 [facility] Chloride [Moles/Vol] 106 mmol/L 98-[address] [facility] Cholesterol [Mass/Vol] 160 mg/dL <=200 [facility] Cholesterol in HDL [Mass/Vol] 54 mg/dL 40-60 [facility] Comment on above: > or =60 mg/dl - LOW CARDIOVASCULAR RISK<40 mg/dl - HIGH CARDIOVASCULAR RISK CO2 [Moles/Vol] 28.5 mmol/L 21.0-32.0 [facility] Creatinine [Mass/Vol] 0.98 mg/dL 0.70-1.30 [facility] GFR/1.73 sq M.predicted MDRD (S/P/Bld) [Vol rate/Area] mL/min/{1.73_m2} >=60 [facility] Glucose [Mass/Vol] 152 mg/dL High 74-106 [facility] Potassium [Moles/Vol] 4.7 mmol/L 3.5-5.1 [facility] Protein [Mass/Vol] 6.8 g/dL 6.4-8.2 [facility] Sodium [Moles/Vol] 139 mmol/L 136-145 [facility] Triglyceride [Mass/Vol] 78 mg/dL <=150 [facility] Urea nitrogen [Mass/Vol] 13.0 mg/dL 7.0-18.0 [facility] Urea nitrogen/Creatinine [Mass ratio] 13.3 mg/mg [facility] Laboratory - Hematology and Cell countson 05-26-2024 HbA1c (Bld) [Mass fraction] 6.3 % High 4.5-6.2 [facility] Comment on above: ADA RECOMMENDED LIMI T 4.0 - 6.0ADA THERAPEUTIC TARGET < 7.0ACTION SUGGESTED> 7.0 Immature granulocytes/100 WBC (Bld) 0.8 % High 0.0-0.5 [facility] Leukocytes [#/volume] correc bandar for nucleated erythrocytes in Blood by Automated counon 05-26-2024 WBC corrected for nucl RBC Auto (Bld) [#/Vol] 7.9 10 3/uL 4.0-11.0 [facility] Lymphocytes Auto (Bld) [#/Vo l]on 05-26-2024 Lymphocytes (Bld) [#/Vol] 3.3 10 3/uL 1.2-3.8 [facility] Lymphocytes/100 WBC Auto (Bl d)on 05-26-2024 Lymphocytes/100 WBC (Bld) 42.4 % 20.5-60.0 [facility] MCH Auto (RBC) [Entitic mass ]on 05-26-2024 MCH (RBC) [Entitic mass] 30.2 pg 25.9-34.0 [facility] MCHC Auto (RBC) [Mass/Vol]on 05-26-2024 MCHC (RBC) [Mass/Vol] 33.3 g/dL 29.9-35.2 [facility] MCV Auto (RBC) [Entitic vol] on 05-26-2024 MCV (RBC) [Entitic vol] 90.6 fL 80.0-94.0 F [facility] Microalbumin [Mass/volume] i n Urineon 05-26-2024 Albumin DL <= 20 mg/L (U) [Mass/Vol] mg/dL <=30.0 [facility] Monocytes Auto (Bld) [#/Vol] on 05-26-2024 Monocytes (Bld) [#/Vol] 0.4 10 3/uL 0.3-0.8 [facility] Monocytes/100 WBC Auto (Bld) on 05-26-2024 Monocytes/100 WBC (Bld) 4.8 % 1.7-12.0 [facility] Neutrophils Auto (Bld) [#/Vo l]on 05-26-2024 Neutrophils (Bld) [#/Vol] 3.8 10 3/uL 1.4-6.5 [facility] Neutrophils/100 WBC Auto (Bl d)on 05-26-2024 Neutrophils/100 WBC (Bld) 48.6 % 43.0-75.0 [facility] No Panel Informationon 05-26 Eosinophils # (Auto) 0.2 10 3/uL 0.0-0.7 [facility] Immature Granulocyte # (Auto) 0.06 10 3/uL High 0.00-0.03 [facility] Prostate Specific Antigen Screen 6.80 ng/mL High <=4.00 [facility] Platelet mean volume Auto (B ld) [Entitic vol]on 05-26-2024 Platelet mean volume (Bld) [Entitic vol] 9.5 fL 9.5-13.5 [facility] Platelets Auto (Bld) [#/Vol] on 05-26-2024 Platelets (Bld) [#/Vol] 260 10 3/uL 150-450 [facility] RBC Auto (Bld) [#/Vol]on RBC (Bld) [#/Vol] 4.70 10 6/uL 4.70-6.10 [facility] Serum or plasma albumin/glob ulin mass ratioon 05-26-2024 Albumin/Globulin [Mass ratio] 1.1 {ratio} [facility] Serum or plasma anion gap de terminationon 05-26-2024 Anion gap [Moles/Vol] 9.2 mmol/L [facility] Serum or plasma total choles terol/high density lipoprotein (HDL) cholesterol mass nohemy 05-26-2024 Cholesterol.total/Choles terol in HDL [Mass ratio] 3.0 {ratio} [facility] Comment on above: 3.3 - 4.4 LOW RISK4. 4 - 7.1 AVERAGE RISK7.1 - 11.0 MODERATE RISK>11.0 HIGH RISK CBC AUTO DIFFon 05-08-2022 BASO # 0.1 103/ul Normal 0.0-0.1 [facility] Comment on above: Performed By: #### C BC #### [facility] [address] [place] [address] [address] Oniel Jackson Basophils/100 WBC (Bld) 0.6 % Normal 0.2-2.0 [facility] Comment on above: Performed By: #### C BC #### [facility] [address] [place] [address] [address] Oniel Jackson EO # 0.2 103/ul Normal 0.0-0.7 [facility] Comment on above: Performed By: #### C BC #### [facility] [address] [place] [address] Dr. Oniel Jackson Eosinophils/100 WBC (Bld) 2.3 % Normal 0.9-7.0 [facility] Comment on above: Performed By: #### C BC #### [facility] [address] [place] [address] Dr. Oniel Jackson Erythrocyte distribution width (RBC) [Ratio] 12.5 % Normal 11.0-15.0 [facility] Comment on above: Performed By: #### C BC #### [facility] [address] [place] [address] Dr. Oniel Jackson Hematocrit (Bld) [Volume fraction] 43.3 % Normal 42.0-54.0 [facility] Comment on above: Performed By: #### C BC #### [facility] [address] [place] [address] Dr. Oniel Jackson Hemoglobin (Bld) [Mass/Vol] 14.1 g/dL Normal 14.0-18.0 [facility] Comment on above: Performed By: #### C BC #### [facility] [address] [place] [address] [address] Oniel Jackson IG # 0.04 10e3/ul Critically high 0.00-0.03 [facility] Comment on above: Performed By: #### C BC #### [facility] [address] [place] [address] Dr. Oniel Jackson IG % 0.5 % Normal 0.0-0.5 [facility] Comment on above: Performed By: #### C BC #### [facility] [address] [place] [address] Dr. Oniel Jackson LYMPH # 3.7 103/ul Normal 1.2-3.8 [facility] Comment on above: Performed By: #### C BC #### [facility] [address] [place] [address] Dr. Oniel Jackson Lymphocytes/100 WBC (Bld) 42.3 % Normal 20.5-60.0 [facility] Comment on above: Performed By: #### C BC #### [facility] [address] [place] [address] Dr. Oniel Jackson MANUAL DIFF REQ NO Normal [facility] Comment on above: Performed By: #### C BC #### [facility] [address] [place] [address] Dr. Oniel Jackson MCH (RBC) [Entitic mass] 29.3 pg Normal 25.9-34.0 [facility] Comment on above: Performed By: #### C BC #### [facility] [address] [place] [address] Dr. Oniel Jackson MCHC (RBC) [Mass/Vol] 32.6 g/dL Normal 29.9-35.2 [facility] Comment on above: Performed By: #### C BC #### [facility] [address] [place] [address] Dr. Oniel Jackson MCV (RBC) [Entitic vol] 90.0 fL Normal 80.0-94.0 [facility] Comment on above: Performed By: #### C BC #### [facility] [address] [place] [address] Dr. Oniel Jackson MONO # 0.5 103/ul Normal 0.3-0.8 [facility] Comment on above: Performed By: #### C BC #### [facility] [address] [place], [place] [id number] Dr. Oniel Jackson Monocytes/100 WBC (Bld) 5.2 % Normal 1.7-12.0 [facility] Comment on above: Performed By: #### C BC #### [facility] [address] [place] [address] Dr. Oniel Jackson NEUT # 4.3 103/ul Normal 1.4-6.5 [facility] Comment on above: Performed By: #### C BC #### [facility] [address] [place] [address] Dr. Oniel Jackson Neutrophils/100 WBC (Bld) 49.1 % Normal 43.0-75.0 [facility] Comment on above: Performed By: #### C BC #### [facility] [address] [place] [address] Dr. Oniel Jackson Platelet mean volume (Bld) [Entitic vol] 9.4 fL Critically low 9.5-13.5 [facility] Comment on above: Performed By: #### C BC #### [facility] [address] [place] [address] Dr. Oniel Jackson PLT 292 103/ul Normal 150-450 [facility] Comment on above: Performed By: #### C BC #### [facility] [address] [place] [address] Dr. Oniel Jackson RBC 4.81 106/ul Normal 4.70-6.10 [facility] Comment on above: Performed By: #### C BC #### [facility] [address] [place] [address] Dr. Oniel Jackson WBC 8.8 103/ul Normal 4.0-11.0 [facility] Comment on above: Performed By: #### C BC #### [facility] [address] [place] [address] Dr. Oniel Jackson GLYCOHEMOGLOBIN A1Con 2021 ADA RECOMMENDATION SEE BELOW Normal [facility] Comment on above: Result Comment: ADA RECOMMENDED LIMIT 4.0 - 6.0 ADA THERAPEUTIC TARGET < 7.0 ACTION SUGGESTED > 7.0 Performed By: #### A 1C #### [facility] [address] [place] [address] [address] Oniel Jackson Glucose [Mass/Vol] 154 mg/dL Normal [facility] Comment on above: Performed By: #### A 1C #### [facility] [address] [place] [address] Dr. Oniel Jackson HbA1c (Bld) [Mass fraction] 7.0 % Critically high 4.5-6.2 [facility] Comment on above: Performed By: #### A 1C #### [facility] [address] [place] [address] Dr. Oniel Jackson LIPID PROFILEon 05-08-2022 CHOL-HDL RATIO NORM SEE BELOW Normal [facility] Comment on above: Result Comment: 3.3 - 4.4 LOW RISK 4.4 - 7.1 AVERAGE RISK 7.1 - 11.0 MODERATE RISK >11.0 HIGH RISK Performed By: #### B MP, LIPID #### [facility] [address] [place] [address] Dr. Oniel Jackson Cholesterol [Mass/Vol] 200 mg/dL Normal <=200 Th [facility] Comment on above: Performed By: #### B MP, LIPID #### [facility] [address] [place] [address] Dr. Oinel Jackson Cholesterol in HDL [Mass/Vol] 48 mg/dL Normal 40-60 [facility] Comment on above: Performed By: #### B MP, LIPID #### [facility] [address] [place] [address] Dr. Oniel Jackson Cholesterol in LDL [Mass/Vol] 124.0 mg/dL Normal [facility] Comment on above: Performed By: #### B MP, LIPID #### [facility] [address] [place], [place] [id number] Dr. Oniel Jackson Cholesterol.total/Choles terol in HDL [Mass ratio] 4.2 {ratio} Normal [facility] Comment on above: Performed By: #### B MP, LIPID #### [facility] [address] [place] [address] Dr. Oniel Jackson HDL NORMAL > or = 60 mg/dl - LO W CARDIOVASCULAR RISK <40 mg/dl - HIGH CARDIOVASCULAR RISK Normal [facility] Comment on above: Performed By: #### B MP, LIPID #### [facility] [address] [place] [address] Dr. Oniel Jackson LDL CALC NORMAL SEE BELOW Normal [facility] Comment on above: Result Comment: <100 mg/dl OPTIMAL 100 - 129 mg/dl NEAR OR ABOVE OPTIMAL 130 - 159 mg/dl BORDERLINE HIGH 160 - 189 mg/dl HIGH >190 mg/dl VERY HIGH Performed By: #### B MP, LIPID #### [facility] [address] [place] [address] Dr. Oniel Jackson Triglyceride [Mass/Vol] 140 mg/dL Normal <=150 [facility] Comment on above: Performed By: #### B MP, LIPID #### [facility] [address] [place] [address] Dr. Oniel Jackson VLDL CALC 28.0 mg/dL Normal [facility] Comment on above: Performed By: #### B MP, LIPID #### [facility] [address] [place] [address] Dr. Oniel Jackson PROF CHEM 8 (BAS METB)on Anion gap [Moles/Vol] 10.5 mmol/L Normal [facility] Comment on above: Performed By: #### B MP, LIPID #### [facility] [address] [place] [address] Dr. Oniel Jackson Calcium [Mass/Vol] 8.8 mg/dL Normal 8.5-10.1 [facility] Comment on above: Performed By: #### B MP, LIPID #### [facility] [address] [address] [address] Oniel Jackson Chloride [Moles/Vol] 104 mmol/L Normal 98-107 [facility] Comment on above: Performed By: #### B MP, LIPID #### [facility] [address] [place] [address] Dr. Oniel Jackson CO2 [Moles/Vol] 28.1 mmol/L Normal 21.0-32.0 [facility] Comment on above: Performed By: #### B MP, LIPID #### [facility] [address] [address] [address] Oniel Jackson Creatinine [Mass/Vol] 1.05 mg/dL Normal 0.70-1.30 [facility] Comment on above: Performed By: #### B MP, LIPID #### [facility] [address] [address] [address] Oniel Jackson EGFR-AF ENGLISH >60 Normal >=60 [facility] Comment on above: Performed By: #### B MP, LIPID #### [facility] [address] [address] [address] Oniel Jackson EGFR-NON AF ENGLISH >60 Normal >=60 [facility] Comment on above: Performed By: #### B MP, LIPID #### [facility] [address] [place] [address] Dr. Oniel Jackson Glucose [Mass/Vol] 180 mg/dL Critically high 74-106 T [facility] Comment on above: Performed By: #### B MP, LIPID #### [facility] [address] [place] [address] Dr. Oniel Jackson Potassium [Moles/Vol] 4.6 mmol/L Normal 3.5-5.1 [facility] Comment on above: Performed By: #### B MP, LIPID #### [facility] [address] [place] [address] Dr. Oniel Jackson Sodium [Moles/Vol] 138 mmol/L Normal 136-145 [facility] Comment on above: Performed By: #### B MP, LIPID #### [facility] [address] [address] [address] Oniel Jackson Urea nitrogen [Mass/Vol] 13.0 mg/dL Normal 7.0-18.0 [facility] Comment on above: Performed By: #### B MP, LIPID #### [facility] [address] [address] [address] Oniel Jackson Urea nitrogen/Creatinine [Mass ratio] 12.4 mg/mg Normal [facility] Comment on above: Performed By: #### B MP, LIPID #### [facility] [address] [place], [place] [address] Dr. Oniel Jackson C-Reactive Proteinon CRP [Mass/Vol] 53.6 mg/L High 0.0-5.0 [facility] Comment on above: Performed By: #### F DORON, CRP, FIB #### [facility] [address] [place], [place] [phone] Crotch Breaker: Rogers Reno MD #### DIMWesley, LD, CMPX, CDP #### [facility] [address] [place], [place] [phone] Crotch Breaker: [place] Nicole MD CRP [Mass/Vol] 119.5 mg/L High 0.0-5.0 [facility] Comment on above: Performed By: #### F DORON, CRP, FIB #### [facility] [address] [place], [place] [phone] Crotch Breaker: Rogers Reno MD #### CLAUDINE, LD, CMPX, CDP #### [facility] [address] [place] [address] Crotch Breaker: [place] Nicole MD C-Reactive ProteinOrdered By : Stacia Saleh on 07-25-2021 CRP [Mass/Vol] 119.5 mg/L High 0.0 - 5.0 mg/L [facility] Phone: Interpretation and review of laboratory results Abnormal [facility] Phone: [facility] Phone: D-Dimer Teston 07-25-2021 D-Dimer Test 0.83 mg/L FEU High 0.00-0.59 [facility] Comment on above: Result Comment: When [...] By: #### F DORON, CRP, FIB #### [employer] [facility] [address] [place] [address] Crotch Breaker: Rogers Reno MD #### CLAUDINE, LD, CMPX, CDP #### [facility] [address] [place] [address] Crotch Breaker: [place] Nicole MD D-Dimer, QuantitativeOrdered By: Rojelio Mayes on 07-25-2021 D-Dimer, Quant 0.83 [facility] Work Phone: Comment on above: When combined [...] Interpretation and review of laboratory results Abnormal [facility] Phone: [facility] Phone: Glucose, Whole BloodOrdered By: Rojelio Mayes on 07-25-2021 Glucose [Mass/Vol] 317 mg/dL High 65 - 99 mg/dL [facility] Phone: Interpretation and review of laboratory results Abnormal [facility] Phone: [facility] Phone: Glucose [Mass/Vol] 266 mg/dL High 65 - 99 mg/dL [facility] Phone: Interpretation and review of laboratory results Abnormal [facility] Phone: [facility] Phone: Glucose [Mass/Vol] 172 mg/dL High 65 - 99 mg/dL [facility] Phone: Interpretation and review of laboratory results Abnormal [facility] Phone: [facility] Phone: Hepatic function panelOrdere d By: Rojelio Mayes on 07-25-2021 Albumin [Mass/Vol] 2.7 g/dL Low 3.5 - 5.2 g/dL [facility] Phone: Albumin/Globulin Ratio NOT REPORTED [facility] Phone: ALP (Bld) [Catalytic activity/Vol] 59 U/L 40 - 129 U/L [facility] Phone: ALT [Catalytic activity/Vol] 13 U/L 5 - 41 U/L [facility] Phone: AST [Catalytic activity/Vol] 10 U/L <40 [facility] Phone: Bilirubin [Mass/Vol] 0.16 mg/dL Low 0.30 - 1.20 mg/dL [facility] Phone: Bilirubin, Indirect CANNOT BE CALCULATED 0.00 - 1.00 mg/dL [facility] Phone: Bilirubin.indirect [Mass/Vol] mg/dL <0.31 mg/dL [facility] Phone: Free PSA/Total PSA [Mass fraction] 5.8 g/dL Low 6.4 - 8.3 g/dL [facility] Phone: Globulin NOT REPORTED 1.5 - 3.8 g/dL [facility] Phone: Interpretation and review of laboratory results Abnormal [facility] Phone: [facility] Phone: Liver Profileon 07-25-2021 Albumin [Mass/Vol] 2.7 g/dL Low 3.5-5.2 [facility] Comment on above: Performed By: #### F DORON, CRP, FIB #### [facility] [employer] [address] [place] [id number] Crotch Breaker: Rogers Reno MD #### CLAUDINE, NATHANIEL, CMPX, CDP #### [facility] [address] [place] [address] Crotch Breaker: [place] Nicole MD Alkaline Phos 59 U/L Normal 40-129 [facility] Comment on above: Performed By: #### F DORON, CRP, FIB #### [facility] [employer] [address] [place] [phone] Crotch Breaker: Rogers Reno MD #### DIMWesley, LD, CMPX, CDP #### [facility] [address] [place] [address] Crotch Breaker: [place] Nicole MD ALT [Catalytic activity/Vol] 13 U/L Normal 5-41 [facility] Comment on above: Performed By: #### F DORON, CRP, FIB #### [address] [id number] Crotch Breaker: Rogers Reno MD #### DIME, LD, CMPX, CDP #### [facility] [address] [place], [place] [phone] Crotch Breaker: [place] Nicole MD AST [Catalytic activity/Vol] 10 U/L Normal <40 [facility] Comment on above: Performed By: #### F DORON, CRP, FIB #### [address] [phone] Crotch Breaker: Rogers Reno MD #### DIMWesley, LD, CMPX, CDP #### [facility] [address] [place], [place] [phone] Crotch Breaker: [place] Nicole MD Bilirubin [Mass/Vol] 0.16 mg/dL Low 0.30-1.20 [facility] Comment on above: Performed By: #### F DORON, CRP, FIB #### [address] [phone] Crotch Breaker: Rogers Reno MD #### DIMWesley, LD, CMPX, CDP #### [facility] [address] [place], [place] [phone] Crotch Breaker: [place] Nicole MD Bilirubin, Indirect CANNOT BE CALCULATED Normal 0.00-1 .00 [facility] Comment on above: Performed By: #### F DORON, CRP, FIB #### [address] [phone] Crotch Breaker: Rogers Reno MD #### DIME, LD, CMPX, CDP #### [facility] [address] [place], [place] [phone] Crotch Breaker: [place] Nicole MD Bilirubin.indirect [Mass/Vol] mg/dL Normal <0.31 [facility] Comment on above: Performed By: #### F DORON, CRP, FIB #### [address] [address] Crotch Breaker: Rogers Reno MD #### DIME, LD, CMPX, CDP #### [facility] [address] [place], [place] [id number] Crotch Breaker: [place] Nicole MD Protein [Mass/Vol] 5.8 g/dL Low 6.4-8.3 [facility] Comment on above: Performed By: #### F DROON, CRP, FIB #### [address] [id number] Crotch Breaker: Rogers Reno MD #### CLAUDINE LD, CMPX, CDP #### [facility] [address] [place], [place] [phone] Crotch Breaker: [place] Nicoel MD Albumin/Glob Ratio NOT REPORTED Normal 1.0-2.5 [facility] Comment on above: Performed By: #### F DORON, CRP, FIB #### [address] [address] Crotch Breaker: Rogers Reno MD #### CLAUDINE, LD, CMPX, CDP #### [facility] [address] [place], [place] [id number] Crotch Breaker: [place] Nicole MD Globulin Fraction NOT REPORTED Normal 1.5-3.8 [facility] Comment on above: Performed By: #### F DORON, CRP, FIB #### [address] [id number] Crotch Breaker: Rogers Reno MD #### DIME, LD, CMPX, CDP #### [facility] [address] [place], [place] [id number] Crotch Breaker: [place] Nicole MD Procalcitoninon 07-25-2021 Procalcitonin 0.08 ng/mL Normal <0.09 [facility] Comment on above: Result Comment: Suspected [...] entered into the Change in Procalcitonin Calculator ([email or web address]-vfautacxgs.Vertical Knowledge) to determine the patient's Mortality Risk Prognosis In healthy neonates, plasma Procalcitonin (PCT) concentrations increase gradually after , reaching peak values at about 24 hours of age then decrease to normal values below 0.5 ng/mL by 48-72 hours of age. Performed By: #### F DORON, CRP, FIB #### [employer] [address] [place], [place] [id number] Crotch Breaker: Rogers Reno MD #### DIME, LD, CMPX, CDP #### [facility] [address] [place], [place] [phone] Crotch Breaker: [place] Nicole MD ProcalcitoninOrdered By: Rogers Saleh on 07-25-2021 Procalcitonin 0.08 ng/mL <0.09 [facility] Work Phone: Comment on above: Suspected Sepsis: [...] entered into the Change in Procalcitonin Calculator ([email or web address].ysrkor-xma-pwbttcxzkl.Vertical Knowledge) to determine the patient's Mortality Risk Prognosis In healthy neonates, plasma Procalcitonin (PCT) concentrations increase gradually after , reaching peak values at about 24 hours of age then decrease to normal values below 0.5 ng/mL by 48-72 hours of age. [facility] Phone: C-Reactive Proteinon CRP [Mass/Vol] 110.2 mg/L High 0.0-5.0 [facility] Comment on above: Performed By: #### F DORON, CRP, FIB #### [facility] [employer] [address] [place] [address] Crotch Breaker: Rogers Reno MD #### CLAUDINE, LD, CMPX, CDP #### [facility] [address] [place] [address] Crotch Breaker: [place] Nicole MD C-Reactive ProteinOrdered By : Rojelio Mayes on 07-24-2021 CRP [Mass/Vol] 110.2 mg/L High 0.0 - 5.0 mg/L [facility] [employer] Phone: Interpretation and review of laboratory results Abnormal [facility] [employer] Phone: [facility] [employer] Phone: CBC Auto DifferentialOrdered By: Rojelio Mayes on 07-24-2021 Absolute Eos # 0.00 [facility] Work Phone: Absolute Immature Granulocyte NOT REPORTED [facility] [employer] Phone: Absolute Lymph # 0.80 Low [facility] Work Phone: Absolute [place] # 0.20 [employer] [facility] Work Phone: Basophils (Bld) [#/Vol] 0.00 10*3/uL [facility] Phone: Basophils/100 WBC (Bld) 0 % 0 - 2 % [employer] Phone: Differential Type YES [facility] [facility] Work Phone: Eosinophils/100 WBC (Bld) 0 % 0 - 5 % [facility] Phone: Hematocrit (Bld) [Volume fraction] 40.6 % Low 41 - 53 % [facility] Phone: Hemoglobin.gastrointesti nal spec 1 Ql (Stl) 13.4 g/dL Low 13.5 - 17.5 g/dL [facility] Phone: Immature Granulocytes NOT REPORTED 0 % [employer] Work Phone: Interpretation and review of laboratory results Abnormal [facility] Phone: Lymphocytes/100 WBC (Bld) 9 % Low 13 - 44 % [facility] Phone: MCH (RBC) [Entitic mass] 28.6 pg 26 - 34 pg [facility] Phone: MCHC (RBC) [Mass/Vol] 33.0 g/dL 31 - 37 g/dL [employer] Phone: MCV (RBC) [Entitic vol] 86.7 fL 80 - 100 fL [facility] Phone: Monocytes/100 WBC (Bld) 2 % Low 5 - 9 % [employer] Phone: NRBC Automated NOT REPORTED per 100 WBC [employer] Work Phone: Platelet distribution width (Bld) [Ratio] 12.6 % 12.1 - 15.2 % [facility] Phone: Platelet Estimate NOT REPORTED [facility] Phone: Platelet mean volume (Bld) [Entitic vol] NOT REPORTED 6.0 - 12.0 fL [facility] Phone: Platelets (Bld) [#/Vol] 493 10*3/uL High [facility] Phone: RBC (Bld) [#/Vol] 4.68 10*6/uL 4.5 - 5.9 m/uL [facility] Phone: RBC (Bld) [#/Vol] NOT REPORTED [facility] Phone: Segmented neutrophils/100 WBC (Bld) 89 % High 39 - 75 % [facility] Phone: Segs Absolute 8.10 High [facility] Work Phone: WBC (Bld) [#/Vol] 9.1 10*3/uL [facility] Phone: WBC (Bld) [#/Vol] NOT REPORTED [facility] Phone: [facility] Phone: CBC with Diffon 07-24-2021 Abs. Basophil 0.00 k/uL Normal 0.0-0.2 [facility] Comment on above: Performed By: #### F DORON, CRP, FIB #### [facility] [place] [address] Crotch Breaker: Rogers Reno MD #### CLAUDINE, NATHANIEL, CMPX, CDP #### [facility] [address] [place] [address] Crotch Breaker: [place] Nicole MD Abs.Neutrophil (Seg) 8.10 k/uL High 2.1-6.5 [facility] Comment on above: Performed By: #### F DORON, CRP, FIB #### [employer] [id number] Crotch Breaker: Rogers Reno MD #### DIME, LD, CMPX, CDP #### [facility] [address] [place] [address] Crotch Breaker: [place] Nicole MD Auto Diff Performed YES Normal [facility] Comment on above: Performed By: #### F DORON, CRP, FIB #### [address] [phone] Crotch Breaker: Rogers Reno MD #### DIME, LD, CMPX, CDP #### [facility] [address] [phone] Crotch Breaker: [place] Nicole MD Basophils/100 WBC (Bld) 0 % Normal 0-2 [facility] Comment on above: Performed By: #### F DORON, CRP, FIB #### [address] [id number] Crotch Breaker: Rogers Reno MD #### DIME, LD, CMPX, CDP #### [facility] [address] [phone] Crotch Breaker: [place] Nicole MD Eosinophils (Bld) [#/Vol] 0.00 10*3/uL Normal 0.0-0.4 [facility] Comment on above: Performed By: #### F DORON, CRP, FIB #### [address] [phone] Crotch Breaker: Rogers Reno MD #### DIME, LD, CMPX, CDP #### [facility] [address] [place], [place] [phone] Crotch Breaker: [place] Nicole MD Eosinophils/100 WBC (Bld) 0 % Normal 0-5 [facility] Comment on above: Performed By: #### F DORON, CRP, FIB #### [address] [place] [place], [place] [id number] Crotch Breaker: Rogers Reno MD #### CLAUDINE, NATHANIEL, CMPX, CDP #### [facility] [address] [place], [place] [phone] Crotch Breaker: [place] Nicole MD Erythrocyte distribution width (RBC) [Ratio] 12.6 % Normal 12.1-15.2 [facility] Comment on above: Performed By: #### F DORON, CRP, FIB #### [address] [id number] Crotch Breaker: Rogers Reno MD #### CLAUDINE, NATHANIEL, CMPX, CDP #### [facility] [address] [place], [place] [phone] Crotch Breaker: [place] Nicole MD Hematocrit (Bld) [Volume fraction] 40.6 % Low 41-53 [facility] Comment on above: Performed By: #### F DORON, CRP, FIB #### [address] [phone] Crotch Breaker: Rogers Reno MD #### NATHANIEL CHOW, CMPX, CDP #### [facility] [address] [place], [place] [phone] Crotch Breaker: [place] Nicole MD Hemoglobin (Bld) [Mass/Vol] 13.4 g/dL Low 13.5-17.5 [facility] Comment on above: Performed By: #### F DORON, CRP, FIB #### [address] [id number] Crotch Breaker: Rogers Reno MD #### CLAUDINE, LD, CMPX, CDP #### [facility] [address] [place], [place] [phone] Crotch Breaker: [place] Nicole MD Lymphocytes (Bld) [#/Vol] 0.80 10*3/uL Low 1.0-4.8 [facility] Comment on above: Performed By: #### F DORON, CRP, FIB #### [address] [place], [place] [address] Crotch Breaker: Rogers Reno MD #### DIME, LD, CMPX, CDP #### [facility] [address] [place] [address] Crotch Breaker: [place] Nicole MD Lymphocytes/100 WBC (Bld) 9 % Low 13-44 [facility] Comment on above: Performed By: #### F DORON, CRP, FIB #### [address] [id number] Crotch Breaker: Rogers Reno MD #### DIME, LD, CMPX, CDP #### [facility] [address] [place] [address] Crotch Breaker: [place] Nicole MD MCH (RBC) [Entitic mass] 28.6 pg Normal 26-34 [facility] Comment on above: Performed By: #### F DORON, CRP, FIB #### [address] [phone] Crotch Breaker: Rogers Reno MD #### DIME, LD, CMPX, CDP #### [facility] [address] [place] [address] Crotch Breaker: [place] Nicole MD MCHC (RBC) [Mass/Vol] 33.0 g/dL Normal 31-37 [facility] Comment on above: Performed By: #### F DORON, CRP, FIB #### [address] [id number] Crotch Breaker: Rogers Reno MD #### DIME, LD, CMPX, CDP #### [facility] [address] [place] [address] Crotch Breaker: [place] Nicole MD MCV (RBC) [Entitic vol] 86.7 fL Normal 80-100 [facility] Comment on above: Performed By: #### F DORON, CRP, FIB #### [address] [id number] Crotch Breaker: Rogers Reno MD #### DIME, LD, CMPX, CDP #### [facility] [address] [phone] Crotch Breaker: [place] Nicole MD Monocytes (Bld) [#/Vol] 0.20 10*3/uL Normal 0.0-1.0 [facility] Comment on above: Performed By: #### F DORON, CRP, FIB #### [address] [id number] Crotch Breaker: Rogers Reno MD #### CLAUDINE, LD, CMPX, CDP #### [facility] [address] [phone] Crotch Breaker: [place] Nicole MD Monocytes/100 WBC (Bld) 2 % Low 5-9 [facility] Comment on above: Performed By: #### F DORON, CRP, FIB #### [address] [phone] Crotch Breaker: Rogers Reno MD #### DIMWesley, LD, CMPX, CDP #### [facility] [address] [phone] Crotch Breaker: [place] Nicole MD Neutrophil (Seg) 89 % High 39-75 [facility] Comment on above: Performed By: #### F DORON, CRP, FIB #### [address] [id number] Crotch Breaker: Rogers Reno MD #### DIME, LD, CMPX, CDP #### [facility] [address] [phone] Crotch Breaker: [place] Nicole MD Platelets (Bld) [#/Vol] 493 10*3/uL High 140-450 [facility] Comment on above: Performed By: #### F DORON, CRP, FIB #### [address] [address] Crotch Breaker: Rogers Reno MD #### DIME, LD, CMPX, CDP #### [facility] [address] [place], [place] [id number] Crotch Breaker: [place] Nicole MD RBC (Bld) [#/Vol] 4.68 10*6/uL Normal 4.5-5.9 [facility] Comment on above: Performed By: #### F DORON, CRP, FIB #### [address] [id number] Crotch Breaker: Rogers Reno MD #### DIME, LD, CMPX, CDP #### [facility] [address] [place], [place] [phone] Crotch Breaker: [place] Nicole MD WBC (Bld) [#/Vol] 9.1 10*3/uL Normal 3.5-11.0 [facility] Comment on above: Performed By: #### F DORON, CRP, FIB #### [address] [phone] Crotch Breaker: Rogers Reno MD #### DIME, LD, CMPX, CDP #### [facility] [address] [place], [place] [phone] Crotch Breaker: [place] Nicole MD Abs.Imm.Granulocyte NOT REPORTED Normal 0.00-0.30 [facility] Comment on above: Performed By: #### F DORON, CRP, FIB #### [address] [address] Crotch Breaker: Rogers Reno MD #### DIME, LD, CMPX, CDP #### [facility] [address] [place] [address] Crotch Breaker: [place] Nicole MD Immature Granulocyte NOT REPORTED Normal 0 Me [facility] Comment on above: Performed By: #### F DORON, CRP, FIB #### [address] [place] [address] Crotch Breaker: Rogers Reno MD #### DIME, LD, CMPX, CDP #### [facility] [address] [place] [address] Crotch Breaker: [place] Nicole MD MPV NOT REPORTED Normal 6.0-12.0 [facility] Comment on above: Performed By: #### F DORON, CRP, FIB #### [address] [address] Crotch Breaker: Rogers Reno MD #### DIME, LD, CMPX, CDP #### [facility] [address] [place] [address] Crotch Breaker: [place] Nicole MD NRBC Automated NOT REPORTED Normal [facility] Comment on above: Performed By: #### F DORON, CRP, FIB #### [address] [address] Crotch Breaker: Rogers Reno MD #### DIME, LD, CMPX, CDP #### [facility] [address] [place] [address] Crotch Breaker: [place] Nicole MD Platelet Estimate NOT REPORTED Normal [facility] Comment on above: Performed By: #### F DORON, CRP, FIB #### [address] [address] Crotch Breaker: Rogers Reno MD #### DIME, LD, CMPX, CDP #### [facility] [address] [place], [place] [phone] Crotch Breaker: [place] Nicole MD RBC morphology finding Nom (Bld) NOT REPORTED Normal [facility] Comment on above: Performed By: #### F DORON, CRP, FIB #### [facility] [facility] [address], [place] [id number] Crotch Breaker: Rogers Reno MD #### DIME, LD, CMPX, CDP #### [facility] [address] [place], [place] [id number] Crotch Breaker: Richmond Nicole MD WBC Morphology NOT REPORTED Normal [facility] Comment on above: Performed By: #### F DORON, CRP, FIB #### [facility] [address], [place] [id number] Crotch Breaker: Rogers Reno MD #### DIME, LD, CMPX, CDP #### [facility] [address] [place] [address] Crotch Breaker: Richmond Nicole MD Comp Metabolic Pr/rfx MGon 0 07-24-2021 (cont.) Normal [facility] Comment on above: Result Comment: Aver age GFR for 60-69 years old: 85 mL/min/1.73sq m Chronic Kidney Disease: <60 mL/min/1.73sq m Kidney failure: <15 mL/min/1.73sq m eGFR calculated using average adult body mass. Additional eGFR calculator available at: http://www.Unafinance.com/multiple_crcl_2012.htm Performed By: #### F DORON, CRP, FIB #### [facility] [address], [place] [id number] Crotch Breaker: Rogers Reno MD #### DIME, LD, CMPX, CDP #### [facility] [address] [facility] [place] [place] [id number] Crotch Breaker: Richmond Nicole MD Albumin [Mass/Vol] 2.8 g/dL Low 3.5-5.2 [facility] Comment on above: Performed By: #### F DORON, CRP, FIB #### [facility] [address], [place] [id number] Crotch Breaker: Rogers Reno MD #### DIME, LD, CMPX, CDP #### [facility] [address] [place], [place] [phone] Crotch Breaker: Richmond Nicole MD Alkaline Phos 69 U/L Normal 40-129 [facility] Comment on above: Performed By: #### F DORON, CRP, FIB #### [facility] [address], [place] [id number] Crotch Breaker: Rogers Reno MD #### DIME, LD, CMPX, CDP #### [facility] [address] [place], [place] [phone] Crotch Breaker: Richmond Nicole MD ALT [Catalytic activity/Vol] 15 U/L Normal 5-41 [facility] Comment on above: Performed By: #### F DORON, CRP, FIB #### [facility] [address], [place] [phone] Crotch Breaker: Rogers Reno MD #### DIME, LD, CMPX, CDP #### [facility] [address] [place], [place] [phone] Crotch Breaker: Richmond Nicole MD Anion gap [Moles/Vol] 11 mmol/L Normal 9-17 [facility] Comment on above: Performed By: #### F DORON, CRP, FIB #### [facility] [address], [place] [phone] Crotch Breaker: Rogers Reno MD #### DIME, LD, CMPX, CDP #### [facility] [address] [place], [place] [phone] Crotch Breaker: Richmond Nicole MD AST [Catalytic activity/Vol] 14 U/L Normal <40 [facility] Comment on above: Performed By: #### F DORON, CRP, FIB #### [facility] [address], [place] [id number] Crotch Breaker: Rogers Reno MD #### DIME, LD, CMPX, CDP #### [facility] [address] [place], [place] [phone] Crotch Breaker: Richmond Nicole MD Bilirubin [Mass/Vol] 0.22 mg/dL Low 0.30-1.20 [facility] Comment on above: Performed By: #### F DORON, CRP, FIB #### [address] [phone] Crotch Breaker: Rogers Reno MD #### DIME, LD, CMPX, CDP #### [facility] [address] [place] [address] Crotch Breaker: Richmond Nicole MD BUN/CRE Ratio 23 High 9-20 [facility] Comment on above: Performed By: #### F DORON, CRP, FIB #### [address] [phone] Crotch Breaker: Rogers Reno MD #### DIMWesley, LD, CMPX, CDP #### [facility] [address] [place] [address] Crotch Breaker: Richmond Nicole MD Calcium [Mass/Vol] 9.1 mg/dL Normal 8.6-10.4 [facility] Comment on above: Performed By: #### F DORON, CRP, FIB #### [address] [phone] Crotch Breaker: Rogers Reno MD #### DIME, LD, CMPX, CDP #### [facility] [address] [place], [place] [id number] Crotch Breaker: Richmond Nicole MD Chloride [Moles/Vol] 99 mmol/L Normal 98-107 [facility] Comment on above: Performed By: #### F DORON, CRP, FIB #### [address] [address] Crotch Breaker: Rogers Reno MD #### DIME, LD, CMPX, CDP #### [facility] [address] [place], [place] [phone] Crotch Breaker: Richmond Nicole MD CO2 [Moles/Vol] 25 mmol/L Normal 20-31 [facility] Comment on above: Performed By: #### F DORON, CRP, FIB #### [address] [id number] Crotch Breaker: Rogers Reno MD #### DIME, LD, CMPX, CDP #### [facility] [address] [place], [place] [phone] Crotch Breaker: Richmond Nicole MD Creatinine [Mass/Vol] 0.91 mg/dL Normal 0.70-1.20 [facility] Comment on above: Performed By: #### F DORON, CRP, FIB #### [address] [phone] Crotch Breaker: Rogers Reno MD #### DIME, LD, CMPX, CDP #### [facility] [address] [place], [place] [phone] Crotch Breaker: Richmond Nicole MD GFR, Amer >60 Normal >60 [facility] Comment on above: Performed By: #### F DORON, CRP, FIB #### [address] [address] Crotch Breaker: Rogers Reno MD #### DIME, LD, CMPX, CDP #### [facility] [address] [place], [place] [phone] Crotch Breaker: Richmond Nicole MD GFR,non Amer >60 Normal >60 [facility] Comment on above: Performed By: #### F DORON, CRP, FIB #### [facility] [address] [place] [address] Crotch Breaker: Rogers Reno MD #### DIME, LD, CMPX, CDP #### [facility] [address] [place], [place] [phone] Crotch Breaker: Richmond Nicole MD Glucose [Mass/Vol] 288 mg/dL High 70-99 [facility] Comment on above: Performed By: #### F DORON, CRP, FIB #### [address] [phone] Crotch Breaker: Rogers Reno MD #### DIME, LD, CMPX, CDP #### [facility] [address] [place], [place] [phone] Crotch Breaker: Richmond Nicole MD Potassium [Moles/Vol] 4.4 mmol/L Normal 3.7-5.3 [facility] Comment on above: Performed By: #### F DORON, CRP, FIB #### [address] [phone] Crotch Breaker: Rogers Reno MD #### DIME, LD, CMPX, CDP #### [facility] [address] [place], [place] [phone] Crotch Breaker: Richmond Nicole MD Protein [Mass/Vol] 7.0 g/dL Normal 6.4-8.3 [facility] Comment on above: Performed By: #### F DORON, CRP, FIB #### [address] [phone] Crotch Breaker: Rogers Reno MD #### DIME, LD, CMPX, CDP #### [facility] [address] [place], [place] [phone] Crotch Breaker: Richmond Nicole MD Sodium [Moles/Vol] 135 mmol/L Normal 135-144 [facility] Comment on above: Performed By: #### F DORON, CRP, FIB #### [address] [phone] Crotch Breaker: Rogers Reno MD #### DIME, LD, CMPX, CDP #### [facility] [address] [place], [place] [phone] Crotch Breaker: Richmond Nicole MD Urea nitrogen [Mass/Vol] 21 mg/dL Normal 8-23 [facility] Comment on above: Performed By: #### F DORON, CRP, FIB #### [address] [phone] Crotch Breaker: Rogers Reno MD #### DIMWesley, LD, CMPX, CDP #### [facility] [address] [place], [place] 2294290 Crotch Breaker: Richmond Nicole MD Albumin/Glob Ratio NOT REPORTED Normal 1.0-2.5 [facility] Comment on above: Performed By: #### F DORON, CRP, FIB #### [address] [phone] Crotch Breaker: Rogers Reno MD #### DIMWesley, LD, CMPX, CDP #### [facility] [address] [place], [place] [phone] Crotch Breaker: Richmond Nicole MD Staging: NOT REPORTED Normal [facility] Comment on above: Performed By: #### F DORON, CRP, FIB #### [address] [phone] Crotch Breaker: Rogers Reno MD #### DIME, LD, CMPX, CDP #### [facility] [address] [place], [place] [phone] Crotch Breaker: Richmond Nicole MD Comprehensive Metabolic Pane l w/ Reflex to MGOrdered By: Rojelio Mayes on 07-24-2021 Albumin [Mass/Vol] 2.8 g/dL Low 3.5 - 5.2 g/dL [facility] Phone: Albumin/Globulin Ratio NOT REPORTED [facility] Phone: ALP (Bld) [Catalytic activity/Vol] 69 U/L 40 - 129 U/L [facility] Phone: ALT [Catalytic activity/Vol] 15 U/L 5 - 41 U/L [facility] Phone: Anion gap [Moles/Vol] 11 mmol/L 9 - 17 mmol/L [facility] Phone: AST [Catalytic activity/Vol] 14 U/L <40 [facility] Phone: Bilirubin [Mass/Vol] 0.22 mg/dL Low 0.30 - 1.20 mg/dL [facility] Phone: Calcium [Mass/Vol] 9.1 mg/dL 8.6 - 10. 4 mg/dL [facility] Phone: Chloride [Moles/Vol] 99 mmol/L 98 - 10 7 mmol/L [facility] Phone: CO2 [Moles/Vol] 25 mmol/L 20 - 31 mmol/L [facility] Phone: Creatinine [Mass/Vol] 0.91 mg/dL 0.70 - 1.20 mg/dL [facility] Phone: Free PSA/Total PSA [Mass fraction] 7.0 g/dL 6.4 - 8.3 g/dL [facility] Phone: GFR >60 >60 mL/min [employer] Phone: GFR Non- >60 >60 mL/min [facility] Phone: GFR/1.73 sq M.predicted MDRD (S/P/Bld) [Vol rate/Area] [facility] Phone: Comment on above: Average GFR for 60-6 9 years old: 85 mL/min/1.73sq m Chronic Kidney Disease: <60 mL/min/1.73sq m Kidney failure: <15 mL/min/1.73sq m eGFR calculated using average adult body mass. Additional eGFR calculator available at: http://www.Sanitors/multiple_crcl_2012.htm GFR/1.73 sq M.predicted MDRD (S/P/Bld) [Vol rate/Area] NOT REPORTED [facility] Phone: Glucose [Mass/Vol] 288 mg/dL High 70 - 99 mg/dL [facility] Phone: Potassium [Moles/Vol] 4.4 mmol/L 3.7 - 5.3 mmol/L [facility] Phone: Sodium [Moles/Vol] 135 mmol/L 135 - 144 mmol/L [facility] Phone: Urea nitrogen (BldV) [Mass/Vol] 21 mg/dL 8 - 23 mg/dL [facility] Phone: Urea nitrogen/Creatinine (Bld) [Mass ratio] 23 High [facility] Phone: D-Dimer Teston 07-24-2021 D-Dimer Test 1.69 mg/L FEU High 0.00-0.59 [facility] Comment on above: Result Comment: When [...] By: #### F DORON, CRP, FIB #### [facility] [employer] [address] [place] [address] Crotch Breaker: Rogers Reno MD #### CLAUDINE, LD, CMPX, CDP #### [facility] [address] [place] [address] Crotch Breaker: Richmond Nicole MD D-Dimer Test 1.57 mg/L FEU High 0.00-0.59 [facility] Comment on above: Result Comment: When [...] Performed By: #### D WANDY #### [facility] [address] [place] [address] Crotch Breaker: Richmond Nicole MD D-Dimer, QuantitativeOrdered By: Rojelio Mayes on 07-24-2021 D-Dimer, Quant 1.69 High [facility] Work Phone: Comment on above: [...] and review of laboratory results Abnormal [facility] Work Phone: [facility] Work Phone: Ferritinon 07-24-2021 Ferritin 778 ug/L High 30-400 [facility] Comment on above: Performed By: #### F DORON, CRP, FIB #### [facility] [employer] [address] [place] [address] Crotch Breaker: Rogers Reno MD #### DIME, LD, CMPX, CDP #### [facility] [address] [place], [place] [address] Crotch Breaker: Richmond Nicole MD Ferritin 868 ug/L High 30-400 [facility] Comment on above: Performed By: #### F DORON, CRP, FIB #### [facility] [address], [place] [id number] Crotch Breaker: Rogers Reno MD #### CLAUDINE, LD, CMPX, CDP #### [facility] [address] [place], [place] [phone] Crotch Breaker: Richmond Nicole MD FerritinOrdered By: Rojelio hameed on 07-24-2021 Ferritin 778 ug/L High 30 - 400 ug/L [facility] [employer] Phone: Interpretation and review of laboratory results Abnormal [facility] Phone: [facility] Phone: FerritinOrdered By: Stacia iqbal on 07-24-2021 Ferritin 868 ug/L High 30 - 400 ug/L [facility] [employer] Phone: Interpretation and review of laboratory results Abnormal [facility] Phone: [facility] Phone: Fibrinogenon 07-24-2021 Fibrinogen 934 mg/dL High 140-420 [facility] Comment on above: Performed By: #### F DORON, CRP, FIB #### [facility] [address] [place] [address] Crotch Breaker: Rogers Reno MD #### CLAUDINE, LD, CMPX, CDP #### [facility] [address] [place], [place] [phone] Crotch Breaker: Richmond Nicole MD FibrinogenOrdered By: Rojelio Mayes on 07-24-2021 Fibrinogen 934 mg/dL High 140 - 420 mg/dL [facility] [employer] Phone: Interpretation and review of laboratory results Abnormal [facility] Phone: [facility] Phone: Glucose, Whole BloodOrdered By: Rojelio Mayes on 07-24-2021 Glucose [Mass/Vol] 162 mg/dL High 65 - 99 mg/dL [facility] Phone: Interpretation and review of laboratory results Abnormal [facility] Phone: [facility] Phone: Glucose [Mass/Vol] 244 mg/dL High 65 - 99 mg/dL [facility] Phone: Interpretation and review of laboratory results Abnormal [facility] Phone: [facility] Phone: Glucose [Mass/Vol] 215 mg/dL High 65 - 99 mg/dL [facility] Phone: Interpretation and review of laboratory results Abnormal [facility] Phone: [facility] Phone: Hemoglobin A1Con 07-24-2021 Glucose [Mass/Vol] 166 mg/dL Normal [facility] Comment on above: Result Comment: The ADA and AACC recommend providing the estimated average glucose result to permit better patient understanding of their HBA1c result. Performed By: #### G LYHGB #### [employer] [address] [place] [address] Crotch Breaker: Rogers Reno MD HbA1c (Bld) [Mass fraction] 7.4 % High 4.0-6.0 [facility] Comment on above: Performed By: #### G LYHGB #### [employer] [address], [place] [phone] Crotch Breaker: Rogers Reno MD Hemoglobin [id number] By: Vu Mayes on 07-24-2021 Glucose [Mass/Vol] 166 mg/dL [facility] Phone: Comment on above: The ADA and AACC rec ommend providing the estimated average glucose result to permit better patient understanding of their HBA1c result. HbA1c (Bld) [Mass fraction] 7.4 % High 4.0 - 6.0 % [facility] Phone: Interpretation and review of laboratory results Abnormal [facility] [employer] Phone: [facility] [employer] Phone: Lactate Dehydrogenaseon 07-02 LDH [Catalytic activity/Vol] 545 U/L High 135-225 [facility] Comment on above: Performed By: #### F DORON, CRP, FIB #### [facility] [address], [place] [phone] Crotch Breaker: Rogers Reno MD #### DIME, LD, CMPX, CDP #### [facility] [address] [place], [place] [phone] Crotch Breaker: Richmond Nicole MD LDH [Catalytic activity/Vol] 577 U/L High 135-225 [facility] Comment on above: Performed By: #### F DORON, CRP, FIB #### [facility] [address], [place] [phone] Crotch Breaker: Rogers Reno MD #### DIME, LD, CMPX, CDP #### [facility] [address] [place] [address] Crotch Breaker: Richmond Nicole MD Lactate DehydrogenaseOrdered By: Rojelio Mayes on 07-24-2021 LD 545 U/L High 135 - 225 U/L [facility] Phone: No Panel InformationOrdered By: Rojelio Mayes on 07-24-2021 Interpretation and review of laboratory results Abnormal [facility] Phone: [facility] [employer] Phone: CBC Auto DifferentialOrdered By: Stacia Saleh on 07-23-2021 Absolute Eos # 0.11 [facility] Work Phone: Absolute Immature Granulocyte NOT REPORTED [employer] Work Phone: Absolute Lymph # 1.47 [employer] Work Phone: Absolute Chester # 0.34 [employer] Work Phone: Basophils (Bld) [#/Vol] 0.23 10*3/uL High [employer] Work Phone: Differential Type NOT REPORTED [employer] Work Phone: Hematocrit (Bld) [Volume fraction] 43.6 % 41 - 53 % [employer] Work Phone: Hemoglobin.gastrointesti nal spec 1 Ql (Stl) 14.9 g/dL 13.5 - 17.5 g/dL [facility] Phone: Immature Granulocytes NOT REPORTED 0 % [employer] Work Phone: Interpretation and review of laboratory results Abnormal [employer] Work Phone: MCH (RBC) [Entitic mass] 29.3 pg 26 - 34 pg [employer] Work Phone: MCHC (RBC) [Mass/Vol] 34.3 g/dL 31 - 37 g/dL [employer] Phone: MCV (RBC) [Entitic vol] 85.5 fL 80 - 100 fL [employer] Work Phone: Morphology Jose (Bld) [Interp] INCREASED PLATELETS [employer] Work Phone: NRBC Automated NOT REPORTED per 100 WBC [employer] Work Phone: Platelet distribution width (Bld) [Ratio] 12.7 % 12.1 - 15.2 % [facility] Phone: Platelet Estimate NOT REPORTED [facility] Phone: Platelet mean volume (Bld) [Entitic vol] NOT REPORTED 6.0 - 12.0 fL [facility] Phone: Platelets (Bld) [#/Vol] 523 10*3/uL High [facility] Phone: RBC (Bld) [#/Vol] 5.09 10*6/uL 4.5 - 5.9 m/uL [employer] Work Phone: RBC (Bld) [#/Vol] NOT REPORTED [facility] Phone: Segmented neutrophils/100 WBC (Bld) 81 % High 39 - 75 % [employer] Work Phone: Segs Absolute 9.15 High [facility] Phone: WBC (Bld) [#/Vol] 11.3 10*3/uL High [facility] Phone: WBC (Bld) [#/Vol] NOT REPORTED [facility] Phone: [facility] Phone: CBC with Diffon 07-23-2021 Abs. Basophil 0.23 k/uL High 0.0-0.2 [facility] Comment on above: Performed By: #### F DORON, CRP, FIB #### [facility] [employer] [address] [place], [place] [phone] Crotch Breaker: Rogers Reno MD #### NATHANIEL CHOW, CMPX, CDP #### [facility] [address] [place] [id number] Crotch Breaker: Richmond Nicole MD Abs.Neutrophil (Seg) 9.15 k/uL High 2.1-6.5 [facility] Comment on above: Performed By: #### F DORON, CRP, FIB #### [facility] [employer] [address] [place] [address] Crotch Breaker: Rogers Reno MD #### CLAUDINE LD, CMPX, CDP #### [facility] [address] [place], [place] [phone] Crotch Breaker: Richmond Nicole MD Eosinophils (Bld) [#/Vol] 0.11 10*3/uL Normal 0.0-0.4 [facility] Comment on above: Performed By: #### F DORON, CRP, FIB #### [address] [address] Crotch Breaker: Rogers Reno MD #### DIME, LD, CMPX, CDP #### [facility] [address] [place], [place] [id number] Crotch Breaker: Richmond Nicole MD Lymphocytes (Bld) [#/Vol] 1.47 10*3/uL Normal 1.0-4.8 [facility] Comment on above: Performed By: #### F DORON, CRP, FIB #### [address] [address] Crotch Breaker: Rogers Reno MD #### DIME, LD, CMPX, CDP #### [facility] [address] [place], [place] [phone] Crotch Breaker: Richmond Nicole MD Monocytes (Bld) [#/Vol] 0.34 10*3/uL Normal 0.0-1.0 [facility] Comment on above: Performed By: #### F DORON, CRP, FIB #### [address] [address] Crotch Breaker: Rogers Reno MD #### DIME, LD, CMPX, CDP #### [facility] [address] [place], [place] [id number] Crotch Breaker: Richmond Nicole MD Neutrophil (Seg) 81 % High 39-75 [facility] Comment on above: Performed By: #### F DORON, CRP, FIB #### [address] [address] Crotch Breaker: Rogers Reno MD #### DIME, LD, CMPX, CDP #### [facility] [address] [place] [address] Crotch Breaker: Richmond Nicole MD Erythrocyte distribution width (RBC) [Ratio] 12.7 % Normal 12.1-15.2 [facility] Comment on above: Performed By: #### F DORON, CRP, FIB #### [address] [id number] Crotch Breaker: Rogers Reno MD #### DIME, LD, CMPX, CDP #### [facility] [address] [place] [address] Crotch Breaker: Richmond Nicole MD Hematocrit (Bld) [Volume fraction] 43.6 % Normal 41-53 [facility] Comment on above: Performed By: #### F DORON, CRP, FIB #### [address] [id number] Crotch Breaker: Rogers Reno MD #### DIME, LD, CMPX, CDP #### [facility] [address] [place] [address] Crotch Breaker: Richmond Nicole MD Hemoglobin (Bld) [Mass/Vol] 14.9 g/dL Normal 13.5-17.5 [facility] Comment on above: Performed By: #### F DORON, CRP, FIB #### [address] [phone] Crotch Breaker: Rogers Reno MD #### DIME, LD, CMPX, CDP #### [facility] [address] [place] [address] Crotch Breaker: Richmond Nicole MD MCH (RBC) [Entitic mass] 29.3 pg Normal 26-34 [facility] Comment on above: Performed By: #### F DORON, CRP, FIB #### [address] [id number] Crotch Breaker: Rogers Reno MD #### DIME, LD, CMPX, CDP #### [facility] [address] [place], [place] [phone] Crotch Breaker: Richmond Nicole MD MCHC (RBC) [Mass/Vol] 34.3 g/dL Normal 31-37 [facility] Comment on above: Performed By: #### F DORON, CRP, FIB #### [address] [phone] Crotch Breaker: Rogers Reno MD #### DIME, LD, CMPX, CDP #### [facility] [address] [place], [place] [phone] Crotch Breaker: Richmond Nicole MD MCV (RBC) [Entitic vol] 85.5 fL Normal 80-100 [facility] Comment on above: Performed By: #### F DORON, CRP, FIB #### [address] [id number] Crotch Breaker: Rogers Reno MD #### DIMWesley, LD, CMPX, CDP #### [facility] [address] [place], [place] [phone] Crotch Breaker: Richmond Nicole MD Platelets (Bld) [#/Vol] 523 10*3/uL High 140-450 [facility] Comment on above: Performed By: #### F DORON, CRP, FIB #### [address] [phone] Crotch Breaker: Rogers Reno MD #### DIME, LD, CMPX, CDP #### [facility] [address] [place], [place] [phone] Crotch Breaker: Richmond Nicole MD RBC (Bld) [#/Vol] 5.09 10*6/uL Normal 4.5-5.9 [facility] Comment on above: Performed By: #### F DORON, CRP, FIB #### [address] [address] Crotch Breaker: Rogers Reno MD #### DIME, LD, CMPX, CDP #### [facility] [address] [place] [address] Crotch Breaker: Richmond Nicole MD WBC (Bld) [#/Vol] 11.3 10*3/uL High 3.5-11.0 [facility] Comment on above: Performed By: #### F DORON, CRP, FIB #### [address] [phone] Crotch Breaker: Rogers Reno MD #### DIME, LD, CMPX, CDP #### [facility] [address] [place] [address] Crotch Breaker: Richmond Nicole MD Abs.Imm.Granulocyte NOT REPORTED Normal 0.00-0.30 [facility] Comment on above: Performed By: #### F DORON, CRP, FIB #### [address] [address] Crotch Breaker: Rogers Reno MD #### DIME, LD, CMPX, CDP #### [facility] [address] [place], [place] [phone] Crotch Breaker: Richmond Nicole MD Auto Diff Performed NOT REPORTED Normal [facility] Comment on above: Performed By: #### F DORON, CRP, FIB #### [address] [phone] Crotch Breaker: Rogers Reno MD #### DIME, LD, CMPX, CDP #### [facility] [address] [place] [address] Crotch Breaker: Richmond Nicole MD Immature Granulocyte NOT REPORTED Normal 0 [facility] Comment on above: Performed By: #### F DORON, CRP, FIB #### [place] [place] [address] Crotch Breaker: Rogers Reno MD #### DIME, LD, CMPX, CDP #### [facility] [address] [place] [address] Crotch Breaker: Richmond Nicole MD MPV NOT REPORTED Normal 6.0-12.0 [facility] Comment on above: Performed By: #### F DORON, CRP, FIB #### [address] [address] Crotch Breaker: Rogers Reno MD #### DIME, LD, CMPX, CDP #### [facility] [address] [place], [place] [phone] Crotch Breaker: Richmond Nicole MD NRBC Automated NOT REPORTED Normal [facility] Comment on above: Performed By: #### F DORON, CRP, FIB #### [address] [address] Crotch Breaker: Rogers Reno MD #### DIME, LD, CMPX, CDP #### [facility] [address] [place] [address] Crotch Breaker: Richmond Nicole MD Platelet Estimate NOT REPORTED Normal [facility] Comment on above: Performed By: #### F DORON, CRP, FIB #### [address] [address] Crotch Breaker: Rogers Reno MD #### DIME, LD, CMPX, CDP #### [facility] [address] [place] [address] Crotch Breaker: Richmond Nicole MD RBC morphology finding Nom (Bld) NOT REPORTED Normal [facility] Comment on above: Performed By: #### F DORON, CRP, FIB #### [address], [place] [phone] Crotch Breaker: Rogers Reno MD #### DIME, LD, CMPX, CDP #### [facility] [address] [place] [id number] Crotch Breaker: Richmond Nicole MD WBC Morphology NOT REPORTED Normal [facility] Comment on above: Performed By: #### F DORON, CRP, FIB #### [facility] [address] [place], [place] [id number] Crotch Breaker: Rogers Reno MD #### DIME, LD, CMPX, CDP #### [facility] [address] [place] [address] Crotch Breaker: Richmond Nicole MD CBC with DiffOrdered By: Rogers Saleh on 07-23-2021 Basophils/100 WBC (Bld) 2 % Normal 0-2 [facility] [place] Work Phone: Comment on above: Performed By: #### F DORON, CRP, FIB #### [facility] [address] [place] [address] [phone] Crotch Breaker: Rogers Reno MD #### DIME, LD, CMPX, CDP #### [facility] [address] [place] [address] Crotch Breaker: Richmond Nicole MD Eosinophils/100 WBC (Bld) 1 % Normal 0-5 [facility] Work Phone: Comment on above: Performed By: #### F DORON, CRP, FIB #### [facility] [address] [place] [address] Crotch Breaker: Rogers Reno MD #### DIME, LD, CMPX, CDP #### [facility] [address] [place] [address] Crotch Breaker: Richmond Nicole MD Lymphocytes/100 WBC (Bld) 13 % Normal 13-44 [facility] Work Phone: Comment on above: Performed By: #### F DORON, CRP, FIB #### [address] [id number] Crotch Breaker: Rogers Reno MD #### DIME, LD, CMPX, CDP #### [facility] [address] [place] [address] Crotch Breaker: Richmond Nicole MD Monocytes/100 WBC (Bld) 3 % Low 5-9 M [facility] [employer] Phone: Comment on above: Performed By: #### F DORON, CRP, FIB #### [address] [id number] Crotch Breaker: Rogers Reno MD #### DIME, LD, CMPX, CDP #### [facility] [address] [place] [address] Crotch Breaker: Richmond Nicole MD Morphology Jose (Bld) [Interp] Scanned to verify automated differential. Normal [facility] [employer] Phone: Comment on above: Result Comment: INCR EASED PLATELETS Performed By: #### F DORON, CRP, FIB #### [address] [id number] Crotch Breaker: Rogers Reno MD #### DIME, LD, CMPX, CDP #### [facility] [address] [place] [address] Crotch Breaker: Richmond Nicole MD COVID-19, RapidOrdered By: Harpreet Saleh on 07-23-2021 Interpretation and review of laboratory results Abnormal [facility] [employer] Phone: SARS-CoV-2 (COVID-19) RNA DESTIN+probe Ql (Unsp spec) Detected Abnormal Not Detected [facility] [employer] Phone: Comment on above: Rapid NAAT: The [...] this assay. Fact sheet for Healthcare Providers: https://www.fda.gov/media/766072/download Fact sheet for Patients: https://www.fda.gov/media/173380/download Methodology: Isothermal Nucleic Acid Amplification Results reported to the appropriate Health Department Specimen Description .NASOPHARYNGEAL SWAB [facility] [employer] Phone: [facility] [employer] Phone: Comp Metabolic Profon 2020 (cont.) Normal [facility] Comment on above: Result Comment: Aver age GFR for 60-69 years old: 85 mL/min/1.73sq m Chronic Kidney Disease: <60 mL/min/1.73sq m Kidney failure: <15 mL/min/1.73sq m eGFR calculated using average adult body mass. Additional eGFR calculator available at: http://www.Sanitors/multiple_crcl_2012.htm Performed By: #### C RP, PRCAL, FERI #### [facility] [employer] [address] [place] [id number] Crotch Breaker: Rogers Reno MD #### CP, LD, TROPI, CDP #### [facility] [address] [place] [address] Crotch Breaker: Richmond Nicole MD Albumin [Mass/Vol] 3.1 g/dL Low 3.5-5.2 [facility] Comment on above: Performed By: #### C RP, PRCAL, FERI #### [facility] [employer] [address] [place] [address] [id number] Crotch Breaker: Rogers Reno MD #### CP, LD, TROPI, CDP #### [facility] [address] [place] [address] Crotch Breaker: Richmond Nicole MD Alkaline Phos 75 U/L Normal 40-129 [facility] Comment on above: Performed By: #### C RP, PRCAL, FERI #### [address] [phone] Crotch Breaker: Rogers Reno MD #### CP, LD, TROPI, CDP #### [facility] [address] [place] [address] Crotch Breaker: Richmond Nicole MD ALT [Catalytic activity/Vol] 19 U/L Normal 5-41 [facility] Comment on above: Performed By: #### C RP, PRCAL, FERI #### [address] [phone] Crotch Breaker: Rogers Reno MD #### CP, LD, TROPI, CDP #### [facility] [address] [place] [address] Crotch Breaker: Richmond Nicole MD Anion gap [Moles/Vol] 18 mmol/L High 9-17 [facility] Comment on above: Performed By: #### C RP, PRCAL, FERI #### [address] [phone] Crotch Breaker: Rogers Reno MD #### CP, LD, TROPI, CDP #### [facility] [address] [place] [address] Crotch Breaker: Richmond Nicole MD AST [Catalytic activity/Vol] 17 U/L Normal <40 [facility] Comment on above: Performed By: #### C RP, PRCAL, FERI #### [address] [address] Crotch Breaker: Rogers Reno MD #### CP, LD, TROPI, CDP #### [facility] [address] [place], [place] [phone] Crotch Breaker: Richmond Nicole MD Bilirubin [Mass/Vol] 0.47 mg/dL Normal 0.30-1.20 [facility] Comment on above: Performed By: #### C RP, PRCAL, FERI #### [address] [phone] Crotch Breaker: Rogers Reno MD #### CP, LD, TROPI, CDP #### [facility] [address] [place] [address] Crotch Breaker: Richmond Nicole MD BUN/CRE Ratio 19 Normal 9-20 [facility] Comment on above: Performed By: #### C RP, PRCAL, FERI #### [address] [id number] Crotch Breaker: Rogers Reno MD #### CP, LD, TROPI, CDP #### [facility] [address] [place] [address] Crotch Breaker: Richmond Nicole MD Calcium [Mass/Vol] 9.3 mg/dL Normal 8.6-10.4 [facility] Comment on above: Performed By: #### C RP, PRCAL, FERI #### [address] [phone] Crotch Breaker: Rogers Reno MD #### CP, LD, TROPI, CDP #### [facility] [address] [place] [address] Crotch Breaker: Richmond Nicole MD Chloride [Moles/Vol] 92 mmol/L Low 98-107 [facility] Comment on above: Performed By: #### C RP, PRCAL, FERI #### [address] [phone] Crotch Breaker: Rogers Reno MD #### CP, LD, TROPI, CDP #### [facility] [address] [place], [place] [phone] Crotch Breaker: Richmond Nicole MD CO2 [Moles/Vol] 23 mmol/L Normal 20-31 [facility] Comment on above: Performed By: #### C RP, PRCAL, FERI #### [address] [phone] Crotch Breaker: Rogers Reno MD #### CP, LD, TROPI, CDP #### [facility] [address] [place], [place] [phone] Crotch Breaker: Richmond Nicole MD Creatinine [Mass/Vol] 1.16 mg/dL Normal 0.70-1.20 [facility] Comment on above: Performed By: #### C RP, PRCAL, FERI #### [address] [id number] Crotch Breaker: Rogers Reno MD #### CP, LD, TROPI, CDP #### [facility] [address] [place], [place] [phone] Crotch Breaker: Richmond Nicole MD GFR, Amer >60 Normal >60 [facility] Comment on above: Performed By: #### C RP, PRCAL, FERI #### [address] [id number] Crotch Breaker: Rogers Reno MD #### CP, LD, TROPI, CDP #### [facility] [address] [place], [place] [id number] Crotch Breaker: Richmond Nicole MD GFR,non Amer >60 Normal >60 [facility] Comment on above: Performed By: #### C RP, PRCAL, FERI #### [address] [phone] Crotch Breaker: Rogers Reno MD #### CP, NATHANIEL, TROPI, CDP #### [facility] [address] [place], [place] [phone] Crotch Breaker: Richmond Nicole MD Glucose [Mass/Vol] 219 mg/dL High 70-99 [facility] Comment on above: Performed By: #### C RP, PRCAL, FERI #### [address] [id number] Crotch Breaker: Rogers Reno MD #### CP, NATHANIEL, TROPI, CDP #### [facility] [address] [place], [place] [phone] Crotch Breaker: Richmond Nicole MD Potassium [Moles/Vol] 3.3 mmol/L Low 3.7-5.3 [facility] Comment on above: Performed By: #### C RP, PRCAL, FERI #### [address] [phone] Crotch Breaker: Rogers Reno MD #### MARGARETH, NATHANIEL, TROPI, CDP #### [facility] [address] [place], [place] [phone] Crotch Breaker: Richmond Nicole MD Protein [Mass/Vol] 7.7 g/dL Normal 6.4-8.3 [facility] Comment on above: Performed By: #### C RP, PRCAL, FERI #### [address] [phone] Crotch Breaker: Rogers Reno MD #### CP, LD, TROPI, CDP #### [facility] [address] [place], [place] [phone] Crotch Breaker: Richmond Nicole MD Sodium [Moles/Vol] 133 mmol/L Low 135-144 [facility] Comment on above: Performed By: #### C RP, PRCAL, FERI #### [address], [place] [phone] Crotch Breaker: Rogers Reno MD #### CP, NATHANIEL, TROPI, CDP #### [facility] [address] [place], [place] [phone] Crotch Breaker: Richmond Nicole MD Urea nitrogen [Mass/Vol] 22 mg/dL Normal 06-22 [facility] Comment on above: Performed By: #### C RP, PRCAL, FERI #### [address] [phone] Crotch Breaker: Rogers Reno MD #### NATHANIEL ZULUAGA, TROPI, CDP #### [facility] [address] [place], [place] [phone] Crotch Breaker: Richmond Nicole MD Albumin/Glob Ratio NOT REPORTED Normal 1.0-2.5 [facility] Comment on above: Performed By: #### C RP, PRCAL, FERI #### [address] [phone] Crotch Breaker: Rogers Reno MD #### NATHANIEL ZULUAGA, TROPI, CDP #### [facility] [address] [place], [place] [phone] Crotch Breaker: Richmond Nicole MD Staging: NOT REPORTED Normal [facility] Comment on above: Performed By: #### C RP, PRCAL, FERI #### [address] [phone] Crotch Breaker: Rogers Reno MD #### CP, LD, TROPI, CDP #### [facility] [address] [place] [address] Crotch Breaker: Richmond Nicole MD Comprehensive Metabolic Pane lOrdered By: Stacia Saleh on 07-23-2021 Albumin [Mass/Vol] 3.1 g/dL Low 3.5 - 5.2 g/dL [facility] Work Phone: Albumin/Globulin Ratio NOT REPORTED [facility] Phone: ALP (Bld) [Catalytic activity/Vol] 75 U/L 40 - 129 U/L [facility] Phone: ALT [Catalytic activity/Vol] 19 U/L 5 - 41 U/L [facility] Phone: Anion gap [Moles/Vol] 18 mmol/L High 9 - 17 mmol/L [facility] Phone: AST [Catalytic activity/Vol] 17 U/L <40 [facility] Phone: Bilirubin [Mass/Vol] 0.47 mg/dL 0.30 - 1.20 mg/dL [facility] Phone: Calcium [Mass/Vol] 9.3 mg/dL 8.6 - 10. 4 mg/dL [facility] Phone: Chloride [Moles/Vol] 92 mmol/L Low 98 - 10 7 mmol/L [facility] Phone: CO2 [Moles/Vol] 23 mmol/L 20 - 31 mmol/L [facility] Phone: Creatinine [Mass/Vol] 1.16 mg/dL 0.70 - 1.20 mg/dL [facility] Phone: Free PSA/Total PSA [Mass fraction] 7.7 g/dL 6.4 - 8.3 g/dL [facility] Phone: GFR >60 >60 mL/min [employer] Phone: GFR Non- >60 >60 mL/min [facility] Phone: GFR/1.73 sq M.predicted MDRD (S/P/Bld) [Vol rate/Area] [facility] Phone: Comment on above: Average GFR for 60-6 9 years old: 85 mL/min/1.73sq m Chronic Kidney Disease: <60 mL/min/1.73sq m Kidney failure: <15 mL/min/1.73sq m eGFR calculated using average adult body mass. Additional eGFR calculator available at: http://www.Sanitors/multiple_crcl_2012.htm GFR/1.73 sq M.predicted MDRD (S/P/Bld) [Vol rate/Area] NOT REPORTED [facility] Phone: Glucose [Mass/Vol] 219 mg/dL High 70 - 99 mg/dL [facility] Phone: Interpretation and review of laboratory results Abnormal [facility] Phone: Potassium [Moles/Vol] 3.3 mmol/L Low 3.7 - 5.3 mmol/L [facility] Phone: Sodium [Moles/Vol] 133 mmol/L Low 135 - 144 mmol/L [facility] Phone: Urea nitrogen (BldV) [Mass/Vol] 22 mg/dL 8 - 23 mg/dL [facility] Phone: Urea nitrogen/Creatinine (Bld) [Mass ratio] 19 [facility] Phone: [facility] Phone: D-Dimer, QuantitativeOrdered By: Rojelio Mayes on 07-23-2021 D-Dimer, Quant 1.57 High [employer] Work Phone: Comment on above: When combined [...] Interpretation and review of laboratory results Abnormal [facility] Phone: [facility] Phone: Glucose, Whole BloodOrdered By: Rojelio Mayes on 07-23-2021 Glucose [Mass/Vol] 247 mg/dL High 65 - 99 mg/dL [facility] Phone: Interpretation and review of laboratory results Abnormal [facility] Phone: [facility] Phone: Lactate DehydrogenaseOrdered By: Stacia Saleh on 07-23-2021 Interpretation and review of laboratory results Abnormal [facility] Phone: LD 577 U/L High 135 - 225 U/L [facility] Phone: [facility] Phone: [id number] 07-23-2021 SARS-CoV-2 (COVID-19) RNA DESTIN+probe Ql (Unsp spec) Detected Abnormal [facility] Comment on above: Result Comment: Rapid [...] this assay. Fact sheet for Healthcare Providers: https://www.fda.gov/media/902774/download Fact sheet for Patients: https://www.fda.gov/media/631407/download Methodology: Isothermal Nucleic Acid Amplification Results reported to the appropriate Health Department Performed By: #### F DORON, CRP, FIB #### [address] [id number] [place] [address] Crotch Breaker: Rogers Reno MD #### NATHANIEL CHOW, CMPX, CDP #### [facility] [address] [place] [address] Crotch Breaker: Richmond Nicole MD Troponinon 07-23-2021 Troponin, High Sens 15 ng/L Normal 0-22 [facility] Comment on above: Result Comment: High Sensitivity Troponin values cannot be compared with other Troponin methodologies. Patients with high levels of Biotin oral intake (i.e >5mg/day) may have falsely decreased Troponin levels. Samples collected within 8 hours of biotin intake may require additional information for diagnosis. Performed By: #### F DORON, CRP, FIB #### [id number] [place] [address] Crotch Breaker: Rogers Reno MD #### CLAUDINE, NATHANIEL, CMPX, CDP #### [facility] [address] [place] [address] Crotch Breaker: Richmond Nicole MD Troponin Interp. NOT REPORTED Normal [facility] Comment on above: Performed By: #### F DORON, CRP, FIB #### [facility] [employer] [address] [place] [address] Crotch Breaker: Rogers Reno MD #### DIME, LD, CMPX, CDP #### [facility] [address] [place], [place] [phone] Crotch Breaker: Richmond Nicloe MD Troponin T NOT REPORTED Normal <0.03 [facility] Comment on above: Performed By: #### F DORON, CRP, FIB #### [facility] [address] [place] [address] Crotch Breaker: Rogers Reno MD #### CLAUDINE, LD, CMPX, CDP #### [facility] [address] [place] [address] Crotch Breaker: Richmond Nicole MD TroponinOrdered By: Stacia iqbal on 07-23-2021 Troponin Interp NOT REPORTED [facility] [employer] Work Phone: Troponin T NOT REPORTED <0.03 ng/mL [facility] Work Phone: Troponin, High Sensitivity 15 ng/L 0 - 22 ng/L [facility] Work Phone: Comment on above: High Sensitivity Troponin values cannot be compared with other Troponin methodologies. Patients with high levels of Biotin oral intake (i.e >5mg/day) may have falsely decreased Troponin levels. Samples collected within 8 hours of biotin intake may require additional information for diagnosis. [facility] Work Phone: XR CHEST PORTABLEon 07-23-20 XR [...] Stacia Calloway MD 07/23/21 Final result Normal [facility] XR CHEST PORTABLEOrdered By: Stacia Saleh on 07-23-2021 SARS-CoV-2 (COVID-19) RNA DESTIN+probe Ql (Unsp spec) Findings are compatible with an atypical infectious, inflammatory, or viral process to include COVID-19 pneumonia. [facility] [employer] Phone: EXAM: XR CHEST PORTABLE HISTORY: Reason for exam:->cough COMPARISON: None. TECHNIQUE: Portable chest radiograph. FINDINGS: The cardiomediastinal silhouette and pulmonary vasculature are normal. No pleural effusion, focal consolidation, pneumothorax. There are patchy airspace opacities along the periphery of the lungs in the mid to lower lungs bilaterally. Soft tissues and osseous structures are without acute findings. [facility] Phone: Diego, Mhpn Incoming Radiant Results From [employer] - 07/23/2021 8:46 PM EDT EXAM: XR [...] or viral process to include COVID-19 pneumonia. [facility] Phone: [facility] Phone: Vital Signs Date Time Vital Sign Value Performing Clinician Facility 12-21-2024 11:00-0500 Body height 180.34 cm [facility] 12-21-2024 11:00-0500 Body mass index (BMI) [Ratio] 28.3 kg/m2 [facility] 12-21-2024 11:00-0500 Body weight 92.19 kg [facility] 12-21-2024 11:00-0500 Diastolic blood pressure 89 mm[Hg] [facility] 12-21-2024 11:00-0500 Heart rate 67 /min [facility] 12-21-2024 11:00-0500 Respiratory rate 12 /min [facility] 12-21-2024 11:00-0500 Systolic blood pressure 139 mm[Hg] [facility] 09-03-2024 10:32-0500 Blood Pressure Location Thong EDY [facility] 09-03-2024 10:32-0500 Body temperature 98.6 [degF] Thong MATOS [facility] 09-03-2024 10:32-0500 Diastolic blood pressure 75 mm[Hg] Thong MATOS [facility] 09-03-2024 10:32-0500 Heart rate 70 /min Thong MATOS [facility] 09-03-2024 10:32-0500 Respiratory rate 18 /min Thong MATOS [facility] 09-03-2024 10:32-0500 Systolic blood pressure 136 mm[Hg] Thong MATOS [facility] 06-18-2024 09:55-0400 Blood Pressure Location Thong MATOS [facility] 06-18-2024 09:55-0400 Diastolic blood pressure 82 mm[Hg] Thong MATOS [facility] 06-18-2024 09:55-0400 Heart rate 76 /min Thong MATOS [facility] 06-18-2024 09:55-0400 Systolic blood pressure 148 mm[Hg] Thong MATOS [facility] 06-01-2024 10:17-0400 Body height 180.34 cm [facility] 06-01-2024 10:17-0400 Body mass index (BMI) [Ratio] 29.2 kg/m2 [facility] 06-01-2024 10:17-0400 Body weight 95.31 kg [facility] 06-01-2024 10:17-0400 Diastolic blood pressure 75 mm[Hg] [facility] 06-01-2024 10:17-0400 Heart rate 71 /min [facility] 06-01-2024 10:17-0400 Respiratory rate 12 /min [facility] 06-01-2024 10:17-0400 Systolic blood pressure 146 mm[Hg] [facility] 12-02-2023 10:00-0500 Body height 180.34 cm Elpidio [employer] Other [facility] [employer] Other 12-02-2023 10:00-0500 Body mass index (BMI) [Ratio] 30.62 kg/m2 Elpidio Ball Other [employer] Other 12-02-2023 10:00-0500 Body weight 99.61 kg Elpidio Ball Other [employer] Other 12-02-2023 10:00-0500 Diastolic blood pressure 80 mm[Hg] Elpidio Ball Other [employer] Other 12-02-2023 10:00-0500 Respiratory rate 12 /min Elpidio Ball Other [employer] Other 12-02-2023 10:00-0500 Systolic blood pressure 163 mm[Hg] Elpidio Ball Other [employer] Other 07-25-2021 13:45-0400 SaO2% (BldA) [Mass fraction] 95 % Stacia Saleh MD Work Phone: [employer] Work Phone: 07-25-2021 08:20-0400 Body temperature 98.6 [degF] Stacia Saleh MD Work Phone: [employer] Work Phone: 07-25-2021 08:20-0400 Diastolic blood pressure 60 mm[Hg] Stacia Saleh MD Work Phone: [employer] Work Phone: 07-25-2021 08:20-0400 Heart rate 61 /min Stacia Saleh MD Work Phone: [employer] Work Phone: 07-25-2021 08:20-0400 Respiratory rate 16 /min Stacia Saleh MD Work Phone: [employer] Work Phone: 07-25-2021 08:20-0400 Systolic blood pressure 132 mm[Hg] Stacia Saleh MD Work Phone: [employer] Work Phone: 07-24-2021 12:58-0400 Body height 180.3 cm Stacia Saleh MD Work Phone: [employer] Work Phone: 07-23-2021 22:15-0400 Body mass index (BMI) [Ratio] 27.81 kg/m2 Stacia Saleh MD Work Phone: [employer] Work Phone: 07-23-2021 22:15-0400 Body weight 90.45 kg Stacia Saleh MD Work Phone: [employer] Work Phone: Encounters Encounter Date Encounter Type Care Provider Facility Start: 09-06-2025 ambulatory Thong MATOS Facili ty:[facility] Start: 02-18-2025 End: 02-18-2025 ambulatory Thong MATOS Facility:[facility] Start: 12-21-2024 End: 12-21-2024 ambulatory [facility] Work Phone: Start: 12-21-2024 End: 12-21-2024 Patient encounter procedure [facility] Work Phone: Start: 09-03-2024 End: 09-03-2024 ambulatory Thong MATOS Facility:[facility] Start: 09-03-2024 End: 09-03-2024 Patient encounter procedure Thong MATOS [facility] Start: 08-14-2024 End: 08-14-2024 ambulatory DO Elpidio Sahu Work Phone: [facility] Work Phone: Start: 08-14-2024 End: 08-14-2024 Departed Referred DO Elpidio Sahu Work Phone: [facility] [place] Work Phone: Start: 08-14-2024 End: 08-14-2024 ambulatory Thong MATOS Facility:[id number] Start: 07-25-2024 End: 07-25-2024 Patient encounter procedure DO Elpidio Sahu Work Phone: [facility] [place] Work Phone: Start: 07-25-2024 End: 07-25-2024 ambulatory DO Elpidio Sahu Work Phone: [facility] Work Phone: Start: 06-18-2024 End: 06-18-2024 ambulatory Thong MATOS Facility:[facility] Start: 06-18-2024 End: 06-18-2024 Patient encounter procedure Thong MATOS [facility] Start: 06-01-2024 End: 06-01-2024 ambulatory [facility] Work Phone: Start: 06-01-2024 End: 06-01-2024 Encounter for general adult medical examination without abnormal findings [facility] Start: 06-01-2024 End: 06-01-2024 Patient encounter procedure [facility] Work Phone: Start: 05-26-2024 Non-patient / Non-visit [facility] Work Phone: Start: 03-19-2024 Non-patient / Non-visit [facility] Work Phone: Start: 12-02-2023 End: 12-02-2023 ambulatory Elpidio Sahu Other [employer] Other Start: 12-02-2023 Office outpatient vi sit 25 minutes Elpidio [facility] Start: 05-19-2022 Adult health examination Elpidio Sahu Other [employer] Other Start: 05-12-2022 Encounter for genera l adult medical examination without abnormal findings DR ELPIDIO SAHU [facility] Start: 05-08-2022 End: 05-09-[address] ELPIDIO SAHU Facility:[facility] Start: 05-08-2022 End: 05-09-2022 Encounter for general adult medical examination without abnormal findings DR ELPIDIO SAHU Facility:[facility] Start: 07-23-2021 End: 07-25-2021 Evaluation and management of inpatient [facility] Start: 07-23-2021 End: 07-25-2021 Evaluation [...] Comment on above: Performed By: #### [facility] #### [facility] [address] [place] [address] Dr. Oniel Jackson Start: 07-25-2021 Gluc bld [...] d ev cleared fda spec home use Rojeloi Mayes MD Work Phone: Start: 07-24-2021 Assay [...] Treatment Date Care Activity Detail Author Start: 08-14-2024 [facility] Start: 07-25-2024 MR Prostate WO and W contrast IV [facility] Start: 07-25-2024 MR prostate wo/w con MR prostate wo/ w con [facility] Start: 07-24-2022 Creatinine measurement Creatinine mo nitoring [facility] Phone: Start: 07-24-2022 Potassium monitoring Potassium monit oring [facility] Phone: Start: 07-23-2022 Hemoglobin A1c measurement A1C test (Diabetic or Prediabetic) [facility] Phone: Start: 07-01-2021 Influenza vaccination Flu vaccine (# 1) [facility] Phone: Start: 2020 Pneumococcal 65+ yea rs Vaccine (1 of 1 - PPSV23) Pneumococcal 65+ years Vaccine (1 of 1 - PPSV23) [facility] Phone: Start: 05-13-2018 DTaP/Tdap/Td vaccine (1 - Tdap) DTaP/Tdap/Td vaccine (1 - Tdap) [facility] Phone: Start: 2005 Shingles Vaccine (1 of 2) Shingles V accine (1 of 2) [facility] Phone: Start: 2000 Screening for malign ant neoplasm of colon Colon cancer screen colonoscopy [facility] Phone: Start: 1973 Diabetic microalbumi tony test Diabetic microalbuminuria test [facility] Phone: Start: 1967 COVID-19 Vaccine (1) COVID-19 Vaccin e (1) [facility] Phone: Start: 1965 Diabetic foot examination Diabetic f oot exam [facility] Phone: Start: 1965 Diabetic retinal exam Diabetic retin al exam [facility] Phone: Start: 1965 Lipid panel Lipid screen [facility] Phone: Start: 1955 Hepatitis C screening Hepatitis C sc reen [facility] Phone: End: 07-23-2021 C DIFF TOXIN/ANTIGEN C DIFF TOXIN/ANTIGEN Microbiology Routine 48 HRS for 48 Hours starting 07/23/2021 until 07/23/2021 [facility] Phone: Comment on above: 48 HRS for 48 Hours starting 07/23/2021 until 07/23/2021 End: 07-26-2021 C-reactive protein C-Reactive Protein Lab Routine Daily for 3 Occurrences starting 07/24/2021 until 07/26/2021, 1 completed [facility] Phone: Comment on above: Daily for 3 Occurren chris starting 07/24/2021 until 07/26/2021, 1 completed C-reactive protein C-Reactive Pr otein Lab Routine 07/25/2021 5:02 AM EDT [facility] Phone: End: 07-23-2021 Culture, Respiratory, Sputum Culture, Respiratory, Sputum Microbiology Routine One Time for 1 Occurrences starting 07/23/2021 until 07/23/2021 [facility] Phone: Comment on above: One Time for 1 Occur rences starting 07/23/2021 until 07/23/2021 End: 07-26-2021 D-Dimer, Quantitative D-Dimer, Quantitative Lab Routine Daily for 3 Occurrences starting 07/24/2021 until 07/26/2021, 2 completed [facility] Phone: Comment on above: Daily for 3 Occurren chris starting 07/24/2021 until 07/26/2021, 2 completed Glucose [Mass/volume ] in Serum or Plasma [facility] Phone: Comment on above: 4X Daily (AC & HS) u ntil discontinued starting 07/24/2021 As Needed until disc ontinued starting 07/23/2021 Hepatic function 200 0 panel - Serum or Plasma Hepatic function panel Lab Routine Daily until discontinued starting 07/24/2021, 1 completed [facility] Phone: Comment on above: Daily until disconti nued starting 07/24/2021, 1 completed Nasal Cannula Oxygen Nasal Cannu la Oxygen Respiratory Care Routine Daily until discontinued starting 07/23/2021 [facility] Phone: Comment on above: Daily until disconti nued starting 07/23/2021 Oxygen therapy [[facility] Data Set] Initiate Oxygen Therapy Protocol Respiratory Care Routine Daily until discontinued starting 07/23/2021 [facility] Phone: Comment on above: Daily until disconti nued starting 07/23/2021 End: 07-25-2021 Procalcitonin Procalcitonin Lab Routine Q48H for 2 Occurrences starting 07/23/2021 until 07/25/2021 [facility] Phone: Comment on above: Q48H for 2 Occurrenc es starting 07/23/2021 until 07/25/2021 [facility] Immunizations Immunization Date Immunization Notes Care Provider Fa cility 08-03-2024 COVID-19 (PFIZER) 12Y and older [facility] 08-03-2024 COVID-19 mRNA Bivalent Booster (Pfizer) [facility] 08-03-2024 influenza, high dose seasonal, preservative-free [facility] 08-12-2023 COVID-19 (PFIZER) 12Y and older [facility] 08-12-2023 Influenza vaccine, quadrivalent, adjuvanted [facility] 08-12-2023 influenza virus vaccine, unspecified formulation Thong MATOS [facility] 08-13-2022 influenza virus vaccine, split virus (incl. purified surface antigen) Elpidio Sahu Other [employer] Other 08-13-2022 influenza virus vaccine, unspecified formulation [facility] 05-21-2022 Prevnar 20 Elpidio aShu Other [facility] 03-26-2022 COVID-19 Comirnaty (Pfizer) Tri-Sucrose 12+ [facility] 03-26-2022 SARS-CoV-2 mRNA (mfdrpmzsoug-ryux-xtk ann-marie) vaccine Thong EDY [facility] 10-09-2021 SARS-CoV-2 (COVID-19 ) mRNA BNT-162b2 vax Thong MATOS [facility] 09-18-2021 SARS-CoV-2 (COVID-19 ) mRNA BNT-162b2 vax Thong MATOS [facility] 08-28-2021 Fluzone QIV High-Dos e 65YR+ [facility] 08-28-2021 influenza virus vaccine, unspecified formulation Thong MATOS [facility] 05-12-2018 tetanus and diphtheria toxoids, adsorbed, preservative free, for adult use (2 Lf of tetanus toxoid and 2 Lf of diphtheria toxoid) Thong MATOS [facility] 05-12-2018 tetanus and diphtheria toxoids, adsorbed, preservative free, for adult use (5 Lf of tetanus toxoid and 2 Lf of diphtheria toxoid) [facility] 05-12-2018 tetanus toxoid, reduced diphtheria toxoid, and acellular pertussis vaccine, adsorbed Elpidio Sahu Other [employer] Other NEGATED: Highlighted row has not occurred!01-18-2020 influenza virus vaccine, live, attenuated, for intranasal use Thong MATOS [facility] Payers Date Payer Category Payer Self-pay 2023 Private Health Insurance [id number] 2020 Medicare [id number] 1959 Private Health Insurance [id number] 1955 Unknown [id number] 2.16.8 [id number] 1955 Unknown [id number] 2.16.84 [id number] 1955 Unknown [id number] 2.16.8 [id number] 1955 Unknown [id number] 2.16.8 [id number] 1955 Unknown [id number] 2.16.8 [id number] 1955 Unknown [id number] 2.16.8 [id number] 1955 Unknown [id number] 2.16.8 [id number] Unknown [id number] 2.16.8 [id number] Unknown [id number] 2.16.8 [id number] Social History Date Type Detail Facility Start: 07-23-2021 End: 06-01-2024 Tobacco smoking status SDIS Never smoker [facility] Start: 07-23-2021 Tobacco use and exposure Never used [employer] Start: 07-23-2021 Alcohol intake Lifetime non-d pascale (finding) [employer] Work Phone: Start: 07-23-2021 History SDOH Alcohol Frequency 1 [facility] Phone: Start: 1955 Sex Assigned At Not on file [employer] Work Phone: Exposure to SARS-CoV -2 (event) Yes [facility] Sex Assigned At [facility] Start: 1955 Sex Assigned At Male F [facility] Start: 06-18-2024 End: 09-03-2024 Tobacco smoking status Ex-smoker (finding) [facility] Tobacco smoking status Never [facility] Start: 12-21-2024 Sex Male (finding) [facility] Medical Equipment Procedure Code Equipment Code Equipment Origin al Text Equipment Identifier Dates 1 each by Does n ot apply route daily [id number] Start: 07-25-2021 Functional Status Date Assessment Result Facility 09-03-2024 Functional Status N/A [facility] 06-18-2024 Functional Status N/A [facility] Clinical Notes 07-25-2021 to 02-18-2025 Note Date & Type Note Facility 02-18-2025 Note Patient Education Oncology Prostate Cancer Screening [...] recommendations. In general, screening is recommended if: ??? You are age 50 to 70 and [...] have a 10- to 15-year life expectancy. ??? You are younger than age 50, and [...] In general, screening is not recommended if: ??? You are younger than age 40. ??? You are between the ages of 40 and 49 and you have no risk factors. ??? You are 70 years of age or [...] high PSA levels may be caused by: ??? Prostate cancer. ??? An enlarged prostate that is not caused by cancer (benign prostatic hyperplasia, or BPH). This condition is very common in older men. ??? A prostate gland infection (prostatitis) or urinary tract infection. ??? Certain medicines such as male hormones (like [...] you may need more tests, such as: ??? A physical exam to check the size of your prostate gland, if not done as part of screening. ??? Blood and imaging tests. ??? A procedure to remove tissue samples from your prostate gland for testing (biopsy). This is the only way to know for certain if you have prostate cancer. What are the benefits of prostate cancer screening? Screening can help to identify cancer at an early stage, before symptoms start and when the cancer can be treated more easily. ??? There is a small chance that screening [...] Questions to ask your health care provider ??? When should I start prostate cancer screening? What is my risk for prostate cancer? How often do I need screening? What type of screening tests do I need? How do I get my test results? What do my results mean? Do I need treatment? Where to find more information ??? The [place] Cancer Society: www.cancer.org ??? [place] Urological Association: www.auanet.org Contact a health care provider if: ??? You have difficulty urinating. ??? You have pain when you urinate or ejaculate. ??? You have blood in your urine or semen. ??? You have pain in your back or in the area of your prostate. Summary ??? Prostate cancer is a common type of cancer in men. The prostate gland (more content not included)... [facility] 09-03-2024 Hospital Discharge instructions Patient Education 09/03/2024 [...] under a microscope. This is called the Gustine score and the total score can range from 6 10, indicating how likely it is that the cancer will spread (metastasize) to other parts of the body. The higher the score, the greater the likelihood that the cancer will spread. Ashley 6 or lower: This indicates that the cancer cells look similar to normal prostate cells (well differentiated). Gustine 7: This indicates that the cancer cells [...] stress of having cancer. General instructions Take qsxu-pnm-lcsqrbm and prescription medicines only as told by your health care provider. If you have to go to the hospital, notify your cancer specialist (oncologist). Keep all follow-up visits. This is important. Where to find more information [place] Cancer Society: www.cancer.org [place] Society of Clinical Oncology: www.cancer.net National Cancer [employer]: www.cancer.gov Contact a health care provider if: [...] provider. Document Revised: 01/13/2022 Document Reviewed: 01/13/2022 Mor[employer]sl Patient Education 2023 [employer]. Follow Up Care 07/30/2024 15:23:03 With:EDY CARRINGTON, Thong Sherwood, URL Address: [facility] [address] , [place] [address]- When: Unknown [facility] 09-03-2024 Note Patient Education Oncology Prostate Cancer [...] likelihood that the cancer will spread. ??? Gustine 6 or lower: This indicates that the [...] seeds, wires, o (more content not included)... [facility] 06-18-2024 Hospital Discharge instructions Patient Education 06/18/2024 [...] including vitamins, herbs, eye drops, creams, and yxlt-xun-ysagypm medicines. Any surgeries you have had. Any [...] provider. Document Revised: 06/30/2022 Document Reviewed: 02/18/2021 [employer] Patient Education 2022 [employer]. 06/18/2024 10:38:50 Prostate Cancer Screening Prostate Cancer [...] treatment? Where to find more information The [place] Cancer Society: www.cancer.org [place] Urological Association: www.auanet.org Contact a health care [...] provider. Document Revised: 04/12/2022 Document Reviewed: 04/12/2022 Mor[employer]sl Patient Education 2022 [employer]. Follow Up Care 2024 15:50:19 With:EDY CARRINGTON, Thong Sherwood, URL Address: [facility] [address], [place] [address]- [phone] When: Unknown [facility] 06-18-2024 Note Urology Office/Clini c Note Chief [...] [facility] [address], [place] [address]- [phone] Additional Instructions: f/u pending prostate MRI Patient Education Magnetic Resonance Imaging Prostate Cancer Screening I, Carolina Galan, personally scribed for Dr. Matos on 06/18/2024 10:40:15. . Documentation recorded by the scribCarolina sanders, accurately reflects the services(s) I performed [...] influenza virus vaccine, inactivated 08/12/2023 Recorded SARSCoV2 mRNA(ybxbmjpra-ubrz-szohrj) vac 03/26/2022 Recorded SARS-CoV-2 (COVID-19) mRNA BNT-162b2 vax 10/09/2021 Recorded SARS-CoV-2 (COVID-19) mRNA BNT-162b2 vax 09/18/2021 Recorded influenza virus vaccine, inactivated 08/28/2021 Recorded influenza virus vacc (more content not included)... [facility] Comment on above: Result Comment: Elec tronically [...] Where to find more information ? The [place] Cancer Society: www.cancer.org ? [place] U[employer] Association: www.auanet.org Contact a health care [...] of the rectum. (more content not included)... [facility] 12-02-2023 Evaluation note Encounter Date Diagnosis Assessment [...] elevated Mar, Overweight (ICD-10 - E66.3) Overweight [employer] Other 09-25-2021 History of Present illness Narrative* [...] mass loss Fluid Accumulation: Unable to assess Inner Diameter Grinder Tool Strength: Not Performed Estimated Daily Nutrient Needs: Energy (kcal): 0798-2142 (20-23/kg); Weight Used for Energy Requirements: Current Protein (g): 94-125g (1.4-1.6g/kg); Weight Used for Protein Requirements: [place] Fluid (ml/day): 2070 ml; Method Used for Fluid Requirements: 1 ml/kcal Nutrition Related Findings: appears well nourished Wounds: None Current Nutrition Therapies: ADULT DIET; Regular; 4 carb choices (60 gm/meal) Anthropometric Measures: Height: 5' 11 (180.3 cm) Current Body Weight: 199 lb 6.4 oz (90.4 kg) Admission Body Weight: 199 lb 6.4 oz (90.4 kg) Usual Body Weight: 220 lb (99.8 kg) [place] Body Weight: 172 lbs; % [place] Body Weight 115.9 % BMI: 27.8 BMI [...] Weight Discharge Planning: Continue current diet Contact: [id number] * Yumiko Siddiqi LSW - 07/24/2021 12:27 PM EDT SW met with pt by phone to complete assessment due to covid diagnosis during quality rounds with RNcase writing manager. Pt is alert and oriented and cooperative with assessment. Pt is a 66 year old marriedmale admitted for pneumonia due to covid 19 virus. Pt lives with his spouse in their home in [place]. Pt was not using any DME or [...] a living will or durable power of criminal defense attorney for healthcare? denies If yes do we have a copy on file? n/a Do you or your family have any questions or concerns we haven't already discussed? Denies Lives with and denies needs at discharge. PCP is Dr Sahu, prefers morning f/u appt time. Phone interview completed with Yumiko RODRIGUEZ and sign writer hand due to covid diagnosis * Rina Gayle RN - 07/24/2021 11:05 AM EDT Virtual consult with Dr. Clark completed at bedside. * Nataliia Osorio RCP - 07/24/2021 9:49 AM EDT Pt weaned to room air at this time,SpO2 92-94% on room air. Ear probe is attached, continuous pulseox currently being utilized. Pt aware of O2 wean. * Nayely Lee [facility] - 07/23/2021 10:37 PM EDT [...] impairment (eGFR < 30 mL/min) or on BRONC BUSTER. Consider risk/benefit for individual patient. Baseline CrCl: [...] 97% & 23 RR. documented in this [facility] Phone: 1(707) 494-715609-25-2021 Hospital course Narrative* Rojelio Mayes MD - 07/25/2021 12:15 PM EDT Hospitalist Discharge Summary Patient: Sid Han Date of : 1955 Acct: [id number] Primary Care Physician: Elpidio Sahu DO Admit date: 07/23/2021 Discharge date: 07/25/2021 Discharge Diagnoses: 1.Pneumonia due to COVID-19 virus 2. Hypoxia, resolved 3. Hyperglycemia, steroid-induced 4. Diabetes mellitus type 2, ppa-itqhflt-mvteocviv, controlled with hemoglobin A1c 7.4% on 07/23/21 5. Hypokalemia, replaced Discharge Medications: Sid Han Home Medication Instructions JAVID:[id number] Printed on:07/25/21 1215 Medication Information ascorbic acid [...] (with breakfast) Vitamin D (CHOLECALCIFEROL) 50 MCG (2000 UT) TABS tablet Take 1 tablet by [...] 33 minutes Discharging Hospitalist [facility]: evaluation + Plan note Future Appointments Appointment Date:06/21/2025 09:45:00 AM Scheduled Provider:Thong MATOS MD Location:[facility] Appointment Type:URO Office Visit [facility] evaluation + Plan note Future Appointments Appointment Date:02/01/2025 09:45:00 AM Scheduled Provider:Thong MATOS MD Location:[facility] Appointment Type:URO Office Visit Diagnostic Tests Pending * PSA Total 09/03/24 [facility] evalqvauuj note* Diagnosis Pneumonia due to COVID-19 virus- Primary Severe malnutrition (HCC) Nutritional marasmus documented in this encounter [facility] Phone: evaluation note* Diagnosis Onset Date Resolution Status 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 Elevated PSA acute Hypercholesterolemia acute Hypertension acute Type 2 diabetes mellitus with hyperglycemia acute Wellness examination noneact [facility] Work Phone: Evaluation note* Diagnosis Onset Date Resolution Status 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 Elevated PSA acute Hypercholesterolemia acute Hypertension acute Overweight acute Type 2 diabetes mellitus with hyperglycemia acute Wellness examination noneact [facility] Work Phone: Evaluation note* Diagnosis Onset Date Resolution Status Admit Date Hypercholesterolemia acute Febr ua2024 10:36am Hypertension acute December 10:36am Overweight acute December 21, 2024 10:36am Prostate cancer acute December 21, 2024 10:36am Type 2 diabetes mellitus wit h hyperglycemia acute December 21, 2 025 10:36am [facility] Work Phone: History general Narrative - [...] BIOPSY 2019 Hospitalization History SEE SURGICAL HX [facility] [employer] Other Hospital course Narrative No data available for this section [facility] Discharge instructions* Attachments The following attachments cannot be sent through Care Everywhere. * Coronavirus Disease (COVID-19): Hospital Discharge (Icelandic) * Coronavirus Disease (COVID-19): General Info (Icelandic) * Insulin Pen: How to Use: General Info (Icelandic) * insulin detemir (Icelandic) documented in this [facility] [place] Work Phone: progress note No data available for this section [facility] Advance Directives No Advanced Directives Records FoundDocuments on File Type Date Recorded Patient Client Manager Expl anation ACP-Power of Back End Developer Latest Code Status on File Code Status Date Activated Date Inactivated Comments Full Code 07/23/2021 10:11 PM Healthcare Agents on File Name Relationship Healthcare Agent Jaxsonhi p Communication Slime Han Spouse Primary Decision Maker Advance Directive Response Recorded Date/ Time Advance Directives No December 02, 2023 12:06pm Advance Directive Response Recorded Date/ Time Advance Directives No December 02, 2023 11:06am Summary Purpose Family History No Family History [...] Contact Diagnoses Pneumonia due to COVID-19 virus Rojleio Mayes MD [address] [place] [address] [facility] Ordered Prescriptions (unrec ognized section and content) [...] 07/25/2021 08/02/2021 Vitamin D (CHOLECALCIFEROL) 50 MCG (2000 UT) TABS tablet Take 1 tablet by [...] on Tue07/24/21 at 2000, For 10 doses 2101 (Given - Provider: Charla Bal RN) 1999 (Due) enoxaparin (LOVENOX) injection 30 mg 30 mg, SubCUTAneous, 2 TIMES DAILY, First dose on Tue07/23/21 at 2230 2227 (Given - Provider: Molly Nair RN) 0817 (Given - Provider: Rina Gayle RN)2100 (Given - Provider: Charla Bal RN) 08 (Given - Provider: Rina Gayle RN)2099 (Due) insulin lispro (HUMALOG) injection vial 0-12 [...] Provider: Molly Nair RN - Comment: 247) 2055 (Given - Provider: Charla Bal RN - Comment: sbs 172) 2099 (Due) potassium chloride (KLOR-CON) extended release tablet [...] On Tue07/24/21 at 2300, For 1 dose 235 (New Bag - Provider: Charla Bal RN) 0043 (Stopped - Provider: hCarla Bal RN) remdesivir 200 mg in sodium chloride [...] Rina Gayle RN - Reason: IV Fluid Infusing)2104 (Not Given - Provider: Charla Bal RN - Reason: IV Fluid Infusing) 0820 (Not [...] 1113 (New Bag - Provider: Rina Gayle, [place]) 1134 (Stopped - Provider: Rina Gayle, RN) PRN Medication Order 07/23/2021 07/24/2021 07/25/2021 0.9 % sodium chloride bolus 30 mL (0.332 mL/kg), IntraVENous, at 180 mL/hr, Administer over 10 Minutes, PRN, for Remdesivir line flush, Starting on Tue07/23/21 at 2236 2302 (New Bag - Provider: [...] pital DATE CREATED AUTHOR AUTHOR'S ORGANIZ ATION 09/16/2024 [facility] DATE CREATED AUTHOR AUTHOR'S ORGANIZ ATION 02/19/2025 [facility] Care Teams (unrecognized sec tion and content) Team Status: Active Member Role Status Dates Elpidio Sahu DO Primary Care Provider Active Team Status: Inactive [...] BE BASED ON THE PRIMARY CLINICAL RECORDS. [employer] [facility]. provides no warranty or guarantee of the accuracy or completeness of information in this document.
[2025-06-15 09:12] LABS: Hematocrit 41.2 % (42.0-54.0); Hemoglobin 13.8 g/dL (14.0-18.0); Immature Granulocytes Abs Auto 0.09 10^3/uL (0.00-0.03); Immature Granulocytes Pct Auto 1.1 % (0.0-0.5); Lymphocytes Absolute Auto 3.6 10^3/uL (1.2-3.8); Mean Corpuscular HGB Conc 33.5 g/dL (29.9-35.2); Mean Corpuscular Hemoglobin 30.5 pg (25.9-34.0); Mean Corpuscular Volume 90.9 fL (80.0-94.0); Platelet Count 250 10^3/uL (150-450); Red Blood Count 4.53 10^6/uL (4.70-6.10); White Blood Count 8.5 10^3/uL (4.0-11.0)
[2025-06-15 09:43] LABS: Alanine Aminotransferase 29 U/L (16-63); Albumin Globulin Ratio 1.0; Albumin Level 3.5 g/dL (3.4-5.0); Alkaline Phosphatase 72 U/L (46-116); Anion Gap 10.9; Aspartate Amino Transferase 16 U/L (15-37); Blood Urea Nitrogen 18.0 mg/dL (7.0-18.0); Calcium 8.3 mg/dL (8.5-10.1); Carbon Dioxide 27.6 mmol/L (21.0-32.0); Chloride 105 mmol/L (98-107); Cholesterol 189 mg/dL (<=200); Estimated GFR (African America >60 (>=60 mL/min/1.73m^2); Estimated GFR (Non-African Ame >60 (>=60 mL/min/1.73m^2); Globulin 3.6 g/dL; Glucose 166 mg/dL (74-106); HDL Cholesterol 48 mg/dL (40-60); Potassium 4.5 mmol/L (3.5-5.1); Sodium 139 mmol/L (136-145); Total Protein 7.1 g/dL (6.4-8.2); Triglycerides 138 mg/dL (<=150); VLDL CHOLESTEROL 27.6 mg/dL
== END 2025-06-15 08:40 | disposition home or self-care (01) ==
PROVIDERS: PCP Internal Medicine; Visit Provider Internal Medicine
DX: Z00.00 Encounter for general adult medical examination without abnormal findings (principal); E78.00 Pure hypercholesterolemia, unspecified; I10 Essential (primary) hypertension; E11.65 Type 2 diabetes mellitus with hyperglycemia
CPT/HCPCS: 36415; 80053; 80061; 82043; 82570; 83036; 85025

== ENCOUNTER 2025-08-30 15:57 | Outpatient (OUT) | payer MEDICARE, SELFPAY ==
--- OUTSIDE RECORDS SUMMARY | 2025-08-30 16:04 | XMS_ITS | Clinical Summary ---
Author Organization [facility] Address [address], [address] [place] [address] Care Team Providers Care Vamp Seamer Name Role Phone Elpidio Sahu DO Primary Care Provider [phone] Allergies No known active allergies Medications MedicationSigDispense QuantityRefillsLast FilledStart DateEnd DateStatus LISINOPRIL PO Take 10 mg by mouth dailyActive metFORMIN (GLUCOPHAGE) 1000 MG tablet Take 1,000 mg by mouth daily (with breakfast)Active ascorbic acid (VITAMIN C) 1000 MG tablet Take 1 tablet by mouth daily 30 tablet ctive Vitamin D (CHOLECALCIFEROL) 50 MCG (1999) TABS tablet Take 1 tablet by mouth daily 60 tablet 07/26/2021ctive insulin detemir (LEVEMIR FLEXTOUCH) 100 UNIT/ML injection pen Inject 10 Units into the skin daily (with breakfast) 2 pen ctive Insulin Pen Needle ([employer] PEN NEEDLES) 31G X 6 MM MISC 1 each by Does not apply route daily 50 each ctive Active Problems ProblemNoted DateDiagnosed DateSevere tjlznijkxitd23/24/2021Pneumonia due to COVID-19 virus07/23/2021 Social History Tobacco UseTypesPacks/DayYears UsedDateSmoking Tobacco: NeverSmokeless Tobacco: NeverAlcohol UseStandard Drinks/WeekCommentsNever0 (1 standard drink = 0.6 oz pure alcohol)Sex and Gender InformationValueDate RecordedSex Assigned at Not on fileLegal TagHvrn1412/10/2012 2:50 PM ESTGender IdentityNot on fileSexual OrientationNot on file Last Filed Vital Signs Vital SignReadingTime TakenCommentsBlood Ftzymjng096/6009 8:20 AM EDT Qnboe763807/25/2021 8:20 AM LLELijghinqeso71 ??C (98.6 ??F)07/25/2021 8:20 AM EDT Respiratory Lyjq232807/25/2021 8:20 AM EDTOxygen Gcptnjpsag11%07/25/2021 1:45 PM EDTInhaled Oxygen Concentration--Lpodqo81.4 kg (199 lb 6.4 oz)07/23/2021 10:15 PM NMPPtxaxu492.3 cm (5' 11 )07/24/2021 12:58 PM EDTBody Mass Index27.81 07/23/2021 10:15 PM EDT Plan of Treatment Not on file Additional Health Concerns InfectionOnset DateLast IndicatedC-diff Rule Out Insurance Advance Directives * Full Code (Latest Code Status on File) Date ActivatedDate InactivatedComments07/23/2021 10:11 PM07/25/2021 5:21 PM NameRelationshipHealthcare Agent RelationshipCommunicationJoyce DennisSpouse Primary Decision Maker* Care Teams Team MemberRelationshipSpecialtyStart DateEnd Date Elpidio Sahu DO PCP - GeneralInternal Medicine05/10/17
--- OUTSIDE RECORDS SUMMARY | 2025-08-30 16:06 | XMS_ITS | CCD ---
Author Organization [facility] Care Team Providers Care Fitting Room Supervisor Name Role Phone Elpidio Sahu DO Primary Care Provider GHROJELIO OHARA Attending Unavailable ROJELIO MAYES Admitting Unavailable ELPIDIO SAHU Primary Care Unavailable STACIA CLARK Consulting Unavailable BALL, DR PLATT Attending Unavailable BALL, DR PLATT Consulting Unavailable BALL, DR PLATT Primary Care Unavailable BALL, DR PLATT Admitting Unavailable Elpidio Sahu Unavailable ELPIDIO SAHU Primary Care Physician DO Elpidio Sahu Primary Care Provider [phone] MD Thong Matos Attending Provider Thong Matos Admitting Unavailable Matos, Thong Attending Unavailable Luis Alberto, Elpidio Primary Care Unavailable Matos, Thong Admitting Unavailable Matos, Thong Attending Unavailable Ball, Elpidio Primary Care Unavailable MATOS, Thong R Attending Unavailable MATOS, Thong R Attending Unavailable MATOS, Thong R Attending Unavailable MATOS, Thong R Attending Unavailable MATOS, Thong R Attending Unavailable Ball Elpidio CARVER Primary Care Provider Elpidio Sahu DO Attending Provider Allergies Allergy ClassificationReported Allergen(s)Allergy TypeDate of OnsetReaction(s) Facility (1 source)No Known Medication Allergies; Translations: [No Known Medication Allergies]Propensity to adverse reactions (disorder)[facility] Rep[facility] Medications Current Medications MedicationDrug Class(es)DatesSig (Normalized)Sig (Original)0.25 MG, 0.5 MG Dose 3 ML semaglutide 0.68 MG/ML Pen Injector [Ozempic] (2 sources)Start: 53-15-0106Ntjfwew 2 mg/3 mL (0.25 mg or 0.5 mg dose) subcutaneous solution 0.5 mg Start Date: 06/18/24 Status:OrderedAcetaminophen (1 source)Start: 38-56-8573lqjotjwpcboog (TYLENOL) tablet 650 mgascorbic acid 1000 mg oral tablet (2 sources)Vitamin CStart: 24-31-2046ouog 1 tablet by mouth once dailyascorbic acid (VITAMIN C) 1000 MG tablet Take 1 tablet by mouth daily 30 tablet 3 07/26/2021 ActiveStart: 58-81-5273zmln 1000 mg by mouth once daily1,000 mg, Oral, DAILY, First dose on Tue07/24/21 at 0900budesonide 0.25 mg/ml inhalation suspension (1 source)CorticosteroidStart: 45-84-9673vavr 500 ug by mouth twice rojje256 mcg (0.5 mg), Nebulization, 2 TIMES DAILY, First dose on Tue07/23/21 at 2230 Rinse mouth out with water (without swallowing) after every dose.cholecalciferol 0.05 mg oral tablet (2 sources)Vitamin DStart: 38-25-1578wneo 1 tablet by mouth once dailyVitamin D (CHOLECALCIFEROL) 50 MCG (2000 UT) TABS tablet Take 1 tablet by mouth daily 60 tablet 0 07/26/2021 ActiveStart: 36-73-2997wxii 2000 [IU] by mouth once daily 2,000 Units, Oral, DAILY, First dose on Tue07/24/21 at 0900 Maintenance Dose. dexamethasone 6 mg oral tablet (3 sources)CorticosteroidStart: 07-25-2021 End: 75-81-9002dsvp 1 tablet by mouth once daily at breakfastdexamethasone (DECADRON) 6 MG tablet Take 1 tablet by mouth daily (with breakfast) for 8 days 8 tablet 0 07/25/2021 08/02/2021 ActiveStart: 07-23-2021 End: mg, IntraVENous, EVERY 24 HOURS, First dose on Tue07/24/21 at 2000, For 10 dosesdextromethorphan hydrobromide 2 mg/ml / guaiFENesin 20 mg/ml oral suspension (1 source)Uncompetitive G-kqbvjk-Z-aspartate Receptor Antagonist, Sigma-1 AgonistStart: 31-91-4980upne 5 mL by mouth every four hours as needed for cough5 mL, Oral, EVERY 4 HOURS PRN, Cough, Starting on Tue07/23/21 at 00027.3 ml enoxaparin sodium 100 mg/ml prefilled syringe (1 source)Low Molecular Weight HeparinStart: 45-89-7696vipsjl 30 mg by subcutaneous injection twice daily30 mg, SubCUTAneous, 2 TIMES DAILY, First dose on Khushboo 07/23/21 at 2230glucagon (rdna) 1 mg injection (1 source)Antihypoglycemic AgentStart: 18-46-8834ausi 1 mL intravenously every hour1 mg, IntraMUSCular, PRN, Low blood sugar, Blood glucose less than 70 mg/dL and patient NOT ALERT or NPO and does not have IV access., Starting on Tue07/23/21 at 2211 After administration, attempt intravenous access and start D5W at 100 mL/hr. Repeat blood glucose in 15 minutes x2 and notify provider.150 ml glucose 50 mg/ml injection (3 sources)Start: 76-16-641075 g, Oral, PRN, Low blood sugar, Starting [...] 70 mg/dL, repeat treatment and recheck blood glucosein 15 minutes x2 and notify provider.Start: .5 g, IntraVENous, PRN, Low blood sugar, Blood [...] If using Glucostabilizer, dose as instructed per system.Start: 09-32-5517082 mL/hr, IntraVENous, at 100 mL/hr, PRN, Low blood sugar, Starting on Tue07/23/21 at 2211 Start infusion following administration of dextrose 50% or glucagon.3 ml insulin detemir 100 unt/ml pen injector (1 source)Insulin AnalogStart: 58-91-9256hcujnoj detemir (LEVEMIR FLEXTOUCH) 100 UNIT/ML injection pen Inject 10 Units into the skin daily (with breakfast) 2 pen 1 07/25/2021 Activeinsulin lispro 100 unt/ml injectable solution (2 sources)Insulin AnalogStart: -12 Units, SubCUTAneous, 3 TIMES DAILY WITH MEALS, First dose on Tue07/24/21 at 0800 Medium DoseCorrection Algorithm Glucose: Dose: 70-139 No Insulin 140-199 2 Units&a mp;nbsp;200-249 4 Units 250-299 6 Units 300-349 8 Units 350-399 10 Units 400 and above 12 UnitsStart: -6 Units, SubCUTAneous, NIGHTLY, First dose on Tue07/23/21 at 2230 If continuous tube feedings/TPN/NPO, give correction dose based on result, no reduction in dose. If eating or bolus tube feeding: Medium Dose Bedtime Correction Algorithm Glucose: Dose: 70-139 No Insulin 140-199 1 Unit 200-249 2 Units 250-299 3 Units 300-349 4 Units 350- 399 5 Units 400 and above 6 Unitslisinopril 10 mg oral tablet (11 sources)Angiotensin Converting Enzyme InhibitorStart: 00-89-7668chey 1 tablet by mouth once dailyLisinopril 10 mg tablet Active 0 .ROUTE .COMPLEX 90 October 07, 2024 6:01pm Take 1 tablet by mouth once daily Complies with drug therapyStart: 06-01-2024 End: 00-12-1407halc 1 tablet by mouth once dailyLisinopril 10 mg tablet Discontinued 10 MG PO Daily June 01, 2024 12:00am October 07, 2024 6:01pm Start: 55-64-4929glna 1 mg by mouth once dailylisinopril 5 mg Tab mg tab(s), Oral, Daily, Refills(s) 0 Start Date: 01/18/20 Status: Orderedtake 1 tablet by mouth once dailyLisinopril 10 MG Take 1 tablet by mouth once daily Active metFORMIN hydrochloride 1000 mg oral tablet (20 sources)BiguanideStart: 99-31-9712Wtupzfqwv Active 0 .ROUTE .COMPLEX 45 June 27, 2024 7:39am TAKE 1 TABLET BY MOUTH WITH BREAKFAST AND 1/2 (ONE- HALF) WITH SUPPERStart: 05-04-2024 End: 83-96-2282Byjddhkkx Discontinued 0 .ROUTE .COMPLEX 45 May 04, 2024 7:29am June 27, 2024 7:39am TAKE 1 TABLET BY MOUTH WITH BREAKFAST AND 1/2 (ONE- HALF) WITH SUPPERStart: 45-79-4566Nobsxtkfm Active 0 .ROUTE .COMPLEX 45 May 04, 2024 7:29am TAKE 1 TABLET BY MOUTH WITH BREAKFAST AND 1/2 (ONE-HALF) WITH SUPPERStart: 03-19-2024 End: 77-26-3306Qxsfieiwn 1,000 mg tablet Discontinued 0 .ROUTE .COMPLEX 45 May 04, 2024 7:29am June 2747:39am TAKE 1 TABLET BY MOUTH WITH BREAKFAST AND 1/2 (ONE-HALF) WITH SUPPERStart: 03-19-2024 End: 41-90-1891Pnsdahqrm Discontinued 0 .ROUTE .COMPLEX 45 March 19, 2024 12:43pm May 04, 2024 7:29am TAKE 1 TABLET BY MOUTH WITH BREAKFAST AND 1/2 (ONE-HALF) WITH SUPPER FOR 30 DAYSStart: 03-19-2024 End: 53-02-4114Soitjbrxv 1,000 mg tablet Discontinued 1000 MG PO March 19, 2024 12:00am March 19, 2024 12:43pm 1 tablet w/ bkfst and 1/2 w/ supper Orally bid Start: 58-89-3002amvv 1 mg by mouth twice dailymetformin 500 mg Tab mg tab(s), Oral, BID, Refills(s) 0 Start Date: 01/17/20 Status: OrderedmetFORMIN HCl 1000 MG 1 tablet w/ bkfst and 1/2 w/ supper Orally bid Activeondansetron (ZOFRAN-ODT) disintegrating tablet 4 mg (1 source)Start: 66-88-1051nyyhbqbidqd (ZOFRAN-ODT) disintegrating tablet 4 mg ozempic (0.25 or 0.5 mg/dose) 2 mg/3ml solution pen-injector (1 source)Start: 70-13-4411Yjjkfyv (0.25 or 0.5 MG/DOSE) 2 MG/3ML 0.25MG Subcutaneous weekly for 28 days Dec, Activepolyethylene glycol 3350 63449 mg powder for oral solution (1 source)Osmotic LaxativeStart: g, Oral, DAILY PRN, Constipation, Starting on Khushboo 07/23/21 at 2211 First line therapy for constipationremdesivir 100 mg in sodium chloride 0.9 % 250 mL IVPB (2 sources)Start: 07-25-2021 End: 39-30-4034vdovuyhpou 100 mg in sodium chloride 0.9 % 250 mL IVPBStart: 07-24-2021 End: 58-10-4339kanchuqkhl 100 mg in sodium chloride 0.9 % 250 mL IVPBSemaglutide (6 sources)Start: 21-07-6109vimveh 1 mg by subcutaneous injection every week Semaglutide (Ozempic) 1 mg/dose (4 mg/3 mL) pen injector Active 0 .ROUTE .COMPLEX September 09, 2024 9:30pm INJECT 1 MG SUBCUTANEOUSLY ONCE A WEEK Complies with drug therapyStart: 80-78-6955foabkn 1 mg by subcutaneous injection every weekSemaglutide (Ozempic) 1 mg/dose (4 mg/3 mL) pen injector Active 0 .ROUTE .COMPLEX September 09, 2024 8:30pm INJECT 1 MG SUBCUTANEOUSLY ONCE A WEEKStart: 07-17-2024 End: 03-19-7816agrlpu 1 mg by subcutaneous injection every weekSemaglutide 1 mg/dose (4 mg/3 mL) pen injector Discontinued 1 MG SUBCUT every week 3 July 17, 2024 5:43pm September 09, 2024 9:30pm for 4 weeksStart: 07-17-2024 End: 87-15-2545ipmajo 1 mg by subcutaneous injection every weekSemaglutide 1 mg/dose (4 mg/3 mL) pen injector Discontinued 1 MG SUBCUT every week 3 July 17, 2024 4:43pm September 09, 2024 8:30pm for 4 weeksStart: 97-23-3518pukdqi 1 mg by subcutaneous injection every weekSemaglutide Active 1 MG SUBCUT every week 3 July 17, 2024 5:43pm for 4 hxzhz8303 ml sodium chloride 9 mg/ml injection (6 sources)Start: .9 % sodium chloride infusionStart: 49-35-3484tkzl 1 dose intravenously twice daily5-40 mL, IntraVENous, EVERY 12 HOURS SCHEDULED (2 times per day), First dose on Khushboo 07/23/21 at 2230For Line Patency: Peripheral IV = 5 mL; [...] parenteral nutrition, contrast media, or after obtaining bloodsample) use: Peripheral IV = 10 mL Midline or Central Line = 20 mL/lumenStart: 65-35-2852veqe 5-40 mL intravenously once as needed5-40 mL, IntraVENous, PRN, Line Care, After every [...] mL Midline or Central Line = 20 mL/lumenStart: 08-65-3514aaxr 25 mL intravenously every hour as mL, IntraVENous, at 100 mL/hr, PRN, If patient receiving piggyback infusions without ordered maintenance IV fluids or with frequent/long duration piggyback infusions, Starting on Khushboo 07/23/21 at 2211 Administer at the same rate as the piggyback being infused.Start: 07-23-2021 End: .9 % sodium chloride bolus Completed/Discontinued Medications MedicationDrug Class(es)DatesSig (Normalized)Sig (Original)lovastatin 10 mg oral tablet (8 sources)HMG-CoA Reductase InhibitorStart: 01-17-2020 End: 42-60-9899rsvi 1 tablet by mouth once dailyLovastatin 10 mg tablet Discontinued 10 MG PO Daily June 01, 2024 12:00am June 21, 2025 9:56am potassium chloride 10 meq extended release oral tablet (1 source)Start: 07-23-2021 End: 69-79-816860 mEq, Oral, ONCE, On Khushboo 07/23/21 at 2230, For 1 dose Do not crush or break.Start: 07-23-2021 End: 73-78-212317 mEq, Oral, ONCE, On Khushboo 07/23/21 at 2230, For 1 dose Do not crush or break.Semaglutide (10 sources)Start: 02-03-2024 End: 50-26-9414Bhnbvqvdhsp (Ozempic) 0.25 mg or 0.5 mg (2 mg/3 mL) pen injector Discontinued 0.5 MG SUBCUT every week 3 February 03, 2024 1:34pm July 17, 2024 4:43pm for 4 weeksStart: 02-03-2024 End: 76-63-7769Yyoixnopfdu (Ozempic) 0.25 mg or 0.5 mg (2 mg/3 mL) pen injector Discontinued 0.5 MG SUBCUT every week 3 February 03, 2024 2:34pm July 17, 2024 5:43pm for 4 weeksStart: 80-46-0690Dvhqajqxiwt (Ozempic) 0.25 mg or 0.5 mg (2 mg/3 mL) pen injector Active 0.5 MG SUBCUT every week 3 February 03, 2024 2:34pm for 4 weeksStart: 02-02-2024 End: 06-89-1683Dphhkvgjpsl (Ozempic) 0.25 mg or 0.5 mg (2 mg/3 mL) pen injector Discontinued 0.5 MG SUBCUT every week 01 25February 01, 2024 11:00pm February 03, 2024 1:34pm for 4 weeksStart: 02-02-2024 End: 19-65-9964Rijzkzzrdxi (Ozempic) 0.25 mg or 0.5 mg (2 mg/3 mL) pen injector Discontinued 0.5 MG SUBCUT every week 01 25February 02, 2024 12:00am February 03, 2024 2:34pm for 4 weeks Problems Problem ClassificationProblemDateDocumented DateEpisodic/ChronicCancer of prostate (6 sources)Malignant neoplasm of prostate; Translations: [Malignant tumor of prostate]Onset: 98-41-7621XdcevnqCygxhxx on above:Dx: 07/2025Gleason score 3+ 3, grp IDiabetes mellitus with complications (12 sources)Hyperglycemia due to type 2 diabetes mellitus; Translations: [Type 2 diabetes mellitus with hyperglycemia]ChronicDiabetes mellitus without complication (2 sources)Diabetes runsuskl61-37-4950AwwkhqcPiefmsrlc of lipid metabolism (18 sources)Familial hypercholesterolemia; Translations: [Familial hypercholesterolemia]Onset: 67-85-5264PqfblldSqcpbztlr hypertension (15 sources)Essential hypertension; Translations: [Essential (primary) hypertension]ChronicGenitourinary symptoms and ill-defined conditions (2 sources)Nocturia; Translations: [Nocturia]EpisodicHyperplasia of prostate (7 sources)Lower urinary tract symptoms due to benign prostatic hypertrophy; Translations: [Benign prostatic hyperplasia with lower urinary tract symptoms] Onset: 96-94-8523EpdhviyAyurlapyxerpv and screening for infectious disease (1 source)Vaccination given; Translations: [Encounter for immunization]Episodic Nutritional deficiencies (2 sources)Nutritional marasmus; Translations: [Unspecified severe protein- calorie malnutrition]Onset: 54-39-9423NfdmeheZyiup male genital disorders (7 sources)Atypical small acinar proliferation of prostate; Translations: [Atypical small acinar proliferationof prostate]05-87-8003GsqvddhePxypvdh on above:TRUS/bx 2019Other male genital disorders (3 sources)Atypical small acinar proliferation of prostate; Translations: [Neoplasm of uncertain behavior of prostate]08-14-2435MwaiunfbMemmn nutritional; endocrine; and metabolic disorders (1 source)Simple obesity ; Translations: [Other obesity due to excess calories] Onset: 31-01-2307XmmebrtOgwxh nutritional; endocrine; and metabolic disorders (1 source)Body mass index 30+ - obesity; Translations: [Body mass index (BMI) 30.0-30.9, adult]ChronicOther nutritional; endocrine; and metabolic disorders (1 source)Obesity; Translations: [Obesity, unspecified]ChronicOther nutritional; endocrine; and metabolic disorders (1 source)Other obesity due to excess caloriesChronicOther nutritional; endocrine; and metabolic disorders (1 source)Body mass index (BMI) 30.0-30.9, adultChronicOther nutritional; endocrine; and metabolic disorders (8 sources)Overweight; Translations: [Overweight]Onset: EpisodicOther nutritional; endocrine; and metabolic disorders (4 sources)Overweight; Translations: [Overweight]Onset: 64-25-8311ZmclutfvGgivo screening for suspected conditions (not mental disorders or infectious disease) (16 sources)Encounter for screening for malignant neoplasm of prostate; Translations: [Raised prostate specificantigen]Onset: 35-09-2600YlkdsxwpFpdnrxh on above:07/2017 - 3.36, 04/2018 - 4.27, 04/2021 - 5.99, 04/2022 - 5.45, 04/2023 - 6.46, 04/2024 - 6.83.36 - 07/2017, 4.27 - 04/2018, 5.99 - 04/2021, 5.45 - 04/2022, 6.46 - 04/2023, 6/8 - 04/2026, 6.17 - 12/2024Viral infection (2 sources)COVID-19; Translations: [Pneumonia due to other virus not elsewhere classified]Onset: 34-61-5134WgwvwuptIbyju infection (1 source)Disease caused by 2019-nCoV; Translations: [COVID-19] Results Test NameValueInterpretationReference RangeFacilityBasophils Auto (Bld) [#/Vol] Ordered By: Elpidio Sahu on 22-68-5495Qmzmmeken (Bld) [#/Vol]0.1 10 3/uL0.0-0.1 [facility] CenterBasophils/100 WBC Auto (Bld)Ordered By: Elpidio Sahu on 06-62-5412Ynarzdxah/100 WBC (Bld)0.6 %0.2-2.0[facility] CenterCholesterol in LDL Calc [Mass/Vol]Ordered By: Elpidio Sahu on 86-57-1027Lzkelhtkyeh in LDL [Mass/Vol]113.4 mg/dLAshtabula County Medical CenterComment on above:<100 mg/dl KXMHQNX822-765 mg/dl NEAR OR ABOVE DRUBGDT041- 159 mg/dl BORDERLINE GOEP352-685 mg/dl HIGH>190 mg/dl VERY HIGHCholesterol in VLDL Calc [Mass/Vol]Ordered By: Elpidio Sahu on 25-65-3851Dwmucpzxkal in VLDL [Mass/Vol]27.6 mg/dLAshtabula County Medical CenterEosinophils/100 WBC Auto (Bld)Ordered By: Elpidio Sahu on 60-40-3039Bfyzdiiehaw/100 WBC (Bld)2.9 % 0.9-7.0[facility] CenterErythrocyte distribution width Auto (RBC) [Ratio]Ordered By: Elpidio Sahu on 33-06-5568Gsvglvomiok distribution width (RBC) [Ratio]12.5 %11.0-15.0[facility] CenterGlobulin Calc (S) [Mass/Vol]Ordered By: Elpidio Sahu on 34-21-6616Hxcehzdl (S) [Mass/Vol]3.6 g/dLAshtabula County Medical CenterGlomerular filtration rate (GFR) estimation in non- AmericanOrdered By: Elpidio Sahu on 06-15-2025 GFR/1.73 sq M.predicted among non-blacks MDRD (S/P/Bld) [Vol rate/Area] mL/min/{1.73_m2}>=60 mL/min/1.73m 2FUniversity Hospitals TriPoint Medical CenterGlucose mean value [Mass/volume] in Blood Estimated from glycated hemoglobinOrdered By: Elpidio Sahu on 25-76-2184Lhzcngq glucose Estimated from glycated hemoglobin (Bld) [Mass/Vol]131 mg/dLAshtabula County Medical CenterHematocrit Auto (Bld) [Volume fraction]Ordered By: Elpidio Sahu on 10-97-9988Dudbvmegka (Bld) [Volume fraction]41.2 %Low42.0-54.0[facility] CenterHemoglobin A1c percentageOrdered By: Elpidio Luis Alberto on 42-80-8003ZzR4h (Bld) [Mass fraction]6.2 %4.5-6.2FUniversity Hospitals TriPoint Medical CenterComment on above:ADA RECOMMENDED LIMIT 4.0 - 6.0ADA THERAPEUTIC TARGET < 7.0ACTION SUGGESTED> 7.0Hemoglobin [Mass/volume] in BloodOrdered By: Elpidio Sahu on 15-86-6830Ukybjufyoy (Bld) [Mass/Vol]13.8 g/dLLow14.0-18.0[facility] CenterLaboratory - Chemistry and Chemistry - challengeOrdered By: Elpidio Sahu on 06-15-2025 Albumin [Mass/Vol]3.5 g/dL3.4-5.0[facility] CenterALP [Catalytic activity/Vol]72 U/Z84-840YikqjdypxAshtabula County Medical CenterALT [Catalytic activity/Vol]29 U/K57-30TjzudwsguAshtabula County Medical CenterAST [Catalytic activity/Vol]16 U/R94-64ImhpwrqwgAshtabula County Medical CenterBilirubin [Mass/Vol]0.3 mg/dL0.2-1.0[facility] CenterCalcium [Mass/Vol]8.3 mg/dLLow 8.5-10.1FUniversity Hospitals TriPoint Medical CenterChloride [Moles/Vol]105 mmol/L98-107 [facility] CenterCholesterol [Mass/Vol]189 mg/dL<=200[facility] CenterCholesterol in HDL [Mass/Vol]48 mg/oG17-74SjglebtpeAshtabula County Medical CenterComment on above:> or =60 mg/dl - LOW CARDIOVASCULAR RISK<40 mg/dl - HIGH CARDIOVASCULAR RISKCO2 [Moles/Vol]27.6 mmol/L21.0-32.0 [facility] CenterCreatinine [Mass/Vol]1.10 mg/dL0.70-1.30 [facility] CenterGFR/1.73 sq M.predicted MDRD (S/P/Bld) [Vol rate/Area]mL/min/{1.73_m2}>=60 mL/min/1.73m 2FUniversity Hospitals TriPoint Medical Center Glucose [Mass/Vol]166 mg/qLCkms20-818VzxenmnpjAshtabula County Medical CenterPotassium [Moles/Vol]4.5 mmol/L3.5-5.1FUniversity Hospitals TriPoint Medical CenterProtein [Mass/Vol] 7.1 g/dL6.4-8.2FGeorgetown Behavioral Hospitalodium [Moles/Vol]139 mmol/L 136-145[facility] CenterTriglyceride [Mass/Vol]138 mg/dL<=150 [facility] CenterUrea nitrogen [Mass/Vol]18.0 mg/dL7.0-18.0 [facility] CenterUrea nitrogen/Creatinine [Mass ratio]16.4 mg/mg [facility] CenterLaboratory - Hematology and Cell countsOrdered By: Elpidio Sahu on 75-39-0486Oygjolof granulocytes/100 WBC (Bld)1.1 %High 0.0-0.5FUniversity Hospitals TriPoint Medical CenterLeukocytes [#/volume] corrected for nucleated erythrocytes in Blood by Automated counOrdered By: Elpidio Sahu on 64-40-3335UOJ corrected for nucl RBC Auto (Bld) [#/Vol]8.5 10 3/uL4.0-11.0 [facility] CenterLymphocytes Auto (Bld) [#/Vol]Ordered By: Elpidio Sahu on 24-37-4968Rwzweimqygy (Bld) [#/Vol]3.6 10 3/uL1.2-3.8[facility] CenterLymphocytes/100 WBC Auto (Bld)Ordered By: Elpidio Sahu on 99-66-9290Lggzbwdmtrh/100 WBC (Bld)42.7 %20.5-60.0[facility] LimaH Auto (RBC) [Entitic mass]Ordered By: Elpidio Sahu on 09-45-6635GCG (RBC) [Entitic mass]30.5 pg25.9-34.0[facility] CenterMCHC Auto (RBC) [Mass/Vol]Ordered By: Elpidio Sahu on 17-53-8586IYPD (RBC) [Mass/Vol]33.5 g/dL29.9-35.2FUniversity Hospitals TriPoint Medical CenterMCV Auto (RBC) [Entitic vol] Ordered By: Elpidio Sahu on 54-04-9296YYD (RBC) [Entitic vol]90.9 fL80.0-94.0 [facility] CenterMicroalbumin [Mass/volume] in UrineOrdered By: Elpidio Sahu on 25-38-3178Jxezetq DL <= 20 mg/L (U) [Mass/Vol]mg/dL<=30.0 [facility] CenterMonocytes Auto (Bld) [#/Vol]Ordered By: Elpidio Sahu on 46-95-8485Wyemxkibi (Bld) [#/Vol]0.5 10 3/uL0.3-0.8[facility] CenterMonocytes/100 WBC Auto (Bld)Ordered By: Elpidio Sahu on 87-89-1860Czwfoagss/100 WBC (Bld)5.3 %1.7-12.0[facility] Neutrophils Auto (Bld) [#/Vol]Ordered By: Elpidio Sahu on 37-23-5198Nfmokuihvsq (Bld) [#/Vol]4.0 10 3/uL1.4-6.5FUniversity Hospitals TriPoint Medical CenterNeutrophils/100 WBC Auto (Bld)Ordered By: Elpidio Sahu on 96-32-3594Qaqiinimmuz/100 WBC (Bld) 47.4 %43.0-75.0[facility] CenterNo Panel InformationOrdered By: Elpidio Sahu on 07-83-7253Kwvpuiadsfh # (Auto)0.3 10 3/uL0.0-0.7FUniversity Hospitals TriPoint Medical CenterImmature Granulocyte # (Auto)0.09 10 3/uLHigh0.00-0.03 [facility] CenterUrine Random Lezpztobwr686.17 mg/dL20.00-300.00 [facility] CenterPlatelet mean volume Auto (Bld) [Entitic vol] Ordered By: Elpidio Sahu on 61-08-7621Aleaxeeg mean volume (Bld) [Entitic vol] 9.2 fLLow9.5-13.5FUniversity Hospitals TriPoint Medical CenterPlatelets Auto (Bld) [#/Vol] Ordered By: Elpidio Sahu on 97-59-7308Mtdwgmzav (Bld) [#/Vol]250 10 3/kW660-303 [facility] CenterRBC Auto (Bld) [#/Vol]Ordered By: Elpidio Sahu on 78-91-5345RZY (Bld) [#/Vol]4.53 10 6/uLLow4.70-6.10[facility] Hospitalerum or plasma albumin/globulin mass ratioOrdered By: Elpidio Sahu on 57-41-1056Xmotcen/Globulin [Mass ratio]1.0 {ratio}[facility] Hospitalerum or plasma anion gap determinationOrdered By: Elpidio Sahu on 59-69-9372Exxfl gap [Moles/Vol]10.9 mmol/LFUniversity Hospitals TriPoint Medical Center Serum or plasma total cholesterol/high density lipoprotein (HDL) cholesterol mass ratOrdered By: Elpidio Sahu on 51-00-5270Ekodcauldyn.total/Cholesterol in HDL [Mass ratio]3.9 {ratio}[facility] CenterComment on above:3.3 - 4.4 LOW RISK4.4 - 7.1 AVERAGE RISK7.1 - 11.0 MODERATE RISK>11.0 HIGH RISK Ambulatory Visit Summaryon 62-94-1744Tapyiofxml Visit SummaryAmbulatory Visit Summary SUZI SID D :1955 Visit Date:02/18/2025 Ambulatory Visit Instructions Your [...] Where: [facility] [address] , [place] [address] [phone] You Need to Complete the Following PSA [...] below the bladder and in front of therectum in males. The function of the prostate is to add fluid to semen during ejaculation. Prostatecancer is one of the most common types [...] prostate cancer. You should talk with your healthcare provider about your need for screening and [...] is a blood test called the prostate-specific antigen(PSA) test. PSA is a protein that is [...] male hormones (like testosteron (more content not included)...[facility]/Cl[facility] Noteon 75-58-5956Axbmqbe Office/Clinic NoteUrology Office/Clinic Note Chief Complaint Prostate cancer (ACTIVE SURVEILLANCE) HPI Staff 69 yr old male here for 6 mo f/u w/ PSA Previous dx: Prostate cancer (ACTIVE SURVEILLANCE started at last OV), BPH. *No urologic meds [place] [facility] [place] 4 [place]. PSA: 05/13/23 - [...] done in 6 mos to evaluate if thereis any progression in disease. Risks/benefits discussed. -F/u [...] [facility] [address], [place] [address] [phone] Additional Instructions: 6 mos w/ PSA Patient [...] influenza virus vaccine, inactivated 08/12/2023 Recorded SARSCoV2 mRNA(vysfyfwou-simh-erbdlf) vac 03/26/2022 Recorded SARS-CoV-2 (COVID-19) mRNA BNT-162b2 vax 10/09/2021 Recorded SARS-CoV-2 (COVID-19) mRNA BNT-162b2 vax 09/18/2021 Recorded influenza virus vaccine, inactivated 08/28/2021 Recorded influenza virus vaccine, live, trivalent - Not Given Patient Refuses tetanus-diphtheria toxoids 05/12/2018 Recorded Lab Results Ambulatory Point of Care Results Bilirubin Urine Dipstick: Negative (02/18/25 12:30:00) Blood Urine Dipstick: Negative (02/18/25 12:30:00) Glucose (more content not included)...Grant HospitalComment on above:Result Comment: Electronically Signed By: Thong MATOS MD\.br\Date and Time Signed: 02/18/25 13:16 EDT\.br\Electronically Co-Signed By: Carolina Galan\.br\Date and Time Co-Signed: 02/18/25 13:15 EDTAmbulatory Visit Summaryon [id number] Visit SummaryAmbulatory Visit Summary ISD HAN :1955 Visit Date:09/03/2024 Ambulatory Visit Instructions [...] Thong MATOS MD Where: [facility] [address] [place] [address]- You Need to Schedule the Following Appointments Follow Up with Thong MATOS MD, URL When: Where: [facility] [address] , [place] [address]- Medications What How Much When Instructions Unchanged [...] such as a bone scan, CT scan, PETscan, or MRI. Stages of prostate cancer The [...] cancer has not sprea (more content not included)...[facility] HospitalUrology Office/Clinic Noteon [id number] Office/Clinic Note Urology Office/Clinic Note Chief Complaint review TRUS BX [id number] HPI Staff PO TRUS/MRI fusion bx 08/14/24, here to review path report. Last seen IO 06/18/24. Previous dx: elevated PSA, BPH. *No urologic meds Prostate [place] [facility] [place]-RADS 4 [place]. Dysuria: [...] patient in detail today. Educated pt on Ashley scoring system. I discussed active surveillance protocol [...] Urology [address], [place] [address]- Additional Instructions: 4-6 mos with PSA, DELICIA [...] ago Tobacco Use:. Cigarettes, Household tobacco concerns: No.Yes, 09/03/2024 Family History Diabetes mellitus type 1: Father. Heart disease: Father. Immunizations Vaccine Date Status Comments influenza virus vaccine, inactivated 08/12/2023 Recorded SARSCoV2 mRNA(yhzdkqjfi-loua-atrtlo) vac 03/26/2022 Recorded SARS-CoV-2 (COVID-19) mRNA BNT-162b2 vax 10/09/2021 Recorded SARS-CoV-2 (COVID-19) mRNA BNT-162b2 v (more content not included)...Normal [facility] GlenbeighComment on above:Result Comment: Electronically Signed By: EDY CARRINGTON, Thong Sherwood\.br\Date and Time Signed: 09/03/24 11:35 EST\.br\Electronically Co-Signed By: Precious Guillory\.br\Date and Time Co- Signed: 09/03/24 11:30 EST\.br\Electronically Co-Signed By: Precious Guillory\.br\Date and Time Co-Signed: 09/03/24 11:32 ESTPathology Request for Lab Michael on [id number] Request for Lab CorpNoNovant [facility] Comment on above:Order Comment: PATHOLOGY UROLOGY SPECIMENResult Comment: See report. Scanned copy available in EMR. PERFORMED BY: [place] [address] PATHOLOGIST [employer] SALES REPRESENTATIVE FRANCISCO LOPEZ M.D.Performed By: #### PATH TO [facility] #### [address]MR prostate wo/w conon 72-20-4991KF prostate wo/w con [facility] [place] [address] [place] [address] MRI Report Signed Patient: Sid Han MR#: [id number] : 1955 Acct:[id number] Age/Sex: 69 / M ADM Date: 07/25/24 Loc: Room: Type: [facility] Attending Dr: Thong Matos MD Copies [...] Jimenez Jr., D.O.07/26/2024 8:55 AM Dictation Location: [place] [address] Transcribed By: [facility] 07/26/24 0855 Dictated By: Huy Jimenez Jr, DO 07/26/24 0834 Signed By: 07/26/24 0855[facility] Physician GroupISTAT XRay CREon 00-01-8745NVKEQ GFR> 60.0NoNovant Health Rehabilitation Hospital Physician GroupComment on above:Result Comment: PERFORMED BY: [place] [address] PATHOLOGIST [employer] SALES REPRESENTATIVE FRANCISCO LPOEZ M.D.Performed By: #### ISCRE #### [facility] [address] [place] [address] USANo Panel InformationOrdered By: Thong Matos on 72-86-4694Pktgalz Estimated GFR (eGFR)> 60.0[facility] Whole blood creatinine measurementOrdered By: Thong Matos on 07-25-2024 Creatinine [Mass/Vol]1.0 mg/dLNormal0.6-1.3FUniversity Hospitals TriPoint Medical Center Comment on above:ER/ESD physician is notified/shown all ISTAT results.Critical values may be confirmed by laboratorytesting ifdeemed necessary by ER attending doctor.Result Comment: ER/ESD physician is notified/shown all ISTAT results. Critical values may be confirmed by laboratory testing if deemed necessary by ER attending doctor.Performed By: #### ISCRE #### [facility] [address] [id number] [facility] CENTERAmbulatory Visit Summaryon 02-89-2333Dcwkalnqod Visit SummaryAmbulatory Visit Summary SID HAN :1955 Visit Date:06/18/2024 Ambulatory [...] Thong MATOS MD Where: [facility] [address] [place] [address]- You Need to Schedule the Following Appointments Follow Up with Thong MATOS MD, URL When: Where: [facility] [address] [place] [phone] Medications What How Much When Instructions Unchanged [...] including vitamins, herbs, eye drops, creams, and nyos-yhc-xkgouwl medicines. ? Any surgeries you have had. [...] You can take medicines to prevent this reactionor to treat it if you have allergy (more content not included)...NormalCape Fear/Harnett Healther [facility] Center And HospitalBasophils Auto (Bld) [#/Vol]on 25-47-5545Toosgefss (Bld) [#/Vol]0.1 10 3/uL0.0-0.1FUniversity Hospitals TriPoint Medical CenterBasophils/100 WBC Auto (Bld)on 02-66-5415Pbbcqwvgj/100 WBC (Bld)0.6 % 0.2-2.0[facility] CenterCholesterol in LDL Calc [Mass/Vol]on 17-30-4947Nxgbdumblug in LDL [Mass/Vol]90.4 mg/dLAshtabula County Medical CenterComment on above:<100 mg/dl JDHPDWP638-514 mg/dl NEAR OR ABOVE TGMOVIY368- 159 mg/dl BORDERLINE IFSB134-256 mg/dl HIGH>190 mg/dl VERY HIGHCholesterol in VLDL Calc [Mass/Vol]on 76-07-2244Ikvetnoyjpg in VLDL [Mass/Vol]15.6 mg/dL [facility] CenterEosinophils/100 WBC Auto (Bld)on 05-26-2024 Eosinophils/100 WBC (Bld)2.8 %0.9-7.0[facility] Erythrocyte distribution width Auto (RBC) [Ratio]on 14-62-1028Zbpqqcqzyfl distribution width (RBC) [Ratio]12.3 %11.0-15.0[facility] Estimated glomerular filtration rate (GFR) non- Americanon 05-26-2024 GFR/1.73 sq M.predicted among non-blacks MDRD (S/P/Bld) [Vol rate/Area] mL/min/{1.73_m2}>=60Fire[facility] Regional Medical CenterGlobulin Calc (S) [Mass/Vol]on 60-53-2640Urzogpjn (S) [Mass/Vol]3.3 g/dLAshtabula County Medical CenterGlucose mean value [Mass/volume] in Blood Estimated from glycated hemoglobinon 29-96-6644Wavsily glucose Estimated from glycated hemoglobin (Bld) [Mass/Vol]134 mg/dLAshtabula County Medical CenterHematocrit Auto (Bld) [Volume fraction]on 27-29-6537Mlggmuegxb (Bld) [Volume fraction]42.6 %42.0-54.0 [facility] CenterHemoglobin [Mass/volume] in Bloodon 05-26-2024 Hemoglobin (Bld) [Mass/Vol]14.2 g/dL14.0-18.0[facility] Laboratory - Chemistry and Chemistry - challengeon 07-75-0683Tbyydoq [Mass/Vol] 3.5 g/dL3.4-5.0[facility] CenterALP [Catalytic activity/Vol]66 U/Z60-065GzrzthfywAshtabula County Medical CenterALT [Catalytic activity/Vol]23 U/L 16-63[facility] CenterAST [Catalytic activity/Vol]18 U/L15-37 [facility] CenterBilirubin [Mass/Vol]0.4 mg/dL0.2-1.0[facility] CenterCalcium [Mass/Vol]8.7 mg/dL8.5-10.1FUniversity Hospitals TriPoint Medical CenterChloride [Moles/Vol]106 mmol/J17-874XmxfyexunAshtabula County Medical CenterCholesterol [Mass/Vol]160 mg/dL<=200[facility] Cholesterol in HDL [Mass/Vol]54 mg/hY03-53ElfwfdoewAshtabula County Medical Center Comment on above:> or =60 mg/dl - LOW CARDIOVASCULAR RISK<40 mg/dl - HIGH CARDIOVASCULAR RISKCO2 [Moles/Vol]28.5 mmol/L21.0-32.0[facility] CenterCreatinine [Mass/Vol]0.98 mg/dL0.70-1.30[facility] GFR/1.73 sq M.predicted MDRD (S/P/Bld) [Vol rate/Area]mL/min/{1.73_m2}>=60 [facility] CenterGlucose [Mass/Vol]152 mg/cYBjfx77-565XrbdjmcjrAshtabula County Medical CenterPotassium [Moles/Vol]4.7 mmol/L3.5-5.1FUniversity Hospitals TriPoint Medical CenterProtein [Mass/Vol]6.8 g/dL6.4-8.2FUniversity Hospitals TriPoint Medical Center Sodium [Moles/Vol]139 mmol/I793-102ObosfbbkgAshtabula County Medical CenterTriglyceride [Mass/Vol]78 mg/dL<=150[facility] Medical CenterUrea nitrogen [Mass/Vol]13.0 mg/dL7.0-18.0[facility] Medical CenterUrea nitrogen/Creatinine [Mass ratio]13.3 mg/mgAshtabula County Medical Center Laboratory - Hematology and Cell countson 87-45-0755JsU4i (Bld) [Mass fraction] 6.3 %High4.5-6.2FUniversity Hospitals TriPoint Medical CenterComment on above:ADA RECOMMENDED LIMIT 4.0 - 6.0ADA THERAPEUTIC TARGET < 7.0ACTION SUGGESTED> 7.0 Immature granulocytes/100 WBC (Bld)0.8 %High0.0-0.5FUniversity Hospitals TriPoint Medical CenterLeukocytes [#/volume] corrected for nucleated erythrocytes in Blood by Automated counon 10-07-8432HFX corrected for nucl RBC Auto (Bld) [#/Vol]7.9 10 3/uL4.0-11.0[facility] CenterLymphocytes Auto (Bld) [#/Vol]on 29-39-8315Nhcakuwfwek (Bld) [#/Vol]3.3 10 3/uL1.2-3.8[facility] Medical CenterLymphocytes/100 WBC Auto (Bld)on 56-81-4173Voiapipmuvv/100 WBC (Bld)42.4 % 20.5-60.0[facility] Medical CenterMCH Auto (RBC) [Entitic mass]on 24-08-4953YVY (RBC) [Entitic mass]30.2 pg25.9-34.0[facility] Medical CenterMCHC Auto (RBC) [Mass/Vol]on 67-09-8308SOFP (RBC) [Mass/Vol]33.3 g/dL 29.9-35.2FUniversity Hospitals TriPoint Medical CenterMCV Auto (RBC) [Entitic vol]on 64-03-2567WZC (RBC) [Entitic vol]90.6 fL80.0-94.0[facility] CenterMicroalbumin [Mass/volume] in Urineon 51-84-6735Qcnhnnu DL <= 20 mg/L (U) [Mass/Vol]mg/dL<=30.0[facility] Medical CenterMonocytes Auto (Bld) [#/Vol]on 08-16-8042Zmieypsww (Bld) [#/Vol]0.4 10 3/uL0.3-0.8[facility] CenterMonocytes/100 WBC Auto (Bld)on 96-10-3020Mtmalajck/100 WBC (Bld) 4.8 %1.7-12.0[facility] Medical CenterNeutrophils Auto (Bld) [#/Vol]on 32-07-8588Ytdyecxdlvd (Bld) [#/Vol]3.8 10 3/uL1.4-6.5FUniversity Hospitals TriPoint Medical CenterNeutrophils/100 WBC Auto (Bld)on 15-84-7331Zmwaocecmld/100 WBC (Bld)48.6 % 43.0-75.0[facility] CenterNo Panel Informationon 05-26-2024 Eosinophils # (Auto)0.2 10 3/uL0.0-0.7FUniversity Hospitals TriPoint Medical CenterImmature Granulocyte # (Auto)0.06 10 3/uLHigh0.00-0.03[facility] Prostate Specific Antigen Screen6.80 ng/mLHigh<=4.00[facility] Medical CenterPlatelet mean volume Auto (Bld) [Entitic vol]on 44-64-5343Pgpsbamo mean volume (Bld) [Entitic vol]9.5 fL9.5-13.5FUniversity Hospitals TriPoint Medical Center Platelets Auto (Bld) [#/Vol]on 20-86-1902Dpisvmvrg (Bld) [#/Vol]260 10 3/uL 150-450As[facility] County Medical CenterRBC Auto (Bld) [#/Vol]on 03-69-5263SXN (Bld) [#/Vol]4.70 10 6/uL4.70-6.10[facility] Community Hospitalerum or plasma albumin/globulin mass ratioon 04-14-9951Seyoaht/Globulin [Mass ratio]1.1 {ratio}[facility] Community Hospitalerum or plasma anion gap determination on 78-46-8281Inacs gap [Moles/Vol]9.2 mmol/LFUniversity Hospitals TriPoint Medical Center Serum or plasma total cholesterol/high density lipoprotein (HDL) cholesterol mass nohemy 00-85-6491Vbjnwbxfjqq.total/Cholesterol in HDL [Mass ratio]3.0 {ratio}[facility] CenterComment on above:3.3 - 4.4 LOW RISK4.4 - 7.1 AVERAGE RISK7.1 - 11.0 MODERATE RISK>11.0 HIGH RISKCBC AUTO DIFFon 81-92-8876MTXI #0.1 103/ulNormal0.0-0.1The [facility] HospitalComment on above: Performed By: #### CBC #### [facility] [address] [address] [address] Oniel JacksonBasophils/100 WBC (Bld)0.6 %Normal0.2-2.0[facility] Comment on above:Performed By: #### CBC #### [facility] [address] [address] [address] Oniel Sherwood #0.2 103/ulNormal0.0-0.7The [facility] HospitalComment on above: Performed By: #### CBC #### [facility] [address] [address] [address] Oniel Wolfeosinophils/100 WBC (Bld)2.3 %Normal0.9-7.0The [facility] Comment on above:Performed By: #### CBC #### [facility] [address] [address] [address] Oniel Wolferythrocyte distribution width (RBC) [Ratio]12.5 %Acuegz73.0-15.0 The [facility] HospitalComment on above:Performed By: #### CBC #### [facility] [address] [address] [address] Oniel JacksonHematocrit (Bld) [Volume fraction]43.3 %Hdivcw06.0-54.0The [facility] HospitalComment on above:Performed By: #### CBC #### [facility] [address] [address] [address] Oniel JacksonHemoglobin (Bld) [Mass/Vol]14.1 g/lUBxhcip17.0-18.0The [facility] HospitalComment on above:Performed By: #### CBC #### [facility] [address] [address] [address] Oniel JacksonIG #0.04 10e3/ulCritically high0.00-0.03The [facility] Comment on above:Performed By: #### CBC #### [facility] [address] [place] [address] Dr. Oniel JacksonIG %0.5 %Normal0.0-0.5The [facility] HospitalComment on above: Performed By: #### CBC #### [facility] [address] [address] [address] Oniel Carpio #3.7 103/ulNormal1.2-3.8The [facility] HospitalComment on above:Performed By: #### CBC #### [facility] [address] [place] [address] Dr. Oniel Donovanmphocytes/100 WBC (Bld)42.3 %Homkef99.5-60.0The [facility] HospitalComment on above:Performed By: #### CBC #### [facility] [address] [address] [address] Oniel JacksonMANUAL DIFF REQNONormalThe [facility] HospitalComment on above: Performed By: #### CBC #### [facility] [address] [place] [address] Dr. Oniel Almendarez (RBC) [Entitic mass]29.3 koXnpoou35.9-34.0The [facility] HospitalComment on above:Performed By: #### CBC #### [facility] [address] [address] [address] Oniel MillerHC (RBC) [Mass/Vol]32.6 g/mWHefyyi11.9-35.2The [facility] HospitalComment on above:Performed By: #### CBC #### [facility] [address] [place] [address] Dr. Oniel MillerV (RBC) [Entitic vol]90.0 gDHzvila65.0-94.0The [facility] HospitalComment on above:Performed By: #### CBC #### [facility] [address] [place] [address] Dr. Oniel Galaviz #0.5 103/ulNormal0.3-0.8The [facility] HospitalComment on above:Performed By: #### CBC #### [facility] [address] [place] [address] Dr. Oniel Carlosocytes/100 WBC (Bld)5.2 %Normal1.7-12.0The [facility] Comment on above:Performed By: #### CBC #### [facility] [address] [place] [address] Dr. Oniel Kong #4.3 103/ulNormal1.4-6.5The [facility] HospitalComment on above:Performed By: #### CBC #### [facility] [address] [place] [address] Dr. Oniel Hortonutrophils/100 WBC (Bld)49.1 %Arljsg98.0-75.0The [facility] HospitalComment on above:Performed By: #### CBC #### [facility] [address] [place] [address] Dr. Oniel Gracialet mean volume (Bld) [Entitic vol]9.4 fLCritically low 9.5-13.5The [facility] HospitalComment on above:Performed By: #### CBC #### [facility] [address] [place] [address] Dr. Oniel JacksonPLT292 103/nsOjfeop420-153Lvd [facility] HospitalComment on above: Performed By: #### CBC #### [facility] [address] [place] [address] Dr. Oneil JacksonRBC4.81 106/ulNormal4.70-6.10The [facility] HospitalComdetroit receiving hospital on above:Performed By: #### CBC #### [facility] [address] [place] [address] Dr. Oniel JacksonWBC8.8 103/ulNormal4.0-11.0The [facility] HospitalComdetroit receiving hospital on above: Performed By: #### CBC #### [facility] [address] [place] [address] Dr. Oniel JacksonGLYCOHEMOGLOBIN A1Con 44-34-3406TIL RECOMMENDATIONSEE [facility] ShawComdetroit receiving hospital on above:Result Comment: ADA RECOMMENDED LIMIT 4.0 - 6.0 ADA THERAPEUTIC TARGET < 7.0 ACTION SUGGESTED > 7.0Performed By: #### A1C #### [facility] [address] [place] [address] Dr. Oniel JacksonGlucose [Mass/Vol]154 mg/dLNormMount Carmel Health SystemComment on above:Performed By: #### A1C #### [facility] [address] [place] [address] Dr. Oniel JacksonHbA1c (Bld) [Mass fraction]7.0 %Critically high4.5-6.2[facility] East CampusComment on above:Performed By: #### A1C #### [facility] [address] [place] [address] Dr. Oniel JacksonLIPID PROFILEon 16-87-5449DHAU-HDL RATIO NORMSEE [facility] HospitalComdetroit receiving hospital on above:Result Comment: 3.3 - 4.4 LOW RISK 4.4 - 7.1 AVERAGE RISK 7.1 - 11.0 MODERATE RISK >11.0 HIGH RISKPerformed By: #### BMP, LIPID #### [facility] [address] [place] [address] Dr. Oniel JacksonCholesterol [Mass/Vol]200 mg/dLNormal<=200The [facility] Comment on above:Performed By: #### BMP, LIPID #### [facility] [address] [address] [address] Oniel JacksonCholesterol in HDL [Mass/Vol]48 mg/aAHqhmpo54-65Xyv [facility] on above:Performed By: #### BMP, LIPID #### [facility] [address] [address] [address] Oniel JacksonCholesterol in LDL [Mass/Vol]124.0 mg/dLNoSumma Health Barberton CampusComment on above:Performed By: #### BMP, LIPID #### [facility] [address] [address] [address] Oniel Faustinestermirna.total/Cholesterol in HDL [Mass ratio]4.2 {ratio} NormalThe [facility] HospitalComment on above:Performed By: #### BMP, LIPID #### [facility] [address] [place] [address] Dr. Oniel Garvin NORMAL> or = 60 mg/dl - LOW CARDIOVASCULAR RISK <40 mg/dl - HIGH CARDIOVASCULAR RISKNoSumma Health Barberton CampusComment on above:Performed By: #### BMP, LIPID #### [facility] [address] [place] [address] Dr. Oniel Vargas CALC NORMALSEE BELOWJoint Township District Memorial HospitalComment on above:Result Comment: <100 mg/dl OPTIMAL 100 - 129 mg/dl NEAR OR ABOVE OPTIMAL 130 - 159 mg/dl BORDERLINE HIGH 160 - 189 mg/dl HIGH >190 mg/dl VERY HIGH Performed By: #### BMP, LIPID #### [facility] [address] [place] [address] Dr. Oniel JacksonTriglyceride [Mass/Vol]140 mg/dLNormal<=150The [facility] Comment on above:Performed By: #### BMP, LIPID #### [facility] [address] [address] [address] Oniel JuaresLDL CALC28.0 mg/dLNoSumma Health Barberton CampusComment on above: Performed By: #### BMP, LIPID #### [facility] [address] [address] [address] Oniel VillegasF CHEM 8 (BAS METB)on 23-60-1902Dxhqh gap [Moles/Vol]10.5 mmol/LNormalTrinity Health System East CampusComment on above:Performed By: #### BMP, LIPID #### [facility] [address] [address] [address] Oniel JacksonCalcium [Mass/Vol]8.8 mg/dLNormal8.5-10.1The [facility] Comment on above:Performed By: #### BMP, LIPID #### [facility] [address] [address] [address] Oniel JacksonChloride [Moles/Vol]104 mmol/DTuwyla76-059Jnu [facility] Comment on above:Performed By: #### BMP, LIPID #### [facility] [address] [address] [address] Oniel JacksonCO2 [Moles/Vol]28.1 mmol/SEqnhiz80.0-32.0The [facility] Comment on above:Performed By: #### BMP, LIPID #### [facility] [address] [address] [address] Oniel JacksonCreatinine [Mass/Vol]1.05 mg/dLNormal0.70-1.30The [facility] HospitalComment on above:Performed By: #### BMP, LIPID #### [facility] [address] [address] [address] Oniel WolfeGFR-AF IVORIAN>60Normal>=60The [facility] HospitalComment on above:Performed By: #### BMP, LIPID #### [facility] [address] [address] [address] Oniel WolfeGFR-NON AF IVORIAN>60Normal>=60The [facility] HospitalComment on above:Performed By: #### BMP, LIPID #### [facility] [address] [address] [address] Oniel JacksonGlucose [Mass/Vol]180 mg/dLCritically afuh65-377Yba [facility] HospitalComment on above:Performed By: #### BMP, LIPID #### [facility] [address] [address] [address] Oniel JacksonPotassium [Moles/Vol]4.6 mmol/LNormal3.5-5.1[facility] Comment on above:Performed By: #### BMP, LIPID #### [facility] [address] [address] [address] Oniel JacksonSodium [Moles/Vol]138 mmol/HInyrxt288-501KuuTrinity Health System East Campus Comment on above:Performed By: #### BMP, LIPID #### [facility] [address] [address] [address] Oniel JacksonUrea nitrogen [Mass/Vol]13.0 mg/dLNormal7.0-18.0[facility] CampusComment on above:Performed By: #### BMP, LIPID #### [facility] [address] [address] [address] Oniel Fonseca nitrogen/Creatinine [Mass ratio]12.4 mg/mgNormalThMarymount HospitalComment on above:Performed By: #### BMP, LIPID #### [facility] [address] [address] [address] Oniel JacksonC-Reactive Proteinon 82-77-0653DLL [Mass/Vol]53.6 mg/LHigh0.0-5.0 [facility] CenterComment on above:Performed By: #### FERI, CRP, FIB #### [facility] [employer] [address] [place] [address] [id number] Busboy: Rogers Reno MD #### NATHANIEL CHOW, CMPX, CDP #### [facility] [address] [place] [address] Busboy: [place] Nicole MDCRP [Mass/Vol]119.5 mg/LHigh0.0-5.0[facility] Health CenterComment on above:Performed By: #### FERI, CRP, FIB #### [facility] [employer] [address] [place] [address] [id number] Busboy: Rogers Reno MD #### NATHANIEL CHOW, AZX, CDP #### [facility] [address] [place] [address] Busboy: Richmond Nicole MDC-Reactive ProteinOrdered By: Stacia Saleh on 03-05-6355KHT [Mass/Vol]119.5 mg/LHigh0.0 - 5.0 mg/LMsouthwest general health centery [employer] Work Phone: Interpretation and review of laboratory results AbnormalBethesda North Hospital [employer] Work Phone: [facility] [employer] Phone: d-Dimer Teston 08-96-9287J-Dimer Test0.83 mg/L FEUHigh 0.00-0.59[facility] General Health CenterComment on above:Result Comment: When combined with a low clinical [...] be more prevalent in patients with distal DVT.Performed By: #### FERI, CRP, FIB #### [employer] [address] [place], [place] [id number] Busboy: Rogers Reno MD #### NATHANIEL CHOW, JUSTIN, CDP #### [facility] [address] [place] [address] Busboy: Richmond Nicole MDD-Dimer, QuantitativeOrdered By: Rojelio Mayes on 25-54-7294U-Dimer, Quant0.83[facility] Shore HospitalSchool Yourself Phone: comment on above: When combined with a low [...] distal DVT. Interpretation and review of laboratory resultsAbnormalKindred Hospital LimaSchool Yourself Phone: [facility] LimaSchool Yourself Phone: Glucose, Whole BloodOrdered By: Rojelio Mayes on 38-78-8882Frxgasa [Mass/Vol]317 mg/xSVkkp65 - 99 mg/dLKindred Hospital LimaSchool Yourself Phone: Interpretation and review of laboratory results AbnormalKindred Hospital LimaSchool Yourself Phone: [facility]imaSchool Yourself Phone: Glucose [Mass/Vol]266 mg/iUDwaj47 - 99 mg/dLKindred Hospital LimaSchool Yourself Phone: Interpretation and review of laboratory results AbnormalKindred Hospital LimaSchool Yourself Phone: [employer]self Phone: Glucose [Mass/Vol]172 mg/lLBbcn24 - 99 mg/dLBethesda North Hospital [employer] Phone: Interpretation and review of laboratory results AbnormalKindred Hospital LimaSchool Yourself Phone: Mer [employer] [employer] Work Phone: Hepatic function panelOrdered By: Rojelio Mayes on [id number] [Mass/Vol]2.7 g/dLLow3.5 - 5.2 g/dLKindred Hospital LimaSchool Yourself Phone: albumin/Globulin RatioNOT REPORTEDKindred Hospital LimaSchool Yourself Phone: aLP (Bld) [Catalytic activity/Vol]59 U/L40 - 129 U/L [facility] [employer] Phone: aLT [Catalytic activity/Vol]13 U/L5 - 41 [facility]/LMnew[facility] [employer] Work Phone: aST [Catalytic activity/Vol]10 U/L<40[facility] [employer] Phone: bilirubin [Mass/Vol]0.16 mg/dLLow0.30 - 1.20 mg/dL [facility] [employer] Phone: bilirubin, IndirectCANNOT BE CALCULATED0.00 - 1.00 mg/dLKindred Hospital LimaSchool Yourself Phone: bilirubin.indirect [Mass/Vol]mg/dL<0.31 mg/dLKindred Hospital LimaSchool Yourself Phone: Free PSA/Total PSA [Mass fraction]5.8 g/dLLow6.4 - 8.3 g/dLKindred Hospital LimaSchool Yourself Phone: GlobulinNOT REPORTED1.5 - 3.8 g/dLBethesda North Hospital [employer] Phone: Interpretation and review of laboratory results AbnormalKindred Hospital LimaSchool Yourself Phone: [facility] Work Phone: liver Profileon [id number] [Mass/Vol]2.7 g/dL Low3.5-5.2MM[facility] on above:Performed By: #### FERI, CRP, FIB #### [facility] [employer] [address] [place] [address] [id number] Busboy: Rogers Reno MD #### DIME, LD, CMPX, CDP #### [facility] [address] [place], [place] [id number] Busboy: Massimo Whitney Phos59 U/QXzbbrt92-745ZpodzAshtabula County Medical Center on above:Performed By: #### FERI, CRP, FIB #### [address] [id number] Busboy: Rogers Reno MD #### DIME, LD, CMPX, CDP #### [facility] [address] [place], [place] [phone] Busboy: HERNANDEZ Whitney [Catalytic activity/Vol]13 U/LNormal5-41[facility] CenterComdetroit receiving hospital on above:Performed By: #### FERI, CRP, FIB #### [address] [id number] Busboy: Rogers Reno MD #### DIME, LD, CMPX, CDP #### [facility] [address] [place], [place] [id number] Busboy: Richmond Nicole MDAST [Catalytic activity/Vol]10 U/LNormal<40[facility] on above:Performed By: #### FERI, CRP, FIB #### [address] [address] Busboy: Rogers Reno MD #### DIME, LD, CMPX, CDP #### [facility] [address] [place], [place] [id number] Busboy: Richmond Nicole MDBilirubin [Mass/Vol]0.16 mg/dLLow0.30-1.20[facility] Health CenterComment on above:Performed By: #### FERI, CRP, FIB #### [address] [phone] Busboy: Rogers Reno MD #### DIME, LD, CMPX, CDP #### [facility] [address] [place], [place] [id number] Busboy: Richmond Nicole MDBilirubin, IndirectCANNOT BE CALCULATEDNormal 0.00-1.00[facility] Health CenterComment on above:Performed By: #### FERI, CRP, FIB #### [place] [address] Busboy: Rogers Reno MD #### DIME, LD, CMPX, CDP #### [facility] [address] [place] [id number] Busboy: Richmond Nicole MDBilirubin.indirect [Mass/Vol]mg/dLNormal<0.31[facility] Health CenterComment on above:Performed By: #### FERI, CRP, FIB #### [facility] [employer] [address] [place], [place] [phone] Busboy: Rogers Reno MD #### DIME, LD, CMPX, CDP #### [facility] [address] [place], [place] [id number] Busboy: JUAN Whitneyrotein [Mass/Vol]5.8 g/dLLow6.4-8.3MMemorial Health System Selby General HospitalComment on above:Performed By: #### FERI, CRP, FIB #### [facility] [employer] [address] [place] [address] [phone] Busboy: Rogers Reno MD #### DIME, LD, CMPX, CDP #### [facility] [address] [place] [address] Busboy: Richmond Nicole MDAlbumin/Glob RatioNOT REPORTEDNormal1.0-2.5[facility] on above:Performed By: #### FERI, CRP, FIB #### [facility] [employer] [address] [place] [address] [phone] Busboy: Rogers Reno MD #### DIME, LD, CMPX, CDP #### [facility] [address] [place] [address] Busboy: Richmond Nicole MDGlobulin FractionNOT REPORTEDNormal1.5-3.8[facility] CenterComdetroit receiving hospital on above:Performed By: #### FERI, CRP, FIB #### [facility] [employer] [address] [place] [address] [phone] Busboy: Rogers Reno MD #### DIME, LD, CMPX, CDP #### [facility] [address] [place] [address] Busboy: JUAN Whitneyrocalcitoninon [id number] ng/mL Normal<0.09[facility] on above:Result Comment: Suspected Sepsis: <0.50 ng/mL Low likelihood [...] entered into the Change in Procalcitonin Calculator (www.ohmugs-krv-csjptvbtti.com) to determine the patient's Mortality Risk Prognosis In healthy neonates, plasma Procalcitonin (PCT) concentrations increase gradually after , reaching peak values at about 24 hours of age then decrease to normal values below 0.5 ng/mL by 48-72 hours of age.Performed By: #### FERI, CRP, FIB #### [facility] [employer] [address] [place], [place] [phone] Busboy: Rogers Reno MD #### CLAUDINE, LD, CMPX, CDP #### [facility] [address] [place] [address] Busboy: JUAN WhitneyrocalcitoninOrdered By: Stacia Saleh on 07-25-2021 Procalcitonin0.08 ng/mL<0.09[facility] Phone: comment on above: Suspected Sepsis: <0.50 ng/mL Low likelihood of sepsis. 0.50-2.00 ng/mL Increased likelihood of sepsis. Antibiotics encouraged. >2.00 ng/mL High risk of sepsis/shock. Antibiotics strongly encouraged. Suspected Lower Resp Tract Infections: <0.24 ng/mL Low likelihood of bacterial infection. >0.24 ng/mL Increased likelihood of bacterial infection. Antibiotics encouraged. With successful antibiotic therapy, PCT levels should decrease rapidly. (Half- life of 24 to 36 hours.) Procalcitonin values from samples collected within the first 6 hours of systemic infection may still be low. Retesting may be indicated. Values from day 1 and day 4 can be entered into the Change in Procalcitonin Calculator (www.gicoix-zje-yjynhoiyfb.com) to determine the patient's Mortality Risk Prognosis In healthy neonates, plasma Procalcitonin (PCT) concentrations increase gradually after , reaching peak values at about 24 hours of age then decrease to normal values below 0.5 ng/mL by 48-72 hours of age. [employer] Phone: [phone]-Belxqjmj Proteinon [id number] [Mass/Vol]110.2 mg/LHigh0.0-5.0Mercy Colstrip HospitalComment on above:Performed By: #### FERI, CRP, FIB #### [facility] [address] [place] [address] Busboy: Rogers Reno MD #### DIME, LD, CMPX, CDP #### [facility] [address] [place] [address] Busboy: Richmond Nicole MDC-Reactive ProteinOrdered By: Rojelio Mayes on [id number] [Mass/Vol]110.2 mg/LHigh0.0 - 5.0 mg/LMsouthwest general health centery [employer] Phone: Interpretation and review of laboratory results AbnormalKindred Hospital LimaSchool Yourself Phone: [facility] Phone: cBC Auto DifferentialOrdered By: Rojelio Mayes on 03-05-1876Visgdrph Eos #0.00[facility] Phone: absolute Immature GranulocyteNOT REPORTEDKindred Hospital LimaSchool Yourself Phone: absolute Lymph #0.80LowKindred Hospital LimaSchool Yourself Phone: absolute Jerome #0.20[facility] Phone: basophils (Bld) [#/Vol]0.00 10*3/uLKindred Hospital LimaSchool Yourself Phone: basophils/100 WBC (Bld)0 %0 - 2 %[employer] Phone: differential TypeYESMsouthwest general health centerCliniCast Phone: eosinophils/100 WBC (Bld)0 %0 - 5 %[employer] Phone: Hematocrit (Bld) [Volume fraction]40.6 %Low41 - 53 % [employer] Phone: Hemoglobin.gastrointestinal spec 1 Ql (Stl)13.4 g/dL Low13.5 - 17.5 g/dLKindred Hospital LimaSchool Yourself Phone: Immature GranulocytesNOT REPORTED0 %[employer] Phone: Interpretation and review of laboratory results AbnormalKindred Hospital LimaSchool Yourself Phone: lymphocytes/100 WBC (Bld)9 %Low13 - 44 %[employer] Phone: MCH (RBC) [Entitic mass]28.6 pg26 - 34 pgKindred Hospital LimaHMP Communications Work Phone: MCHC (RBC) [Mass/Vol]33.0 g/dL31 - 37 g/dLKindred Hospital LimaSchool Yourself Phone: MCV (RBC) [Entitic vol]86.7 fL80 - 100 fLUpworthy Phone: Monocytes/100 WBC (Bld)2 %Low5 - 9 %[employer] Phone: NRBC AutomatedNOT REPORTEDper 100 WBCKindred Hospital LimaSchool Yourself Phone: platelet distribution width (Bld) [Ratio]12.6 %12.1 - 15.2 %[employer] Phone: platelet EstimateNOT REPORTEDKindred Hospital LimaSchool Yourself Phone: platelet mean volume (Bld) [Entitic vol]NOT REPORTED 6.0 - 12.0 fLUpworthy Phone: Olatelets (Bld) [#/Vol]493 10*3/uLHighUpworthy Phone: RBC (Bld) [#/Vol]4.68 10*6/uL4.5 - 5.9 m/uLUpworthy Phone: RBC (Bld) [#/Vol]NOT REPORTEDKindred Hospital LimaSchool Yourself Phone: segmented neutrophils/100 WBC (Bld)89 %High39 - 75 % [employer] Phone: segs Absolute8.10HighBethesda North Hospital [employer] Work Phone: WBC (Bld) [#/Vol]9.1 10*3/uLHolzer Hospital Work Phone: WBC (Bld) [#/Vol]NOT REPORTEDHolzer Hospital Work Phone: [facility] Work Phone: cBC with Diffon [id number]. Basophil0.00 k/uLNormal 0.0-0.2MMemorial Health System Selby General HospitalComment on above:Performed By: #### FERI, CRP, FIB #### [address] [address] Busboy: Rogers Reno MD #### DIME, LD, CMPX, CDP #### [facility] [address] [place] [address] Busboy: Giancarlo Whitney.Neutrophil (Seg)8.10 k/uLHigh2.1-6.5[facility] General Health CenterComment on above:Performed By: #### FERI, CRP, FIB #### [place] [address] Busboy: Rogers Reno MD #### DIME, LD, CMPX, CDP #### [facility] [address] [place] [address] Busboy: Everette Whitney Diff PerformedYESCleveland Clinic Comment on above:Performed By: #### FERI, CRP, FIB #### [place] [address] Busboy: Rogers Reno MD #### DIME, LD, CMPX, CDP #### [facility] [address] [place] [address] Busboy: Richmond Nicole MDBasophils/100 WBC (Bld)0 %Normal0-2MMemorial Health System Selby General HospitalComment on above:Performed By: #### FERI, CRP, FIB #### [address] [phone] Busboy: Rogers Reno MD #### DIME, LD, CMPX, CDP #### [facility] [address] [place], [place] [id number] Busboy: Richmond Nicole MDEosinophils (Bld) [#/Vol]0.00 10*3/uLNormal0.0-0.4 [facility] on above:Performed By: #### FERI, CRP, FIB #### [address] [id number] Busboy: Rogers Reno MD #### DIME, LD, CMPX, CDP #### [facility] [address] [place], [place] 5797090 Busboy: Richmond Nicole MDEosinophils/100 WBC (Bld)0 %Normal0-5[facility] on above:Performed By: #### FERI, CRP, FIB #### [address] [id number] Busboy: Rogers Reno MD #### DIME, LD, CMPX, CDP #### [facility] [address] [place], [place] [phone] Busboy: Richmond Nicole MDErythrocyte distribution width (RBC) [Ratio]12.6 % Bzclcy10.1-15.2MMary [facility]an Hospital on above:Performed By: #### FERI, CRP, FIB #### [address] [phone] Busboy: Rogers Reno MD #### DIME, LD, CMPX, CDP #### [facility] [address] [place], [place] [id number] Busboy: Richmond Nicole MDHematocrit (Bld) [Volume fraction]40.6 %Svu50-75 [facility] CenterComment on above:Performed By: #### FERI, CRP, FIB #### [address] [address] Busboy: Rogers Reno MD #### DIME, LD, CMPX, CDP #### [facility] [address] [place], [place] 0597490 Busboy: Richmond Nicole MDHemoglobin (Bld) [Mass/Vol]13.4 g/dLLow13.5-17.5 [facility]ment on above:Performed By: #### FERI, CRP, FIB #### [address] [address] Busboy: Rogers Reno MD #### DIME, LD, CMPX, CDP #### [facility] [address] [place], [place] 6239990 Busboy: Richmond Nicole MDLymphocytes (Bld) [#/Vol]0.80 10*3/uLLow1.0-4.8 [facility] on above:Performed By: #### FERI, CRP, FIB #### [address] [address] Busboy: Rogers Reno MD #### DIME, LD, CMPX, CDP #### [facility] [address] [place], [place] [id number] Busboy: Richmond Nicole MDLymphocytes/100 WBC (Bld)9 %Klv50-99TlxcoSouthwest General Health CenterComdetroit receiving hospital on above:Performed By: #### FERI, CRP, FIB #### [address] [id number] Busboy: Rogers Reno MD #### DIME, LD, CMPX, CDP #### [facility] [address] [place] [address] Busboy: URIAH WhitneyCH (RBC) [Entitic mass]28.6 omYrdgom09-77FxmwsSelect Medical Specialty Hospital - [facility] Southment on above:Performed By: #### FERI, CRP, FIB #### [address] [id number] Busboy: Rogers Reno MD #### DIME, LD, CMPX, CDP #### [facility] [address] [place] [id number] Busboy: LUIS ALBERTO WhitneyC (RBC) [Mass/Vol]33.0 g/gOBifvvz64-12CvjxySouthwest General Health CenterComment on above:Performed By: #### FERI, CRP, FIB #### [address] [phone] Busboy: Rogers Reno MD #### DIME, LD, CMPX, CDP #### [facility] [address] [place] [id number] Busboy: URIAH WhitneyCV (RBC) [Entitic vol]86.7 sZEztisn91-402TihwjAshtabula County Medical Center on above:Performed By: #### FERI, CRP, FIB #### [address] 1602008 Busboy: Rogers Reno MD #### DIME, LD, CMPX, CDP #### [facility] [address] [place] [address] Busboy: URIAH Whitneyonocytes (Bld) [#/Vol]0.20 10*3/uLNormal0.0-1.0 [facility] on above:Performed By: #### FERI, CRP, FIB #### [facility] [address] [place] [address] Busboy: Rogers Reno MD #### DIME, LD, CMPX, CDP #### [facility] [address] [place], [place] [id number] Busboy: URIAH Whitneyonocytes/100 WBC (Bld)2 %Low5-9[facility] on above:Performed By: #### FERI, CRP, FIB #### [facility] [address] [place] [address] Busboy: Rogers Reno MD #### DIME, LD, CMPX, CDP #### [facility] [address] [place], [place] 1511390 Busboy: Richmond Nicole MDNeutrophil (Seg)89 %Znwp87-33QsnfoAshtabula County Medical Center on above:Performed By: #### FERI, CRP, FIB #### [facility] [address] [place] [address] Busboy: Rogers Reno MD #### DIME, LD, CMPX, CDP #### [facility] [address] [place], [place] [id number] Busboy: JUAN Whitneylatelets (Bld) [#/Vol]493 10*3/dQOtud979-170MibvcAshtabula County Medical Center on above:Performed By: #### FERI, CRP, FIB #### [facility] [address] [place], [place] 5499308 Busboy: Rogers Reno MD #### DIME, LD, CMPX, CDP #### [facility] [address] [place], [place] 3189290 Busboy: RAYO WhitneyBC (Bld) [#/Vol]4.68 10*6/uLNormal4.5-5.9[facility] CenterComdetroit receiving hospital on above:Performed By: #### FERI, CRP, FIB #### [address] [address] Busboy: Rogers Reno MD #### DIME, LD, CMPX, CDP #### [facility] [address] [place] [address] Busboy: [place] Nicole MDELIZABETHTOWN COMMUNITY HOSPITAL (d) [#/Vol]9.1 10*3/uLNormal3.5-11.0[facility] CenterComdetroit receiving hospital on above:Performed By: #### FERI, CRP, FIB #### [address] [address] Busboy: Rogers Reno MD #### DIME, LD, CMPX, CDP #### [facility] [address] [place] [address] Busboy: Giancarlo Whitney.Imm.GranulocyteNOT REPORTEDNormal0.00-0.30 [facility] CenterComdetroit receiving hospital on above:Performed By: #### FERI, CRP, FIB #### [address] [address] Busboy: Rogers Reno MD #### DIME, LD, CMPX, CDP #### [facility] [address] [place] [address] Busboy: Richmond Nicole MDImmature GranulocyteNOT LZYGUXUDZxhife9JgnunAshtabula County Medical Center on above:Performed By: #### FERI, CRP, FIB #### [address] [address] Busboy: Rogers Reno MD #### DIME, LD, CMPX, CDP #### [facility] [address] [place] [id number] Busboy: URIAH WhitneyPVNOT REPORTEDNormal6.0-12.0[facility] on above:Performed By: #### FERI, CRP, FIB #### [address] 7271108 Busboy: Rogers Reno MD #### DIME, LD, CMPX, CDP #### [facility] [address] [place], [place] 2134990 Busboy: [place] Nicole MDNRFRED AutomatedNOT REPORTEDNormalSouthwest General Health CenterComment on above:Performed By: #### FERI, CRP, FIB #### [address] [id number] Busboy: Rogers Reno MD #### DIME, LD, CMPX, CDP #### [facility] [address] [place] [id number] Busboy: Mine Whitneytelet EstimateNOT REPORTEDNormalSouthwest General Health CenterComment on above:Performed By: #### FERI, CRP, FIB #### [address] [address] Busboy: Rogers Reno MD #### DIME, LD, CMPX, CDP #### [facility] [address] [place] [address] Busboy: WILBUR Whitney morphology finding Nom (Bld)NOT REPORTEDNormal [facility] General Health CenterComment on above:Performed By: #### FERI, CRP, FIB #### [address] [address] Busboy: Rogers Reno MD #### DIME, LD, CMPX, CDP #### [facility] [address] [place], [place] 1098790 Busboy: FLAQUITO Whitney MorphologyNOT REPORTEDNormalSouthwest General Health CenterComdetroit receiving hospital on above:Performed By: #### FERI, CRP, FIB #### [place] [address] [place], [place] 8917608 Busboy: Rogers Reno MD #### CLAUDINE, LD, CMPX, CDP #### [facility] [address] [place] [address] Busboy: ELYSSA Whitneysanpete valley hospital Metabolic Pr/rfx MGon 07-24-2021(cont.)Normal [facility] CenterComdetroit receiving hospital on above:Result Comment: Average GFR for 60-69 years old: 85 mL/min/1.73sq m Chronic Kidney Disease: <60 mL/min/1.73sq m Kidney failure: <15 mL/min/1.73sq m eGFR calculated using average adult body mass. Additional eGFR calculator available at: http://www.[employer]/multiple_crcl_2012.htmPerformed By: #### FERI, CRP, FIB #### [address] [address] Busboy: Rogers Reno MD #### NATHANIEL CHOW, CMPX, CDP #### [facility] [address] [place] [address] Busboy: Richmond Nicole MDAlbumin [Mass/Vol]2.8 g/dLLow3.5-5.2MMary [facility] Hospital on above:Performed By: #### FERI, CRP, FIB #### [facility] [address] [place] [address] Busboy: Rogers Reno MD #### CLAUDINE, LD, CMPX, CDP #### [facility] [address] [place], [place] 1248490 Busboy: Billy Whitneykaline Phos69 U/WGsduzw06-453KsqrqAshtabula County Medical Center on above:Performed By: #### FERI, CRP, FIB #### [facility] [address] [place] [address] Busboy: Rogers Reno MD #### DIME, LD, CMPX, CDP #### [facility] [address] [place] [address] Busboy: Richmond Nicole MDALT [Catalytic activity/Vol]15 U/LNormal5-41[facility] on above:Performed By: #### FERI, CRP, FIB #### [address] [place], [place] 0833008 Busboy: Rogers Reno MD #### LEEE, LD, CMPX, CDP #### [facility] [address] [place], [place] 7465190 Busboy: Richmond Nicole MDAnidiane gap [Moles/Vol]11 mmol/LNormal9-17[facility] on above:Performed By: #### FERI, CRP, FIB #### [facility] [address] [place], [place] 8817108 Busboy: Rogers Reno MD #### CLAUDINE, NATHANIEL, CMPX, CDP #### [facility] [address] [place], [place] 6638090 Busboy: Richmond Nicole MDAST [Catalytic activity/Vol]14 U/LNormal<40[facility] on above:Performed By: #### FERI, CRP, FIB #### [facility] [address] [place], [place] 5624508 Busboy: Rogers Reno MD #### DIME, LD, CMPX, CDP #### [facility] [address] [place], [place] 5516490 Busboy: Richmond Nicole MDBilirubin [Mass/Vol]0.22 mg/dLLow0.30-1.20[facility] Colstrip HospitalComment on above:Performed By: #### FERI, CRP, FIB #### [facility] [address] [place] [address] Busboy: Rogers Reno MD #### DIME, LD, CMPX, CDP #### [facility] [address] [place], [place] 4725490 Busboy: Richmond Nicole MDBUN/CRE Cbngv90Ougg1-36JtzcmSouthwest General Health Center Comment on above:Performed By: #### FERI, CRP, FIB #### [facility] [employer] [facility] [place] [address] Busboy: Rogers Reno MD #### DIME, LD, CMPX, CDP #### [facility] [address] [place], [place] 2971290 Busboy: ELYSSA Whitneyalcium [Mass/Vol]9.1 mg/dLNormal8.6-10.4[facility] CenterComdetroit receiving hospital on above:Performed By: #### FERI, CRP, FIB #### [address] [id number] Busboy: Rogers Reno MD #### DIME, LD, CMPX, CDP #### [facility] [address] [place], [place] 3311790 Busboy: ELYSSA Whitneyhloride [Moles/Vol]99 mmol/VExwikp80-336HltriSouthwest General Health CenterComment on above:Performed By: #### FERI, CRP, FIB #### [facility] [address] [place], [place] 2893908 Busboy: Rogers Reno MD #### DIME, LD, CMPX, CDP #### [facility] [address] [place], [place] 6963590 Busboy: ELYSSA WhitneyO2 [Moles/Vol]25 mmol/PKmthfc62-80JaycvSouthwest General Health CenterComment on above:Performed By: #### FERI, CRP, FIB #### [address] [address] Busboy: Rogers Reno MD #### DIME, LD, CMPX, CDP #### [facility] [address] [place], [place] 6212890 Busboy: ELYSSA Whitneyreatinine [Mass/Vol]0.91 mg/dLNormal0.70-1.20 [facility] CenterComment on above:Performed By: #### FERI, CRP, FIB #### [address] 4991108 Busboy: Rogers Reno MD #### DIME, LD, CMPX, CDP #### [facility] [address] [place] 1184490 Busboy: Richmond Nicole MDGFR, Amer>60Normal>60[facility] Comment on above:Performed By: #### FERI, CRP, FIB #### [address] 1053808 Busboy: Rogers Reno MD #### DIME, LD, CMPX, CDP #### [facility] [address] [place] 1184490 Busboy: Richmond Nicole MDGFR,non Amer>60Normal>60[facility] General Health CenterComment on above:Performed By: #### FERI, CRP, FIB #### [address] [id number] Busboy: Rogers Reno MD #### DIME, LD, CMPX, CDP #### [facility] [address] [place], [place] 8461890 Busboy: Richmond Nicole MDGlucose [Mass/Vol]288 mg/lYXbft81-16TqhisMemorial Health System Selby General HospitalComment on above:Performed By: #### FERI, CRP, FIB #### [address] [address] Busboy: Rogers Reno MD #### DIME, LD, CMPX, CDP #### [facility] [address] [place] [address] Busboy: JUAN Whitneyotassium [Moles/Vol]4.4 mmol/LNormal3.7-5.3[facility] Medical CenterComment on above:Performed By: #### FERI, CRP, FIB #### [address] [address] Busboy: Rogers Reno MD #### DIME, LD, CMPX, CDP #### [facility] [address] [place] 1184490 Busboy: Richmond Nicole MDProtein [Mass/Vol]7.0 g/dLNormal6.4-8.3MMemorial Health System Selby General HospitalComment on above:Performed By: #### FERI, CRP, FIB #### [address] [id number] Busboy: Rogers Reno MD #### DIME, LD, CMPX, CDP #### [facility] [address] [place] 1184490 Busboy: Richmond Nicole MDSodium [Moles/Vol]135 mmol/GAhsivg604-977Ikekj Willard HospitalComment on above:Performed By: #### FERI, CRP, FIB #### [address] 9296708 Busboy: Rogers Reno MD #### DIME, LD, CMPX, CDP #### [facility] [address] [place] 1184490 Busboy: Richmond Nicole MDUrea nitrogen [Mass/Vol]21 mg/dLNormal8-[facility] Health CenterComment on above:Performed By: #### FERI, CRP, FIB #### [address] 7005308 Busboy: Rogers Reno MD #### DIME, LD, CMPX, CDP #### [facility] [address] [place] 1184490 Busboy: Richmond Nicole MDAlbumin/Glob RatioNOT REPORTEDNormal1.0-2.5[facility] Health CenterComment on above:Performed By: #### FERI, CRP, FIB #### [address] [id number] Busboy: Rogers Reno MD #### DIMWesley, LD, CMPX, CDP #### [facility] [address] [place] 1184490 Busboy: ROME Whitneytaging:NOT REPORTEDNoGreene Memorial Hospital Comment on above:Performed By: #### FERI, CRP, FIB #### [address] [id number] Busboy: Rogers Reno MD #### DIME, LD, CMPX, CDP #### [facility] [address] [place] 1184490 Busboy: ELYSSA Whitneyomprehensive Metabolic Panel w/ Reflex to MG Ordered By: Rojelio Mayes on [id number] [Mass/Vol]2.8 g/dLLow3.5 - 5.2 g/dLBethesda North Hospital [employer] Work Phone: albumin/Globulin RatioNOT REPORTEDBethesda North Hospital [employer] Work Phone: aLP (Bld) [Catalytic activity/Vol]69 U/L40 - 129 U/L [employer] Phone: aLT [Catalytic activity/Vol]15 U/L5 - 41 U/LMAdvestigo Phone: anion gap [Moles/Vol]11 mmol/L9 - 17 mmol/LMKUNFOOD.comy [employer] Phone: aST [Catalytic activity/Vol]14 U/L<40[facility] Phone: bilirubin [Mass/Vol]0.22 mg/dLLow0.30 - 1.20 mg/dL [facility] Township[facility]iniCast Phone: calcium [Mass/Vol]9.1 mg/dL8.6 - 10.4 mg/dLKindred Hospital LimaSchool Yourself Phone: chloride [Moles/Vol]99 mmol/L98 - 107 mmol/LMAdvestigo Phone: cO2 [Moles/Vol]25 mmol/L20 - 31 mmol/LMAdvestigo Phone: creatinine [Mass/Vol]0.91 mg/dL0.70 - 1.20 mg/dLKindred Hospital LimaSchool Yourself Phone: Free PSA/Total PSA [Mass fraction]7.0 g/dL6.4 - 8.3 g/dLKindred Hospital LimaSchool Yourself Phone: GFR >60>60 mL/minKindred Hospital LimaSchool Yourself Phone: GFR Non->60>60 mL/minKindred Hospital LimaSchool Yourself Phone: GFR/1.73 sq M.predicted MDRD (S/P/Bld) [Vol rate/Area] [employer] Phone: comment on above:Average GFR for 60-69 years old: 85 mL/min/1.73sq m Chronic Kidney Disease: <60 mL/min/1.73sq m Kidney failure: <15 mL/min/1.73sq m eGFR calculated using average adult body mass. Additional eGFR calculator available at: http://www.For[employer] Guide/multiple_crcl_2012.htm GFR/1.73 sq M.predicted MDRD (S/P/Bld) [Vol rate/Area]NOT REPORTEDBet[facility]da North Hospital [employer] Phone: Glucose [Mass/Vol]288 mg/wBKolb16 - 99 mg/dLBethesda North Hospital [employer] Phone: potassium [Moles/Vol]4.4 mmol/L3.7 - 5.3 mmol/LMnewark hospital [employer] Work Phone: sodium [Moles/Vol]135 mmol/L135 - 144 mmol/LMnewark hospital [employer] Phone: Urea nitrogen (BldV) [Mass/Vol]21 mg/dL8 - 23 mg/dL [facility] [employer] Phone: Urea nitrogen/Creatinine (Bld) [Mass ratio]23HighBethesda North Hospital [employer] Phone: [phone]-Hxatl Teston 26-66-1202F-Dimer Test1.69 mg/L FEUHigh 0.00-0.59[facility] General Health CenterComment on above:Result Comment: When combined with a low clinical [...] be more prevalent in patients with distal DVT.Performed By: #### FERI, CRP, FIB #### [facility] [address] [place], [place] [id number] Busboy: Rogers Reno MD #### CLAUDINE, LD, CMPX, CDP #### [facility] [address] [place] [address] Busboy: JOSEF Whitney-Dimer Test1.57 mg/L FEUHigh0.00-0.59[facility] General Health CenterComment on above:Result Comment: When combined with a low clinical [...] be more prevalent in patients with distal DVT.Performed By: #### CLAUDINE #### [facility] [address] [place] [address] Busboy: JOSEF Whitney-Dimer, QuantitativeOrdered By: Rojelio Mayes on 19-14-0152T-Dimer, Quant1.69[facility] [employer] Phone: comment on above: When combined with a low [...] distal DVT. Interpretation and review of laboratory resultsAbnoCarolinas ContinueCARE Hospital at Pineville [employer] Phone: [facility] [employer] Phone: Ferritinon [phone] ug/75 Heath StreetComment on above:Performed By: #### FERI, CRP, FIB #### [facility] [address] [place] [address] [phone] Busboy: Rogers Reno MD #### NATHANIEL CHOW, CMPX, CDP #### [facility] [address] [place] [address] Busboy: Richmond Nicole MDFerritin868 ug/[address] Comment on above:Performed By: #### FERI, CRP, FIB #### [facility] [address] [place] [address] [phone] Busboy: Rogers Reno MD #### DIME, LD, CMPX, CDP #### [facility] [address] [place] [address] Busboy: Richmond Nicole MDFerritinOrdered By: Rojelio Mayes on 07-24-2021 Lswhxisg731 ug/LHigh30 - 400 ug/LMercy Health Work Phone: Interpretation and review of laboratory results AbnormalMercy Health Work Phone: [facility] Work Phone: FerritinOrdered By: Stacia Saleh on 83-65-5796Cspmjhmt 868 ug/LHigh30 - 400 ug/LMercy Health Work Phone: Interpretation and review of laboratory results AbnormalMer Health Work Phone: [facility] Work Phone: Fibrinogenon 05-54-2723Tiouljotlq696 mg/qYUotl134-773 [facility] CenterComment on above:Performed By: #### FERI, CRP, FIB #### [facility] [address] [place] [address] Busboy: Rogers Reno MD #### DIME, LD, CMPX, CDP #### [facility] [address] [place] [address] Busboy: Richmond Nicole MDFibrinogenOrdered By: Rojelio Mayes on 99-84-0812Flllefbdqb527 mg/oSQsww926 - 420 mg/dLBethesda North Hospital [facility] Work Phone: Interpretation and review of laboratory results AbnormalMercy Health Work Phone: [facility] Work Phone: Glucose, Whole BloodOrdered By: Rojelio Mayes on 22-22-8762Yholuwb [Mass/Vol]162 mg/jAWezr63 - 99 mg/dLMer Health Work Phone: Interpretation and review of laboratory results AbnormalKindred Hospital LimaTakeacoder Health Work Phone: [facility] Work Phone: Glucose [Mass/Vol]244 mg/hSRkeg75 - 99 mg/dLMer Health Work Phone: Interpretation and review of laboratory results AbnormalMer Health Work Phone: Mer [employer] Work Phone: Glucose [Mass/Vol]215 mg/tISkfq72 - 99 mg/dLBethesda North Hospital [facility] Work Phone: Interpretation and review of laboratory results AbnormalBethesda North Hospital [employer] Work Phone: [facility] [employer] Work Phone: Hemoglobin A1Con 14-27-4817Yfxazqa [Mass/Vol]166 mg/dL NormalSouthwest General Health CenterComment on above:Result Comment: The ADA and AACC recommend providing the estimated average glucose result to permit better patient understanding of their HBA1c result.Performed By: #### GLYHGB #### [facility] [address] [place], [place] [id number] Busboy: Rogers Reno MDHbA1c (Bld) [Mass fraction]7.4 %High4.0-6.0[facility] General Health CenterComment on above:Performed By: #### GLYHGB #### [facility] [address] [place], [place] [id number] Busboy: Rogers Reno MDHemoglobin E9yVsiddzc By: Rojelio Mayes on 01-10-2015Cetooop [Mass/Vol]166 mg/dLHolzer Hospital Work Phone: comment on above:The ADA and AACC recommend providing the estimated average glucose result to permit better patient understanding of their HBA1c result. HbA1c (Bld) [Mass fraction]7.4 %High4.0 - 6.0 %[facility] [employer] Work Phone: Interpretation and review of laboratory results AbnormalBethesda North Hospital [employer] Work Phone: [facility] LimaHMP Communications Work Phone: lactate Dehydrogenaseon 40-42-4038OHQ [Catalytic activity/Vol]545 U/ATlfe784-267KwgccSouthwest General Health CenterComment on above:Performed By: #### FERI, CRP, FIB #### [facility] [address] [place], [place] [id number] Busboy: Rogers Reno MD #### DIME, LD, CMPX, CDP #### [facility] [address] [place], [place] [phone] Busboy: Richmond Nicole MDLD [Catalytic activity/Vol]577 U/XHvxv984-808 [facility] Health CenterComment on above:Performed By: #### FERI, CRP, FIB #### [facility] [address] [place], [place] 1592308 Busboy: Rogers Reno MD #### DIME, LD, CMPX, CDP #### [facility] [address] [place] [address] Busboy: Richmond Nicole MDLactate DehydrogenaseOrdered By: Rojelio Mayes on [id number] U/RVwej440 - 225 U/LMercy [employer] Work Phone: No Panel InformationOrdered By: Rojelio Mayes on 06-99-2116Htljtjdepzrksz and review of laboratory resultsAbnormalBethesda North Hospital [employer] Work Phone: [facility] [employer] Work Phone: cBC Auto DifferentialOrdered By: Stacia Saleh on 67-67-7161Tzwnpdlc Eos #0.11[facility] [employer] Work Phone: absolute Immature GranulocyteNOT REPORTEDBethesda North Hospital [employer] Work Phone: absolute Lymph #1.47[facility] [employer] Work Phone: absolute Jerome #0.34MerSchool Yourself Phone: basophils (Bld) [#/Vol]0.23 10*3/uLHighKindred Hospital LimaSchool Yourself Phone: differential TypeNOT REPORTEDKindred Hospital LimaSchool Yourself Phone: Hematocrit (Bld) [Volume fraction]43.6 %41 - 53 %[employer] Phone: Hemoglobin.gastrointestinal spec 1 Ql (Stl)14.9 g/dL 13.5 - 17.5 g/dLKindred Hospital LimaSchool Yourself Phone: Immature GranulocytesNOT REPORTED0 %[employer] Phone: Interpretation and review of laboratory results AbnormalKindred Hospital LimaSchool Yourself Phone: MCH (RBC) [Entitic mass]29.3 pg26 - 34 pgKindred Hospital LimaSchool Yourself Phone: MCHC (RBC) [Mass/Vol]34.3 g/dL31 - 37 g/dLKindred Hospital LimaSchool Yourself Phone: MCV (RBC) [Entitic vol]85.5 fL80 - 100 fLUpworthy Phone: Morphology Jose (Bld) [Interp]INCREASED PLATELETSKindred Hospital LimaSchool Yourself Phone: NRBC AutomatedNOT REPORTEDper 100 WBCKindred Hospital LimaSchool Yourself Phone: platelet distribution width (Bld) [Ratio]12.7 %12.1 - 15.2 %[employer] Phone: platelet EstimateNOT REPORTEDKindred Hospital LimaSchool Yourself Phone: platelet mean volume (Bld) [Entitic vol]NOT REPORTED 6.0 - 12.0 [employer] Phone: platelets (Bld) [#/Vol]523 10*3/uLHighUpworthy Phone: RBC (Bld) [#/Vol]5.09 10*6/uL4.5 - 5.9 m/uLKindred Hospital LimaHMP Communications Work Phone: RBC (Bld) [#/Vol]NOT REPORTEDKindred Hospital LimaHMP Communications Work Phone: Fegmented neutrophils/100 WBC (Bld)81 %High39 - 75 % [facility] TownshipCl[facility] Phone: Segs Absolute9.15HighKindred Hospital LimaHMP Communications Work Phone: WBC (Bld) [#/Vol]11.3 10*3/uLHighBethesda North Hospital [employer] Work Phone: WBC (Bld) [#/Vol]NOT REPORTEDKindred Hospital LimaSchool Yourself Phone: [facility]ima[facility]self Phone: cBC with Diffon 16-57-2810Bxh. Basophil0.23 k/uLHigh 0.0-0.2MMemorial Health System Selby General HospitalComment on above:Performed By: #### FERI, CRP, FIB #### [facility] [address] [place] [address] [phone] Busboy: Rogers Reno MD #### NATHANIEL CHOW, CMPX, CDP #### [facility] [address] [place] [address] Busboy: Giancarlo Whitney.Neutrophil (Seg)9.15 k/uLHigh2.1-6.5South[facility] General Health CenterComment on above:Performed By: #### FERI, CRP, FIB #### [facility] [place], [place] 1824208 Busboy: Rogers Reno MD #### NATHANIEL CHOW, CMPX, CDP #### [facility] [address] [place], [place] [phone] Busboy: Richmond Nicole MDEosinophils (Bld) [#/Vol]0.11 10*3/uLNormal0.0-0.4 [facility] on above:Performed By: #### FERI, CRP, FIB #### [address] [address] Busboy: Rogers Reno MD #### DIME, LD, CMPX, CDP #### [facility] [address] [place], [place] 1174190 Busboy: Richmond Nicole MDLymphocytes (Bld) [#/Vol]1.47 10*3/uLNormal1.0-4.8 [facility] on above:Performed By: #### FERI, CRP, FIB #### [address] [address] Busboy: Rogers Reno MD #### DIME, LD, CMPX, CDP #### [facility] [address] [place] [address] Busboy: URIAH Whitneyonocytes (Bld) [#/Vol]0.34 10*3/uLNormal0.0-1.0 [facility] on above:Performed By: #### FERI, CRP, FIB #### [address] [address] Busboy: Rogers Reno MD #### DIME, LD, CMPX, CDP #### [facility] [address] [place], [place] 9798890 Busboy: Richmond Nicole MDNeutrophil ([facility])81 %Wrad41-47WugfmAshtabula County Medical Center on above:Performed By: #### FERI, CRP, FIB #### [address] [address] Busboy: Rogers Reno MD #### DIME, LD, CMPX, CDP #### [facility] [address] [place], [place] [phone] Busboy: Richmond Nicole MDErythrocyte distribution width (RBC) [Ratio]12.7 % Wqultf41.1-15.2MMary [facility] on above:Performed By: #### FERI, CRP, FIB #### [address] [id number] Busboy: Rogers Reno MD #### DIME, LD, CMPX, CDP #### [facility] [address] [place] [address] Busboy: Richmond Nicole MDHematocrit (Bld) [Volume fraction]43.6 %Normal 41-53[facility] Columbus Southment on above:Performed By: #### FERI, CRP, FIB #### [address] [phone] Busboy: Rogers Reno MD #### DIME, LD, CMPX, CDP #### [facility] [address] [place], [place] 7651490 Busboy: Richmond Nicole MDHemoglobin (Bld) [Mass/Vol]14.9 g/dLNormal 13.5-17.5[facility] on above:Performed By: #### FERI, CRP, FIB #### [address] [id number] Busboy: Rogers Reno MD #### DIME, LD, CMPX, CDP #### [facility] [address] [place] [address] Busboy: URIAH WhitneyCH (RBC) [Entitic mass]29.3 ofVluylt31-39XycfzAshtabula County Medical Center on above:Performed By: #### FERI, CRP, FIB #### [address] [id number] Busboy: Rogers Reno MD #### DIME, LD, CMPX, CDP #### [facility] [address] [place], [place] 180[address] Busboy: URIAH WhitneyCHC (RBC) [Mass/Vol]34.3 g/lVPxlgbo05-68TlhemSouthwest General Health CenterComment on above:Performed By: #### FERI, CRP, FIB #### [address] [phone] Busboy: Rogers Reno MD #### DIME, LD, CMPX, CDP #### [facility] [address] [place] [id number] Busboy: URIAH WhitneyCV (RBC) [Entitic vol]85.5 bTWonnrd49-764PrkspSouthwest General Health CenterComment on above:Performed By: #### FERI, CRP, FIB #### [address] [phone] Busboy: Rogers Reno MD #### DIME, LD, CMPX, CDP #### [facility] [address] [place] 11844[address] Busboy: Carter Whitney (Bld) [#/Vol]523 10*3/eGCona565-701CouweSouthwest General Health CenterComment on above:Performed By: #### FERI, CRP, FIB #### [facility] [address] [place] [address] [phone] Busboy: Rogers Reno MD #### DIME, LD, CMPX, CDP #### [facility] [address] [place] [address] Busboy: WILBUR Whitney (Bld) [#/Vol]5.09 10*6/uLNormal4.5-5.9[facility] General Health CenterComment on above:Performed By: #### FERI, CRP, FIB #### [facility] [address] [place] [address] Busboy: Rogers Reno MD #### DIME, LD, CMPX, CDP #### [facility] [address] [place] [address] Busboy: Richmodn Nicole MDELIZABETHTOWN COMMUNITY HOSPITAL ([facility]) [#/Vol]11.3 10*3/uLHigh3.5-11.0[facility] on above:Performed By: #### FERI, CRP, FIB #### [address] [address] Busboy: Rogers Reno MD #### DIME, LD, CMPX, CDP #### [facility] [address] [place], [place] 3266190 Busboy: Giancarlo Whitney.Imm.GranulocyteNOT REPORTEDNormal0.00-0.30 [facility] on above:Performed By: #### FERI, CRP, FIB #### [address] [address] Busboy: Roegrs Reno MD #### DIME, LD, CMPX, CDP #### [facility] [address] [place], [place] [address] Busboy: Everette Whitney Diff PerformedNOT REPORTEDNormalAshtabula County Medical Center on above:Performed By: #### FERI, CRP, FIB #### [address] [phone] Busboy: Rogers Reno MD #### DIME, LD, CMPX, CDP #### [facility] [address] [place], [place] 2866090 Busboy: Geovani Whitney GranulocyteNOT BKMCKWFGPoiqad1SsnwmAshtabula County Medical Center on above:Performed By: #### FERI, CRP, FIB #### [facility] [address] [place] [address] Busboy: Rogers Reno MD #### DIME, LD, CMPX, CDP #### [facility] [address] [place] [address] Busboy: URIAH WhitneyPVNOT REPORTEDNormal6.0-12.0[facility] on above:Performed By: #### FERI, CRP, FIB #### [facility] [address] [place] [address] Busboy: Rogers Reno MD #### DIME, LD, CMPX, CDP #### [facility] [address] [place], [place] 1406690 Busboy: Richmond Nicole MDNRFRED AutomatedNOT REPORTEDNormalSelect Medical Specialty Hospital - Columbus Southment on above:Performed By: #### FERI, CRP, FIB #### [address] [address] Busboy: Rogers Reno MD #### DIME, LD, CMPX, CDP #### [facility] [address] [place] [address] Busboy: Mine Whitneytelet EstimateNOT REPORTEDNormalAshtabula County Medical Center on above:Performed By: #### FERI, CRP, FIB #### [facility] [address] [place] [address] Busboy: Rogers Reno MD #### DIME, LD, CMPX, CDP #### [facility] [address] [place] [address] Busboy: WILBUR Whitney morphology finding Nom (Bld)NOT REPORTEDNormal [facility] on above:Performed By: #### FERI, CRP, FIB #### [facility] [address] [place] [address] Busboy: Rogers Reno MD #### DIME, LD, CMPX, CDP #### [facility] [address] [place] [address] Busboy: Richmond Nicole MDELIZABETHTOWN COMMUNITY HOSPITAL MorphologyNOT REPORTEDNormAdena Regional Medical CenterComment on above:Performed By: #### FERI, CRP, FIB #### [address] [address] Busboy: Rogers Reno MD #### DIME, LD, CMPX, CDP #### [facility] [address] [place], [place] 5333590 Busboy: MICAH Whitney with DiffOrdered By: Stacia Saleh on 07-23-2021 Basophils/100 WBC (Bld)2 %Normal0-2[facility] Work Phone: comment on above:Performed By: #### FERI, CRP, FIB #### [address] [address] Busboy: Rogers Reno MD #### DIME, LD, CMPX, CDP #### [facility] [address] [place], [place] 3182690 Busboy: Richmond Nicole MDEosinophils/100 WBC (Bld)1 %Normal0-5[facility] Work Phone: comment on above:Performed By: #### FERI, CRP, FIB #### [address] [address] Busboy: Rogers Reno MD #### DIME, LD, CMPX, CDP #### [facility] [address] [place], [place] 8111590 Busboy: Richmond Nicole MDLymphocytes/100 WBC (Bld)13 %Brzthz78-13[facility]tb[facility] Work Phone: comment on above:Performed By: #### FERI, CRP, FIB #### [address] [address] Busboy: Rogers Reno MD #### DIME, LD, CMPX, CDP #### [facility] [address] [place], [place] 7692290 Busboy: Richmond Nicole MDMonocytes/100 WBC (Bld)3 %Low5-9[facility] Work Phone: comment on above:Performed By: #### FERI, CRP, FIB #### [address] [address] Busboy: Rogers Reno MD #### DIME, LD, CMPX, CDP #### [facility] [address] [place], [place] 4794190 Busboy: URIAH Whitneyorphology Jose (Bld) [Interp]Scanned to verify automated differential.[facility] Work Phone: comment on above:Result Comment: INCREASED PLATELETS Performed By: #### FERI, CRP, FIB #### [address] [address] Busboy: Rogers Reno MD #### DIME, LD, CMPX, CDP #### [facility] [address] [place], [place] 2224990 Busboy: Richmond Nicole MDCOVID-19, RapidOrdered By: Stacia Saleh on 40-67-8268Vflfokubevgffq and review of laboratory resultsAbnormKettering Health Dayton Work Phone: [phone]-[id number] (COVID-19) RNA DESTIN+probe Ql (Unsp spec) DetectedAbnormalNot DetectedHolzer Hospital Work Phone: comment on above: Rapid NAAT: The specimen is [...] this assay. Fact sheet for Healthcare Providers: https://www.fda.gov/media/582320/download Fact sheet for Patients: https://www.fda.gov/media/199666/download Methodology: Isothermal Nucleic Acid Amplification Results reported to the appropriate Health Department Specimen Description.NASOPHARYNGEAL SWABBethesda North Hospital [employer] Phone: [facility] [employer] Phone: comp Metabolic Profon 07-23-2021(cont.)C[facility] ClinicComment on above:Result Comment: Average GFR for 60-69 years old: 85 mL/min/1.73sq m Chronic Kidney Disease: <60 mL/min/1.73sq m Kidney failure: <15 mL/min/1.73sq m eGFR calculated using average adult body mass. Additional eGFR calculator available at: http://www.Kitani.Visedo/multiple_crcl_2012.htmPerformed By: #### CRP, PRCAL, FERI #### [facility] [place] [address] Busboy: Rogers Reno MD #### NATHANIEL ZULUAGA, DUANEI, CDP #### [facility] [address] [place] [address] Busboy: Billy Whitneybumin [Mass/Vol]3.1 g/dLLow3.5-5.2[facility] Medical CenterComment on above:Performed By: #### CRP, PRCAL, FERI #### [facility] [address] [place], [place] 759280[address] Busboy: Rogers Reno MD #### CPNATHANIEL, TROPI, CDP #### [facility] [address] [place], [place] 7052190 Busboy: Massimo Whitney Phos75 U/LJelmlx10-744PitrbAshtabula County Medical Center on above:Performed By: #### CRP, PRCAL, FERI #### [facility] [address] [place] [address] [phone] Busboy: Rogers Reno MD #### NATHANIEL ZULUAGA, TROPI, CDP #### [facility] [address] [place], [place] 223[address] Busboy: Richmond Nicole MDALT [Catalytic activity/Vol]19 U/LNormal5-41[facility] on above:Performed By: #### CRP, PRCAL, FERI #### [address] [phone] Busboy: Rogers Reno MD #### NATHANIEL ZULUAGA, TROPI, CDP #### [facility] [address] [place], [place] 1369890 Busboy: Vernon Whitney gap [Moles/Vol]18 mmol/LHigh9-17[facility] on above:Performed By: #### CRP, PRCAL, FERI #### [address] [phone] Busboy: Rogers Reno MD #### CP LD, TROPI, CDP #### [facility] [address] [place], [place] 3849190 Busboy: Richmond Nicole MDAST [Catalytic activity/Vol]17 U/LNormal<40[facility] on above:Performed By: #### CRP, PRCAL, FERI #### [address] [place], [place] 6805[address] Busboy: Rogers Reno MD #### NATHANIEL ZULUAGA TROPI, CDP #### [facility] [address] [place], [place] 4134990 Busboy: Richmond Nicole MDBilirubin [Mass/Vol]0.47 mg/dLNormal0.30-1.20[facility] Health CenterComment on above:Performed By: #### CRP, PRCAL, FERI #### [address] [address] Busboy: Rogers Reno MD #### NATHANIEL ZULUAGA TROPI, CDP #### [facility] [address] [place], [place] 2703990 Busboy: Richmond Nicole MDBUN/CRE Rxtth22Wekgls1-61Tncbv [facility] Comment on above:Performed By: #### CRP, PRCAL, FERI #### [address] [address] Busboy: Rogers Reno MD #### NATHANIEL ZULUAGA TROPI, CDP #### [facility] [address] [place], [place] 1986290 Busboy: ELYSSA Whitneyalcium [Mass/Vol]9.3 mg/dLNormal8.6-10.4[facility] Health CenterComment on above:Performed By: #### CRP, PRCAL, FERI #### [address] [phone] Busboy: Rogers Reno MD #### CPNATHANIEL TROPI, CDP #### [facility] [address] [place], [place] 0996790 Busboy: ELYSSA Whitneyhloride [Moles/Vol]92 mmol/KIbo40-099SoqcfSouthwest General Health CenterComment on above:Performed By: #### CRP, PRCAL, FERI #### [facility] [address] [place] [address] Busboy: Rogers Reno MD #### CP, LD, TROPI, CDP #### [facility] [address] [place] [address] Busboy: ELYSSA WhitneyO2 [Moles/Vol]23 mmol/EQsoaji97-02SnkxuSouthwest General Health CenterComment on above:Performed By: #### CRP, PRCAL, FERI #### [address] [address] Busboy: Rogers Reno MD #### CP, LD, TROPI, CDP #### [facility] [address] [place] [address] Busboy: ELYSSA Whitneyreatinine [Mass/Vol]1.16 mg/dLNormal0.70-1.20 [facility] CenterComment on above:Performed By: #### CRP, PRCAL, FERI #### [address] [address] Busboy: Rogers Reno MD #### MARGARETH, LD, TROPI, CDP #### [facility] [address] [place], [place] 3358790 Busboy: Richmond Nicole MDGFR, Amer>60Normal>60[facility] Comment on above:Performed By: #### CRP, PRCAL, FERI #### [facility] [address] [place] [address] Busboy: Rogers Reno MD #### CP, LD, TROPI, CDP #### [facility] [address] [place] [address] Busboy: Richmond Nicole MDGFR,non Amer>60Normal>60[facility] Health CenterComment on above:Performed By: #### CRP, PRCAL, FERI #### [place] [place] [address] Busboy: Rogers Reno MD #### CP, LD, TROPI, CDP #### [facility] [address] [place] [address] Busboy: Richmond Nicole MDGlucose [Mass/Vol]219 mg/wOZiue60-88VxvfzMemorial Health System Selby General HospitalComment on above:Performed By: #### CRP, PRCAL, FERI #### [address] [id number] Busboy: Rogers Reno MD #### CP, LD, TROPI, CDP #### [facility] [address] [place], [place] 5163990 Busboy: JUAN Whitneyotassium [Moles/Vol]3.3 mmol/LLow3.7-5.3MMemorial Health System Selby General HospitalComment on above:Performed By: #### CRP, PRCAL, FERI #### [address] [id number] Busboy: Rogers Reno MD #### CP, LD, TROPI, CDP #### [facility] [address] [place], [place] 0416790 Busboy: Richmond Nicole MDProtein [Mass/Vol]7.7 g/dLNormal6.4-8.3MMemorial Health System Selby General HospitalComment on above:Performed By: #### CRP, PRCAL, FERI #### [address] [phone] Busboy: Rogers Reno MD #### CP, LD, TROPI, CDP #### [facility] [address] [place], [place] 6490790 Busboy: ROME Whitneyodium [Moles/Vol]133 mmol/ZYuv314-074CymgiSouthwest General Health CenterComment on above:Performed By: #### CRP, PRCAL, FERI #### [facility] [address] [place] [address] Busboy: Rogers Reno MD #### CP, LD, TROPI, CDP #### [facility] [address] [place], [place] [id number] Busboy: Richmond Nicole MDUrea nitrogen [Mass/Vol]22 mg/dLNormal8-23Southwest General Health CenterComment on above:Performed By: #### CRP, PRCAL, FERI #### [address] [address] Busboy: Rogers Reno MD #### CP, LD, TROPI, CDP #### [facility] [address] [place] [id number] Busboy: Richmond Nicole MDAlbumin/Glob RatioNOT REPORTEDNormal1.0-2.5Southwest General Health CenterComment on above:Performed By: #### CRP, PRCAL, FERI #### [address] [address] Busboy: Rogers Reno MD #### CP, LD, TROPI, CDP #### [facility] [address] [place], [place] [id number] Busboy: ROME Whitneytaging:NOT REPORTEDNormalSouthwest General Health Center Comment on above:Performed By: #### CRP, PRCAL, FERI #### [facility] [address] [place] [address] Busboy: Rogers Reno MD #### CP, LD, TROPI, CDP #### [facility] [address] [place], [place] [id number] Busboy: Richmond Sturtz, MDComprehensive Metabolic PanelOrdered By: Stacia Saleh on 36-43-0357Drrmzbg [Mass/Vol]3.1 g/dLLow3.5 - 5.2 g/dLBethesda North Hospital [employer] Work Phone: Ilbumin/Globulin RatioNOT REPORTEDMer [employer] Work Phone: PLP (Bld) [Catalytic activity/Vol]75 U/L40 - 129 U/L [facility] Work Phone: DLT [Catalytic activity/Vol]19 U/L5 - 41 U/LMercy Health Work Phone: Jnion gap [Moles/Vol]18 mmol/LHigh9 - 17 mmol/LMercy Health Work Phone: HST [Catalytic activity/Vol]17 U/L<40Mer [employer] Work Phone: Tilirubin [Mass/Vol]0.47 mg/dL0.30 - 1.20 mg/dLBethesda North Hospital [employer] Work Phone: Jalcium [Mass/Vol]9.3 mg/dL8.6 - 10.4 mg/dLBethesda North Hospital [employer] Work Phone: Rhloride [Moles/Vol]92 mmol/LLow98 - 107 mmol/LMercy Health Work Phone: EO2 [Moles/Vol]23 mmol/L20 - 31 mmol/LMercy Health Work Phone: Yreatinine [Mass/Vol]1.16 mg/dL0.70 - 1.20 mg/dLBethesda North Hospital [employer] Work Phone: Free PSA/Total PSA [Mass fraction]7.7 g/dL6.4 - 8.3 g/dLBethesda North Hospital [employer] Work Phone: GFR >60>60 mL/minMer [employer] Work Phone: GFR Non->60>60 mL/minBethesda North Hospital [employer] Work Phone: GFR/1.73 sq M.predicted MDRD (S/P/Bld) [Vol rate/Area] [facility] Phone: comment on above:Average GFR for 60-69 years old: 85 mL/min/1.73sq m Chronic Kidney Disease: <60 mL/min/1.73sq m Kidney failure: <15 mL/min/1.73sq m eGFR calculated using average adult body mass. Additional eGFR calculator available at: http://www.[employer] Guide/multiple_crcl_2012.htm GFR/1.73 sq M.predicted MDRD (S/P/Bld) [Vol rate/Area]NOT REPORTEDKindred Hospital LimaSchool Yourself Phone: Glucose [Mass/Vol]219 mg/aXYlbz01 - 99 mg/dLKindred Hospital LimaSchool Yourself Phone: Interpretation and review of laboratory results AbnormalKindred Hospital LimaSchool Yourself Phone: potassium [Moles/Vol]3.3 mmol/LLow3.7 - 5.3 mmol/L [facility] Phone: sodium [Moles/Vol]133 mmol/KVnb515 - 144 mmol/LMnewark hospital [employer] Phone: Urea nitrogen (BldV) [Mass/Vol]22 mg/dL8 - 23 mg/dL [facility] Phone: Urea nitrogen/Creatinine (Bld) [Mass ratio]19[facility] Phone: [facility] Phone: [phone]-Rktad, QuantitativeOrdered By: Rojelio Mayes on 64-11-3302A-Dimer, Quant1.57HighKindred Hospital LimaSchool Yourself Phone: comment on above: When combined with a low [...] distal DVT. Interpretation and review of laboratory resultsAbnoCarolinas ContinueCARE Hospital at Pineville [employer] Work Phone: [facility] [employer] Phone: Glucose, Whole BloodOrdered By: Rojelio Mayes on 78-72-0725Zqzrkxa [Mass/Vol]247 mg/vKGpwn52 - 99 mg/dLBethesda North Hospital [employer] Phone: Interpretation and review of laboratory results AbnormalBethesda North Hospital [employer] Phone: [facility] [employer] Phone: lactate DehydrogenaseOrdered By: Stacia Saleh on 94-37-0163Raneylecwngunq and review of laboratory resultsAbMission Hospital McDowell [employer] Phone: lD577 U/OLdtk526 - 225 U/LMsouthwest general health centery [employer] Work Phone: [facility] Phone: [phone]-CsT-2on 54-64-2172HSUO-CoV-2 (COVID-19) RNA DESTIN+probe Ql (Unsp spec)DetectedAbnoFlower HospitalComment on above:Result Comment: Rapid NAAT: The specimen is POSITIVE [...] this assay. Fact sheet for Healthcare Providers: https://www.fda.gov/media/283322/download Fact sheet for Patients: https://www.fda.gov/media/085249/download Methodology: Isothermal Nucleic Acid Amplification Results reported to the appropriate Health DepartmentPerformed By: #### FERI, CRP, FIB #### [address] [address] Busboy: Rogers Reno MD #### NATHANIEL CHOW, CMPX, CDP #### [facility] [address] [place] [address] Busboy: Charlotte Whitney 16-38-9737Mrwkrpjy, High Sens15 ng/L Normal[address] [place], [place] [address]Comment on above:Result Comment: High Sensitivity Troponin values cannot be compared with other Troponin methodologies. Patients with high levels of Biotin oral intake (i.e >5mg/day) may have falsely decreased Troponin levels. Samples collected within 8 hours of biotin intake may require additional information for diagnosis.Performed By: #### FERI, CRP, FIB #### [facility] [address] [place] [address] Busboy: Rogers Reno MD #### NATHANIEL CHOW, CMPX, CDP #### [facility] [address] [place] [address] Busboy: Nelsy Whitney.NOT REPORTEDNormAdena Regional Medical CenterComment on above:Performed By: #### FERI, CRP, FIB #### [facility] [address] [place] [address] Busboy: Rogers Reno MD #### DIME, LD, CMPX, CDP #### [facility] [address] [place] [address] Busboy: Nelsy Whitney TNOT REPORTEDNormal<0.03Southwest General Health CenterComment on above:Performed By: #### FERI, CRP, FIB #### [facility] [address] [place] [address] Busboy: Rogers Reno MD #### DIME, LD, CMPX, CDP #### [facility] [address] [place] [address] Busboy: Richmond Nicole MDTroponinOrdered By: Stacia Saleh on 07-23-2021 Troponin InterpNOT REPORTEDBethesda North Hospital [employer] Phone: Troponin TNOT REPORTED<0.03 ng/mLOhiohealth Dublin Methodist Hospital Phone: Troponin, High Pytimjqnuwl41 ng/L0 - 22 ng/LMVan Wert County Hospital [employer] Phone: comment on above: High Sensitivity Troponin values cannot be compared with other Troponin methodologies. Patients with high levels of Biotin oral intake (i.e >5mg/day) may have falsely decreased Troponin levels. Samples collected within 8 hours of biotin intake may require additional information for diagnosis. [facility] [employer] Phone: XR CHEST PORTABLEon [phone] CHEST PORTABLEEXAM: XR CHEST PORTABLE HISTORY: Reason for exam:->cough [...] Signed by: Stacia Calloway MD 07/23/21 Final resultNormalSouthwest General Health CenterXR CHEST PORTABLEOrdered By: Stacia Saleh on 37-03-8238NKST-CoV-2 (COVID-19) RNA DESTIN+probe Ql (Unsp spec)Findings are compatible with an atypical infectious, inflammatory, or viral process to include COVID-19 pneumonia.[employer] Phone: eXAM: XR CHEST PORTABLE HISTORY: Reason for exam:- >cough COMPARISON: None. TECHNIQUE: Portable chest radiograph. FINDINGS: The cardiomediastinal silhouette and pulmonary vasculature are normal. Nopleural effusion, focal consolidation, pneumothorax. There are patchy airspace opacities along the periphery of the lungs in the mid to lower lungs bilaterally. Soft tissues and osseous structures are without acute findings.[employer] Phone: edi, [facility] Incoming Radiant Results From [email or web address] - 07/23/2021 8:46 PM EDT EXAM: XR [...] or viral process to include COVID-19 pneumonia. [employer] Phone: [facility] Phone: Vital Signs Date TimeVital SignValuePerforming LfnwbbltyJjmztnzu65-17-2825 09:48-0400Body qumhrv744.34 cmBenjamin Ball DO Work Phone: [facility]08-22-2025 09:48-0400 Body mass index (BMI) [Ratio]28.1 kg/v9Scsppams Ball DO Work Phone: [facility]08-22-2025 09:48-0400 Body opzuuv63.62 kgBenJingshi Wanweimin [employer] DO Work Phone: [phone]08-22-2025 09:48-0400 Diastolic blood girggolp91 mm[Hg]Elpidio Ball DO Work Phone: [facility]08-22-2025 09:48-0400 Heart rate66 /minBenjamin Ball DO Work Phone: [facility]08-22-2025 09:48-0400 Respiratory rate12 /minBenjamin Ball DO Work Phone: [phone]08-22-2025 09:48-0400 SaO2% (BldA) [Mass fraction]100 %Elpidio Ball DO Work Phone: [phone]08-22-2025 09:48-0400 Systolic blood gkqjivsy330 mm[Hg]Elpidio Ball DO Work Phone: [phone]02-21-2025 11:00-0500 Body ywaspj993.34 cmAshtabula County Medical Center02-21-2025 11:00-0500Body mass index (BMI) [Ratio]28.3 kg/d1XroravjlvAshtabula County Medical Center02-21-2025 11:00-0500Body .19 kgAshtabula County Medical Center02-21-2025 11:00-0500Diastolic blood ixatonpj77 mm[Hg][facility] 12-21-2024 11:00-0500Heart rate67 /[facility] 12-21-2024 11:00-0500Respiratory rate12 /[facility] 12-21-2024 11:00-0500Systolic blood uykjjdiq407 mm[Hg][facility]11-04-2024 10:32-0500Blood Pressure LocationPatricjace EDY [facility]11-04-2024 10:32-0500Body fptfhihgmgw57.6 [degF]Thong MATOS [facility]11-04-2024 10:32-0500Diastolic blood atxaicjx71 mm[Hg]Thong MATOS [facility]11-04-2024 10:32-0500Heart rate70 /minPatrick MATOS [facility]11-04-2024 10:32-0500Respiratory rate18 /minPatrick MATOS [facility]11-04-2024 10:32-0500Systolic blood mm[Hg]Thong MATOS [facility]08-19-2024 09:55-0400Blood Pressure LocationPatrick MATOS [facility]08-19-2024 09:55-0400Diastolic blood joztaxdb87 mm[Hg]Thong MATOS [facility]08-19-2024 09:55-0400Heart rate76 /minPatrick MATOS [facility]08-19-2024 09:55-0400Systolic blood eqskkpiv776 mm[Hg]Thong MATOS [facility]08-02-2024 10:17-0400Body ykqmvy657.34 cmAshtabula [facility]08-02-2024 10:17-0400Body mass index (BMI) [Ratio]29.2 kg/d2UacgwhwqqAshtabula County Medical Center08-02-2024 10:17-0400Body onackd53.31 kgAshtabula County Medical Center08-02-2024 10:17-0400Diastolic blood ynwxsidx05 mm[Hg] [facility]08-02-2024 10:17-0400Heart rate71 /[facility]08-02-2024 10:17-0400Respiratory rate12 /[facility]08-02-2024 10:17-0400Systolic blood allyrlsz656 mm[Hg] [facility]02-02-2024 10:00-0500Body gnembn912.34 cm Elpidio Sahu Other [employer] Other 02-02-2024 10:00-0500Body mass index (BMI) [Ratio] 30.62 kg/s8Rdlraafc Ball Other [employer] Other 02-02-2024 10:00-0500Body .61 kgBenonel Sahu Other [employer] Other 02-02-2024 10:00-0500Diastolic blood wlqyfaxv53 mm[Hg] Elpidio Sahu Other [employer] Other 02-02-2024 10:00-0500Respiratory rate12 /NineSigmaElpidio Sahu Other [employer] Other 02-02-2024 10:00-0500Systolic blood cotscdaa512 mm[Hg] Elpidio Sahu Other [employer] Other 09-25-2021 13:45-8428WmN6% (BldA) [Mass fraction]95 % Stacia Saleh MD Work Phone: [employer] Work Phone: [phone] 806-805409-25-2021 08:20-0400Body ebpuhfrafbu75.6 [degF]Stacia Saleh MD Work Phone: [employer] Phone: [phone] 08:20-0400Diastolic blood fbylbxxv35 mm[Hg] Stacia Saleh MD Work Phone: [employer] Work Phone: [phone] 08:20-0400Heart rate61 /Manoj Saleh MD Work Phone: [employer] Work Phone: [phone] 445-214709-25-2021 08:20-0400Respiratory rate16 /Manoj Saleh MD Work Phone: [employer] Work Phone: [phone]) 820-646709-25-2021 08:20-0400Systolic blood kanhvifj687 mm[Hg] Stacia Saleh MD Work Phone: [facility] [employer] Work Phone: [phone] 633-664209-24-2021 12:58-0400Body aypuil472.3 cmStacia Saleh MD Work Phone: [facility] [employer] Work Phone: [phone] 820-130709-23-2021 22:15-0400Body mass index (BMI) [Ratio] 27.81 kg/b6JhqqvStacia Saleh MD Work Phone: [employer] Work Phone: 1([phone] 376-905409-23-2021 22:15-0400Body ofosdp21.45 kgStacia Saleh MD Work Phone: [employer] Work Phone: Encounters Encounter DateEncounter TypeCare ProviderFacilityStart: 35-70-1464tabwdhkaec Thong Sherwood WATERSFacility:MARCUS BellevueStart: 06-21-2025 End: 96-72-7095gorbshupnvMnbsqmro Luis Alberto CARVER Work Phone: [facility] Work Phone: Start: 06-21-2025 End: 01-36-8003Jspievn encounter procedureBekvng Sahu DO-[facility] Work Phone: Start: 06-21-2025 End: 91-77-7607Kapjxqk encounter statuskvng Sahu [facility]ertart: 62-01-6420Arv-patient / Non-visitBekvng Luis Alberto -[facility] Work Phone: Start: 46-91-6053Shmqkyt encounter statusGarethonel Sahu DO Work Phone: [facility]: 02-18-2025 End: 85-42-1549hphlwqkpfeYeuzrba R WATERSFacility:EU BellevueStart: 12-21-2024 End: 01-68-2068nljctnzmecSzgwvvmowAshtabula [facility] Center Work Phone: Start: 12-21-2024 End: 44-61-6789Bwhnnfj encounter procedureNov[facility] Work Phone: Start: 09-03-2024 End: 14-61-8567tgzjwhcvhbMxjxgtp R WATERSFacility:EU evueStart: 09-03-2024 End: 29-40-6147Qiitofy encounter Stalin MATOS [facility] start: 08-14-2024 End: 83-97-1629hzcxalhtrlKB Elpidio Sahu Work Phone: [facility] Work Phone: Start: 08-14-2024 End: 38-61-0667Qwzldfjf Referred Elpidio Sahu Work Phone: [facility] [place] Work Phone: Start: 08-14-2024 End: 53-31-5415ejurbalvwrPmsazwr R WATERSFacility:CD:[id number]: 07-25-2024 End: 70-51-1221Vqzbprt encounter procedure Elpidio Sahu Work Phone: [facility] [place] Work Phone: Start: 07-25-2024 End: 82-55-7312tzwhybojacGD Elpidio Sahu Work Phone: [facility] Work Phone: Start: 06-18-2024 End: 97-70-4472uqzusfmnihHdnnwam R WATERSFacility:MARCUS JaiueStart: 06-18-2024 End: 30-77-4462Abwublk encounter procedureThong MATOS [facility] start: 06-01-2024 End: 12-04-6323abijfkujnvRsbzkaxdiAshtabula County Medical Center Work Phone: Start: 06-01-2024 End: 77-18-9238Ntwnndwed for general adult medical examination without abnormal findingsMercer County Community Hospitaltart: 06-01-2024 End: 73-01-1870Pmznygb encounter procedureNovant Health [facility] Work Phone: Start: 37-74-8018Xwl-patient / Non-visitNovant Health K[facility]-[employer] Work Phone: Start: 54-03-6656Hhm-patient / Non-visitNovant Health Kern[facility] Work Phone: Start: 12-02-2023 End: 92-86-0049hkzxgrcfqhLvbspycm Luis Alberto Other [employer] Other Start: 94-16-3771Tfncgw outpatient visit 25 minutes Elpidio Whelan [facility] ClinicStart: 92-53-3390Aedxw health examination Elpidio Sahu Other [employer] Other Start: 86-17-7291Wmjzrkaur for general adult medical examination without abnormal findingsDR ELPIDIO SAHUNationwide Children's Hospitaltart: 05-08-2022 End: 58-71-8530mxgdwpcvszVY BENJAMIN BALLFacility:S5Gzjzm: 05-08-2022 End: 75-58-7299Fqvatjawp for general adult medical examination without abnormal findingsDR ELPIDIO SAHUFacility:G0Oilen: 07-23-2021 End: 57-32-3847Cddpyxdlas and management of inpatientROJELIO [facility] HospitalStart: 07-23-2021 End: 41-82-2453Mbryhupvpm and management of inpatientStacia Saleh MD Work Phone: mwhZ 2E MED SURG TELEMETRYComment on above:Pneumonia due to COVID-19 virus (Primary Dx) Procedures DateProcedureProcedure DetailPerforming ClinicianStart: 12-19-1602ZFI-US fusion guided transrectal biopsy of prostatePatrick EDY Start: 79-81-7831XX prostate wo/w conDO Elpidio Luis Alberto Work Phone: Start: 01-79-7764NBP screeningDR ELPIDIO SAHUComment on above:Performed By: #### PSASC #### [facility] [address] [place] [address] Dr. Oniel JacksonStart: 72-31-7076Xvck bld gluc mntr dev cleared fda spec home use Rojelio Mayes MD Work Phone: Start: 74-51-4278Ssyp bld gluc mntr dev cleared fda spec home useRojelio Mayes MD Work Phone: Start: 98-59-4113[employer] dgradj products d-dimer quantitativeRojelio Mayes MD Work Phone: Start: 88-93-9500Tzygxhi function panelRojelio Mayes MD Work Phone: Start: 42-26-9002Xjwc bld gluc mntr dev cleared fda spec home useRojelio Mayes MD Work Phone: Start: 32-98-1370Xyrc bld gluc mntr dev cleared fda spec home useRojelio Mayes MD Work Phone: Start: 20-52-9104Ttcg bld gluc mntr dev cleared fda spec home useRojelio Mayes MD Work Phone: Start: 51-27-1743Mhmj bld gluc mntr dev cleared fda spec home useRojelio Mayes MD Work Phone: Start: 54-55-6627Jzeiv of ferritinRojelio Mayes MD Work Phone: Start: 13-59-2154R-reactive proteinRojelio Mayes MD Work Phone: Start: 73-39-4675Havv bld gluc mntr dev cleared fda spec home Sabrina Mayes MD Work Phone: Start: 60-17-2637TKZED-19, RAPIDStacia Saleh MD Work Phone: Start: 81-25-6083Hulzncvfyz exam chest single view Stacia Saleh MD Work Phone: Start: 69-50-6614E-reactive proteinStacia Saleh MD Work Phone: Start: 07-23-2021 End: 72-70-5064Pxjsoahttfluo metabolic panelStacia Saleh MD Work Phone: Start: 46-14-1674Ljbzghhga for malignant neoplasm of colonBenonel Sahu Other CholecystectomyHalalati Depression screeningBenonel Sahu Other TonsillectomyHalalati Plan of Treatment DateCare ActivityDetailAuthorStart: 86-71-3959MtqcjpmdiAshtabula [facility] Medical Center Start: 85-14-8106RL Prostate WO and W contrast [facility] Systemtart: 49-73-3600GJ prostate wo/w conMR prostate wo/w [facility] Hospitaltart: 06-24-9054Thnueoszhr measurementCreatinine monitoringMercy Health Work Phone: start: 47-84-9321Ytgsqjlpm monitoringPotassium monitoringMercy Health Work Phone: start: 21-27-6899Ezzegzffir A1c ewespvixifpZ4Y test (Diabetic or Prediabetic)[employer] Work Phone: start: 74-67-7525Fyruppcfx vaccinationFlu vaccine (#1) [employer] Phone: start: 98-66-0400Fcbcwbgytmez 65+ years Vaccine (1 of 1 - PPSV23)Pneumococcal 65+ years Vaccine (1 of 1 - PPSV23)[employer] Phone: start: 61-38-9798WZfH/Tdap/Td vaccine (1 - Tdap) DTaP/Tdap/Td vaccine (1 - Tdap)[employer] Phone: start: 23-32-2486Rnygpagj Vaccine (1 of 2)Shingles Vaccine (1 of 2)[employer] Phone: start: 46-48-7916Fbmbdyjhk for malignant neoplasm of colonColon cancer screen colonoscopyKindred Hospital LimaSchool Yourself Phone: start: 04-02-2054Csmawrnf microalbuminuria test Diabetic microalbuminuria testKindred Hospital LimaSchool Yourself Phone: start: 98-60-2049TATPB-19 Vaccine (1)COVID-19 Vaccine (1)[employer] Phone: start: 12-98-9626Ewkkcjns foot examinationDiabetic foot examKindred Hospital LimaSchool Yourself Phone: start: 11-96-9950Hfufmbuc retinal examDiabetic retinal examKindred Hospital LimaSchool Yourself Phone: start: 71-43-2878Zcvsd panelLipid screenKindred Hospital LimaSchool Yourself Phone: start: 93-76-4903Psolvowvb C screeningHepatitis C [facility] HospitalSchool Yourself Phone: End: 07-23-2021 DIFF TOXIN/ANTIGENC DIFF TOXIN/ANTIGEN Microbiology Routine 48 HRS for 48 Hours starting 07/23/2021 until 07/23/2021[facility] Phone: comment on above:48 HRS for 48 Hours starting 07/23/2021 until 07/23/2021 End: 51-62-8440W-reactive proteinC-Reactive Protein Lab Routine Daily for 3 Occurrences starting 07/24/2021 until 07/26/2021, 1 [employer] Phone: combwxq on above:Daily for 3 Occurrences starting 07/24/2021 until 07/26/2021, 1 completedC-reactive proteinC-Reactive Protein Lab Routine 07/25/2021 5:02 AM EDAdvestigo Phone: End: 26-71-0596Ltxspui, Respiratory, SputumCulture, Respiratory, Sputum Microbiology Routine One Time for 1 Occurrences starting 07/23/2021 until 07/23/2021[employer] Phone: comjjac on above:One Time for 1 Occurrences starting 07/23/2021 until 07/23/2021 End: 78-79-3508Z-Dimer, QuantitativeD-Dimer, Quantitative Lab Routine Daily for 3 Occurrences starting 07/24/2021 until 07/26/2021, 2 completedUpworthy Phone: comhixp on above:Daily for 3 Occurrences starting 07/24/2021 until 07/26/2021, 2 completedGlucose [Mass/volume] in Serum or Plasma [employer] Phone: comiaoa on above:4X Daily (AC & HS) until discontinued starting 07/24/2021s Needed until discontinued starting 07/23/2021Hepatic function 2000 panel - Serum or PlasmaHepatic function panel Lab Routine Daily until discontinued starting 07/24/2021, 1 [employer] Phone: comettd on above:Daily until discontinued starting 07/24/2021, 1 completedNasal Cannula OxygenNasal Cannula Oxygen Respiratory Care Routine Daily until discontinued starting 07/23/2021[employer] Phone: comment on above:Daily until discontinued starting 07/23/2021Oxygen therapy [Minimum Data Set]Initiate Oxygen Therapy Protocol Respiratory Care Routine Daily until discontinued starting 07/23/2021[employer] Phone: Comment on above:Daily until discontinued starting 07/23/2021 End: 12-99-9044MalwxttmklzzeLxwgqrpsiufho Lab Routine Q48H for 2 Occurrences starting 07/23/2021 until 07/25/2021[facility] [employer] Work Phone: comment on above:Q48H for 2 Occurrences starting 07/23/2021 until 07/25/2021[facility] Immunizations Immunization DateImmunizationNotesCare KhcocksnKwzhpxyn78-25-9603NFWRW-13 (PFIZER) 12Y and [facility]10-04-2024 COVID-19 mRNA Bivalent Booster (Pfizer)[facility] 40-15-9054tffgsgosh, high dose seasonal, preservative-freeAshtabula [facility] Medical Center10-13-2023COVID-19 (PFIZER) 12Y and [facility]10-13-2023Influenza vaccine, quadrivalent, adjuvanted [facility]10-13-2023influenza virus vaccine, unspecified formulationHalalati [facility]10-14-2022influenza virus vaccine, split virus (incl. purified surface antigen)Elpidio Sahu Other [employer] [employer] Other [id number] virus vaccine, unspecified formulationAshtabula [facility] Center07-22-2022Prevnar 20Benonel Sahu Other [facility]05-27-2022COVID-19 Comirnaty (Pfizer) Tri-Sucrose 12+[facility]05-27-2022 SARS-CoV-2 mRNA (ohlyikregzl-soua-ioulhta) vaccineHalalati [facility]12-10-2021SARS-CoV-2 (COVID-19) mRNA BNT-162b2 vaxHalalati [facility]11-19-2021SARS-CoV-2 (COVID-19) mRNA BNT-162b2 vaxThong MATOS [facility]10-29-2021Fluzone QIV High-Dose 65YR+[facility] 72-23-8771lbiiqszne virus vaccine, unspecified formulationThong MATOS [facility]07-13-2018tetanus and diphtheria toxoids, adsorbed, preservative free, for adult use (2 Lf of tetanus toxoid and 2 Lf of diphtheria toxoid)Thong MATOS [facility]07-13-2018tetanus and diphtheria toxoids, adsorbed, preservative free, for adult use (5 Lf of tetanus toxoid and 2 Lf of diphtheria toxoid)[facility]07-13-2018tetanus toxoid, reduced diphtheria toxoid, and acellular pertussis vaccine, adsorbedBenjamin Ball Other [facility] [employer] Other NEGATED: Highlighted row has not occurred!01-18-2020 influenza virus vaccine, live, attenuated, for intranasal useUmangvalentin MATOS [facility] Payers DatePayer CategoryPayerPolicy [id number] Health [id number] [id number] Health Insurance [id number] [id number] [id number] [id number] [id number] [id number] 2..[id number] [id number] [id number] 2.0.1.400087.3.579.2.531 Social History DateTypeDetailFacilityStart: 07-23-2021 End: 02-13-6246Tcpidtn smoking status NHISNever smokerMercer County Community Hospitaltart: 74-13-8589Mothdmu use and exposureNever usedBethesda North Hospital Prediki Prediction ServicesStart: 25-15-8997Jlcneka intakeLifetime non-drinker (finding)[employer] Work Phone: start: 28-51-7412Qzygmqg SDOH Alcohol Ahpaebljj7[facility] Work Phone: start: 35-67-2231Cua Assigned At BirthNot on [facility] hospitalUpworthy Phone: exposure to SARS-CoV-2 (event)YesKindred Hospital LimaTakeacoder HealthSex Assigned At BirthSumma Health Akron Campustart: 21-58-6380Ygc [facility]igned At [facility] Hospitaltart: 06-18-2024 End: 79-77-9047Hcqnujk smoking statusEx-smoker (finding)[facility] CenterTobacco smoking statusNeverExecutive Urology of [facility] Medical Centertart: 50-12-3414CuoRdix (finding) [facility] Medical Equipment Procedure CodeEquipment CodeEquipment Original TextEquipment IdentifierDates1 each by Does not apply route [id number]: 07-25-2021 Functional Status KwimBwguflxipeAyqxevKcuxdfaz05-81-1492Gpgbwscbra StatusN/AExec[facility] of [facility]08-19-2024Functional StatusN/A[facility] Clinical Notes 07-25-2021 to 02-18-2025 Note Date & DteeUvqcXeliriit98-03-8540 NotePatient Education Oncology Prostate Cancer Screening Prostate cancer screening is testing that is done to check for the presence of prostate cancer in men. The prostate gland is a walnut-sized gland that is located below the bladder and in front of therectum in males. The function of the prostate is to add fluid to semen during ejaculation. Prostatecancer is one of the most common types [...] is a blood test called the prostate-specific antigen(PSA) test. PSA is a protein that is [...] prostate gland for testing (biopsy). This is theonly way to know for certain if you [...] Where to find more information ??? The [place] [employer]: www.cancer.org ??? [place] [employer]: www.auanet.org Contact a health care [...] men. The prostate gland (more content not included)...[facility]11-04-2024 Hospital Discharge instructions Patient Education 09/03/2024 11:23:39 [...] such as a bone scan, CT scan, PETscan, or MRI. Stages of prostate cancer The [...] body. The higher the score, the greater thelikelihood that the cancer will spread. [place] 6 or lower: This indicates that the cancer cells look similar to normal prostate cells (well differentiated). [place] 7: This indicates that the cancer cells [...] you need help quitting, ask your health careprovider. Eat a healthy diet. To do this: [...] prostate cancer. Meeting with a support group mayhelp you learn to manage the stress of having cancer. General instructions Take qatj-huc-otygtxn and prescription medicines only as told by your health care provider. If you have to go to the hospital, notify your cancer specialist (oncologist). Keep all follow-up visits. This is important. Where to find more information [place] [employer]: www.cancer.org [place] [employer] of Clinical Oncology: www.cancer.net National Cancer [place]: www.cancer.gov Contact a health care provider if: [...] prostate cancer. Meeting with a support group mayhelp you learn to manage the stress of having cancer. This information is not intended to replace advice given to you by your health care provider. Make sure you discuss any questions you have with your health care provider. Document Revised: 01/13/2022 Document Reviewed: 01/13/2022 [employer] Patient Education 2023 [employer]. Follow Up Care 07/30/2024 15:23:03 With:EDY CARRINGTON, Thong Sherwood, URL Address: [facility] [address] , [place] [address]- When: Unknown [facility] 11-04-2024 NotePatient Education Oncology Prostate Cancer The prostate is [...] such as a bone scan, CT scan, PETscan, or MRI. Stages of prostate cancer The stages of prostate cancer are as follows: ??? Stage 1 (I). At this stage, the cancer is found in the prostate only. The cancer is not visibleon imaging tests, and it is usually found [...] body. The higher the score, the greater thelikelihood that the cancer will spread. ??? [place] 6 or lower: This indicates that the cancer cells look similar to normal prostate cells (well differentiated). ??? [place] 7: This indicates that the cancer cells [...] needles, seeds, wires, o (more content not included)...[facility]08-19-2024 Hospital Discharge instructions Patient Education 06/18/2024 10:39:02 [...] including vitamins, herbs, eye drops, creams, and ywtg-mfy-vfjbhvo medicines. Any surgeries you have had. Any [...] taken. Your health care provider will tell youwhen you can move. You may have to [...] may be told to drink plenty of fluidsto help flush the dye out of your [...] radio waves work together to form very detailedand clear images. In some cases, dye (contrast [...] provider. Document Revised: 06/30/2022 Document Reviewed: 02/18/2021 [employer] Patient Education 2022 [employer]. 06/18/2024 10:38:50 Prostate Cancer Screening Prostate Cancer Screening Prostate cancer screening is testing that is done to check for the presence of prostate cancer in men. The prostate gland is a walnut-sized gland that is located below the bladder and in front of therectum in males. The function of the prostate is to add fluid to semen during ejaculation. Prostatecancer is one of the most common types of cancer in men. Who should have prostate cancer screening? Screening recommendations vary based on age and other risk factors, as well as between the professional organizations who make the recommendations. In general, screening is recommended if: You are age 50 to 70 and have an average risk for prostate cancer. You should talk with your healthcare provider about your need for screening and [...] diagnosed with prostate cancer. The risk is higherif your family member's cancer occurred at an early age or if you have multiple family members withprostate cancer at an early age. ?Being a [...] is a blood test called the prostate-specific antigen(PSA) test. PSA is a protein that is [...] treatment? Where to find more information The [place] [employer]: www.cancer.org [place] [employer]: www.auanet.org Contact a health care [...] the recommended screening test for prostate cancer, butit has associated risks. Discuss the risks and [...] provider. Document Revised: 04/12/2022 Document Reviewed: 04/12/2022 [employer] Patient Education 2022 [employer]. Follow Up Care 2024 15:50:19 With:EDY CARRINGTON, Thong Sherwood, URL Address: [facility] [address], [place] [address] [phone] When: Unknown [facility] 08-19-2024 NoteUrology Office/Clinic Note Chief Complaint New pt, referral HPI Staff New pt referred by Dr. Gareth Sahu for elevated PSA. Last seen IO 01/18/20 by PRW. Dx: BPH, elevated PSA. S/p TRUS/bx 11/07/17 and 11/07/18. PSA: 04/22/17- 4.22 05/28/17 - [...] [facility] [address], [place] [address] [phone] Additional Instructions: f/u pending prostate MRI Patient Education Magnetic Resonance Imaging Prostate Cancer Screening ICarolina, personally scribed for Dr. Matos on 06/18/2024 10:40:15. . Documentation recorded by the scribeCarolina, accurately reflects the services(s) I performed and [...] influenza virus vaccine, inactivated 08/12/2023 Recorded SARSCoV2 mRNA(rkrwxbzfq-bubm-efpewn) vac 03/26/2022 Recorded SARS-CoV-2 (COVID-19) mRNA BNT-162b2 vax 10/09/2021 Recorded SARS-CoV-2 (COVID-19) mRNA BNT-162b2 vax 09/18/2021 Recorded influenza virus vaccine, inactivated 08/28/2021 Recorded influenza virus vacc (more content not included)...[facility] Comment on above:Result Comment: Electronically Signed By: Thong MATOS MD\.br\Date and Time Signed: 06/18/24 10:43 EDT\.br\Electronically Co-Signed By: Carolina Galan\.br\Date and Time Co-Signed: 06/18/24 10:40 EDT\.br\Electronically Co-Signed By: Carolina Galan\.br\Date and Time Co-Signed: 06/18/24 10:41 EDT 06-18-2024 NotePatient Education Oncology Prostate Cancer Screening Prostate cancer screening is testing that is done to check for the presence of prostate cancer in men. The prostate gland is a walnut-sized gland that is located below the bladder and in front of therectum in males. The function of the prostate is to add fluid to semen during ejaculation. Prostatecancer is one of the most common types [...] , screening in this age group is generallyreserved for men who have a 10- to [...] is a blood test called the prostate-specific antigen(PSA) test. PSA is a protein that is [...] cancer, and most men with prostate cancer diefrom a different cause. What are the risks [...] Where to find more information ? The [place] [employer]: www.cancer.org ? [place] [employer]: www.auanet.org Contact a health care [...] front of the rectum. (more content not included)...[facility]02-02-2024 Evaluation note* Encounter Date Diagnosis Assessment Notes Treatment Notes Treatment Clinical Notes Dec, Type 2 diabetes tammi itus with hyperglycemia (ICD-10 - E11.65) This patient [...] office visit. Continue regular routine monitoring of A1C,Microalbumin, Dilated eye exam and Foot exam A1C elevate w/ average BS 180 Discussed adding RAI vs GLP-1 - if affordable, will prescribe GLP-1 Decrease Metformin to 1000-500 due to GI side effects Repeat A1C in 3mo Dec,rimary hypertension (ICD-10 - I10)This patient is instructed to consume a healthy, low-fat, low-salt diet. They are also encouraged to continue exercise to achieve/maintain a normal BMI. Patient is instructed on home BP measurements: - rest for 5 minutes w/o talking.- positioned w/ feet on floor and arm supported.- average best 2/3 readings w/ goal < 135/85.- update office w/ homereadings in 2 weeks. Dec,Elevated cholesterol (ICD-10 - E78.00)Instructed on diet and exercise with continued statin therapy.Discussed the beneficial effects of lo wering cholesterol in reducing the risk for cerebrovascular and cardiovascular disease. Dec,enign prostatic hyperplasia with lower urinary tract symptoms (ICD- 10 - N40.1)Symptoms tolerable. He denies dysuria or hematuria Dec,Nocturia (ICD-10 - R35.1) Dec,Other obesity due to excess calories (ICD-10 - E66.09)This patient has been instructed on a low-fat, high-fiber diet. They are instructed to reduce calories, portion sizes and snacks. It is recommended that they exercise for 30 minutes, 3-5 times weekly. Dec,ody mass index [BMI] 30.0-30.9, adult (ICD-10 - Z68.30) Dec,Elevated prostate specific antigen [PSA] (ICD-10 - R97.20)Yearly PSA - s/p two TRUS/Bx w/o dx of malignancy. His normal value is slightly elevated Mar,Overweight (ICD-10 - E66.3)Overweight [place] - It's what's in store Other 09-25-2021 History of Present illness Narrative* Rina Gayle, RN - 07/25/2021 1:40 PM EDT Discharge [...] mass loss Fluid Accumulation: Unable to assess Curbing Stonecutter Strength: Not Performed Estimated Daily Nutrient Needs: Energy (kcal): 2230-2003 (20-23/kg); Weight Used for Energy Requirements: Current Protein (g): 94-125g (1.4-1.6g/kg); Weight Used for Protein Requirements: [place] Fluid (ml/day): 2070 ml; Method Used for Fluid Requirements: 1 ml/kcal Nutrition Related Findings: appears well nourished Wounds: None Current Nutrition Therapies: ADULT DIET; Regular; 4 carb choices (60 gm/meal) Anthropometric Measures: Height: 5' 11 (180.3 cm) Current Body Weight: 199 lb 6.4 oz (90.4 kg) Admission Body Weight: 199 lb 6.4 oz (90.4 kg) Usual Body Weight: 220 lb (99.8 kg) [place] Body Weight: 172 lbs; % [place] Body Weight 115.9 % BMI: 27.8 BMI [...] Weight Discharge Planning: Continue current diet Contact: [id number] * Yumiko Siddiqi LSW - 07/24/2021 12:27 PM EDT SW met with pt by phone to complete assessment due to covid diagnosis during quality rounds with RNcase manager risk management. Pt is alert and oriented and cooperative [...] a living will or durable power of collections attorney for healthcare? denies If yes do we have a copy on file? n/a Do you or your family have any questions or concerns we haven't already discussed? Denies Lives with and denies needs at discharge. PCP is Dr Sahu, prefers morning f/u appt time. Phone interview completed with Yumiko RODRIGUEZ and typewriter repairer due to covid diagnosis * Rina Gayle RN - 07/24/2021 11:05 AM EDT Virtual consult with Dr. Clark completed at bedside. * Nataliia Osorio RCP - 07/24/2021 9:49 AM EDT Pt weaned to room air at this time,SpO2 92-94% on room air. Ear probe is attached, continuous pulseox currently being utilized. Pt aware of O2 wean. * Nayely Lee [facility] - 07/23/2021 10:37 PM EDT [...] impairment (eGFR < 30 mL/min) or on MANAGER LAND. Consider risk/benefit for individual patient. Baseline CrCl: [...] 97% & 23 RR. documented in this [facility] [employer] Phone: 1(862) 541-168609-25-2021 Hospital course Narrative* Rojelio Mayes MD - 07/25/2021 12:15 PM EDT Hospitalist Discharge Summary Patient: Sid Han Date of : 1955 Acct: [id number] Primary Care Physician: Elpidio Sahu DO Admit date: 07/23/2021 Discharge date: 07/25/2021 Discharge Diagnoses: 1.Pneumonia due to COVID-19 virus 2. Hypoxia, resolved 3. Hyperglycemia, steroid-induced 4. Diabetes mellitus type 2, bdi-xtpriih-fuqdfhkjb, controlled with hemoglobin A1c 7.4% on 07/23/21 5. Hypokalemia, replaced Discharge Medications: Sid Han Home Medication Instructions JAVID:[id number] Printed on:07/25/21 1215 Medication Information ascorbic acid [...] (36.7 C) Oral 64 18 96 % 07/24/21 2008 18 96 % 07/24/21 1630 131/63 98 [...] 33 minutes Discharging Hospitalist documented in this encounter[facility] Work Phone: evaluation + Plan note Future Appointments Appointment Date:06/21/2025 09:45:00 AM Scheduled Provider:Thong MATOS MD Location:[facility] Appointment Type:URO Office Visit [facility] evaluation + Plan note Future Appointments Appointment Date:02/01/2025 09:45:00 AM Scheduled Provider:Thong MATOS MD Location:[facility] Appointment Type:URO Office Visit Diagnostic Tests Pending * PSA Total 09/03/[address] [facility] evaluation note* Diagnosis Pneumonia due to COVID-19 virus- Primary Severe malnutrition (HCC) Nutritional marasmus documented in this encounter [facility] Work Phone: evaluation note* Diagnosis Onset Date Resolution Status Atypical small acinar proliferation of p rostate acuteElevated PSAacuteHypercholesterolemiaacuteHypertensionacuteType 2 diabetes mellitus with hyperglycemiaacuteWellness examinationOhioHealth O'Bleness Hospital Work Phone: Evaluation note* Diagnosis Onset Date Resolution Status Atypical small acinar proliferation of p rostate acuteElevated PSAacuteHypercholesterolemiaacuteHypertensionacuteOverweightacute Type 2 diabetes mellitus with hyperglycemiaacuteWellness examinationKindred Healthcare Work Phone: Evaluation note* Diagnosis Onset Date Resolution Status Admit Date Hypercholesterolemia acuteFebruary 2024 10:36amHypertensionacuteFebruary 2024 10:36am OverweightacuteFebruary 2024 10:36amProstate canceracuteFebruary 2024 10:36amType 2 diabetes mellitus with hyperglycemiaacuteFebruary 2024 10:36am [facility] Work Phone: Evaluation note* Diagnosis Onset Date Resolution Status Admit Date Hypercholesterolemia acuteAugust 2024 9:45amHypertensionacuteAugust 2024 9:45amOverweight acuteAugust 2024 9:45amProstate canceracuteAugust 2024 9:45amType 2 diabetes mellitus with hyperglycemiaacuteAugust 2024 9:45amWellness examinationnoneactiveAugust 2024 9:45am [facility] Work Phone: History general Narrative - Reported* Type Description Date Medical History Essential (primary) hypertension Medical HistoryControlled type 2 diabetes mellitus with hyperglycemiaMedical HistoryHyperlipidemia, unspecifiedMedical HistoryEnlarged prostate with lower urinary tract symptoms (LUTS)Medical HistoryFamilial hypercholesterolemiaMedical HistoryElevated prostate specific antigen (PSA)Surgical HistoryBIOPSY WITH TRANSRECTAL ULTRASOUND (TRUS) [id number] HistoryTRANSRECTAL ULTRASOUND (TRUS) WITH [id number] HistorySEE SURGICAL [facility] Beet[employer] Other Hospital course Narrative No data available for this section [facility] Hospital Discharge instructions* Attachments The following attachments cannot be sent through Care Everywhere. * Coronavirus Disease (COVID-19): Hospital Discharge (Sudanese) * Coronavirus Disease (COVID-19): General Info (Sudanese) * Insulin Pen: How to Use: General Info (Sudanese) * insulin detemir (Sudanese) documented in this [facility] Work Phone: progress note No data available for this section [facility] reason for referral (narrative)No reason for referral information availableOhiohealth Marion General Hospital Work Phone: Advance Directives TypeDate RecordedPatient RepresentativeExplanationACP-Power of AttorneyCode StatusDate ActivatedDate InactivatedCommentsFull Code07/23/2021 10:11 PMName RelationshipHealthcare Agent RelationshipCommunicationJoyce DennisSpousePrimary Decision Maker* Advance Directive Response Recorded Date/ Time Advance Directives No December 02, 2023 12:06pm Advance Directive Response Recorded Date/ Time Advance Directives No December 02, 2023 11:06am Summary Purpose Family History Relationship Condition Age at Onset Recorded Date/T wandy father Unknown Heart diseaseUnknownfamily memberCrohn's diseaseUnknownmotherDeceasedUnknown Chief Complaint and Reason for Visit Chief Complaint Amb Documentation WELLNESSReason for VisitAtypical small acinar proliferation of prostate Elevated PSA Hypercholesterolemia Hypertension Type 2 diabetes mellitus with hyperglycemia Wellness examination Chief Complaint WELLNESS r97.20Reason for VisitAtypical small acinar proliferation of prostate Elevated PSA Hypercholesterolemia Hypertension Overweight Type 2 diabetes mellitus with hyperglycemia Wellness examination Chief Complaint WELLNESS r97.20 R97.20 N42.89Reason for VisitAtypical small acinar proliferation of prostate Elevated PSA Hypercholesterolemia Hypertension [...] with hyperglyce stef December 21, 2024 10:36am Chief Complaint Admit Date wellness June 21, 2025 9: 45am Reason for Visit Admit Date Hypercholesterolemia June 21, 2025 9 :45am Hypertension June 21, 2025 9: 45am Overweight June 21, 2025 9: 45am Prostate cancer June 21, 2025 9: 45am Type 2 diabetes mellitus with hyperglyce stef June 21, 2025 9:45am Wellness examination June 21, 2025 9 :45am Additional Source Comments Reason for Visit (unrecogniz ed section and content) ReasonCommentsShortness of BreathPt c/o mild SOB x4-5 days. He states he tested positive for COVID yesterday.StatusReasonSpecialtyDiagnoses / ProceduresReferred By ContactReferred To Contact Diagnoses Pneumonia due to COVID-19 virus Rojelio Mayes MD [address] [place], [place] [id number] [facility] Ordered Prescriptions (unrec ognized section and content) PrescriptionSigDispensedRefillsStart DateEnd Date Insulin Pen Needle ([employer] PEN NEEDLES) 31G X 6 MM MISC 1 each by Does not apply route daily 50 each insulin detemir (LEVEMIR FLEXTOUCH) 100 UNIT/ML injection pen Inject 10 Units into the skin daily (with breakfast) 2 pen dexamethasone (DECADRON) 6 MG tablet Take 1 tablet by mouth daily (with breakfast) for 8 days 8 tablet //12/2020 Vitamin D (CHOLECALCIFEROL) 50 MCG (1999 UT) TABS tablet Take 1 tablet by mouth daily 60 tablet ascorbic acid (VITAMIN C) 1000 MG tablet Take 1 tablet by mouth daily 30 tablet Scheduled Active and Recently Administ ered Medications (unrecognized section and content) Medication Order// 0.9 % sodium chloride bolus (COMPLETED) 500 mL (5.01 mL/kg), IntraVENous, at 1,000 mL/hr, Administer over 0.5 Hours, ONCE, On Tue07/23/21 at 2014, For 1 dose * 2010 (New Bag - Provider: Jane Porter RN) * 2040 (Stopped - Provider: Jane Porter RN) ascorbic acid (VITAMIN C) tablet 1,000 mg 1,000 mg, Oral, DAILY, First dose on Tue07/24/21 at 0900 * 08 (Given - Provider: Rina Gayle RN) * 08 (Given - Provider: Rina Gayle, [place]) budesonide (PULMICORT) nebulizer suspension 500 mcg 500 mcg (0.5 mg), Nebulization, 2 TIMES DAILY, First dose on Tue07/23/21 at 2230, Rinse mouth out with water (without swallowing) after every dose. * 2229 (Given - Provider: Jade Mares RCP) * 938 (Given - Provider: Nataliia Osorio VISUAL DISPLAY MANAGER) * 2007 (Given - Provider: Cielo Arnold VISUAL DISPLAY MANAGER) * 803 (Given - Provider: Melissa Vaughan VISUAL DISPLAY MANAGER) * 2099 (Due - Provider: Jade Mares RCP) dexamethasone (PF) (DECADRON) injection 6 mg (COMPLETED) 6 mg, IntraVENous, ONCE, On Tue07/23/21 at 2014, For 1 dose * 2010 (Given - Provider: Jane Porter RN) dexamethasone (PF) (DECADRON) injection 6 mg 6 mg, IntraVENous, EVERY 24 HOURS, First dose on Tue07/24/21 at 1999, For 10 doses * 2101 (Given - Provider: Charla Bal, [place]) * 1999 (Due) enoxaparin (LOVENOX) injection 30 mg 30 mg, SubCUTAneous, 2 TIMES DAILY, First dose on Tue07/23/21 at 2230 * 2226 (Given - Provider: Molly Nair RN) * 08 (Given - Provider: Rina Gayle, [place]) * 2100 (Given - Provider: Charla Bal, [place]) * 08 (Given - Provider: Rina Gayle, [place]) * 2100 (Due) insulin lispro (HUMALOG) injection vial 0-12 Units 0-12 Units, SubCUTAneous, 3 TIMES DAILY WITH MEALS, First dose on Tue07/24/21 at 0800, Medium Dose Correction Algorithm Glucose: Dose: 70-139 No Insulin 140-199 2 Units 200-249 4 Units 250-299 6 Units 300-349 8 Units 350-399 10 Units 400 and above 12 Units * 0816 (Given - Provider: Rina Gayle RN - Comment: 215) * 1208 (Given - Provider: Rina Gayle RN - Comment: 244) * 1703 (Given - Provider: Rina Gayle RN - Comment: 162) * 0818 (Given - Provider: Rina Gayle RN - Comment: 266) * 1131 (Given - Provider: Rina Gayle RN) * 1700 (Due) insulin lispro (HUMALOG) injection vial 0-6 Units 0-6 Units, SubCUTAneous, NIGHTLY, First dose on Tue07/23/21 at 2230, If continuous tube feedings/TPN/NPO, give correction dose based on result, no reduction in dose. If eating or bolus tube feeding: Medium Dose Bedtime Correction Algorithm Glucose: Dose: 70-139 No Insulin 140-199 1 Unit 200-2492 Units 250-299 3 Units 300-349 4 Units 350-399 5 Units 400 and above 6 Units * 2258 (Given - Provider: Molly Nair RN - Comment: 247) * 2055 (Given - Provider: Charla Bal RN - Comment: sbs 172) * 2100 (Due) potassium chloride (KLOR-CON) extended release tablet 40 mEq (COMPLETED) 40 mEq, Oral, ONCE, On Khushboo 07/23/21 at 2230, For 1 dose, Do not crush or break. * 2226 (Given - Provider: Molly Nair RN) remdesivir 100 mg in sodium chloride 0.9 % 250 mL IVPB 100 mg, IntraVENous, at 500 mL/hr, Administer over 30 Minutes, EVERY 24 HOURS, First dose (after last modification) on Tue07/25/21 at 2300, For 3 doses, Flush line with at least 30 mL normal saline after remdesivir infusion is complete. * 2300 (Due) remdesivir 100 mg in sodium chloride 0.9 % 250 mL IVPB (COMPLETED) 100 mg, IntraVENous, at 500 mL/hr, Administer over 30 Minutes, ONCE, On Tue07/24/21 at 2300, For 1 dose * 2359 (New Bag - Provider: Charla Bal RN) * 0043 (Stopped - Provider: Charla Bal RN) remdesivir 200 mg in sodium chloride 0.9 % 250 mL IVPB (COMPLETED) 200 mg, IntraVENous, at 500 mL/hr, Administer over 30 Minutes, ONCE, On Tue07/23/21 at 2300, For 1 dose, Flush line with at least 30 mL normal saline after remdesivir infusion is complete. * 2301 (New Bag - Provider: Molly Nair RN) * 2331 (Stopped - Provider: Molly Nair RN) sodium chloride flush 0.9 % injection 5-40 mL 5-40 mL, IntraVENous, EVERY 12 HOURS SCHEDULED (2 times per day), First dose on Tue07/23/21 at 2230, For Line Patency: Peripheral IV [...] Midline or Central Line = 20 mL/lumen * 2227 (Given - Provider: Molly Nair RN) * 1113 (Not Given - Provider: Rina Gayle, [place] - Reason: IV Fluid Infusing) * 2105 (Not Given - Provider: Charla Bal RN - Reason: IV Fluid Infusing) * 0820 (Not Given - Provider: Rina Gayle, [place] - Reason: IV Fluid Infusing) * 2100 (Due) Vitamin D (CHOLECALCIFEROL) tablet 2,000 Units 2,000 Units, Oral, DAILY, First dose on Tue07/24/21 at 0900, Maintenance Dose. * 0817 (Given - Provider: Rina Gayle, [place]) * 0820 (Given - Provider: Rina Gayle, [place]) Medication Order07/23//// 0.9 % sodium chloride infusion IntraVENous, at 75 mL/hr, CONTINUOUS, Starting on Tue07/24/21 at 0845 * 1113 (New Bag - Provider: Rina Gayle, RN) * 1134 (Stopped - Provider: Rina Gayle, RN) Medication Order07/23/// 0.9 % sodium chloride bolus 30 mL (0.332 mL/kg), IntraVENous, at 180 mL/hr, Administer over 10 Minutes, PRN, for Remdesivir line flush, Starting on Tue07/23/21 at 2236 * 2302 (New Bag - Provider: Molly Nair, RN) * 0026 (Stopped - Provider: Molly Nair, RN) 0.9 % sodium chloride infusion 25 mL, IntraVENous, at 100 mL/hr, PRN, If patient receiving piggyback infusions without ordered maintenance IV fluids or with frequent/long duration piggyback infusions, Starting on Tue07/23/21 at 2211, Administer at the same rate as the piggyback being infused. acetaminophen (TYLENOL) suppository 650 mg(Linked Group 1) 650 mg, Rectal, EVERY 6 HOURS PRN, Pain Mild (1-3), Fever, For temp greater than 100.4 F (38 C), Starting on Tue07/23/21 at 2211, Administer if oral route cannot [...] blood sugar, Starting on Tue07/23/21 at 2211, Start infusion following administration of [...] treatment and recheck blood glucose in 15 minutesx2. If using Glucostabilizer, dose as instructed per [...] glucose gel. Repeat blood glucose in 15 minutes.If blood glucose is less than 70 mg/dL, repeat treatment and recheck blood glucose in 15 minutes x2and notify provider. guaiFENesin-dextromethorphan (ROBITUSSIN DM) 100-10 MG/5ML syrup 5 mL 5 mL, Oral, EVERY 4 HOURS PRN, Cough, Starting on Kh[place] 07/23/21 at 2211 ondansetron (ZOFRAN) injection 4 mg(Linked Group 2) 4 mg, IntraVENous, EVERY 6 HOURS PRN, Nausea, Vomiting, Starting on [place] 07/23/21 at 2211, Administerif oral route cannot be used. ondansetron (ZOFRAN-ODT) [...] use, Starting on [place] 07/23/21 at 2211, ForLine Patency: Peripheral IV = 5 mL; Midline or Central Line = 10 mL/lumen. If following IV push medication, administer flush at same rate as the IV push. Flush volume is determined by type of infusion therapy being given. For non-viscous solutions use: Peripheral IV = 5 mL Midline or Central Line =10 mL/lumen For viscous solutions (i.e. blood components, parenteral nutrition, contrast media, or after obtaining blood sample) use: Peripheral IV = 10 mL Midline or Central Line = 20 mL/lumen Order Group 1: acetaminophen (TYLENOL) tablet 650 mgJump to med 650 mg, Oral, EVERY 6 HOURS PRN, Pain Mild (1-3), Fever, For temp greater than 100.4 F (38 C), Starting on Kh[place]bo[place] 07/23/21 at 2211
Maximum dose of acetaminophen is 4000 mg from all sources in 24hours.
Or acetaminophen (TYLENOL) suppository 650 mgJump to med 650 mg, Rectal, EVERY 6 HOURS PRN, Pain Mild (1-3), Fever, For temp greater than 100.4 F (38 C), Starting on Kh[place] 07/23/ at 2211
Administer if oral route cannot be used.
Group 2: ondansetron (ZOFRAN-ODT) disintegrating tablet 4 mgJump to med 4 mg, Oral, EVERY 8 HOURS PRN, Nausea, Vomiting, Starting on Khushbo[place] 07/23/ at 2211 Or ondansetron (ZOFRAN) injection 4 mgJump to med 4 mg, IntraVENous, EVERY 6 HOURS PRN, Nausea, Vomiting, Starting on Kh[place] 07/23/21 at 2211
Administer if oral route cannot be used.
(unrecognized sect ion and content) No Status Records FoundNo Status Records FoundNo Status Records FoundNo Status Records Found INFORMATION SOURCE (unrecogn ized section and content) DATE CREATED AUTHOR 07/26/2021 [facility] DATE CREATED AUTHOR AUTHOR'S ORGANIZ ATION 05/18/2022 [facility] DATE CREATED AUTHOR AUTHOR'S ORGANIZ ATION 09/16/2024 [facility] DATE CREATED AUTHOR AUTHOR'S ORGANIZ ATION 02/19/2025 [facility] Care Teams (unrecognized sec tion and content) Team Status: Active Member Role Status Dates Elpidio Sahu DO Primary Care Provider Active Team Status: Active Member Role Status Dates Elpidio Ball , DO Primary Care Provider Active Start: June 15, 2025 Elpidio Sahu Alejulio ProviderActiveStart: June 15, 2025 Team Status: Inactive Member Role Status Dates Elpidio DO Luis Alberto Primary Care Provider Active Start: June 21, 2025 End: June 21teomoi Sahu Attending ProviderActiveStart: June 21, 2025 End: June 21, 2025 Team Status: Active Member Role Status Dates Elpidio Sahu DO Primary Care Provider Active Team Status: Inactive Member Role Status Dates Elpidio Sahu DO Primary Care Provide r, Attending Provider Active Start: December 21, 2024 End: December 21, 2024 Team Status: Active Member Role Status Dates Elpidio Sahu DO Primary Care Provider Active Start: March 19, 2024 Keiry Fletcher ProviderActiveStart: March 19, 2024 Team Status: Active Member Role Status Dates Elpidio Sahu DO Primary Care Provide r, Attending Provider Active Start: May 26, 2024 Team Status: Inactive Member Role Status Dates Elpidio Sahu DO Primary Care Provide r, Attending Provider Active Start: June 01, 2024 End: June 01, 2024 Team Status: Inactive Member Role Status Dates Elpidio Sahu Primary Care Provider Active Start: July 25, 2024 End: July 254Pjarrod Matos ORIONmaribell ProviderActiveStart: July 25, 2024 End: July 25, 2024 Team Status: Inactive Member Role Status Dates Elpidio Sahu Primary Care Provider Active Start: August 14, 2024 End: August 144PLaura Marrufo ProviderActiveStart: August 14, 2024 End: August 14, 2024 Team Status: Active Member Role Status Dates Elpidio DO Luis Alberto Primary Care Provider Active Start: June 15, 2025 Elpidio Sahu Alejulio ProviderActiveStart: June 15, 2025 Team Status: Inactive Member Role Status Dates Elpidio Sahu Primary Care Provider Active Start: June 21, 2025 End: June 21teomoi Luis Alberto Aleending ProviderActiveStart: June 21, 2025 End: June 21, 2025 Goals (unrecognized section and content) Goals may [...] BE BASED ON THE PRIMARY CLINICAL RECORDS. [facility]. provides no warranty or guarantee of the accuracy or completeness of information in this document.
[2025-08-30 17:59] LABS: Prostate Specific Antigen Dx 6.99 ng/mL (<=4.00)
== END 2025-08-30 15:58 | disposition home or self-care (01) ==
PROVIDERS: PCP Internal Medicine; Visit Provider Urology
DX: C61 Malignant neoplasm of prostate (principal)
CPT/HCPCS: 36415; 84153